=== PATIENT | male | born 1975 | race Caucasian/White ===

== ENCOUNTER → 2017-10-02 13:31 | Outpatient (REF) | payer OTHER, MEDICAID, SELFPAY | LOC: LAB 13:31 | PROVIDERS: PCP Internal Medicine; Visit Provider Internal Medicine | DX: R19.7 Diarrhea, unspecified (principal); Z53.9 Procedure and treatment not carried out, unspecified reason ==

== ENCOUNTER → 2017-10-11 09:13 | Outpatient (CLI) | payer OTHER, SELFPAY | PROVIDERS: PCP Internal Medicine; Visit Provider Internal Medicine | DX: R19.7 Diarrhea, unspecified (principal) | CPT/HCPCS: 87493 ==

== ENCOUNTER 2017-11-02 10:22 | Emergency (ER) | payer OTHER, MEDICAID, SELFPAY ==
[2017-11-02 10:27] VITALS: BP 116/84; PULSE 88; RESP 16; TEMP 36.7; O2SAT 97
[2017-11-02 12:15] LABS: Bacteria Urine None Seen; RBC Urine None Seen (0-5/HPF); WBC Urine None Seen (0-5/HPF)
[2017-11-02 12:17] LABS: Appearance Urine UA CLOUDY; Bilirubin Urine UA NEGATIVE (NEGATIVE); Color Urine UA YELLOW; Glucose Urine UA NEGATIVE (Normal); Ketones Urine UA 1+ (NEGATIVE); Leukocyte Esterase Urine UA 1+ (NEGATIVE); Nitrite Urine UA POSITIVE (Negative); Occult Blood Urine UA TRACE-LYSED (Negative); Protein Urine UA 3+ (Negative); Urobilinogen Urine UA 0.2 E.U./dL (0.2)
[2017-11-02 12:26] LABS: Amorphous Sediment Urine 4+; Culture Indicated Urine Cult Not Indicated
[2017-11-02 12:48] LABS: Add Manual Diff / Slide Review NO; Basophils Percent Auto 0.3 % (0-2); Eosinophils Percent Auto 0.3 % (2-4); Hematocrit 40.6 % (41-53); Hemoglobin 13.8 g/dL (13.5-17.5); Lymphocytes Percent Auto 14.8 % (25-40); Mean Corpuscular HGB Conc 33.9 % (30-36); Mean Corpuscular Hemoglobin 25.6 PG (26-34); Mean Corpuscular Volume 75.7 fL (80-100); Monocytes Percent Auto 5.9 % (3-14); Neutrophils Absolute Auto 6400 /uL (3000-5900); Neutrophils Percent Auto 78.7 % (50-75); Platelet Count 121 X10^3/uL (150-400); Red Blood Cell Count 5.36 X10^6/uL (4.5-5.9); Red Cell Distribution Width 15.6 % (11.6-14.8); White Blood Cell Count 8.2 X10^3/uL (4.5-11.0)
[2017-11-02 12:55] LABS: Alanine Aminotransferase 26 IU/L (21-72); Albumin 4.2 g/dL (3.5-5.0); Albumin Globulin Ratio 1.2 (1.0-2.8); Alkaline Phosphatase 74 U/L (38-126); Aspartate Aminotransferase 21 IU/L (17-59); Bilirubin Total 0.5 mg/dL (0.2-1.3); Blood Urea Nitrogen 6 mg/dL (9-20); Calcium 9.1 mg/dL (8.4-10.2); Carbon Dioxide 34 mmol/L (22-32); Chloride 97 mmol/L (98-107); Estimated Glomerular Filt Rate > 60.0 mL/min (>60); Globulin 3.5 g/dL (1.7-4.1); Glucose 112 mg/dL (70-100); HEMOLYSIS < 15 (0-50); Lipase 29 U/L (23-300); Potassium 3.6 mmol/L (3.4-5.1); Sodium 141 mmol/L (137-145); Total Protein 7.7 g/dL (6.3-8.2)
[2017-11-02 12:57] LABS: Lactate (Lactic Acid) 0.5 mmol/L (0.7-2.1)
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
[2017-11-02] MEDS: CIPROFLOXACIN 500 MG TABLET PO (14:07)
[2017-11-02 14:59] VITALS: BP 120/79; PULSE 72; RESP 18; TEMP 37.1; O2SAT 97
--- NOTE | 2017-11-02 15:05 | CM.SWNOTE ---
Requested by Dr Alexis to respond to the ED to speak w/adrian and his mom re Medicaid transportation. According to both mom and Adrian's report: Adrian has not been mmedically stable enough to sit up in his w/c to transport to doctor's appts. Adrian has severe pain, blood pressure drops, etc. They have scheduled stretcher transport via [facility] in the past and [facility] no longer will accept Medicaid reimbursement for scheduled pick ups (to and from Hospital is different). Attempted to contact Adrian's DEON JESE Reeves at [phone], she was not in office, so I spoke to puja Benites; she explained that scheduled stretcher transportation goes through the [facility] at [phone]. The [employer] [facility] needs to complete the authorization for stretcher transportation w/the contracted agency- [email or web address] at [phone] email contact [email or web address]. Provided above information to Adrian and mom; she thought she had likely attempted this before (?) Adrian the most concerned that he can not get to the dentist; he explains me teeth are literally falling out (h/o meth use). Both mom and Adrian appreciative for [employer] HUSB[employer] TECHNICIAN visit. No further needs/ f/u identified or required. Elizabeth Pak, [employer]AR[employer] ANIMAL HUSBANDRY TECHNICIAN
== END 2017-11-02 14:59 | disposition home or self-care (01) ==
PROVIDERS: Emergency Provider Emergency Medicine; PCP Internal Medicine
DX: N39.0 Urinary tract infection, site not specified (principal)
CPT/HCPCS: 36415; 80053; 81001; 83605; 83690; 85025; 99282; 99283

== ENCOUNTER 2017-11-05 10:50 | Emergency (ER) | payer OTHER, MEDICAID, SELFPAY ==
[2017-11-05 11:04] VITALS: BP 145/80; PULSE 69; RESP 20; TEMP 37.2; O2SAT 95
--- NOTE | 2017-11-05 11:54 | DI.CT.S_ITS ---
PROCEDURE: CT ABDOMEN PELVIS W CON INDICATIONS: Lower abdominal pain TECHNIQUE: After the administration of intravenous contrast, 5 mm thick sections acquired from the diaphragm to the symphysis. 5 mm coronal and sagittal reformats were acquired. For radiation dose reduction, the following was used: automated exposure control, adjustment of mA and/or kV according to patient size. COMPARISON: [facility], CT, ABDOMEN/PELVIS WITH CONTRAST, 11/12/2013, 0:28. [facility], MR, L-SPINE W&WO CONTRAST, 07/17/2014, 9:39. [facility], CT, KIDNEY/ URETER/BLADDER, 08/10/2014, 13:41. [facility], CT, ABDOMEN/PELVIS WITH CONTRAST, 07/05/2017, 11:36. FINDINGS: Image quality: Excellent. ABDOMEN: Lung bases: Lung bases are clear. Heart size is normal. Solid organs: Liver is normal in size and enhancement. Gallbladder is normal. Biliary system is non dilated. Pancreas enhances normally. Spleen is mildly enlarged measuring 14.9 cm. No adrenal nodules. Kidneys demonstrate normal size and enhancement, without hydronephrosis. Peritoneum and bowel: Bowel loops demonstrate normal wall thickness and caliber. There is fluid within the sigmoid colon. Sigmoid rectal junction may be mildly thickened. No free fluid or air. Nodes and vessels: No retroperitoneal or mesenteric adenopathy by size criteria. Aorta and inferior vena cava are normal in size. Miscellaneous: No ventral hernias. PELVIS: Genitourinary: Bladder wall thickness is normal. There is a suprapubic percutaneous catheter within the bladder. Miscellaneous: No inguinal hernias or adenopathy. Bones: No suspicious bony lesions. Mild compression deformity of T12, L1, L2, L3 and L5, unchanged from 07/17/19. Degenerative changes in lumbar spine. IMPRESSION: 1. Suprapubic percutaneous catheter within the bladder. 2. Fluid in the distal sigmoid colon. There may be mild thickening at the sigmoid rectal junction. Recommend correlation for mild colitis/proctitis. 3. Splenomegaly. Dictated by: Lizandro Harrison M.D. on 11/05/2017 at 12:24 Transcribed by: DAQUAN on 11/05/2017 at 12:27 Approved by: Lizandro Harrison M.D. on 11/05/2017 at 13:27
[2017-11-05 12:05] LABS: Add Manual Diff / Slide Review NO; Basophils Percent Auto 0.2 % (0-2); Eosinophils Percent Auto 0.2 % (2-4); Hematocrit 39.3 % (41-53); Hemoglobin 13.4 g/dL (13.5-17.5); Lymphocytes Percent Auto 11.2 % (25-40); Mean Corpuscular Hemoglobin 25.5 PG (26-34); Mean Corpuscular Volume 74.9 fL (80-100); Monocytes Percent Auto 5.7 % (3-14); Neutrophils Absolute Auto 7800 /uL (3000-5900); Neutrophils Percent Auto 82.7 % (50-75); Platelet Count 128 X10^3/uL (150-400); Red Blood Cell Count 5.24 X10^6/uL (4.5-5.9); Red Cell Distribution Width 15.3 % (11.6-14.8); White Blood Cell Count 9.5 X10^3/uL (4.5-11.0)
[2017-11-05 12:08] LABS: Lactate (Lactic Acid) 0.7 mmol/L (0.7-2.1)
[2017-11-05 12:09] LABS: Alanine Aminotransferase 27 IU/L (21-72); Albumin Globulin Ratio 1.1 (1.0-2.8); Alkaline Phosphatase 79 U/L (38-126); Aspartate Aminotransferase 23 IU/L (17-59); Bilirubin Total 0.6 mg/dL (0.2-1.3); Blood Urea Nitrogen 4 mg/dL (9-20); Calcium 8.9 mg/dL (8.4-10.2); Carbon Dioxide 29 mmol/L (22-32); Chloride 100 mmol/L (98-107); Estimated Glomerular Filt Rate > 60.0 mL/min (>60); Globulin 3.6 g/dL (1.7-4.1); Glucose 97 mg/dL (70-100); HEMOLYSIS 17 (0-50); Lipase 43 U/L (23-300); Potassium 3.3 mmol/L (3.4-5.1); Sodium 141 mmol/L (137-145); Total Protein 7.6 g/dL (6.3-8.2)
--- NOTE | 2017-11-05 13:08 | PC.NURSE ---
PROVIDER AWARE PT IS REQUESTING DIGITAL DIS-IMPACTION. CT SCAN REVIEWED. PROVIDER STATES STOOL IS TOO HIGH UP AT THIS POINT BASED OFF CT FINDINGS, DIGITAL DISIMPACTION WOULD NOT BENEFIT PT AT THIS TIME. NO NEW ORDERS AT THIS TIME. PT VERBALIZED UNDERSTANDING OF PROVIDERS REASONING TO AVOID DIGITAL DISIMPACTION AT THIS TIME. PTS FATHER CALLED PER PT REQUEST TO COME BACK TO ROOM.
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
[2017-11-05 13:34] VITALS: PULSE 72; RESP 17; O2SAT 100
[2017-11-05 14:19] VITALS: BP 117/74; PULSE 73; RESP 16; O2SAT 100
[2017-11-05 16:04] VITALS: BP 120/77; PULSE 78; RESP 20; TEMP 36.1; O2SAT 99
== END 2017-11-05 16:06 | disposition home or self-care (01) ==
PROVIDERS: Emergency Provider Emergency Medicine; PCP Internal Medicine
DX: K52.9 Noninfective gastroenteritis and colitis, unspecified (principal)
CPT/HCPCS: 36591; 74177; 80053; 83605; 83690; 85025; 93005; 99282; 99285; Q9967

== ENCOUNTER 2017-11-08 20:01 | Inpatient (IN) | payer OTHER, MEDICAID, SELFPAY ==
--- NOTE | 2017-11-08 20:08 | ED.ABDPAIN ---
HPI - Abdominal Pain General Chief Complaint: Abdominal Pain Stated Complaint: Abd Pain Time Seen by Provider: 11/08/17 20:08 Source: patient Mode of arrival: EMS Limitations: no limitations History of Present Illness HPI narrative: Patient is a 42-year-old male who has a history of C6 quadriplegia presenting for the 3rd time this week all with abdominal pain and discomfort. He was seen initially on the he had blood work on thought to have a UTI though he does have suprapubic catheter. He continued to have lower abdominal discomfort returned on 11/05/2017 he had blood work and a CT which revealed colitis. He says that he has had lots of loose watery diarrhea. He has had C diff in the past. He actually brought in a stool sample with him today and is a formed stool. Over the last 2 weeks especially over the last 4 days he has had significant weight loss. He has been losing weight over the past 6 months but since she start antibiotics he is not able to keep anything down. He feels like liquid goes right through him Related Data Home Medications Medication Instructions Recorded Confirmed sertraline 100 mg PO QDAY #0 06/11/17 11/08/17 alprazolam 0.25 mg PO BID #0 07/05/17 11/08/17 baclofen 20 mg PO QID #0 07/05/17 11/08/17 gabapentin [Gralise] 300 mg PO TID #0 07/05/17 11/08/17 methadone 10 mg PO BID #0 07/05/17 11/08/17 oxycodone 10 mg PO Q4HP PRN #0 07/05/17 11/08/17 bisacodyl 1 supp [place] DAILY PRN 11/02/17 11/08/17 omeprazole 40 mg PO BID 11/02/17 11/08/17 oxybutynin chloride 5 mg PO BID 11/02/17 11/08/17 sodium chloride 100 - 200 ml IRRIGATION 5XW 11/02/17 11/08/17 aspirin 325 mg PO DAILY 11/08/17 11/08/17 Previous Rx's Medication Instructions Recorded ciprofloxacin HCl 500 mg PO Q12H #20 tab 11/05/17 metronidazole 500 mg PO TID #30 tab 11/05/17 Allergies Allergy/AdvReac Type Severity Reaction Status Date / Time ondansetron [ONDANSETRON] Allergy Intermediate PAIN, Verified 11/05/17 11:10 ITCHING, ERYTHEMA AT INJECTION SITE [facility] Social History household members: family Smoking Status: Current every day smoker alcohol intake: never Exam Initial Vital Signs Initial Vital Signs: Vital Signs Temperature 97.9 F 11/08/17 20:11 Pulse Rate 97 H 11/08/17 20:11 Respiratory Rate 20 11/08/17 20:11 Blood Pressure 100/72 11/08/17 20:11 Pulse Oximetry 97 11/08/17 20:11 Const General: cooperative, healthy appearing and well developed Nutritional Appearance: not cachectic Resp Effort & Inspection: normal respiratory effort, able to speak in complete sentences, no respiratory distress and no use of accessory muscles Auscultation: clear to auscultation bilaterally, no rales, no rhonchi and no wheezes Cardio Rate: regular rate Rhythm: regular rhythm Heart Sounds: no click, no gallops, no murmurs and no rubs Pulses: normal peripheral pulses GI Palpation: soft and tender (Mild diffuse tenderness) Skin General: no rashes or lesions noted, No jaundice and No petechiae Neuro General: alert, awake, oriented x3 and no focal motor deficits (C6 paraplegia unchanged at baseline) Cranial Nerves: CN's II-XI intact bilaterally Course Orders Ordered: ED Orders 11/08/17 20:30 Complete Blood Count AUTO DIFF Stat Comprehensive Metabolic Panel Stat Lactate (Lactic Acid) Stat Lipase Stat 11/08/17 22:37 Consult to Physician Routine 11/08/17 22:46 Consult to Dietitian, Adult Routine Sodium Chloride (Normal Saline 0.9%) 1,000 mls @ 1,000 mls/hr IV CONT ROSA Last Infusion: 11/08/17 21:48 Dose: 0 mls/hr Admin: 11/08/17 20:55 Dose: 1,000 mls/hr Sodium Chloride (Normal Saline 0.9%) 1,000 mls @ 125 mls/hr IV CONT ROSA Last Admin: 11/08/17 23:18 Dose: 125 mls/hr Metronidazole (Flagyl) 500 mg in 100 mls @ 100 mls/hr IV Q8H ROSA Metoclopramide HCl (Reglan) 10 mg IV Q6HR PRN PRN Reason: Nausea And Vomiting Morphine Sulfate (Morphine Sulfate) 2 mg IV Q4H PRN PRN Reason: Pain, Moderate Last Admin: 11/08/17 23:24 Dose: 0.5 mg Discontinued Medications Aspirin (Aspirin) 325 mg PO NOW ONE Stop: 11/08/17 21:46 Last Admin: 11/08/17 22:04 Dose: 325 mg Levofloxacin (Levaquin) 750 mg in 150 mls @ 100 mls/hr IV NOW ONE Stop: 11/08/17 23:00 Last Infusion: 11/08/17 22:17 Dose: 100 mls/hr Admin: 11/08/17 22:04 Dose: 100 mls/hr Metronidazole (Flagyl) 500 mg in 100 mls @ 100 mls/hr IV NOW ONE Stop: 11/08/17 22:30 Last Infusion: 11/08/17 22:18 Dose: 100 mls/hr Admin: 11/08/17 22:04 Dose: 100 mls/hr Pantoprazole Sodium (Protonix) 40 mg IV NOW ONE Stop: 11/08/17 20:13 Last Admin: 11/08/17 20:54 Dose: 40 mg Consultations Consultation #1: Dr. Keane updated on patient's symptoms and test results agrees to admission. Vital Signs - 8 hr 11/08/17 20:11 11/08/17 20:36 11/08/17 21:30 Temperature 97.9 F Pulse Rate 97 H 81 92 H Respiratory Rate 20 18 14 Blood Pressure 100/72 Blood Pressure [Left Arm] 109/70 96/61 Pulse Oximetry 97 97 97 11/08/17 22:10 11/08/17 22:20 11/09/17 00:11 Temperature 97.3 F L 97.6 F Pulse Rate 85 82 85 Respiratory Rate 18 16 18 Blood Pressure 114/73 101/67 Blood Pressure [Left Arm] 93/60 Pulse Oximetry 96 98 97 MDM - Abdominal Pain Medical Records Attestation: I reviewed the patient's medical records. Lab Data Attestation: I reviewed the patient's lab results. Result diagrams: 11/08/17 20:30 11/08/17 20:30 Lab Results 11/08/17 11/08/17 11/08/17 Range/Units 20:30 20:30 20:30 WBC 12.5 H (4.5-11.0) X10^3/uL RBC 5.43 (4.5-5.9) X10^6/uL Hgb 13.7 (13.5-17.5) g/dL Hct 41.6 (41-53) % MCV 76.7 L (80-100) fL MCH 25.3 L (26-34) PG MCHC 32.9 (30-36) % RDW 16.0 H (11.6-14.8) % Plt Count 176 (150-400) X10^3/uL Neut % (Auto) 82.1 H (50-75) % Lymph % (Auto) 11.4 L (25-40) % [place] % (Auto) 5.9 (3-14) % Eos % (Auto) 0.2 L (2-4) % Baso % (Auto) 0.4 (0-2) % Neut # (Auto) 43108 H (4979-8230) /uL Sodium 140 (137-145) mmol/L Potassium 3.2 L (3.4-5.1) mmol/L Chloride 100 (98-107) mmol/L Carbon Dioxide 17 L (22-32) mmol/L BUN 3 L (9-20) mg/dL Creatinine 0.50 L (0.66-1.25) mg/dL Estimated GFR > 60.0 (>60) mL/min BUN/Creatinine Ratio 6.0 (6-22) Glucose 83 (70-100) mg/dL Lactate 0.6 L (0.7-2.1) mmol/L Calcium 8.9 (8.4-10.2) mg/dL Total Bilirubin 0.6 (0.2-1.3) mg/dL AST 28 (17-59) IU/L ALT 32 (21-72) IU/L Alkaline Phosphatase 83 (38-126) U/L Total Protein 8.0 (6.3-8.2) g/dL Albumin 4.4 (3.5-5.0) g/dL Globulin 3.6 (1.7-4.1) g/dL Albumin/Globulin Ratio 1.2 (1.0-2.8) Lipase 43 (23-300) U/L [facility] Narrative Medical decision making narrative: The patient now has all leukocytosis he has been here 3 times this week with persistent and worsening pain. He has been treated with Cipro and Flagyl for colitis however he continues to have discomfort. He actually brought in a stool sample and he does have formed stool the cup I do not believe him to have C diff. He has had significant weight loss and decreased oral intake over the last 4 days. He says this often happens with antibiotics. He appears nontoxic, no sign of sepsis. IV fluids seem to have helped. He had a CT a few days ago. Abdominal pain is not out of proportion at this time I do not think a repeat CT is indicated. Discharge Plan Departure Patient Disposition: Admitted As Inpatient Clinical Impression: Colitis Discharge Date/Time: 11/08/17 22:20 Interventions: ED Discharge Assessment Last Done: 11/08/17 22:19 Admit Date/Time: 11/08/17 21:53 Admit Provider: Rory Keane
[2017-11-08 20:11] VITALS: BP 100/72; PULSE 97; RESP 20; TEMP 36.6; O2SAT 97; BMI 27.3
[2017-11-08 20:36] VITALS: BP 109/70; PULSE 81; RESP 18; O2SAT 97
[2017-11-08 20:42] LABS: Add Manual Diff / Slide Review NO; Basophils Percent Auto 0.4 % (0-2); Eosinophils Percent Auto 0.2 % (2-4); Hematocrit 41.6 % (41-53); Hemoglobin 13.7 g/dL (13.5-17.5); Lymphocytes Percent Auto 11.4 % (25-40); Mean Corpuscular HGB Conc 32.9 % (30-36); Mean Corpuscular Hemoglobin 25.3 PG (26-34); Mean Corpuscular Volume 76.7 fL (80-100); Monocytes Percent Auto 5.9 % (3-14); Neutrophils Absolute Auto 10300 /uL (3000-5900); Neutrophils Percent Auto 82.1 % (50-75); Platelet Count 176 X10^3/uL (150-400); Red Blood Cell Count 5.43 X10^6/uL (4.5-5.9); White Blood Cell Count 12.5 X10^3/uL (4.5-11.0)
[2017-11-08 20:54] LABS: Alanine Aminotransferase 32 IU/L (21-72); Albumin 4.4 g/dL (3.5-5.0); Albumin Globulin Ratio 1.2 (1.0-2.8); Alkaline Phosphatase 83 U/L (38-126); Aspartate Aminotransferase 28 IU/L (17-59); Bilirubin Total 0.6 mg/dL (0.2-1.3); Blood Urea Nitrogen 3 mg/dL (9-20); Calcium 8.9 mg/dL (8.4-10.2); Carbon Dioxide 17 mmol/L (22-32); Chloride 100 mmol/L (98-107); Estimated Glomerular Filt Rate > 60.0 mL/min (>60); Globulin 3.6 g/dL (1.7-4.1); Glucose 83 mg/dL (70-100); HEMOLYSIS < 15 (0-50); Lipase 43 U/L (23-300); Potassium 3.2 mmol/L (3.4-5.1); Sodium 140 mmol/L (137-145)
[2017-11-08] MEDS: PANTOPRAZOLE 40 MG VIAL IV (20:54)
[2017-11-08 20:55] LABS: Lactate (Lactic Acid) 0.6 mmol/L (0.7-2.1)
[2017-11-08] MEDS: SODIUM CHLORIDE 0.9% 1,000 ML 1000 ML IV (20:55)
[2017-11-08 21:30] VITALS: BP 96/61; PULSE 92; RESP 14; O2SAT 97
[2017-11-08] MEDS: metroNIDAZOLE 500 MG/100 ML PIGGYBACK 100 MG IV (22:04)
[2017-11-08] MEDS: levoFLOXacin 750 MG/150 ML PIGGYBACK 100 MG IV (22:04)
[2017-11-08] MEDS: ASPIRIN 325 MG TABLET PO (22:04)
[2017-11-08 22:10] VITALS: BP 93/60; PULSE 85; RESP 18; O2SAT 96
[2017-11-08 22:20] VITALS: BP 114/73; PULSE 82; RESP 16; TEMP 36.3; O2SAT 98
[2017-11-08 22:31] VITALS: BMI 27.3
[2017-11-08] MEDS: SODIUM CHLORIDE 0.9% 1,000 ML 125 ML IV (23:18)
[2017-11-08] MEDS: MORPHINE 5 MG/ML INJ 2 MG IV (23:24)
[2017-11-09 00:11] VITALS: BP 101/67; PULSE 85; RESP 18; TEMP 36.4; O2SAT 97
--- NOTE | 2017-11-09 00:26 | PC.NURSE ---
0025 Dr. Keane paged to get an order for Xanax 0.5 mg. PRN @ . Will implement order after night pharmacist verified order.
[2017-11-09] MEDS: ALPRAZolam 0.25 MG TABLET 0.5 MG PO ×2 (01:07→20:50)
[2017-11-09 04:33] VITALS: BP 106/67; PULSE 78; RESP 18; TEMP 36.4; O2SAT 96
[2017-11-09] MEDS: metroNIDAZOLE 500 MG/100 ML PIGGYBACK 100 MG IV (05:38)
[2017-11-09 07:35] VITALS: BP 104/64; PULSE 97; RESP 18; TEMP 36.6; O2SAT 98
[2017-11-09] MEDS: GABAPENTIN 300 MG CAPSULE PO ×3 (08:46→20:50)
[2017-11-09] MEDS: SERTRALINE 50 MG TABLET 100 MG PO (08:46)
[2017-11-09] MEDS: OXYBUTYNIN 5 MG TABLET PO ×2 (08:46→20:51)
[2017-11-09] MEDS: BACLOFEN 10 MG TABLET 30 MG PO ×2 (08:48→20:50)
[2017-11-09] MEDS: MORPHINE 5 MG/ML INJ 2 MG IV ×3 (08:53→22:28)
[2017-11-09] MEDS: SODIUM CHLORIDE 0.9% 1,000 ML 125 ML IV ×2 (09:03→20:55)
--- NOTE | 2017-11-09 09:37 | PM.HP.1 ---
History of Present Illness Date Patient Seen: 11/09/17 Chief complaint: Colitis Narrative: Patient is a 42-year-old male with history of quadriplegia due to C6 injury presented for the 3rd time in 1 week due to complaints of abdominal pain. The discomfort has been gradual in onset and worsening since about 6 months ago. In July of this year he was treated for C difficile colitis. Patient complains of abdominal bloating, early satiety, severe upper and lower abdominal cramps, loss of appetite. He thinks he has lost about 40 lb in the past 6 months and 20 lb in around the past month. He requires suppository, lubricant and digital stimulation to have bowel movement. He states that bowel movements do help with the abdominal distension but not with the abdominal pain. He denies vomiting. He has had some loose stools but no consistent diarrhea. He brought in stool sample to the ER yesterday which was formed. Patient and mom are emphatic that he was having formed stools when diagnosed with C difficile colitis earlier this year. He had abdomen and pelvis CT scan on November 05, 2017 which showed some fluid in the distal sigmoid colon with possible mild thickening at the sigmoid rectal junction. He was started on ciprofloxacin and metronidazole for possible colitis. His WBC had been normal range on the 1st 2 ER visits but current ER visit WBC 12.5 with slight left shift. Chemistries okay except serum potassium of 3.2 slightly low. 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 (10/22/15) History of trauma to spine (Acute) Chronic pain syndrome (Acute) Uncomplicated opioid dependence (Acute) Autonomic dysreflexia (Acute) Mixed anxiety depressive disorder (06/29/15) Family & Social History Social History: household members family Prior Living Arrangements House Safety & Behavioral: Feels Safe in Current Yes Environment Been Physically Hurt or No Threatened By a Person Suicidal Ideation Description None Suicide Plan Description No Plan Tobacco & Substance use: Tobacco type cannabis/marijuana Smoking Status Current every day smoker alcohol intake never alcohol intake frequency 0-2 drinks per day Substance Use Type marijuana Meds Home Medications Medication Instructions Recorded Confirmed Type sertraline 100 mg PO QDAY #0 06/11/17 11/08/17 History alprazolam 0.25 mg PO BID #0 07/05/17 11/08/17 History baclofen 30 mg PO BID #0 07/05/17 11/09/17 History gabapentin [Gralise] 300 mg PO TID #0 07/05/17 11/08/17 History methadone See Label Instructions .ROUTE 07/05/17 11/09/17 History .COMPLEX #0 oxycodone 10 mg PO Q4HP PRN #0 07/05/17 11/08/17 History bisacodyl 1 supp [place] DAILY PRN 11/02/17 11/08/17 History omeprazole 40 mg PO BID 11/02/17 11/08/17 History oxybutynin chloride 5 mg PO BID 11/02/17 11/08/17 History sodium chloride 100 - 200 ml IRRIGATION 5XW 11/02/17 11/08/17 History ciprofloxacin HCl 500 mg PO Q12H #20 tab 11/05/17 11/08/17 Rx metronidazole 500 mg PO TID #30 tab 11/05/17 11/08/17 Rx aspirin 325 mg PO DAILY 11/08/17 11/08/17 History baclofen See Label Instructions .ROUTE 11/09/17 11/09/17 History .COMPLEX Allergies Allergy/AdvReac Type Severity Reaction Status Date / Time ondansetron [ONDANSETRON] Allergy Intermediate PAIN, Verified 11/05/17 11:10 ITCHING, ERYTHEMA AT INJECTION SITE Review of Systems Review of Systems All systems reviewed & are unremarkable except as noted in HPI and below Exam Vital Signs (past 8 hours): Vital Signs - 8 hr 11/09/17 04:33 11/09/17 07:35 Temperature 97.6 F 97.8 F Pulse Rate 78 97 H Respiratory Rate 18 18 Blood Pressure 106/67 104/64 Pulse Oximetry 96 98 Pulse Oximetry 98 Oxygen Delivery Method Room Air Oxygen Flow Rate 0 Narrative Exam Narrative: GENERAL: This is an alert male who is cooperative. HEAD: Atraumatic. Normocephalic. EYES: Pupils equal, round and reactive. Extraocular motions intact. No scleral icterus. OROPHARYNX: Unremarkable NECK: Trachea midline. No JVD or lymphadenopathy. CARDIOVASCULAR: Regular rate and rhythm without murmurs, gallops, or rubs. RESPIRATORY: Clear to auscultation bilaterally. GASTROINTESTINAL: Abdomen with normal bowel sounds, soft, tender in epigastric and all 4 quadrants, no abdominal mass EXTREMITIES: No edema. NEUROLOGICAL: Alert, well oriented, speech is intact, flaccid paralysis of bilateral lower extremities, he has partial use of arms SKIN: warm, dry, no rash Objective Labs Result Diagrams: 11/08/17 20:30 11/08/17 20:30 Labs: Laboratory Results - last 24 hr 11/08/17 11/08/17 11/08/17 20:30 20:30 20:30 WBC 12.5 H RBC 5.43 Hgb 13.7 Hct 41.6 MCV 76.7 L MCH 25.3 L MCHC 32.9 RDW 16.0 H Plt Count 176 Neut % (Auto) 82.1 H Lymph % (Auto) 11.4 L [place]cd[place] % (Auto) 5.9 Eos % (Auto) 0.2 L Baso % (Auto) 0.4 Neut # (Auto) 98908 H Sodium 140 Potassium 3.2 L Chloride 100 Carbon Dioxide 17 L BUN 3 L Creatinine 0.50 L Estimated GFR > 60.0 BUN/Creatinine Ratio 6.0 Glucose 83 Lactate 0.6 L Calcium 8.9 Total Bilirubin 0.6 AST 28 ALT 32 Alkaline Phosphatase 83 Total Protein 8.0 Albumin 4.4 Globulin 3.6 Albumin/Globulin Ratio 1.2 Lipase 43 Assessment & Plan Plan: Assessment/Plan Narrative: 1. Chronic abdominal pain, abnormal weight loss: Patient with progressive symptoms and 3 ER visits in the past week due to pain and inability to maintain adequate intake. He has nonspecific findings of some thickening in the distal colon. He was treated for C diff in July but not having significant diarrhea. The pain is generalized. Mildly elevated WBC on blood work. Patient actually has outpatient GI appointment for next week but states it is extremely difficult to arrange transportation for doctor visits as he has to be taken on stretcher by ambulance. He probably needs upper and lower endoscopy to further elucidate nature of complaints. I will consult General surgery to see if we can do the bowel prep and scope him during this admission. The bowel prep itself will be challenging due to patient requiring digital stimulation to evacuate rectum. Discontinue antibiotics at this time as there is no clear-cut evidence of infectious source. Ordered stool C difficile and say if he does have diarrheal stool. Hydrate with IV fluids. Continue routine medications. Quality VTE Deep Vein Thrombosis/Pulmonary Embolism Present on Admission: No
[2017-11-09] MEDS: METHADONE 5 MG TABLET PO ×2 (10:05→20:49)
[2017-11-09 11:00] VITALS: BP 111/77; PULSE 93; RESP 16; TEMP 36.6; O2SAT 98
[2017-11-09 13:20] LABS: Clostridium Difficile Tox PCR Negative for C. diff
[2017-11-09] MEDS: BACLOFEN 10 MG TABLET 25 MG PO (13:46)
[2017-11-09] MEDS: POTASSIUM CHLORIDE 40 MEQ in SODIUM CHLORIDE 0.9% 500 ML 130 ML IV (13:57)
[2017-11-09 14:54] VITALS: BMI 27.3
--- NOTE | 2017-11-09 15:40 | PM.CN ---
History of Present Illness Date Patient Seen: 11/09/17 Time Patient Seen: 15:25 Chief complaint: Colitis Reason for consult: Epigastric and left lower quadrant pain weight loss. Requesting provider: Rory Keane Narrative: The patient is a paraplegic who had a neck injury years ago. He has decreased motor function is upper extremities and no use of his lower extremities. His altered sensation of his intestines and abdomen. He has been in and out of the emergency room several times recently and was admitted this time for evaluation. He had left lower quadrant pain and epigastric pain which has persisted and become constant. He was seen emergency room and thought to have diverticulitis and was placed on Flagyl and a Floxin. Then he developed diarrhea while on the antibiotics. He has taken them for the last 4 days. He was seen again and brought into the hospital after CT scan revealed what might be a mild sigmoid colitis with no other major findings. The patient has had what is described to me is a 40 lb weight loss over last several months because he eats and has early satiety and epigastric pain. Sometimes it is a little hard for him to swallow. If he takes in a lot of fluid he says it makes him feel like he is full up to the brim and he gets reflux. [facility] Medical History Incomplete quadriplegia due to spinal cord lesion between fifth and seventh cervical vertebra (10/22/15) History of trauma to spine (Acute) Chronic pain syndrome (Acute) Uncomplicated opioid dependence (Acute) Autonomic dysreflexia (Acute) Mixed anxiety depressive disorder (06/29/15) Social History household members: family Smoking Status: Current every day smoker alcohol intake: never Meds Home Medications Medication Instructions Recorded Confirmed Type sertraline 100 mg PO QDAY #0 06/11/17 11/08/17 History alprazolam 0.25 mg PO BID #0 07/05/17 11/08/17 History baclofen 30 mg PO BID #0 07/05/17 11/09/17 History gabapentin [Gralise] 300 mg PO TID #0 07/05/17 11/08/17 History methadone See Label Instructions .ROUTE 07/05/17 11/09/17 History .COMPLEX #0 oxycodone 10 mg PO Q4HP PRN #0 07/05/17 11/08/17 History bisacodyl 1 supp [place] DAILY PRN 11/02/17 11/08/17 History omeprazole 40 mg PO BID 11/02/17 11/08/17 History oxybutynin chloride 5 mg PO BID 11/02/17 11/08/17 History sodium chloride 100 - 200 ml IRRIGATION 5XW 11/02/17 11/08/17 History ciprofloxacin HCl 500 mg PO Q12H #20 tab 11/05/17 11/08/17 Rx metronidazole 500 mg PO TID #30 tab 11/05/17 11/08/17 Rx aspirin 325 mg PO DAILY 11/08/17 11/08/17 History baclofen See Label Instructions .ROUTE 11/09/17 11/09/17 History .COMPLEX Allergies Allergy/AdvReac Type Severity Reaction Status Date / Time ondansetron [ONDANSETRON] Allergy Intermediate PAIN, Verified 11/05/17 11:10 ITCHING, ERYTHEMA AT INJECTION SITE Review of Systems Review of Systems Patient has no pain in his eyes or double vision. No earaches. He has chronic problems with his teeth and the break-off regularly. Occasionally has trouble swallowing. Does not have a cough or cold at this time. No heart problems he is aware of though he does developed a reflex tachycardia when he has bowel movements. This can cause him to developed migraines. Patient is unaware of any black or bloody bowel movements. He has no seizures or blackouts. Has muscle spasms. Is on medication to control them. The patient describes an injury involving either C6-7. His stepfather says he basically is feeling to his nipple level. He has an indwelling suprapubic tube and has no control over his bladder. He often as to be stimulated order to have a bowel movement though at present he is having them spontaneously. They are loose. Exam Vital Signs (past 8 hours): Vital Signs - 8 hr 11/09/17 11:00 Temperature 97.8 F Pulse Rate 93 H Respiratory Rate 16 Blood Pressure 111/77 Pulse Oximetry 98 Pulse Oximetry 98 Oxygen Delivery Method Room Air Oxygen Flow Rate 0 Narrative Exam Narrative: Overweight gentleman not in any distress at this time. His eyes are nonicteric. Conjunctivae are pink. Ears without lesion. Nasal septum is midline. Oral mucosa is pink multiple teeth a [place] id and fractured. There are no nodes in the neck or supraclavicular areas. Lungs are clear to auscultation with good effort. Heart regular rate and rhythm I do not appreciate a murmur gallop. His abdomen is protuberant and soft. There is no guarding. There is no tenderness at this time. There are no masses and no hernias appreciated. Suprapubic tube is in place. Objective Imaging CT scan - abdomen: My impression: Mild thickening of the area of the distal sigmoid rectum. No hernias. This is a non contrasted study. No other significant findings. Radiologist's impression: We are in agreement Labs Result Diagrams: 11/08/17 20:30 11/08/17 20:30 Labs: Laboratory Results - last 24 hr 11/08/17 11/08/17 11/08/17 20:30 20:30 20:30 WBC 12.5 H RBC 5.43 Hgb 13.7 Hct 41.6 MCV 76.7 L MCH 25.3 L MCHC 32.9 RDW 16.0 H Plt Count 176 Neut % (Auto) 82.1 H Lymph % (Auto) 11.4 L [place] % (Auto) 5.9 Eos % (Auto) 0.2 L Baso % (Auto) 0.4 Neut # (Auto) 31819 H Sodium 140 Potassium 3.2 L Chloride 100 Carbon Dioxide 17 L BUN 3 L Creatinine 0.50 L Estimated GFR > 60.0 BUN/Creatinine Ratio 6.0 Glucose 83 Lactate 0.6 L Calcium 8.9 Total Bilirubin 0.6 AST 28 ALT 32 Alkaline Phosphatase 83 Total Protein 8.0 Albumin 4.4 Globulin 3.6 Albumin/Globulin Ratio 1.2 Lipase 43 C. difficile Tox (PCR) 11/09/17 11:20 WBC RBC Hgb Hct MCV MCH MCHC RDW Plt Count Neut % (Auto) Lymph % (Auto) [place] % (Auto) Eos % (Auto) Baso % (Auto) Neut # (Auto) Sodium Potassium Chloride Carbon Dioxide BUN Creatinine Estimated GFR BUN/Creatinine Ratio Glucose Lactate Calcium Total Bilirubin AST ALT Alkaline Phosphatase Total Protein Albumin Globulin Albumin/Globulin Ratio Lipase C. difficile Tox (PCR) Negative for c. diff Assessment & Plan Plan: Assessment/Plan Narrative: Patient is a gentleman who has developed persistent epigastric and left lower quadrant pain. He has had progressive weight loss of 40 lb over the last several months that he has scribed to decreased intake due to his epigastric symptoms and early satiety. His pain increases after a meal. I suspect he may have a gastric or duodenal ulcer. I think an EGD is in order in this patient. In addition he has chronic left lower quadrant pain and has been treated in part for diverticulitis which isn't clearly present. I would like to perform a colonoscopy as well or at least a flexible sigmoidoscopy to evaluate the segment of his colon. I have discussed this with the patient. Risks of bleeding infection perforation all discussed. He appears to understand and wishes to proceed. Dr. Camacho will be performing the procedure in the morning. Bowel prep has been ordered.
--- NOTE | 2017-11-09 15:47 | CM.SWNOTE ---
DCP Pending: Patient is pending surgery 11/10/17 0900. CM team to complete assessment following surgery. Plan: Pending. Patient is quadriplegia and resides with her CG/Mom.
[2017-11-09 15:49] VITALS: BP 124/81; PULSE 80; RESP 18; TEMP 36.2; O2SAT 97
--- NOTE | 2017-11-09 16:12 | CM.DPNOTE ---
Faxed initial clinical to [facility] per request F [phone]. NANCY
[2017-11-09] MEDS: BISACODYL 5 MG TABLET 10 MG PO (16:27)
[2017-11-09] MEDS: PANTOPRAZOLE 40 MG VIAL IV ×2 (16:27→20:51)
[2017-11-09] MEDS: PEG3350/SOD SULF,BICARB,CL/KCL 4,000 ML SOLUTION 2000 ML PO (19:16)
[2017-11-09] MEDS: METOCLOPRAMIDE 10 MG/2 ML INJ IV (19:17)
[2017-11-09 20:19] VITALS: BP 107/74; PULSE 75; RESP 16; TEMP 36.4; O2SAT 97
[2017-11-09] MEDS: SIMETHICONE 80 MG TABLET PO (20:51)
--- NOTE | 2017-11-09 22:42 | PC.NURSE ---
PATINET HAS STARTED TO HAVE STOOL,TURNED TO LEFT SIDE.
[2017-11-10] VITALS (13 sets, daily range): BP systolic 108–136; BP diastolic 72–93; PULSE 72–96; RESP 11–19; TEMP 36.4–37.4; O2SAT 96–99
--- NOTE | 2017-11-10 | PATH_ITS ---
[facility] Accession Number: [id number] . 01 Material submitted: . PART A: DUODENAL BIOPSY PART B: BIOPSY OF ANTRUM PART C: GE JUNCTION BIOPSY PART D: FUNDUS BIOPSY PART E: POLYP AT 35CM . 02 Diagnosis: A. Biopsy Duodenum: Fragments of normal appearing duodenal mucosa. Normal delicate mucosal villi present. Negative for significant inflammation, dysplasia, and malignancy. . B. Biopsies Gastric Antrum: Focal moderate chronic active gastritis involving antral mucosa and mild chronic gastritis involving fundic mucosa. Immunohistochemistry for Helicobacter pending, to be reported by addendum. Negative for intestinal metaplasia. Negative for dysplasia and malignancy. . C. Gastroesophageal Junction Biopsies: Fragment of gastric cardia-type mucosa with no squamous mucosa present, negative for specialized metaplasia of Carmona's-type esophagus. Chronic inflammation and reactive epithelial changes, but negative for true dysplasia. . D. Biopsy Gastric Fundus: Mild superficial chronic gastritis involving fundic mucosa. Negative for evidence of Helicobacter on H/E stain. Negative for intestinal metaplasia. Negative for dysplasia and malignancy. . E. Biopsy Colon Polyp at 35 cm: Polypoid tubular adenoma involving all biopsy fragments. MRV/11/14/2017 . 02 Electronically signed: . Wing Uriarte MD, Pathologist NPI- [id number] . 01 Gross description: . Received are five formalin-filled containers, each labeled with the patient's name: . A. In a container labeled duodenum, the specimen consists of a 0.2 cm portion of tissue, entirely submitted in cassette A. B. In a container labeled antrum, the specimen consists of three less than 0.1 cm to 0.3 cm portions of tissue, entirely submitted in cassette B. C. In a container labeled GE junction, the specimen consists of a 0.2 cm portion of tissue, entirely submitted in cassette C. D. In a container labeled fundus, the specimen consists of two 0.2-0.3 cm portions of tissue, entirely submitted in cassette D. E. In a container labeled polyp at 35 cm, the specimen consists of multiple 0.1-1.5 cm, reyes-bowden to bowden-brown, friable, fragmenting portions of tissue. The largest pieces are sectioned and all fragments are totally submitted in cassettes E1-E4. (DC:[facility] [id number]) /FRR . 02 Pathologist provided ICD-10: D12.5 . 02 CPT . 538983, 141614, 980284, 221536, 188947, [id number] Performed at: [address] [facility] [address] [id number] MD Justice Alejandre MD Phone: [phone] Performed at: 02 [facility] [address] [place] [id number] MD Dustin Guo MD Phone: [phone]
[2017-11-10] MEDS: METOCLOPRAMIDE 10 MG/2 ML INJ IV (04:30)
[2017-11-10] MEDS: PEG3350/SOD SULF,BICARB,CL/KCL 4,000 ML SOLUTION 2000 ML PO (04:35)
[2017-11-10] MEDS: MORPHINE 5 MG/ML INJ 2 MG IV (04:47)
[2017-11-10] MEDS: SODIUM CHLORIDE 0.9% 1,000 ML 125 ML IV (05:31)
--- NOTE | 2017-11-10 05:50 | PC.NURSE ---
Pt. requesting all his 0900 meds. to be taken @ 0600. Reported takes morning pills every 0600 @ home & wants to keep home medications regimen. Dr. Bolaños notified an ordered to give pt's. his 0900 meds. @ 0600. Will implement order.
[2017-11-10] MEDS: SERTRALINE 50 MG TABLET 100 MG PO (06:07)
[2017-11-10] MEDS: METHADONE 5 MG TABLET PO ×2 (06:08→20:22)
[2017-11-10] MEDS: GABAPENTIN 300 MG CAPSULE PO ×3 (06:08→20:23)
[2017-11-10] MEDS: OXYBUTYNIN 5 MG TABLET PO ×2 (06:08→20:23)
[2017-11-10] MEDS: BACLOFEN 10 MG TABLET 25 MG PO ×2 (06:09→12:56)
[2017-11-10 06:11] LABS: HEMOLYSIS < 15 (0-50); Potassium 3.2 mmol/L (3.4-5.1)
[2017-11-10 06:12] LABS: Calcium 8.5 mg/dL (8.4-10.2); Carbon Dioxide 19 mmol/L (22-32); Chloride 104 mmol/L (98-107); Estimated Glomerular Filt Rate > 60.0 mL/min (>60); Glucose 100 mg/dL (70-100); Sodium 141 mmol/L (137-145)
[2017-11-10] MEDS: PANTOPRAZOLE 40 MG VIAL IV (06:13)
[2017-11-10] MEDS: BACLOFEN 10 MG TABLET 30 MG PO ×2 (06:13→20:23)
[2017-11-10 06:24] LABS: Blood Urea Nitrogen < 2 mg/dL (9-20)
--- NOTE | 2017-11-10 08:51 | PC.NURSE ---
AT [address]RICS INSTRUCTOR NOT[address] DR. OSORIO BY TELEPHONE, THAT THE PATIENT HAD BEEN DRINKING THE GO-LYTELY UP UNTIL 0630 THIS AM AND HAD ONE SIP OF MELVINA DONALD AT 0715. SHE STATES SHE WILL DISCUSS THIS WITH SURGEON AND WILL LIKELY PROCEED WITH PROCEDURE AT 0900 SCHEDULED. PRIMARY NURSE NOTIFIED.
[2017-11-10] MEDS: LACTATED RINGERS 1,000 ML 42 ML IV (09:07)
--- NOTE | 2017-11-10 09:10 | PC.NURSE ---
Pt taken to OR at 0945. one loose stool prior to departure. NPO since 719, when he took a sip of soda.
--- NOTE | 2017-11-10 10:41 | PM.OP.1 ---
Operative Date/Time/Diagnoses - Date of procedure: 11/10/17 Time of procedure: 10:41
--- NOTE | 2017-11-10 11:06 | SUR.OPER ---
Pt linens changed post procedure by OR staff
--- NOTE | 2017-11-10 11:17 | SUR.PHASEI ---
PT TOLERATING SIPS OF APPLE JUICE, REPORT CALLED TO CAROL ANN SARAVIA
--- NOTE | 2017-11-10 11:38 | PC.NURSE ---
Pt returned from PACU at 1130. Pt denies pain. May resume POs. Family in room. Dr Camacho states she would like him to have a swallow study tomorrow before dc home.
--- NOTE | 2017-11-10 12:32 | PM.PN.1 ---
Subjective Date Patient Seen: 11/10/17 Interval history: Patient with complaints of difficulty eating and early satiety. He had upper and lower endoscopy today with the colonoscopy showing a large sigmoid polyp. On upper endoscopy there was no ulcer or esophagitis and GE junction seem to be normal. Exam Vital Signs (past 8 hours): Vital Signs - 8 hr 11/10/17 07:47 11/10/17 09:10 11/10/17 10:56 Temperature 97.6 F 97.8 F Pulse Rate 79 76 86 Respiratory Rate 16 18 15 Blood Pressure 121/75 H 128/72 H 108/79 Pulse Oximetry 98 97 97 11/10/17 11:02 11/10/17 11:10 11/10/17 11:22 Temperature 97.8 F 97.6 F Pulse Rate 95 H 81 85 Respiratory Rate 15 11 L 15 Blood Pressure 120/88 H 115/82 H 121/86 H Pulse Oximetry 97 98 97 11/10/17 11:30 11/10/17 12:06 Temperature 98.5 F 98.6 F Pulse Rate 76 77 Respiratory Rate 18 18 Blood Pressure 136/87 H 134/88 H Pulse Oximetry 98 99 Pulse Oximetry 99 Oxygen Delivery Method Room Air Oxygen Flow Rate 0 Objective Labs Result Diagrams: 11/08/17 20:30 11/10/17 05:50 Labs: Laboratory Results - last 24 hr 11/09/17 11/10/17 11:20 05:50 Sodium 141 Potassium 3.2 L Chloride 104 Carbon Dioxide 19 L BUN < 2 L Creatinine 0.40 L Estimated GFR > 60.0 BUN/Creatinine Ratio 5.0 L Glucose 100 Calcium 8.5 C. difficile Tox (PCR) Negative for c. diff Assessment & Plan Plan: Assessment/Plan Narrative: 1. Chronic abdominal pain, early satiety, abnormal weight loss: CT scan with nonspecific thickening in the sigmoid colon. Colonoscopy showed a 6-7 cm polyp, pathology pending. EGD without ulcer or mass. A gastric emptying study has been ordered due to complaints of early satiety. This will be done as inpatient due to patient's extreme difficulty arranging transportation for outpatient services. Hep-Lock IV and diet as tolerated. He has 40 lb weight loss over the past 6 months. He actually has outpatient GI appointment for next week but states it is extremely difficult to arrange transportation for doctor visits as he has to be taken on stretcher by ambulance. 2. Functional quadriplegia: Continue routine home medications. 3. History of C difficile colitis: His C diff as say is negative on this admission. Quality VTE Deep Vein Thrombosis/Pulmonary Embolism Present on Admission: No
--- NOTE | 2017-11-10 12:41 | P.PN_ITS ---
Subjective Date Patient Seen: 11/10/17 Interval history: Patient with complaints of difficulty eating and early satiety. He had upper and lower endoscopy today with the colonoscopy showing a large sigmoid polyp. On upper endoscopy there was no ulcer or esophagitis and GE junction seem to be normal. Exam Vital Signs (past 8 hours): Vital Signs - 8 hr 3 11/10/17 07:47 11/10/17 09:10 11/10/17 10:56 Temperature 97.6 F 97.8 F Pulse Rate 79 76 86 Respiratory Rate 16 18 15 Blood Pressure 121/75 H 128/72 H 108/79 Pulse Oximetry 98 97 97 3 11/10/17 11:02 11/10/17 11:10 11/10/17 11:22 Temperature 97.8 F 97.6 F Pulse Rate 95 H 81 85 Respiratory Rate 15 11 L 15 Blood Pressure 120/88 H 115/82 H 121/86 H Pulse Oximetry 97 98 97 3 11/10/17 11:30 11/10/17 12:06 Temperature 98.5 F 98.6 F Pulse Rate 76 77 Respiratory Rate 18 18 Blood Pressure 136/87 H 134/88 H Pulse Oximetry 98 99 Pulse Oximetry 99 Oxygen Delivery Method Room Air Oxygen Flow Rate 0 Objective Labs Result Diagrams: 11/08/17 20:30 11/10/17 05:50 Labs: Laboratory Results - last 24 hr 11/09/17 11/10/17 11:20 05:50 Sodium 141 Potassium 3.2 L Chloride 104 Carbon Dioxide 19 L BUN < 2 L Creatinine 0.40 L Estimated GFR > 60.0 BUN/Creatinine Ratio 5.0 L Glucose 100 Calcium 8.5 C. difficile Tox (PCR) Negative for c. diff Assessment & Plan Plan: Assessment/Plan Narrative: 1. Chronic abdominal pain, early satiety, abnormal weight loss: CT scan with nonspecific thickening in the sigmoid colon. Colonoscopy showed a 6-7 cm polyp , pathology pending. EGD without ulcer or mass. A gastric emptying study has been ordered due to complaints of early satiety. This will be done as inpatient due to patient's extreme difficulty arranging transportation for outpatient services. Hep-Lock IV and diet as tolerated. He has 40 lb weight loss over the past 6 months. He actually has outpatient GI appointment for next week but states it is extremely difficult to arrange transportation for doctor visits as he has to be taken on stretcher by ambulance. 2. Functional quadriplegia: Continue routine home medications. 3. History of C difficile colitis: His C diff as say is negative on this admission. Quality VTE Deep Vein Thrombosis/Pulmonary Embolism Present on Admission: No
--- NOTE | 2017-11-10 12:49 | P.OP_ITS ---
Operative Date/Time/Diagnoses - Date of procedure: 11/10/17 Time of procedure: 09:35 Pre-op diagnosis: 1. Early satiety 2. Abdominal pain 3. Weight loss-unexplained Post-op diagnosis: same Procedure & Clinicians Procedure: Esophagogastroduodenoscopy with biopsies and colonoscopy with polypectomy Same procedure as scheduled: Yes Indications: No prior colonoscopy Surgeon: Tavia Camacho Click Yes if Unassisted: Yes Anesthesia Type: General (Dr. Montes) Operative Notes Findings: 1. Normal duodenum 2. Mild antral gastritis 3. Hyper glandular tissue in the lesser curvature of the fundus 4. GE junction at 41 cm from the incisors. No evidence of hiatal hernia. Competent and functioning sphincter 5. Excellent prep 6. 5-6 cm pedunculated polyp at 35 cm from the anal verge. The polyp was removed with snare and cautery and submitted for pathology. 7. No significant diverticulosis 8. No other mucosal abnormalities or AV malformations 9. Grade 1 internal hemorrhoids Closure Type: not applicable Specimen(s): other (Polyp at 35 cm from the anal verge) Estimated Blood Loss (mL): 1 Procedure in detail: After obtaining informed consent, the patient was brought to the GI suite and placed in the left lateral decubitus position on the examination table. Following successful induction of general endotracheal anesthesia, appropriate placement of all monitors and padding of all bony prominences, a bite block was placed in the patient's mouth. A time out was held per SCOAP protocol. We began with EGD. The endoscope was lubricated and then passed into the patient 's posterior oropharynx. The esophagus was cannulated under direct vision and the scope was passed to the second portion of the duodenum without difficulty. The scope was then withdrawn with careful examination of all areas of the upper GI tract and mucosa. In the stomach, the instrument was retroflexed and the GE junction examined. The scope was straightened and the procedure continued with examination of the remainder of the upper GI tract. Findings are noted above. Air was aspirated from the stomach and the endoscope gently removed from the esophagus. The examination table was turned and we continued with the colonoscopy. A digital rectal examination was performed and did not reveal any masses or obstructing lesions. The colonoscope was gently passed into the patient's anus and the entire colon navigated to the level of the cecum with minimal difficulty. Upon advancing the scope, we noted a large polypoid mass at 35 cm from the anal verge. We were able to easily passed by this mass and continue on to the cecum. Once in the cecum, the scope was withdrawn being sure to go before and beyond all mucosal folds and prominences and get an excellent examination. The findings are noted above. The mass at 35 cm was again identified. Using snare and cautery, the 5-6 cm mass was removed in a piecemeal fashion and retained for pathology. It was noted to be on a stalk of less than 1 cm thickness. Once we felt we had removed all of the mass, the location in the colon was marked with Daniella ink. The scope was then withdrawn and the procedure continued. At the level of the rectal vault, the scope was retroflexed and the internal anal canal was examined. The scope was straightened and air aspirated from the colon. The instrument was removed from the patient's body and the procedure was concluded. The patient was allowed to awaken from sedation without difficulty and taken to the post-anesthesia care unit in good condition. Complications: none Condition: stable Disposition: PACU Plan for aftercare: 1. Return to [facility] for continued convalescence. 2. The patient may need a gastric emptying study to evaluate the function of his stomach prior to discharge. 3. We will await pathology results before making further recommendations.
[2017-11-10] MEDS: OXYCODONE IR 10 MG TABLET PO ×2 (12:54→18:03)
[2017-11-10] MEDS: MORPHINE 4 MG/ML INJ 2 MG IV (18:24)
[2017-11-10] MEDS: ALPRAZolam 0.25 MG TABLET 0.5 MG PO (20:22)
[2017-11-10] MEDS: DOCUSATE 100 MG CAPSULE PO (20:22)
[2017-11-11 00:32] VITALS: BP 105/77; PULSE 98; RESP 16; TEMP 36.4; O2SAT 97
[2017-11-11] MEDS: MORPHINE 5 MG/ML INJ 2 MG IV (00:35)
[2017-11-11] MEDS: OXYBUTYNIN 5 MG TABLET PO ×2 (05:52→20:51)
[2017-11-11] MEDS: SERTRALINE 50 MG TABLET 100 MG PO (05:52)
[2017-11-11] MEDS: GABAPENTIN 300 MG CAPSULE PO ×3 (05:52→20:51)
[2017-11-11] MEDS: METHADONE 5 MG TABLET PO ×2 (05:52→20:52)
[2017-11-11] MEDS: BACLOFEN 10 MG TABLET 30 MG PO ×2 (05:53→20:52)
[2017-11-11] MEDS: MORPHINE 4 MG/ML INJ 2 MG IV (07:00)
[2017-11-11 08:13] VITALS: BP 111/72; PULSE 95; RESP 16; TEMP 36.3; O2SAT 97
[2017-11-11] MEDS: DOCUSATE 100 MG CAPSULE PO ×2 (09:55→20:52)
--- NOTE | 2017-11-11 10:02 | P.PN_ITS ---
Subjective Date Patient Seen: 11/11/17 Time Patient Seen: 10:00 Interval history: Patient was able to eat more food last night than he has in a long time. He does feel distended this morning and having upper and lower abdominal pain as before. Exam Vital Signs (past 8 hours): Vital Signs - 8 hr 3 11/11/17 08:13 Temperature 97.3 F L Pulse Rate 95 H Respiratory Rate 16 Blood Pressure 111/72 Pulse Oximetry 97 Pulse Oximetry 97 Oxygen Delivery Method Room Air Oxygen Flow Rate 0 Narrative Exam Narrative: General: Alert very pleasant male in no acute distress Abdomen: Soft, mildly tender across upper and lower abdomen, unchanged exam Objective Labs Result Diagrams: 11/08/17 20:30 11/10/17 05:50 Assessment & Plan Plan: Assessment/Plan Narrative: 1.1. Chronic abdominal pain, early satiety, abnormal weight loss: CT scan with nonspecific thickening in the sigmoid colon. Colonoscopy showed a 6-7 cm pedunculated polyp which was removed, pathology pending. EGD with only mild antral gastritis, hyper glandular tissue in lesser curvature fundus, no ulcer or mass, no hiatal hernia, GE junction with competent and functioning sphincter. A gastric emptying study has been ordered due to complaints of early satiety. This will be done as inpatient due to patient's extreme difficulty arranging transportation for outpatient services. Oral Reglan may help with gastric motility if this turns out to be an issue. He has 40 lb weight loss over the past 6 months. He actually has outpatient GI appointment for next week but states it is extremely difficult to arrange transportation for doctor visits as he has to be taken on stretcher by ambulance. 2. Functional quadriplegia: Continue routine home medications. 3. History of C difficile colitis: His C diff as say is negative on this admission. Patient is on high-dose omeprazole. Recommend discontinuing omeprazole since PPI therapy increases risk of C diff and patient does not have true heartburn or evidence of esophagitis. 4. Disposition: Likely discharge tomorrow, Sunday, after gastric emptying study, assuming patient does not need placement of urgent jejunal feeding tube. Quality VTE Deep Vein Thrombosis/Pulmonary Embolism Present on Admission: No
[2017-11-11] MEDS: OXYCODONE IR 10 MG TABLET PO ×2 (13:11→20:50)
[2017-11-11] MEDS: BACLOFEN 10 MG TABLET 25 MG PO (13:12)
[2017-11-11 14:53] VITALS: BP 130/80; PULSE 97; RESP 18; TEMP 36.5; O2SAT 97
--- NOTE | 2017-11-11 15:00 | P.PN_ITS ---
Subjective Date Patient Seen: 11/11/17 Time Patient Seen: 14:59 Interval history: Awake and alert and talking with friends. He reports that he was able to eat last night and this morning. Continues to have some right lower quadrant pain and says after he eats his pain is right under his sternum. It seems to radiate to his armpits bilaterally but more to the left than the right. In good spirits today. Exam Vital Signs (past 8 hours): Vital Signs - 8 hr 3 11/11/17 08:13 11/11/17 14:53 Temperature 97.3 F L 97.7 F Pulse Rate 95 H 97 H Respiratory Rate 16 18 Blood Pressure 111/72 130/80 H Pulse Oximetry 97 97 Pulse Oximetry 97 Oxygen Delivery Method Room Air Oxygen Flow Rate 0 Narrative Exam Narrative: Abdomen is soft with active bowel sounds. Objective Labs Result Diagrams: 11/08/17 20:30 11/10/17 05:50 Assessment & Plan Plan: Assessment/Plan Narrative: 1. We will order a gastric emptying study for the morning. 2. Recheck labs as his last white blood cell count was on November 08 and he had a large polyp removed yesterday. His spinal cord injury may blunt his ability to assess abdominal pain. Quality VTE Deep Vein Thrombosis/Pulmonary Embolism Present on Admission: No
[2017-11-11 15:56] VITALS: BP 112/76; PULSE 85; RESP 16; TEMP 36.9; O2SAT 96
[2017-11-11 20:34] VITALS: BP 104/69; PULSE 94; RESP 16; TEMP 36.2; O2SAT 97
[2017-11-11] MEDS: ALPRAZolam 0.25 MG TABLET 0.5 MG PO (20:51)
[2017-11-11] MEDS: TRAZODONE 50 MG TABLET PO (22:53)
[2017-11-11 23:39] VITALS: BP 96/63; PULSE 91; RESP 17; TEMP 36.7; O2SAT 96
[2017-11-12 03:34] VITALS: BP 109/76; PULSE 100; RESP 17; TEMP 36.6; O2SAT 96
[2017-11-12] MEDS: BACLOFEN 10 MG TABLET 30 MG PO ×2 (05:57→21:11)
[2017-11-12] MEDS: OXYCODONE IR 10 MG TABLET PO (05:57)
[2017-11-12] MEDS: GABAPENTIN 300 MG CAPSULE PO ×3 (05:57→21:11)
[2017-11-12] MEDS: METHADONE 5 MG TABLET PO ×2 (05:57→21:11)
[2017-11-12 06:08] LABS: Add Manual Diff / Slide Review NO; Basophils Percent Auto 0.3 % (0-2); Eosinophils Percent Auto 0.7 % (2-4); Hematocrit 38.2 % (41-53); Hemoglobin 12.9 g/dL (13.5-17.5); Lymphocytes Percent Auto 18.9 % (25-40); Mean Corpuscular HGB Conc 33.7 % (30-36); Mean Corpuscular Hemoglobin 25.6 PG (26-34); Mean Corpuscular Volume 75.9 fL (80-100); Monocytes Percent Auto 8.9 % (3-14); Neutrophils Absolute Auto 5900 /uL (3000-5900); Neutrophils Percent Auto 71.2 % (50-75); Platelet Count 165 X10^3/uL (150-400); Red Blood Cell Count 5.03 X10^6/uL (4.5-5.9); Red Cell Distribution Width 15.8 % (11.6-14.8); White Blood Cell Count 8.2 X10^3/uL (4.5-11.0)
[2017-11-12 06:12] LABS: Alanine Aminotransferase 33 IU/L (21-72); Albumin 3.7 g/dL (3.5-5.0); Albumin Globulin Ratio 1.1 (1.0-2.8); Alkaline Phosphatase 61 U/L (38-126); Aspartate Aminotransferase 20 IU/L (17-59); Bilirubin Total 0.5 mg/dL (0.2-1.3); Blood Urea Nitrogen 4 mg/dL (9-20); Calcium 8.5 mg/dL (8.4-10.2); Carbon Dioxide 29 mmol/L (22-32); Chloride 98 mmol/L (98-107); Estimated Glomerular Filt Rate > 60.0 mL/min (>60); Globulin 3.3 g/dL (1.7-4.1); Glucose 94 mg/dL (70-100); HEMOLYSIS < 15 (0-50); Sodium 141 mmol/L (137-145)
[2017-11-12 06:30] LABS: Potassium 2.6 mmol/L (3.4-5.1)
[2017-11-12 08:00] VITALS: BP 104/73; PULSE 87; RESP 16; TEMP 37.1; O2SAT 97
[2017-11-12] MEDS: POTASSIUM CHLORIDE 40 MEQ in SODIUM CHLORIDE 0.9% 500 ML 130 ML IV (09:12)
[2017-11-12] MEDS: OXYBUTYNIN 5 MG TABLET PO ×2 (09:22→21:11)
[2017-11-12] MEDS: SERTRALINE 50 MG TABLET 100 MG PO (09:22)
[2017-11-12] MEDS: POTASSIUM CHLORIDE 20 MEQ TAB 40 MEQ PO ×2 (09:23→22:56)
[2017-11-12] MEDS: DOCUSATE 100 MG CAPSULE PO ×2 (09:31→21:11)
[2017-11-12 12:05] VITALS: BP 96/65; PULSE 95; RESP 16; TEMP 36.6; O2SAT 97
[2017-11-12] MEDS: BACLOFEN 10 MG TABLET 25 MG PO (12:08)
[2017-11-12 12:50] LABS: Magnesium 1.4 mg/dL (1.6-2.3)
--- NOTE | 2017-11-12 12:50 | PM.PN.1 ---
Subjective Date Patient Seen: 11/12/17 Time Patient Seen: 12:30 Interval history: Adrian continued to complain of abdominal pain. He feels the pain is worse after he eats. He has been having abdominal pain for quite some time. He is also constipated. He had digital stimulation earlier today. He only passed a small amount of mucus. He also has significant rectal discomfort with digital stimulation. He feels IV morphine worked well for his pain control. He is wondering if he can have some as needed IV morphine for pain control. Exam Vital Signs (past 8 hours): Vital Signs - 8 hr 11/12/17 08:00 Temperature 98.7 F Pulse Rate 87 Respiratory Rate 16 Blood Pressure 104/73 Pulse Oximetry 97 Pulse Oximetry 97 Oxygen Delivery Method Room Air Oxygen Flow Rate 0 Narrative Exam Narrative: General: Alert very pleasant male in no acute distress Lungs: Clear to auscultation bilaterally Heart: Regular rhythm, no murmur appreciated Abdomen: Soft, mildly tender across upper and lower abdomen, unchanged exam Neuro: Alert and oriented x3 Objective Labs Result Diagrams: 11/12/17 05:50 11/12/17 05:50 Labs: Laboratory Results - last 24 hr 11/12/17 11/12/17 11/12/17 05:50 05:50 Unknown WBC 8.2 RBC 5.03 Hgb 12.9 L Hct 38.2 L MCV 75.9 L MCH 25.6 L MCHC 33.7 RDW 15.8 H Plt Count 165 Neut % (Auto) 71.2 Lymph % (Auto) 18.9 L Wallace % (Auto) 8.9 Eos % (Auto) 0.7 L Baso % (Auto) 0.3 Neut # (Auto) 5900 Sodium 141 Potassium 2.6 L* Chloride 98 Carbon Dioxide 29 BUN 4 L Creatinine 0.40 L Estimated GFR > 60.0 BUN/Creatinine Ratio 10.0 Glucose 94 Calcium 8.5 Magnesium 1.4 L Total Bilirubin 0.5 AST 20 ALT 33 Alkaline Phosphatase 61 Total Protein 7.0 Albumin 3.7 Globulin 3.3 Albumin/Globulin Ratio 1.1 Assessment & Plan Plan: Assessment/Plan Narrative: 1. Chronic abdominal pain, early satiety, abnormal weight loss: CT scan with nonspecific thickening in the sigmoid colon. Colonoscopy showed a 6-7 cm pedunculated polyp which was removed, pathology pending. EGD with only mild antral gastritis, hyper glandular tissue in lesser curvature fundus, no ulcer or mass, no hiatal hernia, GE junction with competent and functioning sphincter. A gastric emptying study has been ordered due to complaints of early satiety. This will be done as inpatient due to patient's extreme difficulty arranging transportation for outpatient services. Oral Reglan may help with gastric motility if this turns out to be an issue. He has 40 lb weight loss over the past 6 months. He actually has outpatient GI appointment on . Start IV morphine 4 mg every 4 hr as needed 2. Hypokalemia: Potassium was 2.6 this morning. He received 40 mEq of IV potassium chloride and 40 mEq p.o. potassium. We will give him another 40 mEq of p.o. potassium later this afternoon. Recheck electrolytes in the morning. We will also add magnesium to the lab that was drawn this morning. Replace if needed. 3. Functional quadriplegia: Continue routine home medications. He needs rehab regarding to sitting in his wheelchair and transfers. I will start physical therapy and occupational therapy while he is in the hospital. 4. History of C difficile colitis: His C diff toxin was negative on this admission. He was on omeprazole for treating possible gastritis. His symptoms did not seem to improve with omeprazole. We will hold omeprazole for now 5. Disposition: Likely discharge tomorrow, Sunday, after gastric emptying study. Quality VTE Deep Vein Thrombosis/Pulmonary Embolism Present on Admission: No
[2017-11-12] MEDS: MORPHINE 4 MG/ML INJ IV ×3 (13:01→22:55)
--- NOTE | 2017-11-12 13:20 | CM.DPNOTE ---
Chart review: Per MD: discharge tomorrow, Sunday, after gastric emptying study. Plan: Patient to discharge home with supportive family, following gastric emptying study.
[2017-11-12] MEDS: MAGNESIUM SULFATE 2 GM/50 ML PIGGYBACK IV (14:16)
[2017-11-12 15:09] LABS: HEMOLYSIS < 15 (0-50); Potassium 3.5 mmol/L (3.4-5.1)
[2017-11-12 15:40] VITALS: BP 100/64; PULSE 86; RESP 17; TEMP 36.4; O2SAT 96
[2017-11-12 19:50] VITALS: BP 114/75; PULSE 88; RESP 16; TEMP 36.4; O2SAT 96
[2017-11-12] MEDS: ALPRAZolam 0.25 MG TABLET 0.5 MG PO (21:10)
[2017-11-12] MEDS: SODIUM CHLORIDE 0.9% 1,000 ML 125 ML IV (23:53)
[2017-11-13] VITALS: BP 102/69; PULSE 80; RESP 17; TEMP 36.5; O2SAT 95
--- NOTE | 2017-11-13 | DI.NM.S_ITS ---
PROCEDURE: NM GASTRIC EMPTYING STUDY RADIOPHARMACEUTICAL: 1.0 mCi Tc-99m sulfur colloid in an egg sandwich. INDICATIONS: Early satiety and unexplained weight loss TECHNIQUE: A Tc-99m labeled sulfur colloid labeled egg sandwich or oatmeal was served to the patient. Anterior and posterior planar images of the abdomen were obtained at 0 minutes and 30 minutes, then at hourly intervals up to 4 hours. The patient was upright and ambulating during the interval. COMPARISON: None. FINDINGS: The stomach has normal size, morphology, and position. There is normal emptying of solid gastric contents from the stomach by visual inspection. No gastroesophageal reflux is visualized. The percentage of tracer retained at specific time points are as follows: Time point Percent gastric retention Normal range 1 hour 55% 30% to 90% IMPRESSION: Normal gastric emptying. Study was limited due to paraplegic status. Dictated by: Champ Addison M.D. on 11/13/2017 at 12:16 Approved by: Champ Addison M.D. on 11/13/2017 at 12:27
--- NOTE | 2017-11-13 04:26 | PC.NURSE ---
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 Pain management plan discussed. Prn Morphine offered as pt is NPO after midnight. Refused X2, stated will reassess in the early childhood teacher assistant. Denies chest pain/nausea. States pain to mid upper abd radiating to LLQ abd and lower back. IVF started NS @ 125ml/hr per order for midnight in anticipation of NM study in AM. Pt repositioned at 0300 and plan for 0600 per pt request. Has own bilateral LEENA's stockings on and bilateral foot brace supports. Suprapubic catheter in place draining yellow urine with sediment present, no cloudiness. Pt states sediment is normal for him.
[2017-11-13] MEDS: BACLOFEN 10 MG TABLET 30 MG PO (05:36)
[2017-11-13] MEDS: GABAPENTIN 300 MG CAPSULE PO (05:36)
[2017-11-13 05:43] VITALS: BP 130/88; PULSE 79; RESP 18; TEMP 36.7; O2SAT 98
[2017-11-13 05:56] LABS: Blood Urea Nitrogen 6 mg/dL (9-20); Calcium 8.6 mg/dL (8.4-10.2); Carbon Dioxide 32 mmol/L (22-32); Chloride 101 mmol/L (98-107); Estimated Glomerular Filt Rate > 60.0 mL/min (>60); Glucose 117 mg/dL (70-100); HEMOLYSIS < 15 (0-50); Magnesium 1.8 mg/dL (1.6-2.3); Potassium 3.6 mmol/L (3.4-5.1); Sodium 143 mmol/L (137-145)
[2017-11-13] MEDS: MORPHINE 4 MG/ML INJ IV ×2 (07:55→12:12)
[2017-11-13] MEDS: SODIUM CHLORIDE 0.9% 1,000 ML 125 ML IV (07:56)
[2017-11-13 07:57] VITALS: BP 119/80; PULSE 91; RESP 16; TEMP 36.8; O2SAT 95
[2017-11-13] MEDS: OXYBUTYNIN 5 MG TABLET PO (12:00)
[2017-11-13] MEDS: METHADONE 5 MG TABLET PO (12:00)
[2017-11-13] MEDS: BACLOFEN 10 MG TABLET 25 MG PO (12:00)
[2017-11-13] MEDS: DOCUSATE 100 MG CAPSULE PO (12:00)
[2017-11-13] MEDS: SERTRALINE 50 MG TABLET 100 MG PO (12:00)
--- NOTE | 2017-11-13 12:34 | P.DS_ITS ---
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 The discomfort has been gradual in onset and worsening since about 6 months ago. In July of this year he was treated for C difficile colitis. Patient complains of abdominal bloating, early satiety, severe upper and lower abdominal cramps, loss of appetite. He thinks he has lost about 40 lb in the past 6 months and 20 lb in around the past month. He requires suppository, lubricant and digital stimulation to have bowel movement. He states that bowel movements do help with the abdominal distension but not with the abdominal pain. He denies vomiting. He has had some loose stools but no consistent diarrhea. He brought in stool sample to the ER yesterday which was formed. Patient and mom are emphatic that he was having formed stools when diagnosed with C difficile colitis earlier this year. He had abdomen and pelvis CT scan on November 05, 2017 which showed some fluid in the distal sigmoid colon with possible mild thickening at the sigmoid rectal junction. He was started on ciprofloxacin and metronidazole for possible colitis. His WBC had been normal range on the 1st 2 ER visits but current ER visit WBC 12.5 with slight left shift. Chemistries okay except serum potassium of 3.2 slightly low. Discharge Providers Date of admission: 11/08/17 21:53 Primary care physician: Becca Bolaños MD Consults: 11/08/17 22:46 Consult to Dietitian, Adult Routine Comment: Reason For Exam: unable to maintain POs 11/09/17 10:55 Consult to Physician Routine Comment: Consulting Provider: Ruddy Altamirano Reason for consultation: abdominal pain 11/10/17 09:58 Consult to Respiratory Therapy Evaluate & Treat Comment: Physician Instructions: Evaluate and treat Discharge provider: Becca Bolaños MD Discharge Date: 11/13/17 Summary Discharge Diagnosis: 1. Chronic abdominal pain, early satiety, abnormal weight loss 2. Functional quadriplegia 3. History of C diff colitis 4. Hypokalemia and hypomagnesemia Hospital Course: 1. Chronic abdominal pain, early satiety, abnormal weight loss : CT scan with nonspecific thickening in the sigmoid colon. Colonoscopy showed a 5-6 cm pedunculated polyp about 35cm from the anal verge which was removed, pathology pending. EGD with only mild antral gastritis, hyper glandular tissue in lesser curvature fundus, no ulcer or mass, no hiatal hernia, GE junction with competent and functioning sphincter. A gastric emptying study was done on November 13, 2017 which was normal. He has 40 lb weight loss over the past 6 months. He has outpatient GI appointment on November 15, [address] Wharton's office. Unfortunately biopsy for H pylori was not done during the upper endoscopy. Stool for H pylori antigen was sent on November 13, 2017. The result is still pending. I will change his omeprazole to Protonix for treating probable gastritis. 2. Functional quadriplegia: He received physical therapy and occupational therapy evaluation and treatment while he was in the hospital. He may need inpatient rehab for intensive therapy to help him with transition into sitting in the wheelchair. 3. History of C diff colitis: C diff toxin at the time of admission was negative. Another C diff toxin sample was sent to the lab on November 13, 2017 prior to hospital discharge. The result is still pending. 4. Hypokalemia and hypomagnesemia: Likely secondary to bowel prep for colonoscopy and decreased oral intake. He received IV and oral potassium and magnesium replacements. He has electrolytes were normal at the time of discharge. Status at Discharge Cognitive/behavioral status at discharge: Alert and oriented x3 Functional status at discharge: bed bound Overall status at discharge: patient is not back to baseline Time Spent with Patient Greater than 30 minutes Exam Vital Signs (past 8 hours): Vital Signs - 8 hr 3 11/13/17 05:43 11/13/17 07:57 Temperature 98.0 F 98.2 F Pulse Rate 79 91 H Respiratory Rate 18 16 Blood Pressure 130/88 H 119/80 Pulse Oximetry 98 95 Pulse Oximetry 95 Oxygen Delivery Method Room Air Oxygen Flow Rate [address] scan - abdomen: Radiologist's impression: 1. Suprapubic percutaneous catheter within the bladder. 2. Fluid in the distal sigmoid colon. There may be mild thickening at the sigmoid rectal junction. Recommend correlation for mild colitis/proctitis. 3. Splenomegaly. Gastric emptying study: Radiologist's impression: Normal gastric emptying. Study was limited due to paraplegic status. Labs Result Diagrams: 11/12/17 05:50 11/13/17 05:28 Labs: Laboratory Results - last 24 hr 11/12/17 11/12/17 11/13/17 14:47 Unknown 05:28 Sodium 143 Potassium 3.5 3.6 Chloride 101 Carbon Dioxide 32 BUN 6 L Creatinine 0.40 L Estimated GFR > 60.0 BUN/Creatinine Ratio 15.0 Glucose 117 H Calcium 8.6 Magnesium 1.4 L 1.8 C. difficile Tox (PCR) 11/13/17 Unknown Sodium Potassium Chloride Carbon Dioxide BUN Creatinine Estimated GFR BUN/Creatinine Ratio Glucose Calcium Magnesium C. difficile Tox (PCR) TNP Discharge Plan Discharge Plan Discharge Problem: Colitis Patient Disposition: Home, Self-Care Provider Discharge Instructions Diet: Diet as Tolerated Activity: up in the chair if tolerates Discharge Data Primary Care Provider: Becca Bolaños Attending Provider: Rory Keane Admit Date/Time: 11/08/17 21:53 Quality VTE Deep Vein Thrombosis/Pulmonary Embolism Present on Admission: No
--- NOTE | 2017-11-13 13:53 | CM.DPNOTE ---
Met with patient and cg/mom: family has concerns over transportation to and from appointments. Spoke with [facility]: they explained they can authorize nonemergent stretcher transport with at least 48 hours in advance. Spoke with family. Provided phone numbers and fax number for transportation. Recommended they communicate transportation concerns to [facility] as well. TONIE called and left voicemail for [facility] requesting they follow up on transportation needs. Patient to discharge home today. TONIE called [facility]. They will picking supervisor patient by [phone]. Plan: Patient to discharge home via Nonemergent Stretcher via [facility]. RN notified.
== END 2017-11-19 13:56 | disposition home health service (06) | DRG 251 ==
LOC: ED 21:35 → AC 21:53
PROVIDERS: Specialist; Surgery; Admitting Provider Internal Medicine; Emergency Provider Emergency Medicine; Family Provider Internal Medicine; PCP Internal Medicine; Visit Provider Internal Medicine
PROC: 0DJ08ZZ Inspection of Upper Intestinal Tract, Via Natural or Artificial Opening Endoscopic (ICD-10-PCS; CPT 43235; principal; 2017-11-10 09:00)
PROC: 0DJD8ZZ Inspection of Lower Intestinal Tract, Via Natural or Artificial Opening Endoscopic (ICD-10-PCS; CPT 45378; 2017-11-10 09:00)
DX: R10.9 Unspecified abdominal pain (principal); K29.70 Gastritis, unspecified, without bleeding; R63.4 Abnormal weight loss; Z68.27 Body mass index [BMI] 27.0-27.9, adult; G82.50 Quadriplegia, unspecified; F11.20 Opioid dependence, uncomplicated; G89.4 Chronic pain syndrome; G90.4 Autonomic dysreflexia; K63.5 Polyp of colon; F32.9 Major depressive disorder, single episode, unspecified; F41.9 Anxiety disorder, unspecified; E87.6 Hypokalemia; R68.81 Early satiety; Z86.19 Personal history of other infectious and parasitic diseases; E83.42 Hypomagnesemia; E44.0 Moderate protein-calorie malnutrition; Z68.26 Body mass index [BMI] 26.0-26.9, adult; N39.0 Urinary tract infection, site not specified; D12.6 Benign neoplasm of colon, unspecified; B96.20 Unspecified Escherichia coli [E. coli] as the cause of diseases classified elsewhere
CPT/HCPCS: 36415; 36591; 43239; 45380; 74019; 76700; 78227; 78264; 80048; 80053; 81001; 83605; 83690; 83735; 84132; 85025; 86677; 87077; 87086; 87186; 87493; 88305; 88342; 96365; 96368; 96375; 99231; 99253; 99282; 99283; 99284; A9537; A9541; C9113; J1100; J1956; J2250; J2270; J2704; J2765; J2805; J3010; J3475; J3480

== ENCOUNTER 2017-11-13 19:52 | Inpatient (IN) | payer OTHER, MEDICAID, SELFPAY ==
[2017-11-13 20:03] VITALS: BP 151/103; PULSE 66; RESP 16; TEMP 36.9; O2SAT 96; BMI 26.7
[2017-11-13 20:35] VITALS: BP 150/94; PULSE 68; RESP 15; O2SAT 98
[2017-11-13 21:00] VITALS: BP 156/109; PULSE 117; RESP 20; O2SAT 95
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
[2017-11-13] MEDS: MORPHINE 4 MG/ML INJ IV (21:40)
[2017-11-13 22:10] VITALS: BP 118/79; PULSE 107; RESP 18; O2SAT 95
[2017-11-13 22:22] LABS: Add Manual Diff / Slide Review NO; Basophils Percent Auto 0.2 % (0-2); Eosinophils Percent Auto 0.7 % (2-4); Hematocrit 40.5 % (41-53); Hemoglobin 13.5 g/dL (13.5-17.5); Lymphocytes Percent Auto 15.2 % (25-40); Mean Corpuscular HGB Conc 33.3 % (30-36); Mean Corpuscular Hemoglobin 25.2 PG (26-34); Mean Corpuscular Volume 75.7 fL (80-100); Monocytes Percent Auto 6.8 % (3-14); Neutrophils Absolute Auto 8700 /uL (3000-5900); Neutrophils Percent Auto 77.1 % (50-75); Platelet Count 175 X10^3/uL (150-400); Red Blood Cell Count 5.36 X10^6/uL (4.5-5.9); White Blood Cell Count 11.2 X10^3/uL (4.5-11.0)
[2017-11-13 22:26] LABS: Lactate (Lactic Acid) 0.6 mmol/L (0.7-2.1)
[2017-11-13 22:27] LABS: Alanine Aminotransferase 29 IU/L (21-72); Albumin 3.9 g/dL (3.5-5.0); Albumin Globulin Ratio 1.2 (1.0-2.8); Alkaline Phosphatase 66 U/L (38-126); Aspartate Aminotransferase 21 IU/L (17-59); BUN Creatinine Ratio 17.5 (6-22); Bilirubin Total 0.5 mg/dL (0.2-1.3); Blood Urea Nitrogen 7 mg/dL (9-20); Carbon Dioxide 31 mmol/L (22-32); Chloride 97 mmol/L (98-107); Estimated Glomerular Filt Rate > 60.0 mL/min (>60); Globulin 3.2 g/dL (1.7-4.1); Glucose 109 mg/dL (70-100); HEMOLYSIS < 15 (0-50); Lipase 91 U/L (23-300); Potassium 3.3 mmol/L (3.4-5.1); Sodium 145 mmol/L (137-145); Total Protein 7.1 g/dL (6.3-8.2)
[2017-11-14] VITALS (9 sets, daily range): BP systolic 98–119; BP diastolic 68–83; PULSE 86–119; RESP 15–18; TEMP 36.5–36.8; O2SAT 93–98; BMI 26.7
[2017-11-14] MEDS: SODIUM CHLORIDE 0.9% 1,000 ML 125 ML IV ×3 (00:22→17:09)
[2017-11-14] MEDS: MORPHINE 2 MG/ML INJ 4 MG IV ×3 (01:19→08:55)
--- NOTE | 2017-11-14 02:31 | PC.ADMIT ---
Addendum entered by Tea Brar R.N. 11/14/17 05:55: Adrian was able to sleep for 2 hours after morphine, awakened with re-positioning at 0400. pain returned at 0505, re medicated with 2 mg morphine IV. He has no nausea, denies worsening symptoms, complains of inability to get long stretches of sleep, insomnia exacerbates symptoms. Original Note: [address] Admission Note: The patient,Adrian Arteaga,42 y/o, was given written information regarding hospital policies, unit procedures and contact persons. Adrian was accompanied by his mother, Carlos, who is his full stack software developer caregiver. He is 100 % dependent on her for positioning, medications, transportation, and skin care. She is also doing daily bowel / suprapubic tube care which involves suppository enema ( small ) and digital stool evacuation. Urinary catheter involves flushing daily with normal saline, regimen of gentamycin twice a week and he needs the catheter changed. the flushing and gentamycin has not been done for past 4 days while he was inpatient and she is concerned, urine is cloudy. We reviewed his new medication orders, including NPO and the use of morphine for pain Adrian is complaining of generalized abdominal discomfort, but he did not want 4 mg, preferred only 2 mg which was given at 0115. NS @ 125 /hr --> L AC. Vital Signs - 8 hr 11/13/17 20:03 11/13/17 20:35 11/13/17 21:00 Temperature 98.5 F Pulse Rate 66 68 117 H Respiratory Rate 16 15 20 Blood Pressure 151/103 H Blood Pressure [Right Arm] 150/94 H 156/109 H Pulse Oximetry 96 98 95 11/13/17 22:10 11/14/17 00:06 11/14/17 01:30 Temperature 98.2 F Pulse Rate 107 H 101 H 94 H Respiratory Rate 18 18 15 Blood Pressure 115/78 Blood Pressure [Right Arm] 118/79 119/83 H Pulse Oximetry 95 94 98
--- NOTE | 2017-11-14 08:11 | CM.DANOTE ---
Discharge Planning/Care Management CM Discharge Assessment Start: 11/14/17 07:53 Freq: Status: Active Protocol: Document 11/14/17 07:53 BF (Rec: 11/14/17 07:54 BF [id number]) Discharge Planning Assessment Assigned Communications Billing Analyst ASSISTED LIVING HOUSEKEEPER History Provided By Patient Family Member Medical Record Expected Length of Stay 2 Has Patient been admitted in last 30 Yes days? Is this patient on Medicare? No Is the admit diagnosis the same? Yes Comment Patient discharged home via stretcher yesterday 11/13/17 before readmitting the same evening. Prior Living Arrangements House Household Members family Type of transporation used prior to Relies on Others admit Independent with ADL's No Is patient alert and oriented? Yes Needs Assistance With Bathing Meal Prep Toileting Managing Medications Home Chores / Shopping Caregiver for Another No DME Already Rented / Owned Wheelchair Name of Agency [facility] Clinicals Faxed Yes Comment Kami Reeves is the [facility] CM Referrals Initiated None needed Discharge Plan Home Transportation Arrangement [facility]. Additional Comment discharge after gastric emptying study. Review Status In Process Next Review Type Discharge Review Patient is a 42 year old male who was Readmitted same day as discharge on 11/13/17 for Abd Pain, Tachycardi, Autonomic Dysreflexia. Pt has [employer] for insurance and his PCP is Dr. Bolaños. EMR was reviewed. Per MD, admitted for pain management and observation for abdominal distended. Pt discharged home yesterday around 1400 home where he lives with his supportive mother/CG via [facility] and then returned to the ER after speaking with his PCP regarding his discomfort and concerns. Pt has been admitted to the Acute Floor and waiting for MD to round on the pt to determine d/c planning needs. Plan: SW to follow closely after MD rounds to determine any d/c planning needs. Likely return home via [facility] again due to pt's baseline of quadriplegia. DAVID Gregory
[2017-11-14] MEDS: POTASSIUM CHLORIDE 20 MEQ TAB 40 MEQ PO (09:38)
[2017-11-14] MEDS: GABAPENTIN 300 MG CAPSULE PO ×3 (09:38→20:30)
[2017-11-14] MEDS: BACLOFEN 10 MG TABLET 30 MG PO ×2 (09:38→20:30)
[2017-11-14] MEDS: OXYBUTYNIN 5 MG TABLET PO ×2 (09:38→20:30)
[2017-11-14] MEDS: ALPRAZolam 0.25 MG TABLET PO ×2 (09:41→20:29)
[2017-11-14] MEDS: MAGNESIUM SULFATE 2 GM/50 ML PIGGYBACK IV (09:41)
[2017-11-14] MEDS: METHADONE 5 MG TABLET PO (09:41)
--- NOTE | 2017-11-14 13:34 | PC.NURSE ---
AM NOTE - pt is awake, complaint abd discomfort, also hx spasms limbs, req his home medications, also anxiety and would like his usual alprazolam, given per pt req 2mg iv morphine and paged and rec'd new orders, admin his baclofen, alprazolam, methadone and gabapentin, alok w/sips water, diet was adv to clear liq, able to use r hand to sip, swallowed medication w/o difficulty, later states that the medication does not seem to leave stomach i can taste it, denies nausea, suprapubic cath site w/o redness dressing l buttock area c,d,i, yoanna le foot splints, does have some random contraction ue, le at times, improves after am meds admin. Later am, Mom arrived and prefers to take care of pt adl and bathing, notified again that pt and mom would like to speak to her.
[2017-11-14] MEDS: BACLOFEN 10 MG TABLET 25 MG PO (14:44)
[2017-11-14] MEDS: MORPHINE 2 MG/ML INJ IV ×2 (14:44→20:36)
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
[2017-11-14] MEDS: OXYCODONE IR 10 MG TABLET PO (17:08)
[2017-11-14] MEDS: METOCLOPRAMIDE HCL 10 MG TABLET PO (17:12)
--- NOTE | 2017-11-14 17:25 | PC.NURSE ---
Per evening driver supervisor, Windy, no bed available at [facility] this evening. Pt and pt's mother informed. Pt's mother currently in pt's room providing pt's bowel regiment. Pt medicated per request for headache associated with bowel regimen per pt report.
[2017-11-14] MEDS: TRAZODONE 100 MG TABLET PO (21:56)
--- NOTE | 2017-11-14 22:10 | PC.NURSE ---
Pt has had visitor this evening and watched movie in room without calling for staff. Pt was medicated per request with morphine 2 mg to treat abdominal and rectal pain s/p bowel regimen administered by pt's mother/caregiver. Reports a little bit of relief, but declines offer for other medication/nonpharmacological interventions. Requests 50 mg trazodone versus 100 mg ordered and this was given. IV fluids continue to infuse without difficulty. Pt reports visitor placed pillow to pt's right side and pt reports does not need nor desire repositioning until after midnight. Encouraged to call for needs. Taking po water well, but not interested in clear liquids as offered on dinner tray.
[2017-11-15] VITALS (9 sets, daily range): BP systolic 83–115; BP diastolic 54–76; PULSE 77–108; RESP 14–20; TEMP 36–36.8; O2SAT 96–98
--- NOTE | 2017-11-15 | DI.US.S_ITS ---
PROCEDURE: US ABDOMEN COMPLETE INDICATIONS: RIGHT UPPER QUADRANT PAIN TECHNIQUE: Real-time scanning was performed of the abdominal and retroperitoneal organs, with image documentation. COMPARISON: 11/05/2017 CT. FINDINGS: Liver: Liver is normal in size and homogeneous in echotexture. Gallbladder: No cholelithiasis. Normal gallbladder wall thickness. No pericholecystic fluid. Negative sonographic Boyd's sign. Biliary ducts: Intrahepatic bile ducts are non-dilated. Extrahepatic bile duct caliber measures 6 mm. Normal is 6-7 mm or less in diameter, or 10 mm or less post-cholecystectomy. Pancreas: The pancreas is obscured. Spleen: Spleen is normal in size and homogeneous in echotexture. Kidneys: Kidneys are normal in size and echotexture. Right kidney measures 12.8 cm long; left kidney measures 14.1 cm long. No hydronephrosis or nephrolithiasis. No solid masses. Aorta: Visualized aorta is normal in caliber at less than 3 cm. Iliacs: Proximal common iliac arteries are normal in caliber at less than 2.5 cm. IVC: Intrahepatic inferior vena cava is patent. Miscellaneous: No free abdominal fluid. IMPRESSION: No sonographic evidence of abdominal pathology. No sonographic etiology for the patient's clinically apparent right upper quadrant pain. Dictated by: Jason Newell M.D. on 11/15/2017 at 16:04 Approved by: Jason Newell M.D. on 11/15/2017 at 16:06
--- NOTE | 2017-11-15 | DI.RAD.S_ITS ---
PROCEDURE: XR ABDOMEN MIN 2V INDICATIONS: abd pain TECHNIQUE: 2 views of the abdomen were acquired. COMPARISON: [facility], , ABDOMEN 1 VIEW, 07/05/2017, 10:05. FINDINGS: Surgical changes and devices: Suprapubic catheter is again noted. Bowel: No pneumoperitoneum. The bowel gas pattern is nonspecific. No definite pathologically dilated bowel loop. There is mild stool in the right colon. Few scattered air-fluid levels Soft tissues: No masses; visualized solid organ contours appear normal in size. No suspicious abdominal calcifications. Bones: No suspicious bony abnormalities. IMPRESSION: No definite obstruction although the patient's symptoms do not improve consider continued surveillance with abdominal series radiographs No free air. Dictated by: Lalo Quintero M.D. on 11/15/2017 at 14:52 Approved by: Lalo Quintero M.D. on 11/15/2017 at 14:55
[2017-11-15] MEDS: OXYCODONE IR 10 MG TABLET PO ×4 (00:33→21:15)
[2017-11-15] MEDS: SODIUM CHLORIDE 0.9% 1,000 ML 125 ML IV (01:32)
--- NOTE | 2017-11-15 04:23 | PC.NURSE ---
Commercial Producer Note: 0410: Dr. Bolaños notified of low blood pressure. See new orders.
[2017-11-15] MEDS: SODIUM CHLORIDE 0.9% 500 ML 1000 ML IV (05:13)
[2017-11-15] MEDS: BACLOFEN 10 MG TABLET 30 MG PO ×2 (06:51→21:16)
[2017-11-15] MEDS: GABAPENTIN 300 MG CAPSULE PO ×3 (06:52→21:16)
[2017-11-15] MEDS: METHADONE 5 MG TABLET PO ×2 (06:52→22:38)
[2017-11-15] MEDS: SERTRALINE 50 MG TABLET 100 MG PO (06:52)
[2017-11-15] MEDS: OXYBUTYNIN 5 MG TABLET PO ×2 (06:53→21:16)
[2017-11-15] MEDS: PANTOPRAZOLE 40 MG TABLET PO (06:53)
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
[2017-11-15] MEDS: SODIUM CHLORIDE 0.9% 1,000 ML 150 ML IV ×2 (09:34→16:44)
[2017-11-15] MEDS: METOCLOPRAMIDE HCL 10 MG TABLET PO ×2 (09:35→21:28)
[2017-11-15] MEDS: MORPHINE 2 MG/ML INJ IV ×2 (10:47→16:30)
[2017-11-15] MEDS: BACLOFEN 10 MG TABLET 25 MG PO (12:47)
[2017-11-15 13:05] LABS: Appearance Urine UA CLEAR; Bilirubin Urine UA NEGATIVE (NEGATIVE); Color Urine UA YELLOW; Glucose Urine UA NEGATIVE (Normal); Ketones Urine UA 1+ (NEGATIVE); Leukocyte Esterase Urine UA TRACE (NEGATIVE); Nitrite Urine UA POSITIVE (Negative); Occult Blood Urine UA TRACE-LYSED (Negative); Protein Urine UA NEGATIVE (Negative); Specific Gravity Urine UA <=1.005 (1.000-1.035); Urobilinogen Urine UA 0.2 E.U./dL (0.2)
[2017-11-15 13:08] LABS: RBC Urine 0-1/HPF (0-5/HPF); Squamous Epithelial Cell Urine 0-1 /HPF; WBC Urine 1-5/HPF (0-5/HPF)
[2017-11-15 13:09] LABS: Amorphous Sediment Urine 1+; Bacteria Urine Few (2-10); Culture Indicated Urine Specimen Cultured
--- NOTE | 2017-11-15 13:51 | P.PN_ITS ---
Subjective Date Patient Seen: 11/15/17 Time Patient Seen: 13:49 Interval history: Adrian is very well known to me from his recent visit. I saw him during his last admission and on November 10 we did an EGD in colonoscopy. All the results are back and the large polyps that were removed from the sigmoid region was benign. The biopsies from the stomach and small bowel show only chronic active gastritis and Helicobacter pylori studies are still pending. Josephine 8 better for a couple of days and so was discharged but unfortunately developed severe abdominal pain again and was brought back to the emergency room and readmitted to the hospital. His gastric emptying study that was done just before his last discharge was completely normal. He reports that the pain is still after meals and causes him severe discomfort up into both armpits. Exam Vital Signs (past 8 hours): Vital Signs - 8 hr 3 11/15/17 07:43 11/15/17 10:00 Temperature 97.2 F L Pulse Rate 95 H Respiratory Rate 14 Blood Pressure 99/63 Pulse Oximetry 98 98 Pulse Oximetry 98 Oxygen Delivery Method Room Air Narrative Exam Narrative: No change from prior exams. No abdominal tenderness to palpation elicited. Objective Labs Result Diagrams: 11/13/17 22:05 11/13/17 22:05 Labs: Laboratory Results - last 24 hr 11/15/17 12:37 Urine Color Yellow Urine Appearance Clear Urine pH 6.0 Ur Specific [place] <=1.005 Urine Protein Negative Urine Glucose (UA) Negative Urine Ketones 1+ H Urine Occult Blood Trace-lysed Urine Nitrate Positive Urine Bilirubin Negative Urine Urobilinogen 0.2 Ur Leukocyte Esterase Trace H Urine RBC 0-1/hpf Urine WBC 1-5/hpf Ur Squamous Epith Cells 0-1 /hpf Amorphous Sediment 1+ Urine Bacteria Few (2-10) H Ur Culture Indicated? Specimen cultured Micro UA Comment Not Reportable Assessment & Plan Plan: Assessment/Plan Narrative: I spoke with Dr. Pelayo briefly this morning about this young gentleman. He is going to proceed with the workup of the gallbladder including an ultrasound and HIDA scan. We will await the results of those studies before making any further recommendations Quality VTE Deep Vein Thrombosis/Pulmonary Embolism Present on Admission: No
--- NOTE | 2017-11-15 13:52 | PC.NURSE ---
AM NOTE - alert, abd discomfort is about the same, no nausea, bt are present throughout, less llq, hr 84, ra 98%, mom in later am and did do manual bowel program, per req given 2mg iv morphine as pt states it can be uncomfortable at times, ua collected via suprapubic port,ab xr done at bedside.
--- NOTE | 2017-11-15 14:23 | DIET.PN ---
Consult [facility] rec'd for Adrian today. Spoke with him at great length last Fri (8 Amilcar) during previous admit for ongoing diarrhea. Still c/o abdominal pain and is currently on CL diet. No nutrition interventions recommended at this time d/t current dietary restriction. Dietitians will monitor his status and f/u with him as diet is advanced. Lynnette Orta, news department intern Geno Holland, MAGALYSN
[2017-11-15] MEDS: ALPRAZolam 0.25 MG TABLET PO (21:16)
[2017-11-15] MEDS: TRAZODONE 100 MG TABLET PO (22:38)
[2017-11-15] MEDS: BISACODYL 5 MG TABLET PO (22:38)
[2017-11-16] VITALS (9 sets, daily range): BP systolic 89–119; BP diastolic 58–78; PULSE 72–99; RESP 16–18; TEMP 36.2–37.2; O2SAT 95–98
--- NOTE | 2017-11-16 | DI.NM.S_ITS ---
PROCEDURE: NM HIDA WITH CCK PHARMACEUTICAL: 5.3 mCi Tc-99m mebrofenin IV. 2.2 mcg CCK IV 30 minutes prior to test and at 47 minutes post-mebrofenin injection. INDICATIONS: Abdominal pain TECHNIQUE: Following intravenous administration of Tc-99m mebrofenin, sequential anterior abdominal images were obtained. To evaluate the contractile response of the gallbladder in response to Cholecystokinin (CCK), sincalide (0.02 ?g/kg) was administered by slow intravenous infusion approximately 60 minutes after the administration of the radiopharmaceutical. Sequential imaging was continued for 30 minutes after the start of CCK infusion. Gallbladder ejection fraction was calculated. COMPARISON: [facility], , US ABDOMEN COMPLETE, 11/15/2017, 15:41. FINDINGS: Biliary scan: There is normal tracer uptake and excretion by the liver. There is normal visualization of the intrahepatic ducts, common bile duct, and gallbladder. There is normal tracer transit into the duodenum. CCK stimulation: There is abnormal decreased contractile response of the gallbladder to CCK infusion. The calculated gallbladder ejection fraction is 12%; normal values are above 35%. It has been shown that any patient abdominal pain after CCK administration is related to the rate of CCK injection, rather than to any underlying gallbladder disease (Clinical Nuclear Medicine 2012; 37: 63-70. Journal of Nuclear Medicine 2014; 55: 1-9). IMPRESSION: 1. Abnormal decreased gallbladder ejection fraction. Findings are suggestive of chronic cholecystitis. Dictated by: Justice Han M.D. on 11/16/2017 at 14:24 Approved by: Justice Han M.D. on 11/16/2017 at 14:31
[2017-11-16] MEDS: SODIUM CHLORIDE 0.9% 1,000 ML 150 ML IV ×3 (00:40→23:47)
--- NOTE | 2017-11-16 00:40 | PC.NURSE ---
Addendum entered by Ori Miranda R.N. 11/16/17 07:48: 0505: Oxycodone and Methadone given at this time. Pt also requested his 6am medications now. He declined Xanax and Metaclopromide. Original Note: Gas Jockey note: 0030: Awake, repositioned. Suprapubic catheter intact and secure. Recently medicated for pain. Pt asking to have his medications given on his home schedule.
[2017-11-16] MEDS: MORPHINE 2 MG/ML INJ IV ×3 (04:23→17:38)
[2017-11-16 04:26] LABS: Add Manual Diff / Slide Review NO; Basophils Percent Auto 0.4 % (0-2); Eosinophils Percent Auto 1.7 % (2-4); Hematocrit 36.7 % (41-53); Hemoglobin 12.1 g/dL (13.5-17.5); Mean Corpuscular HGB Conc 32.9 % (30-36); Mean Corpuscular Hemoglobin 25.5 PG (26-34); Mean Corpuscular Volume 77.5 fL (80-100); Monocytes Percent Auto 7.8 % (3-14); Neutrophils Absolute Auto 4900 /uL (3000-5900); Neutrophils Percent Auto 67.1 % (50-75); Platelet Count 155 X10^3/uL (150-400); Red Blood Cell Count 4.74 X10^6/uL (4.5-5.9); Red Cell Distribution Width 16.1 % (11.6-14.8); White Blood Cell Count 7.3 X10^3/uL (4.5-11.0)
[2017-11-16 04:41] LABS: Alanine Aminotransferase 28 IU/L (21-72); Albumin 3.1 g/dL (3.5-5.0); Alkaline Phosphatase 52 U/L (38-126); Aspartate Aminotransferase 16 IU/L (17-59); Bilirubin Total 0.4 mg/dL (0.2-1.3); Calcium 8.2 mg/dL (8.4-10.2); Carbon Dioxide 28 mmol/L (22-32); Chloride 102 mmol/L (98-107); Estimated Glomerular Filt Rate > 60.0 mL/min (>60); Globulin 3.1 g/dL (1.7-4.1); Glucose 89 mg/dL (70-100); HEMOLYSIS < 15 (0-50); Potassium 3.1 mmol/L (3.4-5.1); Sodium 143 mmol/L (137-145); Total Protein 6.2 g/dL (6.3-8.2)
[2017-11-16 04:46] LABS: BUN Creatinine Ratio 6.7 (6-22); Blood Urea Nitrogen 2 mg/dL (9-20)
[2017-11-16] MEDS: OXYCODONE IR 10 MG TABLET PO ×3 (05:11→20:45)
[2017-11-16] MEDS: METHADONE 5 MG TABLET PO ×2 (05:11→20:45)
[2017-11-16] MEDS: GABAPENTIN 300 MG CAPSULE PO ×3 (05:13→20:44)
[2017-11-16] MEDS: SERTRALINE 50 MG TABLET 100 MG PO (05:13)
[2017-11-16] MEDS: BACLOFEN 10 MG TABLET 30 MG PO ×2 (05:13→20:44)
[2017-11-16] MEDS: OXYBUTYNIN 5 MG TABLET PO ×2 (05:14→20:45)
[2017-11-16] MEDS: PANTOPRAZOLE 40 MG TABLET PO (05:15)
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
[2017-11-16] MEDS: BACLOFEN 10 MG TABLET 25 MG PO (13:30)
[2017-11-16] MEDS: METOCLOPRAMIDE HCL 10 MG TABLET PO ×2 (13:31→17:38)
[2017-11-16] MEDS: POTASSIUM CHLORIDE 20 MEQ TAB 40 MEQ PO (13:31)
[2017-11-16] MEDS: DOCUSATE 100 MG CAPSULE PO (13:31)
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
[2017-11-16 17:04] LABS: Magnesium 1.5 mg/dL (1.6-2.3)
--- NOTE | 2017-11-16 19:15 | PC.NURSE ---
Pt awake and alert resting quietly in bed. Requests this documentation writer remove pillow to left side and this was done. Anticipates father's visit @ 1930 and states father will assist with repositioning. Pt continues to c/o abdominal pain 12/11. Dr. Pelayo in to see patient and discuss findings of HIDA scan. No plan to transfer pt this evening shift. Pt advanced to full liquid diet per Dr. Pelayo. Took chicken noodle soup as states is hungry, but does report, my stomach doesn't like it. Given 2 mg iv morphine per request. States prefers to wait until 2029 for hs meds for further analgesia. Working on computer.
[2017-11-16] MEDS: ALPRAZolam 0.25 MG TABLET PO (20:43)
[2017-11-16] MEDS: TRAZODONE 100 MG TABLET PO (22:12)
[2017-11-17] VITALS (8 sets, daily range): BP systolic 93–131; BP diastolic 58–82; PULSE 68–97; RESP 15–20; TEMP 36.3–36.6; O2SAT 94–97
[2017-11-17 05:15] LABS: Add Manual Diff / Slide Review NO; Basophils Percent Auto 0.4 % (0-2); Eosinophils Percent Auto 1.6 % (2-4); Hematocrit 35.8 % (41-53); Hemoglobin 11.8 g/dL (13.5-17.5); Lymphocytes Percent Auto 22.6 % (25-40); Mean Corpuscular HGB Conc 32.9 % (30-36); Mean Corpuscular Hemoglobin 25.5 PG (26-34); Mean Corpuscular Volume 77.4 fL (80-100); Monocytes Percent Auto 9.1 % (3-14); Neutrophils Absolute Auto 4300 /uL (3000-5900); Neutrophils Percent Auto 66.3 % (50-75); Platelet Count 150 X10^3/uL (150-400); Red Blood Cell Count 4.63 X10^6/uL (4.5-5.9); Red Cell Distribution Width 15.9 % (11.6-14.8); White Blood Cell Count 6.4 X10^3/uL (4.5-11.0)
[2017-11-17 05:24] LABS: Calcium 8.1 mg/dL (8.4-10.2); Carbon Dioxide 31 mmol/L (22-32); Chloride 105 mmol/L (98-107); Estimated Glomerular Filt Rate > 60.0 mL/min (>60); Glucose 96 mg/dL (70-100); HEMOLYSIS < 15 (0-50); Potassium 2.9 mmol/L (3.4-5.1); Sodium 144 mmol/L (137-145)
[2017-11-17 05:26] LABS: BUN Creatinine Ratio 6.7 (6-22); Blood Urea Nitrogen < 2 mg/dL (9-20)
[2017-11-17] MEDS: OXYCODONE IR 10 MG TABLET PO ×3 (06:45→21:47)
[2017-11-17] MEDS: OXYBUTYNIN 5 MG TABLET PO ×2 (06:45→21:20)
[2017-11-17] MEDS: GABAPENTIN 300 MG CAPSULE PO ×3 (06:45→21:16)
[2017-11-17] MEDS: METHADONE 5 MG TABLET PO ×2 (06:45→21:20)
[2017-11-17] MEDS: SERTRALINE 50 MG TABLET 100 MG PO (06:46)
[2017-11-17] MEDS: BACLOFEN 10 MG TABLET 30 MG PO ×2 (06:47→21:16)
[2017-11-17] MEDS: SODIUM CHLORIDE 0.9% 1,000 ML 150 ML IV (06:48)
[2017-11-17] MEDS: DOCUSATE 100 MG CAPSULE PO ×2 (09:16→21:21)
[2017-11-17] MEDS: PANTOPRAZOLE 40 MG TABLET PO (09:16)
[2017-11-17] MEDS: METOCLOPRAMIDE HCL 10 MG TABLET PO ×3 (09:17→21:15)
[2017-11-17] MEDS: MORPHINE 2 MG/ML INJ IV ×2 (10:06→19:29)
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
--- NOTE | 2017-11-17 12:26 | PM.PN.1 ---
Subjective Date Patient Seen: 11/17/17 Time Patient Seen: 12:26 Interval history: Patient continues to complain of intermittent abdominal pain in the epigastric area radiating to the bilateral axilla. Remains mildly anorexic because of pain. However, he is awaiting his lunch tray to attempt somewhat of a bland diet. Completed bowel regimen this morning. States this causes some discomfort but this is not new. Discomfort is clearly different than the epigastric pain. No nausea or vomiting. Exam Vital Signs (past 8 hours): Vital Signs - 8 hr 11/17/17 07:00 11/17/17 10:39 11/17/17 12:00 Temperature 97.7 F 97.9 F Pulse Rate 79 68 Respiratory Rate 16 20 Blood Pressure 101/67 105/69 Pulse Oximetry 95 95 97 Pulse Oximetry 97 Oxygen Delivery Method Room Air Narrative Exam Narrative: Sitting in bed. Family is at the bedside. Alert oriented x3. No acute distress. Abdomen soft and nondistended. Objective Labs Result Diagrams: 11/17/17 04:41 11/17/17 04:41 Labs: Laboratory Results - last 24 hr 11/16/17 11/17/17 11/17/17 16:25 04:41 04:41 WBC 6.4 RBC 4.63 Hgb 11.8 L Hct 35.8 L MCV 77.4 L MCH 25.5 L MCHC 32.9 RDW 15.9 H Plt Count 150 Neut % (Auto) 66.3 Lymph % (Auto) 22.6 L [place] % (Auto) 9.1 Eos % (Auto) 1.6 L Baso % (Auto) 0.4 Neut # (Auto) 4300 Sodium 144 Potassium 2.9 L Chloride 105 Carbon Dioxide 31 BUN < 2 L Creatinine 0.30 L Estimated GFR > 60.0 BUN/Creatinine Ratio 6.7 Glucose 96 Calcium 8.1 L Magnesium 1.5 L Assessment & Plan Plan: Assessment/Plan Narrative: 42-year-old quadriplegic male with autonomic dysreflexia with ongoing epigastric abdominal pain of unclear etiology. His HIDA scan demonstrates a 12% gallbladder ejection fraction but it is unclear whether this is truly pathologic. Furthermore, his symptoms do not tend to fully support diagnosis of significant biliary issues. Cholecystectomy would potentially involve significant surgical risk as well as possible chronic diarrhea. Diarrhea would be a significant problem in a quadriplegic individual. At this time he would potentially benefit from evaluation at a higher level to tertiary center where Neurology, gastroenterology, and even spinal injury rehabilitation would be potentially available. I discussed all this with him and his family at the bedside this morning. All questions were answered to his satisfaction, and he voiced understanding. Quality VTE Deep Vein Thrombosis/Pulmonary Embolism Present on Admission: No
--- NOTE | 2017-11-17 12:31 | P.PN_ITS ---
Subjective Date Patient Seen: 11/17/17 Time Patient Seen: 12:26 Interval history: Patient continues to complain of intermittent abdominal pain in the epigastric area radiating to the bilateral axilla. Remains mildly anorexic because of pain. However, he is awaiting his lunch tray to attempt somewhat of a bland diet. Completed bowel regimen this morning. States this causes some discomfort but this is not new. Discomfort is clearly different than the epigastric pain. No nausea or vomiting. Exam Vital Signs (past 8 hours): Vital Signs - 8 hr 3 11/17/17 07:00 11/17/17 10:39 11/17/17 12:00 Temperature 97.7 F 97.9 F Pulse Rate 79 68 Respiratory Rate 16 20 Blood Pressure 101/67 105/69 Pulse Oximetry 95 95 97 Pulse Oximetry 97 Oxygen Delivery Method Room Air Narrative Exam Narrative: Sitting in bed. Family is at the bedside. Alert oriented x3. No acute distress. Abdomen soft and nondistended. Objective Labs Result Diagrams: 11/17/17 04:41 11/17/17 04:41 Labs: Laboratory Results - last 24 hr 11/16/17 11/17/17 11/17/17 16:25 04:41 04:41 WBC 6.4 RBC 4.63 Hgb 11.8 L Hct 35.8 L MCV 77.4 L MCH 25.5 L MCHC 32.9 RDW 15.9 H Plt Count 150 Neut % (Auto) 66.3 Lymph % (Auto) 22.6 L [place] % (Auto) 9.1 Eos % (Auto) 1.6 L Baso % (Auto) 0.4 Neut # (Auto) 4300 Sodium 144 Potassium 2.9 L Chloride 105 Carbon Dioxide 31 BUN < 2 L Creatinine 0.30 L Estimated GFR > 60.0 BUN/Creatinine Ratio 6.7 Glucose 96 Calcium 8.1 L Magnesium 1.5 L Assessment & Plan Plan: Assessment/Plan Narrative: 42-year-old quadriplegic male with autonomic dysreflexia with ongoing epigastric abdominal pain of unclear etiology. His HIDA scan demonstrates a 12 % gallbladder ejection fraction but it is unclear whether this is truly pathologic. Furthermore, his symptoms do not tend to fully support diagnosis of significant biliary issues. Cholecystectomy would potentially involve significant surgical risk as well as possible chronic diarrhea. Diarrhea would be a significant problem in a quadriplegic individual. At this time he would potentially benefit from evaluation at a higher level to tertiary center where Neurology, gastroenterology, and even spinal injury rehabilitation would be potentially available. I discussed all this with him and his family at the bedside this morning. All questions were answered to his satisfaction, and he voiced understanding. Quality VTE Deep Vein Thrombosis/Pulmonary Embolism Present on Admission: No
[2017-11-17] MEDS: BACLOFEN 10 MG TABLET 25 MG PO (12:35)
[2017-11-17] MEDS: MAGNESIUM SULFATE 4 GM/100 ML PIGGYBACK IV (12:35)
[2017-11-17] MEDS: POTASSIUM CHLORIDE IN WATER 40 MEQ/400 ML PIGGYBACK 100 MEQ IV (15:42)
[2017-11-17] MEDS: ALPRAZolam 0.25 MG TABLET PO (21:20)
[2017-11-17] MEDS: TRAZODONE 100 MG TABLET PO (21:21)
[2017-11-17] MEDS: BISACODYL 5 MG TABLET PO (21:21)
[2017-11-18] VITALS (7 sets, daily range): BP systolic 93–121; BP diastolic 60–79; PULSE 74–83; RESP 16–20; TEMP 36.3–36.8; O2SAT 96–98
[2017-11-18] MEDS: SODIUM CHLORIDE 0.9% 1,000 ML 85 ML IV ×2 (01:45→12:23)
[2017-11-18 05:33] LABS: Alanine Aminotransferase 31 IU/L (21-72); Albumin 2.9 g/dL (3.5-5.0); Albumin Globulin Ratio 0.9 (1.0-2.8); Alkaline Phosphatase 55 U/L (38-126); Aspartate Aminotransferase 15 IU/L (17-59); Bilirubin Total 0.4 mg/dL (0.2-1.3); Calcium 8.1 mg/dL (8.4-10.2); Carbon Dioxide 32 mmol/L (22-32); Chloride 105 mmol/L (98-107); Estimated Glomerular Filt Rate > 60.0 mL/min (>60); Globulin 3.1 g/dL (1.7-4.1); Glucose 98 mg/dL (70-100); HEMOLYSIS < 15 (0-50); Potassium 3.3 mmol/L (3.4-5.1); Sodium 145 mmol/L (137-145)
[2017-11-18 05:37] LABS: Blood Urea Nitrogen < 2 mg/dL (9-20)
[2017-11-18] MEDS: CEFAZOLIN 1 GM/50 ML FROZ.PIGGY IV (06:26)
[2017-11-18] MEDS: GABAPENTIN 300 MG CAPSULE PO ×3 (06:26→21:18)
[2017-11-18] MEDS: BACLOFEN 10 MG TABLET 30 MG PO ×2 (06:26→21:18)
[2017-11-18] MEDS: SERTRALINE 50 MG TABLET 100 MG PO (06:27)
[2017-11-18] MEDS: OXYBUTYNIN 5 MG TABLET PO ×2 (06:27→21:18)
[2017-11-18] MEDS: METHADONE 5 MG TABLET PO ×2 (06:27→21:17)
[2017-11-18] MEDS: OXYCODONE IR 10 MG TABLET PO ×3 (06:59→21:17)
[2017-11-18] MEDS: PANTOPRAZOLE 40 MG TABLET PO (08:02)
[2017-11-18] MEDS: METOCLOPRAMIDE HCL 10 MG TABLET PO ×3 (08:02→21:19)
[2017-11-18] MEDS: DOCUSATE 100 MG CAPSULE PO ×2 (08:02→21:16)
[2017-11-18] MEDS: MORPHINE 2 MG/ML INJ IV ×2 (09:23→15:04)
[2017-11-18] MEDS: BACLOFEN 10 MG TABLET 25 MG PO (12:15)
--- NOTE | 2017-11-18 14:51 | CM.DPC ---
DCP Cont: Per MD, pt continues to have some discomfort and pain control issues but advancing pt to full liquid diet to see how he tolerates and Transfer to Higher level of care to [facility] would be appropriate and working to find an accepting physician. Per RN, pt still somewhat painful and struggling to tolerate some liquids, supportive family has been bedside. Plan: SW to continue to follow to determine if pt will transfer to a higher level of care hospital to better meet his medical needs vs progress here and return back home with family support. DAVID Gregory
--- NOTE | 2017-11-18 19:14 | PC.NURSE ---
At 1700 patient refused scheduled dose of Metoclopramide, saying I don't want to eat until 8:30, so I would like it right before I eat. Plan to take med at 2000 in anticipation of meal. Reports poor appetite and it looks good & I feel hungry but when I start to eat everything just shuts down. Tolerating water. IVF infusing per order. Suprapubic cath patent with clear yellow output. Pt requests to sleep now, will allow rest period.
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
[2017-11-18] MEDS: ALPRAZolam 0.25 MG TABLET PO (21:17)
[2017-11-18] MEDS: TRAZODONE 100 MG TABLET PO (22:38)
[2017-11-19] VITALS (7 sets, daily range): BP systolic 91–119; BP diastolic 53–82; PULSE 81–86; RESP 16–17; TEMP 36.1–36.8; O2SAT 95–97
[2017-11-19] MEDS: METHADONE 5 MG TABLET PO (06:31)
[2017-11-19] MEDS: SERTRALINE 50 MG TABLET 100 MG PO (06:32)
[2017-11-19] MEDS: GABAPENTIN 300 MG CAPSULE PO ×2 (06:32→12:13)
[2017-11-19] MEDS: OXYBUTYNIN 5 MG TABLET PO (06:33)
[2017-11-19] MEDS: BACLOFEN 10 MG TABLET 30 MG PO (06:34)
[2017-11-19] MEDS: OXYCODONE IR 10 MG TABLET PO ×2 (06:43→12:13)
[2017-11-19] MEDS: METOCLOPRAMIDE HCL 10 MG TABLET PO ×2 (07:40→11:41)
[2017-11-19] MEDS: DOCUSATE 100 MG CAPSULE PO (07:40)
[2017-11-19] MEDS: PANTOPRAZOLE 40 MG TABLET PO (07:40)
[2017-11-19] MEDS: SODIUM CHLORIDE 0.9% FLUSH 10 ML IV (07:46)
[2017-11-19] MEDS: MORPHINE 2 MG/ML INJ IV (09:52)
--- NOTE | 2017-11-19 10:14 | PC.NURSE ---
Suprapubic catheter changed today using patients own supplies. Morphine 2mg IV given prior for the catheter exchange. No s/s of infection. Stoma is clean and pink. Sterile technique utilized.
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
[2017-11-19] MEDS: BACLOFEN 10 MG TABLET 25 MG PO (12:14)
--- NOTE | 2017-11-19 12:52 | PC.NURSE ---
Patient's lip is swollen. Tongue is normal size, throat is not itchy, no pain. Provider saw the patients lip, no interventions ordered. Chapstick given. No interference with eating/speaking.
--- NOTE | 2017-11-19 13:51 | CM.DPC ---
DCP/continued: Reviewed chart. Received order from Dr. Portillo that patient okay to d/c home today. Apparently, [facility] unable to find higher level facility that can accept. MD feels that patient now medically stable to follow up as outpatient. [employer] MEDICAL COORDINATOR met with patient explained CM/SW role. Patient reports frustration with not being transferred. Patient believes that it has everything to do with his insurance. Patient is aware and agreeable to discharge home today. Patient currently on service with [facility] for cath care. [employer] MEDICAL COORDINATOR spoke with Xochitl from [facility] this AM and order to resume services faxed. Per Dr. Portillo no changes in HH. Patient transports via non urgent BLS transport secondary to paraplegia. Placed call to ambulance and medical need form completed. Patient scheduled to be picked up at approximately 1:45pm. RN updated. P: Home today. services resumed through [facility]. DAVID Ching
== END 2017-11-19 13:56 | disposition home or self-care (01) | DRG 251 ==
LOC: ED 23:04 → AC 11-14 00:45
PROVIDERS: Internal Medicine; Admitting Provider Internal Medicine; Emergency Provider Emergency Medicine; Family Provider Internal Medicine; PCP Internal Medicine; Visit Provider Internal Medicine
DX: R10.9 Unspecified abdominal pain (principal); K29.70 Gastritis, unspecified, without bleeding; R63.4 Abnormal weight loss; Z68.27 Body mass index [BMI] 27.0-27.9, adult; G82.50 Quadriplegia, unspecified; F11.20 Opioid dependence, uncomplicated; G89.4 Chronic pain syndrome; G90.4 Autonomic dysreflexia; K63.5 Polyp of colon; F32.9 Major depressive disorder, single episode, unspecified; F41.9 Anxiety disorder, unspecified; E87.6 Hypokalemia; R68.81 Early satiety; Z86.19 Personal history of other infectious and parasitic diseases; E83.42 Hypomagnesemia; E44.0 Moderate protein-calorie malnutrition; Z68.26 Body mass index [BMI] 26.0-26.9, adult; N39.0 Urinary tract infection, site not specified; D12.6 Benign neoplasm of colon, unspecified; B96.20 Unspecified Escherichia coli [E. coli] as the cause of diseases classified elsewhere
CPT/HCPCS: 36415; 36591; 74019; 76700; 78227; 80048; 80053; 81001; 83605; 83690; 83735; 85025; 87077; 87086; 87186; 99282; A9537; G0378; J2270; J2805; J3475

== ENCOUNTER → 2017-11-22 12:02 | Outpatient (REF) | payer OTHER, MEDICAID, SELFPAY ==
[2017-11-14 01:46] VITALS: BMI 26.7
[2017-11-22 12:21] LABS: Blood Urea Nitrogen 8 mg/dL (9-20); Calcium 8.8 mg/dL (8.4-10.2); Carbon Dioxide 34 mmol/L (22-32); Chloride 100 mmol/L (98-107); Estimated Glomerular Filt Rate > 60.0 mL/min (>60); Glucose 101 mg/dL (70-100); HEMOLYSIS < 15 (0-50); Potassium 4.1 mmol/L (3.4-5.1); Sodium 141 mmol/L (137-145)
== END ==
LOC: LAB 12:02
PROVIDERS: Family Provider Internal Medicine; PCP Internal Medicine; Visit Provider Internal Medicine
DX: E87.6 Hypokalemia (principal)
CPT/HCPCS: 80048

== ENCOUNTER → 2018-01-02 11:56 | Outpatient (REF) | payer OTHER, MEDICAID, SELFPAY ==
[2017-11-14 01:46] VITALS: BMI 26.7
== END ==
LOC: LAB 11:56
PROVIDERS: Family Provider Internal Medicine; PCP Internal Medicine; Visit Provider Internal Medicine
DX: Z87.440 Personal history of urinary (tract) infections (principal)
CPT/HCPCS: 87077; 87086; 87186

== ENCOUNTER 2018-01-09 13:52 | Emergency (ER) | payer OTHER, MEDICAID, SELFPAY ==
[2017-11-14 01:46] VITALS: BMI 26.7
[2018-01-09 13:59] VITALS: BP 113/74; PULSE 88; RESP 16; TEMP 36.9; O2SAT 97; BMI 31.1
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
[2018-01-09 14:30] VITALS: BP 137/87; PULSE 76; RESP 16; O2SAT 97
--- NOTE | 2018-01-09 14:44 | DI.CT.S_ITS ---
PROCEDURE: CT ABDOMEN PELVIS W CON INDICATIONS: Exacerbation of chronic abdominal pain TECHNIQUE: After the administration of intravenous contrast, 5 mm thick sections acquired from the diaphragm to the symphysis. 5 mm coronal and sagittal reformats were acquired. For radiation dose reduction, the following was used: automated exposure control, adjustment of mA and/or kV according to patient size. COMPARISON: [place], [place], [place] H[place] WITH CCK, 11/16/2017, 12:11. [facility], [place], US ABDOMEN COMPLETE, 11/15/2017, 15:41. [facility], CR, XR ABDOMEN MIN 2V, 11/15/2017, 13:49. [place], [place] GASTRIC EMPTYING STUDY, 11/13/2017, 8:22. [facility], CT, CT ABDOMEN PELVIS W CON, 11/05/2017, 11:52. [facility], CT, ABDOMEN/PELVIS WITH CONTRAST, 07/05/2017, 11:36. [facility], CT, KIDNEY/ URETER/BLADDER, 08/10/2014, 13:41. [facility], CT, ABDOMEN/PELVIS WITH CONTRAST, 11/12/2013, 0:28. [facility], CT, IVP (ABD & PEL WWO CONTRAST), 07/29/2012, 9:23. FINDINGS: Image quality: Excellent. ABDOMEN: Lung bases: Lung bases are clear. Heart size is normal. Solid organs: Liver is normal in size and enhancement. Gallbladder is within normal limits. Biliary system is non dilated. Pancreas enhances normally. Spleen mildly enlarged measuring 14 cm in the longitudinal axis.. No adrenal nodules. Kidneys demonstrate normal size and enhancement, without hydronephrosis. Peritoneum and bowel: Bowel loops demonstrate normal caliber. Circumferential wall thickening in noted in the rectum. Mild inflammatory stranding noted in the mesorectum. A moderate amount of stool noted in the right colon. No free fluid or air. The appendix is normal. Nodes and vessels: No retroperitoneal or mesenteric adenopathy by size criteria. Aorta and inferior vena cava are normal in size. Miscellaneous: No ventral hernias. PELVIS: Genitourinary: Suprapubic bladder catheter is noted. Diffuse, slightly irregular wall thickening involving the urinary bladder. Miscellaneous: No inguinal hernias or adenopathy. Visualized musculature is atrophied with fatty infiltration. Bones: No suspicious bony lesions. No vertebral body compression fractures. Spine degenerative disc disease and facet arthropathy. Compression deformities of the T12, L1, L2, L3, L4 and L5 vertebral bodies stable compared to prior exams. IMPRESSION: 1. Rectal circumferential wall thickening with mild adjacent inflammatory changes compatible with nonspecific proctitis. 2. Mild, slightly irregular thickening of the urinary bladder wall compatible with chronic inflammatory process possibly related to suprapubic catheter, however infectious cystitis cannot be excluded by imaging alone. Recommend correlation with urinalysis today. 3. Moderate fecal loading involving the right colon. 4. Mild splenomegaly. Dictated by: Radha Abrams MD, PhD on 01/09/2018 at 14:44 Approved by: Radha Abrams MD, PhD on 01/09/2018 at 14:53
[2018-01-09 15:06] LABS: Add Manual Diff / Slide Review NO; Basophils Percent Auto 0.4 % (0-2); Eosinophils Percent Auto 1.1 % (2-4); Hematocrit 38.3 % (41-53); Hemoglobin 12.8 g/dL (13.5-17.5); Lymphocytes Percent Auto 15.5 % (25-40); Mean Corpuscular HGB Conc 33.4 % (30-36); Mean Corpuscular Hemoglobin 25.9 PG (26-34); Mean Corpuscular Volume 77.7 fL (80-100); Monocytes Percent Auto 6.3 % (3-14); Neutrophils Absolute Auto 6000 /uL (3000-5900); Neutrophils Percent Auto 76.7 % (50-75); Platelet Count 132 X10^3/uL (150-400); Red Blood Cell Count 4.92 X10^6/uL (4.5-5.9); Red Cell Distribution Width 15.4 % (11.6-14.8); White Blood Cell Count 7.8 X10^3/uL (4.5-11.0)
[2018-01-09 15:19] LABS: Alanine Aminotransferase 17 IU/L (21-72); Albumin Globulin Ratio 1.3 (1.0-2.8); Alkaline Phosphatase 74 U/L (38-126); Aspartate Aminotransferase 15 IU/L (17-59); Bilirubin Total 0.4 mg/dL (0.2-1.3); Blood Urea Nitrogen 9 mg/dL (9-20); Calcium 8.8 mg/dL (8.4-10.2); Carbon Dioxide 29 mmol/L (22-32); Chloride 101 mmol/L (98-107); Estimated Glomerular Filt Rate > 60.0 mL/min (>60); Globulin 3.2 g/dL (1.7-4.1); Glucose 98 mg/dL (70-100); HEMOLYSIS < 15 (0-50); Lipase 24 U/L (23-300); Potassium 3.8 mmol/L (3.4-5.1); Sodium 140 mmol/L (137-145); Total Protein 7.2 g/dL (6.3-8.2)
[2018-01-09] MEDS: SODIUM CHLORIDE 0.9% 1,000 ML 1000 ML IV (15:20)
[2018-01-09] MEDS: MORPHINE 4 MG/ML INJ IV (15:26)
[2018-01-09 16:00] VITALS: BP 126/80; PULSE 81; O2SAT 97
--- NOTE | 2018-01-09 16:16 | PC.NURSE ---
Urine from martinez bag tube per protocol
[2018-01-09] MEDS: MORPHINE 2 MG/ML INJ IV (16:28)
[2018-01-09 16:29] LABS: Bacteria Urine None Seen
[2018-01-09 16:50] LABS: Culture Indicated Urine Specimen Cultured; RBC Urine 1-5/HPF (0-5/HPF); Squamous Epithelial Cell Urine None Seen; WBC Urine 1-5/HPF (0-5/HPF)
[2018-01-09 17:40] VITALS: BP 139/93; PULSE 70; RESP 15; O2SAT 96
== END 2018-01-09 17:40 | disposition home or self-care (01) ==
PROVIDERS: Emergency Provider Nurse Practitioner Family; Family Provider Internal Medicine; PCP Internal Medicine
DX: R10.9 Unspecified abdominal pain (principal)
CPT/HCPCS: 36591; 74177; 80053; 81003; 81015; 83690; 85025; 87077; 87086; 87186; 96361; 96374; 96376; 99283; 99285; J2270; Q9967

== ENCOUNTER 2018-01-11 19:49 | Inpatient (IN) | payer OTHER, MEDICAID, SELFPAY ==
[2017-11-14 01:46] VITALS: BMI 26.7
[2018-01-11 20:07] VITALS: BP 121/85; PULSE 66; RESP 18; O2SAT 97
[2018-01-11 20:10] VITALS: TEMP 36.7
[2018-01-11 20:12] LABS: Bacteria Urine None Seen; RBC Urine None Seen (0-5/HPF)
[2018-01-11 20:13] LABS: Appearance Urine UA CLEAR; Bilirubin Urine UA NEGATIVE (NEGATIVE); Color Urine UA YELLOW; Glucose Urine UA NEGATIVE (Normal); Ketones Urine UA TRACE (NEGATIVE); Leukocyte Esterase Urine UA 2+ (NEGATIVE); Nitrite Urine UA Negative (Negative); Occult Blood Urine UA TRACE-LYSED (Negative); Protein Urine UA NEGATIVE (Negative); Urobilinogen Urine UA 0.2 E.U./dL (0.2); pH Urine UA 6.5 (4.5-8.0)
[2018-01-11 20:33] LABS: Amorphous Sediment Urine 1+; Culture Indicated Urine Cult Not Indicated; Renal Epithelial Cells Urine 0-1/HPF; Squamous Epithelial Cell Urine 5-10 /HPF; WBC Urine 5-10/HPF (0-5/HPF)
[2018-01-11 20:37] LABS: Add Manual Diff / Slide Review NO; Basophils Percent Auto 0.5 % (0-2); Eosinophils Percent Auto 1.2 % (2-4); Hematocrit 37.7 % (41-53); Hemoglobin 12.6 g/dL (13.5-17.5); Lymphocytes Percent Auto 20.2 % (25-40); Mean Corpuscular HGB Conc 33.3 % (30-36); Mean Corpuscular Hemoglobin 26.1 PG (26-34); Mean Corpuscular Volume 78.3 fL (80-100); Monocytes Percent Auto 8.5 % (3-14); Neutrophils Absolute Auto 4700 /uL (3000-5900); Neutrophils Percent Auto 69.6 % (50-75); Platelet Count 129 X10^3/uL (150-400); Red Blood Cell Count 4.81 X10^6/uL (4.5-5.9); Red Cell Distribution Width 15.5 % (11.6-14.8); White Blood Cell Count 6.7 X10^3/uL (4.5-11.0)
[2018-01-11 20:51] LABS: Alanine Aminotransferase 20 IU/L (21-72); Albumin 3.9 g/dL (3.5-5.0); Albumin Globulin Ratio 1.2 (1.0-2.8); Alkaline Phosphatase 66 U/L (38-126); Aspartate Aminotransferase 13 IU/L (17-59); Bilirubin Total 0.4 mg/dL (0.2-1.3); Blood Urea Nitrogen 7 mg/dL (9-20); Calcium 8.8 mg/dL (8.4-10.2); Carbon Dioxide 32 mmol/L (22-32); Chloride 99 mmol/L (98-107); Estimated Glomerular Filt Rate > 60.0 mL/min (>60); Globulin 3.2 g/dL (1.7-4.1); Glucose 111 mg/dL (70-100); HEMOLYSIS < 15 (0-50); Lipase 33 U/L (23-300); Potassium 3.3 mmol/L (3.4-5.1); Sodium 139 mmol/L (137-145); Total Protein 7.1 g/dL (6.3-8.2)
[2018-01-11 20:52] LABS: Lactate (Lactic Acid) 0.6 mmol/L (0.7-2.1)
[2018-01-11] MEDS: SODIUM CHLORIDE 0.9% 1,000 ML 150 ML IV (20:56)
[2018-01-11] MEDS: MORPHINE 4 MG/ML INJ IV (20:56)
[2018-01-11 21:09] LABS: Procalcitonin < 0.05 ng/mL (<0.5)
--- NOTE | 2018-01-11 21:44 | ED.MALEGU ---
HPI - Male Genitourinary General Chief complaint: Urogenital-Male Stated complaint: UTI Time Seen by Provider: 01/11/18 19:49 Source: patient and EMS Mode of arrival: EMS Limitations: no limitations History of Present Illness HPI Narrative: Patient is a 42-year-old male of called back in by the emergency department. He has a history of quadriplegia due to a C6 injury, with a chronic indwelling Rodas catheter. He has enterococci this in his urine sensitive only to IV medications. Was seen evaluated here 2 days ago for abdominal pain. Blood work was unremarkable at that time. He did have an abdominal CT which did show all inflammation and some prostatitis. Urine culture from 01/02/2018 did show Pseudomonas and enterococcus, he was taking Levaquin and Macrobid respectfully. Urine culture from 01/09/2018 showing enterococcus. Today he continues to have worsening abdominal pain. He feels bloated every time he takes his antibiotics. He says that is not new for him. He overall does not feel well. In Related Data Home Medications Medication Instructions Recorded Confirmed sertraline 100 mg PO QDAY #0 06/11/17 01/11/18 alprazolam 0.25 mg PO BID PRN #0 07/05/17 01/11/18 baclofen 30 mg PO BID #0 07/05/17 01/11/18 gabapentin [Gralise] 300 mg PO TID #0 07/05/17 01/11/18 oxycodone 10 mg PO Q4HP PRN #0 07/05/17 01/11/18 bisacodyl 1 supp [place] DAILY PRN 11/02/17 01/11/18 oxybutynin chloride 5 mg PO BID 11/02/17 01/11/18 Previous Rx's Medication Instructions Recorded pantoprazole 40 mg PO QAM #30 tab 11/13/17 methadone 5 mg PO 0600,2030 #60 tab 11/19/17 metoclopramide HCl 10 mg PO AC #120 tab 11/19/17 trazodone 100 mg PO BEDTIME #30 tab 11/19/17 Allergies Allergy/AdvReac Type Severity Reaction Status Date / Time ondansetron [ONDANSETRON] Allergy Intermediate PAIN, Verified 11/05/17 11:10 ITCHING, ERYTHEMA AT INJECTION SITE Review of Systems Review of Systems All systems reviewed & are unremarkable except as noted in HPI and below Constitutional Denies chills, Denies fever(s), Denies lethargy and Reports weakness ENT Ears, Nose, Mouth, and Throat: Denies change in voice, Denies neck pain and Denies sore throat Cardiovascular Denies dyspnea and Denies dyspnea on exertion Respiratory Denies cough, Denies dyspnea, Denies dyspnea on exertion and Denies wheezing Gastrointestinal Gastrointestinal: Reports as per HPI Genitourinary Reports as per HPI Musculoskeletal Denies neck pain Neurologic Reports as per HPI and Reports weakness Allergic/Immunologic Denies wheezing [facility] Social History household members: family Smoking Status: Current every day smoker alcohol intake: never Exam Initial Vital Signs Initial Vital Signs: Vital Signs Pulse Rate 66 01/11/18 20:07 Respiratory Rate 18 01/11/18 20:07 Blood Pressure 121/85 H 01/11/18 20:07 Pulse Oximetry 97 01/11/18 20:07 GENERAL: [Well-appearing, well-nourished] and in [no acute] distress. HEENT: Head atraumatic,EOMI, pupils reactive CARDIOVASCULAR: Regular rate and rhythm without murmurs, rubs or gallops. RESPIRATORY: Breath sounds equal bilaterally, no wheezes rales or rhonchi. ABDOMEN: Soft, nontender no guarding no rebound EXTREMITIES: Normal range of motion, no clubbing or edema. Neurovascularly intact NEUROLOGICAL: Alert and oriented x4.Normal gait and speech. Cranial nerves II through XII grossly intact. SKIN: Warm, dry, no laceration, no petechiae, no rashes or lesions. Course Orders Ordered: ED Orders 01/11/18 22:59 Consult to Physician Routine Acetaminophen (Tylenol) 650 mg PO Q6HR PRN PRN Reason: As Needed for Fever/Mild Pain Alprazolam (Xanax) 0.25 mg PO BID PRN PRN Reason: Anxiety Last Admin: 01/12/18 01:11 Dose: 0.125 mg Sodium Chloride (Normal Saline 0.9%) 1,000 mls @ 125 mls/hr IV CONT ROSA Last Infusion: 01/12/18 03:00 Dose: 125 mls/hr Admin: 01/12/18 03:00 Dose: 125 mls/hr Ampicillin Sodium 1,000 mg/ (Sodium Chloride) 20 mls @ 80 mls/hr IV Q6H [facility] Last Admin: 01/12/18 06:39 Dose: 80 mls/hr Morphine Sulfate (Morphine) 2 mg IV Q4HR PRN PRN Reason: Pain, Moderate (4-6) Last Admin: 01/12/18 00:43 Dose: 2 mg Oxycodone HCl (Percolone) 10 mg PO Q4HR PRN PRN Reason: Pain, Severe (7-10) Last Admin: 01/12/18 03:04 Dose: 10 mg Trazodone HCl (Desyrel) 100 mg PO BEDTIME [facility] Last Admin: 01/12/18 01:12 Dose: 50 mg Discontinued Medications Hydromorphone HCl (Dilaudid) 1 mg IV NOW ONE Stop: 01/11/18 20:04 Last Admin: 01/11/18 20:56 Dose: Not Given Sodium Chloride (Normal Saline 0.9%) 1,000 mls @ 150 mls/hr IV CONT [facility] Last Infusion: 01/12/18 03:20 Dose: 0 mls/hr Infusion: 01/11/18 23:00 Dose: 125 mls/hr Infusion: 01/11/18 22:26 Dose: 150 mls/hr Admin: 01/11/18 20:56 Dose: 150 mls/hr Ampicillin Sodium 1,000 mg/ (Sodium Chloride) 100 mls @ 200 mls/hr IV NOW ONE Stop: 01/11/18 22:22 Last Admin: 01/12/18 02:25 Dose: Ampicillin Sodium 1,000 mg/ (Sodium Chloride) 20 mls @ 80 mls/hr IV Q6H [facility] Last Infusion: 01/12/18 01:50 Dose: 80 mls/hr Admin: 01/12/18 00:43 Dose: 80 mls/hr Morphine Sulfate (Morphine) 4 mg IV NOW ONE Stop: 01/11/18 20:55 Last Admin: 01/11/18 20:56 Dose: 4 mg Ondansetron HCl (Zofran) 4 mg IV NOW ONE Stop: 01/11/18 20:04 Last Admin: 01/11/18 20:56 Dose: Not Given Vital Signs - 8 hr 01/12/18 04:29 Temperature 97.8 F Pulse Rate 72 Respiratory Rate 18 Blood Pressure 113/75 Pulse Oximetry 96 MDM - Male Genitourinary Lab Data Attestation: I reviewed the patient's lab results. Result diagrams: 01/11/18 20:30 01/11/18 20:30 Lab Results 01/11/18 01/11/18 01/11/18 Range/Units 20:07 20:30 20:30 WBC 6.7 (4.5-11.0) X10^3/uL RBC 4.81 (4.5-5.9) X10^6/uL Hgb 12.6 L (13.5-17.5) g/dL Hct 37.7 L (41-53) % MCV 78.3 L (80-100) fL MCH 26.1 (26-34) PG MCHC 33.3 (30-36) % RDW 15.5 H (11.6-14.8) % Plt Count 129 L (150-400) X10^3/uL Neut % (Auto) 69.6 (50-75) % Lymph % (Auto) 20.2 L (25-40) % [place] % (Auto) 8.5 (3-14) % Eos % (Auto) 1.2 L (2-4) % Baso % (Auto) 0.5 (0-2) % Neut # (Auto) 4700 (2427-1978) /uL Sodium 139 (137-145) mmol/L Potassium 3.3 L (3.4-5.1) mmol/L Chloride 99 (98-107) mmol/L Carbon Dioxide 32 (22-32) mmol/L BUN 7 L (9-20) mg/dL Creatinine 0.50 L (0.66-1.25) mg/dL Estimated GFR > 60.0 (>60) mL/min BUN/Creatinine Ratio 14.0 (6-22) Glucose 111 H (70-100) mg/dL Lactate (0.7-2.1) mmol/L Calcium 8.8 (8.4-10.2) mg/dL Total Bilirubin 0.4 (0.2-1.3) mg/dL AST 13 L (17-59) IU/L ALT 20 L (21-72) IU/L Alkaline Phosphatase 66 (38-126) U/L Total Protein 7.1 (6.3-8.2) g/dL Albumin 3.9 (3.5-5.0) g/dL Globulin 3.2 (1.7-4.1) g/dL Albumin/Globulin Ratio 1.2 (1.0-2.8) Lipase 33 (23-300) U/L Procalcitonin (<0.5) ng/mL Urine Color Yellow Urine Appearance Clear Urine pH 6.5 (4.5-8.0) Ur Specific [place] 1.010 (1.000-1.035) Urine Protein Negative (Negative) Urine Glucose (UA) Negative (Normal) g/dL Urine Ketones Trace H (NEGATIVE) Urine Occult Blood Trace-lysed (Negative) Urine Nitrate Negative (Negative) Urine Bilirubin Negative (NEGATIVE) Urine Urobilinogen 0.2 (0.2) E.U./dL Ur Leukocyte Esterase 2+ H (NEGATIVE) Urine RBC None seen (0-5/HPF) Urine WBC 5-10/hpf H (0-5/HPF) Ur Squamous Epith Cells 5-10 /hpf H Ur Renal Epithelial Cell 0-1/hpf Amorphous Sediment 1+ Urine Bacteria None seen (None) Ur Culture Indicated? Cult not indicated Micro UA Comment Not Reportable 01/11/18 01/11/18 Range/Units 20:30 20:30 WBC (4.5-11.0) X10^3/uL RBC (4.5-5.9) X10^6/uL Hgb (13.5-17.5) g/dL Hct (41-53) % MCV (80-100) fL MCH (26-34) PG MCHC (30-36) % RDW (11.6-14.8) % Plt Count (150-400) X10^3/uL Neut % (Auto) (50-75) % Lymph % (Auto) (25-40) % [place] % (Auto) (3-14) % Eos % (Auto) (2-4) % Baso % (Auto) (0-2) % Neut # (Auto) (3018-4272) /uL Sodium (137-145) mmol/L Potassium (3.4-5.1) mmol/L Chloride (98-107) mmol/L Carbon Dioxide (22-32) mmol/L BUN (9-20) mg/dL Creatinine (0.66-1.25) mg/dL Estimated GFR (>60) mL/min BUN/Creatinine Ratio (6-22) Glucose (70-100) mg/dL Lactate 0.6 L (0.7-2.1) mmol/L Calcium (8.4-10.2) mg/dL Total Bilirubin (0.2-1.3) mg/dL AST (17-59) IU/L ALT (21-72) IU/L Alkaline Phosphatase (38-126) U/L Total Protein (6.3-8.2) g/dL Albumin (3.5-5.0) g/dL Globulin (1.7-4.1) g/dL Albumin/Globulin Ratio (1.0-2.8) Lipase (23-300) U/L Procalcitonin < 0.05 (<0.5) ng/mL Urine Color Urine Appearance Urine pH (4.5-8.0) Ur Specific [place] (1.000-1.035) Urine Protein (Negative) Urine Glucose (UA) (Normal) g/dL Urine Ketones (NEGATIVE) Urine Occult Blood (Negative) Urine Nitrate (Negative) Urine Bilirubin (NEGATIVE) Urine Urobilinogen (0.2) E.U./dL Ur Leukocyte Esterase (NEGATIVE) Urine RBC (0-5/HPF) Urine WBC (0-5/HPF) Ur Squamous Epith Cells Ur Renal Epithelial Cell Amorphous Sediment Urine Bacteria (None) Ur Culture Indicated? Micro UA Comment MDM Narrative Medical decision making narrative: No leukocytosis, does not appear septic or toxic. Discussed with him at least repeat abdominal x-ray he is refusing the x-ray at this time. His abdomen is soft. All according to most recent culture he will need IV antibiotics. Dr. Foy accepts. Discharge Plan Departure Patient Disposition: Admitted As Inpatient Clinical Impression: Prostatitis, UTI (urinary tract infection) Discharge Date/Time: 01/11/18 22:59 Interventions: ED Discharge Assessment Last Done: 01/11/18 22:30 Admit Date/Time: 01/11/18 22:58 Admit Provider: Juan Foy
[2018-01-11 22:35] VITALS: BP 116/73; PULSE 64; RESP 16; TEMP 36.5; O2SAT 97
[2018-01-11 23:08] VITALS: BMI 26.7
[2018-01-12] VITALS (7 sets, daily range): BP systolic 79–122; BP diastolic 50–81; PULSE 64–75; RESP 14–18; TEMP 36.5–36.8; O2SAT 93–96
[2018-01-12] MEDS: AMPICILLIN IV ×2 (00:43→06:39)
[2018-01-12] MEDS: SODIUM CHLORIDE 0.9% IV ×2 (00:43→06:39)
[2018-01-12] MEDS: MORPHINE 2 MG/ML INJ IV ×2 (00:43→13:47)
[2018-01-12] MEDS: ALPRAZolam 0.25 MG TABLET PO (01:11)
[2018-01-12] MEDS: TRAZODONE 50 MG TABLET 100 MG PO (01:12)
--- NOTE | 2018-01-12 01:54 | PC.ADMIT ---
Addendum entered by Elizabeth Wetzel R.N. 01/12/18 06:15: Pt reports that his mother will come in to give him a suppository and edema per his home routine for BMs. Unsure when that will be. Original Note: [address] Admission Note: Pt arrived to room 226 prior to NOC shift, admitted by evening RN. Pt is A/O x3. RA sats with clear lungs. Pt is an incomplete quadriplegic with movement to right arm and hand, able to brush his own teeth and drink from straw indep. Pt has the same [place] bed at home and oriented to its use. Unable to fully asses/visualize pt's back and buttock, pt will not turn at this time due to pain concerns, see skin assessment. IVF infusing. called and ordered some of pts home meds and the rest of pts meds will be addressed in the morning. The patient,Adrian Arteaga,42 y/o, was given written information regarding hospital policies, unit procedures and contact persons. Patient's smoking status: Current every day smoker. Vital Signs - 8 hr 01/11/18 20:07 01/11/18 20:10 01/11/18 22:35 Temperature 98.1 F 97.7 F Pulse Rate 66 64 Respiratory Rate 18 16 Blood Pressure 116/73 Blood Pressure [Right Arm] 121/85 H Pulse Oximetry 97 97
[2018-01-12] MEDS: SODIUM CHLORIDE 0.9% 1,000 ML 125 ML IV ×3 (03:00→21:20)
[2018-01-12] MEDS: OXYCODONE IR 10 MG TABLET PO ×4 (03:04→21:06)
[2018-01-12 09:57] LABS: Blood Urea Nitrogen 6 mg/dL (9-20); Calcium 8.5 mg/dL (8.4-10.2); Carbon Dioxide 29 mmol/L (22-32); Chloride 102 mmol/L (98-107); Estimated Glomerular Filt Rate > 60.0 mL/min (>60); Glucose 96 mg/dL (70-100); HEMOLYSIS < 15 (0-50); Magnesium 1.6 mg/dL (1.6-2.3); Phosphorous 3.5 mg/dL (2.5-4.5); Potassium 3.4 mmol/L (3.4-5.1); Sodium 139 mmol/L (137-145)
[2018-01-12] MEDS: GABAPENTIN 300 MG CAPSULE PO ×3 (10:11→20:57)
[2018-01-12] MEDS: METOCLOPRAMIDE HCL 10 MG TABLET PO ×2 (10:11→21:00)
[2018-01-12] MEDS: BACLOFEN 10 MG TABLET 30 MG PO ×3 (10:12→20:56)
[2018-01-12] MEDS: SERTRALINE 50 MG TABLET 100 MG PO (10:13)
[2018-01-12] MEDS: SULFA/TRIMETH 800/160 (DS) TABLET 1 TAB PO ×2 (10:13→20:58)
[2018-01-12] MEDS: PANTOPRAZOLE 40 MG TABLET PO (10:14)
[2018-01-12] MEDS: OXYBUTYNIN 5 MG TABLET PO ×2 (10:15→20:57)
[2018-01-12] MEDS: METHADONE 5 MG TABLET PO ×2 (10:24→21:16)
[2018-01-12] MEDS: AMPICILLIN 1,000 MG in SODIUM CHLORIDE 0.9% 100 ML 200 ML IV ×2 (12:00→19:00)
--- NOTE | 2018-01-12 14:24 | PC.NURSE ---
Adrian continues to have diminished appetite and asks for PRN pain med for burning and discomfort in his groin. Oxycodone and then Morphine given with some relief. S/p martinez draining clear kilo UOP. Adrian states martinez was last changed 10 days ago. Should this martinez be changed out due to UTI? VSS. No fevers. IV ampicillin given. Adrian's Mom was very supportive in care early this AM, helping Adrian with bowel routine and repositioning. They both state his sacrum is intact and they keep a barrier type drsg. in place on it.
--- NOTE | 2018-01-12 14:43 | PT.IPTN ---
Physical Therapy Treatment Note M3 PT-IP Subjective Start: 01/12/18 14:35 Freq: Status: Active Protocol: Document 01/12/18 14:39 [facility] (Rec: 01/12/18 14:43 [facility] [id number]) Subjective Physical Therapy Visit Type Notes Pt reported that he does not manually transfer and uses an overhead lift for his transfers at home. He respectfully declined physical therapy this date, as he was just repositioned and spending time with his son. Will attempt tomorrow.
--- NOTE | 2018-01-12 16:09 | OT.IP.TRT ---
Occupational Therapy Treatment Note M3 OT- IP Subjective and Pain Start: 01/12/18 15:45 Freq: Status: Active Protocol: Document 01/12/18 16:07 [facility] (Rec: 01/12/18 16:09 [facility] [id number]) OT- Subjective Occupational Therapy Visit Type Type Administrative Note Notes Pt states does not feels like he needs OT services. Pt states his mom assist pt for all ADL needs of dressing,toileting, and bathing. Pt needing set-up assist for eating. Therefore discharge OT eval order at this time.
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
--- NOTE | 2018-01-12 18:19 | PC.NURSE ---
Addendum entered by Marce Chacko R.N. 01/12/18 23:20: Relatively uneventful evening. Denies any complaints. Supra pubic cath patent clear urine. IV continues as per orders. Call light w/in reach. Continue w/plan of care. Original Note: Pt watching TV. Denies discomfort at this time. IV of NS @ 100cc/hr infusing into the left hand via pump w/o incidence. Braces on lower legs intact, pulses ++. Rodas cath patent clear urine. Call light w/in reach. Requesting to nap now.
[2018-01-12] MEDS: TRAZODONE 100 MG TABLET PO (22:35)
[2018-01-13] VITALS (9 sets, daily range): BP systolic 97–128; BP diastolic 65–84; PULSE 66–81; RESP 16–18; TEMP 36.4–36.9; O2SAT 93–98
[2018-01-13] MEDS: MORPHINE 2 MG/ML INJ IV ×3 (00:48→12:41)
[2018-01-13] MEDS: AMPICILLIN 1,000 MG in SODIUM CHLORIDE 0.9% 100 ML 200 ML IV ×4 (00:48→19:20)
[2018-01-13] MEDS: SODIUM CHLORIDE 0.9% 1,000 ML 125 ML IV (05:40)
[2018-01-13 05:50] LABS: Add Manual Diff / Slide Review NO; Basophils Percent Auto 0.7 % (0-2); Eosinophils Percent Auto 2.4 % (2-4); Hematocrit 33.9 % (41-53); Hemoglobin 11.3 g/dL (13.5-17.5); Lymphocytes Percent Auto 27.3 % (25-40); Mean Corpuscular HGB Conc 33.4 % (30-36); Mean Corpuscular Hemoglobin 26.2 PG (26-34); Mean Corpuscular Volume 78.3 fL (80-100); Monocytes Percent Auto 7.8 % (3-14); Neutrophils Absolute Auto 2900 /uL (3000-5900); Neutrophils Percent Auto 61.8 % (50-75); Platelet Count 110 X10^3/uL (150-400); Red Blood Cell Count 4.33 X10^6/uL (4.5-5.9); Red Cell Distribution Width 15.7 % (11.6-14.8); White Blood Cell Count 4.7 X10^3/uL (4.5-11.0)
[2018-01-13 06:15] LABS: Alanine Aminotransferase 21 IU/L (21-72); Albumin 3.1 g/dL (3.5-5.0); Albumin Globulin Ratio 1.1 (1.0-2.8); Alkaline Phosphatase 53 U/L (38-126); Aspartate Aminotransferase 11 IU/L (17-59); Bilirubin Total 0.4 mg/dL (0.2-1.3); Blood Urea Nitrogen 4 mg/dL (9-20); Calcium 8.2 mg/dL (8.4-10.2); Carbon Dioxide 30 mmol/L (22-32); Chloride 106 mmol/L (98-107); Estimated Glomerular Filt Rate > 60.0 mL/min (>60); Globulin 2.8 g/dL (1.7-4.1); Glucose 89 mg/dL (70-100); HEMOLYSIS < 15 (0-50); Potassium 3.1 mmol/L (3.4-5.1); Sodium 143 mmol/L (137-145); Total Protein 5.9 g/dL (6.3-8.2)
[2018-01-13] MEDS: METHADONE 5 MG TABLET PO ×2 (06:30→20:09)
[2018-01-13] MEDS: GABAPENTIN 300 MG CAPSULE PO ×3 (06:45→20:10)
[2018-01-13] MEDS: BACLOFEN 10 MG TABLET 30 MG PO ×3 (06:45→20:09)
[2018-01-13] MEDS: PANTOPRAZOLE 40 MG TABLET PO (06:46)
[2018-01-13] MEDS: OXYBUTYNIN 5 MG TABLET PO ×2 (06:46→20:10)
[2018-01-13] MEDS: SULFA/TRIMETH 800/160 (DS) TABLET 1 TAB PO ×2 (06:46→20:09)
[2018-01-13] MEDS: OXYCODONE IR 10 MG TABLET PO ×3 (08:47→21:20)
[2018-01-13] MEDS: SERTRALINE 50 MG TABLET 100 MG PO (11:50)
[2018-01-13] MEDS: POTASSIUM CHLORIDE 20 MEQ TAB 40 MEQ PO ×2 (11:50→19:20)
[2018-01-13] MEDS: ACIDOPHILUS/L.BULG/BIF.B/S.THERMOP TABLET 1 EACH PO (12:07)
[2018-01-13] MEDS: METOCLOPRAMIDE HCL 10 MG TABLET PO ×2 (12:09→19:21)
--- NOTE | 2018-01-13 14:50 | PT.IIE ---
Medical History (Last Reviewed 01/12/18 @ 17:53 by Juan Foy MD) Incomplete quadriplegia due to spinal cord lesion between fifth and seventh cervical vertebra (10/22/15) History of trauma to spine (Acute) Chronic pain syndrome (Acute) Uncomplicated opioid dependence (Acute) Autonomic dysreflexia (Acute) Mixed anxiety depressive disorder (06/29/15) C. difficile colitis (Acute) Physical Therapy Inpatient Evaluation/Re-Eval M1 PT/OT-IP Prior Functional Status Start: 01/12/18 15:45 Freq: NEEDED Status: Active Protocol: Document 01/13/18 14:50 [facility] (Rec: 01/13/18 16:17 [facility] [id number]) Medical Review Prior Functional Status Medical History Reviewed Yes Diet/Fluid Consistency Regular Communication WNL Mobility and Gait blake lift @ home, not transferring to his w/c for the past 3 yrs. Activities of Daily Living and IADL's assist with pericare, pressure relief, indwelling catheter. Prior Functional Level (Other details) mother is his primary caregiver Social History Household Members family Living Arrangements House Home Equipment Power Wheelchair/[facility] Bed Additional Social History Comment Significant medical history: C6 incomplete quadriplegia 6 yrs ago, indwelling catheter, mixed anxiety depressive disorder, h/o c-diff, autonomic dysreflexia, chronic pain syndrome, uncomplicated opiod dependence. Pt presented to ER 4 days prior to admission with c/o lower abdominal pain, diagnosed with prostatitis. Pt had increased GI complications with medication prescribed to treat this. An outpatient urine culture on Jan.09 found to be positive for Enterococcus sensitive to ampicillin, therefore admitted for IV antibiotic treatment. Pt notes that recently he was evaluated by [facility] staff for potential admission for inpatient rehabilitation, currently awaiting the referral process. M2 PT-IP Current Condition Start: 01/12/18 14:35 Freq: Status: Active Protocol: Document 01/13/18 14:50 RCC (Rec: 01/13/18 16:17 [facility] [id number]) Physical Therapy Current Condition Current Condition Evaluation Date 01/13/18 Treatment Diagnosis UTI, prostatitis, impaired mobility and positional tolerance Onset Date 01/11/18 Precautions Other Precautions h/o autonomic dysreflexia- monitor BP if mobilizing. M3 PT-IP Subjective Start: 01/12/18 14:35 Freq: Status: Active Protocol: Document 01/13/18 14:50 [facility] (Rec: 01/13/18 16:17 [facility] [id number]) Subjective Physical Therapy Visit Type Type Initial Evaluation Visit Start Time 14:10 Visit Stop Time 14:50 Total Visit Minutes 40 Number of PRODUCE MANAGER Visits 0 Physical Therapy Visit Comments Patient Comments pt reports he is motivated to get into inpatient rehab to progress toward tolerating upright positioning to get into his w/c, improve independence. Short Term Goals be accepted into inpatient rehabilitation at [facility]. M4 PT-IP Mobility and Gait Start: 01/12/18 14:35 Freq: Status: Active Protocol: Document 01/13/18 14:50 [facility] (Rec: 01/13/18 16:17 [facility] [id number]) PT-Transfer Assessment Comments Mobility Comments pt was just repositioned, for pressure relief and requested to not mobilize/roll this session. He has been max assist with 2 assist and use of bed tilting, but can participate with UE on rails. M5 PT-IP Objective Assessments Start: 01/12/18 14:35 Freq: Status: Active Protocol: Document 01/13/18 14:50 [facility] (Rec: 01/13/18 16:17 [facility] [id number]) Orientation Orientation/Cognition Level of Alertness Alert Gross Range of Motion Upper Extremity ROM Impairments R shoulder flexion and abduction to 170 degrees AROM, ER and IR WNL L shoulder AROM: flexion to 85 degrees, abduction to 75 degrees L shoulder PROM: flexion to 95 degrees, abduction to 85 degrees Lower Extremity ROM Impairments not assessed; LEs in bilateral splints for heel cord tone management. Strength Upper Extremity Strength Assessment Bilaterally Impaired Shoulder flexion R 5/5 L 4/5, abd R 5/5 L 3+/5, ER R 5/5 L 4/5 Elbow flexion R 5/5 L 4/5, extension R 5/5 L 3/5 Wrist flexion R 4/5, extension R 3+/ 5- L not assessed d/t IV placement Hand cfd engineer on R with 1st 3 fingers, 4 & 5 flexion contracture Lower Extremity Strength Assessment Bilaterally Impaired Comments Strength Comments BLE 0/5 Sensation Assessment Sensation Gross Sensation Right UE Impaired Left UE Impaired Right LE Impaired Left LE Impaired Comments Sensation Comments pt reported LE can detect touch but not temperature UE numbness in B hands, but proximal can detect light touch and temperature Muscle Tone Muscle Tone WNL No M6 PT-IP Treatment Start: 01/12/18 14:35 Freq: Status: Active Protocol: Document 01/13/18 14:50 RCC (Rec: 01/13/18 16:17 [facility] [id number]) Physical Therapy Treatment Exercises Exercises Shoulder Flexion Elbow Flexion/Extension Other Treatments Other Treatment Performed L1 theraband- B ER and L elbow flexion, extension with looped band and RUE assisting with tension. M7 PT-IP Assessment and Plan Start: 01/12/18 14:35 Freq: Status: Active Protocol: Document 01/13/18 14:50 [facility] (Rec: 01/13/18 16:17 [facility] [id number]) PT Summary Assessment and Plan Potential Rehabilitation Potential Good Status of Condition at Evaluation Unstable Summary Impairments Pain ROM Strength Tone Bed Mobility Transfers Activity Tolerance Assessment Summary Pt with C6 incomplete spinal cord injury 6 yrs ago, reportedly unable to tolerate sitting in his w/c or provide adequate pressure relief over the past 3 yrs. He reports that he was able to tolerate his power chair and provide pressure relief with tilt feature and some assist with his UEs. He notes that LUE is weaker than 3 yrs ago. Pt hoping to be able to go to inpatient rehabilitation for improvements with sitting tolerance to be able to once again get into his power w/c. Although pt cannot manually transfer and has not manually transferred since his injury 6 yrs ago, he does have a Blake lift at home which he could use with assistance to transfer. Pt is highly motivated, and was engaged the entire evaluation today. Pt would benefit from inpatient physical therapy for daily rehabilitation to improve his tolerance to mobility, upright postures (to benefit pt from being restricted just to his bed, improve his body's reaction to positioning and BP , as well as potentially getting on a regular toileting schedule to allow for bowel movements on a commode vs. in bed with increased risk for skin breakdown, and tone management with different positioning), as well as improving quality of life with getting into his power w/c and decreasing the burden of care on caregivers (primarily his mother), and increasing upper body strength to assist with pressure relief. Pt would benefit from daily therapy compared to intermittent visits provided by home health services, which would assist with acceleration of improvement with daily life and function. Goals Other Goals mechanical lift with transfer to tolerating sitting upright for 10 minutes Frequency of Treatment Frequency Of Treatment Once a Day Treatment Plan Physical Therapy Treatment Plan Bed Mobility Training Transfer Training Therapeutic Exercise Other Recommendations and Next Treatment bed mobility, UE thera ex, Focus transfer with overhead lift if w/c is present and working. Recommendations To Nursing Amount of Assist Needed 2 Person Assist Mechanical Lift Discharge Recommendations PT Discharge Recommendations Acute Rehab
--- NOTE | 2018-01-13 15:42 | CM.DANOTE ---
Discharge Planning/Care Management CM Discharge Assessment Start: 01/13/18 15:37 Freq: Status: Active Protocol: Document 01/13/18 15:37 (Rec: 01/13/18 15:41 [id number]) Discharge Planning Assessment Assigned Mangle Operator Garments WET SANDER Advance Directives? No Advance Directives on File No History Provided By Patient Family Member Medical Record Has Patient been admitted in last 30 No days? Prior Living Arrangements House Household Members family Type of transporation used prior to Medicaid Transport admit Independent with ADL's No: Paraplegic Is patient alert and oriented? Yes Needs Assistance With Bathing Grooming Meal Prep Toileting Managing Medications Home Chores / Shopping Caregiver for Another No Community Services used prior to Physical Therapy admission: Occupational Therapy Home Health Aid Home Health Nurse Transportation Social Work Comment Patricia DME Already Rented / Owned Wheelchair Name of Agency [facility] Comment Kami Reeves Patient/Family Preference [facility] Facility Comment [facility] intensive Rehab. Discharge Plan Inpatient Rehab Unit Transportation Arrangement [facility]. Review Status In Process Next Review Date 01/14/18 Next Review Type Continued Stay Review Met with patient and spouse: Patient states PCP and Patricia have been working on getting patient admitted to [facility] IP rehab. Patient states referral has been accepted and [facility] has completed bedside assessment and determine patient to be an appropriate candidate? Patient was expecting to receive phone call from admissions rep on Sunday with bed availability. Discussed discharge plan with Dr. Foy and patient. Ideally patient would like to discharge to [facility]. Dr. Foy in agreement. PT/OT eval pending. SW attempted to call [facility] but admissions is closed on Sundays. Left voicemail with [employer] CW as well as SW is unsure if auth is already obtained or not? Plan: SW to follow up with [facility] Sunday morning to discuss admission process.
[2018-01-13] MEDS: SODIUM CHLORIDE 0.45% 1,000 ML 100 ML IV (16:06)
[2018-01-13] MEDS: ALPRAZolam 0.25 MG TABLET PO (22:00)
[2018-01-13] MEDS: TRAZODONE 100 MG TABLET PO (22:01)
[2018-01-14] VITALS (8 sets, daily range): BP systolic 88–131; BP diastolic 55–89; PULSE 63–79; RESP 16–18; TEMP 36.2–36.7; O2SAT 94–97
[2018-01-14] MEDS: AMPICILLIN 1,000 MG in SODIUM CHLORIDE 0.9% 100 ML 200 ML IV ×4 (00:19→18:41)
--- NOTE | 2018-01-14 00:22 | PM.PN.1 ---
Subjective Date Patient Seen: 01/13/18 Time Patient Seen: 14:23 Interval history: History of present illness Follow-up on patient and Enterococcus urinary tract infection and prostatitis. Patient warrants full inpatient rehab care with partition patient in physical therapy 3 hr daily. Patient will meet 3 midnights in the hospital on Sunday night and could be eligible for transfer to inpatient rehab facility on SundayJanuary 14. Review of systems Patient notes no chest pain or shortness of breath no nausea he is eating his meals without difficulty is certainly feeling better. Exam Vital Signs (past 8 hours): - 01/13/18 20:00 01/13/18 23:40 Temperature 97.9 F 98.4 F Pulse Rate 66 81 Respiratory Rate 18 18 Blood Pressure 116/78 121/75 H Pulse Oximetry 95 94 Oxygen Delivery Method Room Air Oxygen Flow Rate 0 Narrative Exam Narrative: General appearance He is awake and alert no apparent distress Psychiatric Well oriented pleasant mood affect appropriate Skin No rash no lesions nonjaundiced turgor normal Respiratory Clear to auscultation good airflow no wheezes no crackles Cardiovascular Regular rate rhythm no murmur noted pulses +3 to extremities Gastrointestinal Soft nontender positive bowel sounds no distension no guarding no bruits Neurologic Patient is paraplegic to lower extremity with paresis of upper extremity left worse than right Objective Labs Result Diagrams: 01/13/18 05:26 01/13/18 05:26 Labs: Laboratory Results - last 24 hr 01/13/18 01/13/18 05:26 05:26 WBC 4.7 RBC 4.33 L Hgb 11.3 L Hct 33.9 L MCV 78.3 L MCH 26.2 MCHC 33.4 RDW 15.7 H Plt Count 110 L Neut % (Auto) 61.8 Lymph % (Auto) 27.3 [place] % (Auto) 7.8 Eos % (Auto) 2.4 Baso % (Auto) 0.7 Neut # (Auto) 2900 L Sodium 143 Potassium 3.1 L Chloride 106 Carbon Dioxide 30 BUN 4 L Creatinine 0.50 L Estimated GFR > 60.0 BUN/Creatinine Ratio 8.0 Glucose 89 Calcium 8.2 L Total Bilirubin 0.4 AST 11 L ALT 21 Alkaline Phosphatase 53 Total Protein 5.9 L Albumin 3.1 L Globulin 2.8 Albumin/Globulin Ratio 1.1 Assessment & Plan Plan: Assessment/Plan Narrative: 1. Enterococcal urinary tract infection Patient on ampicillin at 1000 mg IV q.6 hours that were started by the ER physician. Enterococcal culture was reported from an January 09 urine culture obtained from prior ER visit. Will continue the IV ampicillin until discharge. Patient to be discharged on oral amoxicillin for continued some treatment for at least 10 or 14 days total antibiotic treatment. 2. Prostatitis Continue with Bactrim double strength 1 tablet b.i.d.. Continue for at least 10 days. 3. Paraplegic to lower extremity with paresis upper extremity [employer] inquiring if patient could be provided placement to inpatient rehab facility upon discharge from this facility. 4. Hypokalemia potassium replacement provided 5. Gastroesophageal reflux disease Continue proton pump inhibitor each morning Time Spent With Patient Time with patient: 25 - 35 minutes
[2018-01-14] MEDS: SODIUM CHLORIDE 0.45% 1,000 ML 100 ML IV ×2 (02:57→13:59)
[2018-01-14 05:14] LABS: Add Manual Diff / Slide Review NO; Basophils Percent Auto 0.8 % (0-2); Eosinophils Percent Auto 2.6 % (2-4); Hematocrit 34.7 % (41-53); Hemoglobin 11.7 g/dL (13.5-17.5); Lymphocytes Percent Auto 26.4 % (25-40); Mean Corpuscular HGB Conc 33.6 % (30-36); Mean Corpuscular Hemoglobin 26.3 PG (26-34); Mean Corpuscular Volume 78.4 fL (80-100); Monocytes Percent Auto 7.4 % (3-14); Neutrophils Absolute Auto 3500 /uL (3000-5900); Neutrophils Percent Auto 62.8 % (50-75); Platelet Count 116 X10^3/uL (150-400); Red Blood Cell Count 4.42 X10^6/uL (4.5-5.9); Red Cell Distribution Width 15.7 % (11.6-14.8); White Blood Cell Count 5.6 X10^3/uL (4.5-11.0)
[2018-01-14] MEDS: BACLOFEN 10 MG TABLET 30 MG PO ×3 (06:45→20:06)
[2018-01-14] MEDS: GABAPENTIN 300 MG CAPSULE PO ×3 (06:47→20:06)
[2018-01-14] MEDS: METHADONE 5 MG TABLET PO ×2 (06:47→20:11)
[2018-01-14] MEDS: OXYBUTYNIN 5 MG TABLET PO (06:47)
[2018-01-14] MEDS: PANTOPRAZOLE 40 MG TABLET PO (06:48)
[2018-01-14] MEDS: SERTRALINE 50 MG TABLET 100 MG PO (06:48)
[2018-01-14] MEDS: METOCLOPRAMIDE HCL 10 MG TABLET PO ×3 (06:49→17:38)
[2018-01-14] MEDS: SULFA/TRIMETH 800/160 (DS) TABLET 1 TAB PO (06:50)
[2018-01-14] MEDS: OXYCODONE IR 10 MG TABLET PO ×3 (06:55→22:29)
--- NOTE | 2018-01-14 07:44 | CM.DPC ---
Addendum entered by DAVID Pratt 01/14/18 12:03: Faxed OT/PT evals to [facility]: [facility] said they are unable to review patient today. Called Vicky/Carrie: discussed securing auth for [facility] Acute rehab as OP vs IP? Possible, but [facility] has auth IP stay till sunday. Would like SW to follow up with [facility] tomorrow. Spoke with patient: patient agreeable with plan. Plan: Home vs Acute Rehab. Need to follow up with [facility] for acceptance then [email or web address] accept. Original Note: Called [facility] [phone]: [facility] states they are familiar with patient but just received clinicals on Sunday and have no accepted patient as of yet. [facility] requested SW faxed updated PT/OT evals to [phone]. PT evals completed. OT eval pending. Plan: Home with supportive caregivers vs Acute Rehab? SW to fax OT evals when ready.
--- NOTE | 2018-01-14 09:26 | PM.DS.1 ---
History of Present Illness Chief complaint: UTI Narrative: Patient is a 42 years of age function quadriplegic who presents with symptoms of lower abdominal discomfort. Patient notes for the past 4 days prior to the ER visit and admission that he had been on Levaquin as well as Macrobid in the outpatient setting to treat for prostatitis. Patient was having extra GI disturbance and upset it appeared related to these dual medications being provided. Recently patient had a urine culture done in outpatient setting on January 09. Urine culture came back positive for Enterococcus sensitive to ampicillin. Patient admitted to the hospital to receive IV antibiotic treatment. Patient also with prostatitis and will need continued treatment as well since prostatitis can be more difficult to treat effectively compared to a urinary tract infection and was certainly need more than a 4 day course of an antibiotic. Discharge Providers Date of admission: 01/11/18 22:58 Primary care physician: Becca Bolaños MD Consults: 01/11/18 22:59 Consult to Physician Routine Comment: Consulting Provider: Juan Foy Reason for consultation: admission Has provider been notified: Yes 01/12/18 09:26 Consult to Occupational Therapy Evaluate & Treat Comment: Physician Instructions: Evaluate and treat Consult to Physical Therapy Evaluate & Treat Comment: Evaluate for full Rehab placement at 3 hours/day Physician Instructions: Evaluate and Treat Consult to Electronic Masking System Operator Routine Comment: placement to rehab for 3 hrs/day PT 01/14/18 07:46 Consult to Occupational Therapy Evaluate & Treat Comment: Physician Instructions: Evaluate and treat Discharge provider: Rory Keane MD Summary Discharge Diagnosis: 1. Chronic prostatitis 2. Recurrent urinary tract infection secondary to indwelling suprapubic catheter 3. Functional quadriplegia 4. Hypokalemia, resolved 5. Chronic pain with opioid dependency Hospital Course: Patient had failed outpatient antibiotic management for recurrent UTI/prostatitis. Abdomen pelvic CT showed circumferential thickening of rectal wall with adjacent inflammatory changes compatible with proctitis, likely due to fecal impaction, and slightly irregular thickening of the urine bladder associated with suprapubic catheter. He was started on IV ampicillin and oral Bactrim to treat for UTI and prostatitis. Current status is significant improvement in abdominal pain. Urine culture on 01/09/2018 from admission was positive for Enterococcus sensitive to ampicillin. He had outpatient urine culture on 01/02/2018 which grew amp sensitive Enterococcus and Pseudomonas sensitive to Cipro. He had urine culture on 11/15/2017 which grew pansensitive E coli. Patient had been on 4 days of Cipro and Macrodantin as outpatient with severe nausea and unable to tolerate. Antibiotic management in hospital with IV ampicillin would treat the Enterococcus which grew in culture from January 02 as well as culture from January 09. The Bactrim would only treat the E coli bacteria noted in the urine culture back in November. This Pseudomonas positive urine culture from January 02 is not being treated but patient is feeling better. I think it makes the most sense to discharge him on amoxicillin for 4 weeks to treat for chronic prostatitis. He does have history of C difficile colitis diagnosed in July of this year. He is not currently having diarrhea. Patient is functional quadriplegic but previous was able to use his mobility chair but for a long time now he has been bed ridden and requiring Blake lift. He would benefit from acute inpatient rehab to try to regain ability to use mobility chair. Care management working on getting him transferred to acute rehab if he is accepted. Otherwise he will discharge home and Care Management can continue working on getting him to inpatient rehab. Exam Vital Signs (past 8 hours): - 01/14/18 04:22 01/14/18 08:07 Temperature 98.1 F 97.9 F Pulse Rate 79 75 Respiratory Rate 18 16 Blood Pressure 131/89 H 128/81 H Pulse Oximetry 94 95 Oxygen Delivery Method Room Air Oxygen Flow Rate 0 Narrative Exam Narrative: General: Alert, very pleasant and comfortable Objective Labs Result Diagrams: 01/14/18 05:00 01/13/18 05:26 Labs: Laboratory Results - last 24 hr 01/14/18 05:00 WBC 5.6 RBC 4.42 L Hgb 11.7 L Hct 34.7 L MCV 78.4 L MCH 26.3 MCHC 33.6 RDW 15.7 H Plt Count 116 L Neut % (Auto) 62.8 Lymph % (Auto) 26.4 [place] % (Auto) 7.4 Eos % (Auto) 2.6 Baso % (Auto) 0.8 Neut # (Auto) 3500 Discharge Plan Discharge Plan Discharge Problem: Prostatitis, UTI (urinary tract infection) Patient Disposition: [facility] Hospital Discharge comment: Transfer when bed available at inpatient acute rehab. Discharge Med Rec/Prescriptions Discharge Orders: Discharge (Order); Ordered 01/14/18 Ordered By: Rory Horesh Provider Discharge Instructions Diet: Regular Discharge Data Primary Care Provider: Becca Bolaños Attending Provider: Juan Foy Admit Date/Time: 01/11/18 22:58
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
[2018-01-14] MEDS: DOCUSATE 100 MG CAPSULE PO ×2 (12:30→20:06)
[2018-01-14] MEDS: MORPHINE 2 MG/ML INJ IV ×2 (13:07→22:29)
--- NOTE | 2018-01-14 13:50 | PT.IPTN ---
Current Diagnoses Urinary tract infection, site not specified (01/11/18) Physical Therapy Treatment Note M2 PT-IP Current Condition Start: 01/12/18 14:35 Freq: Status: Active Protocol: Document 01/13/18 14:50 [facility] (Rec: 01/13/18 16:17 [facility] [id number]) Physical Therapy Current Condition Current Condition Evaluation Date 01/13/18 Treatment Diagnosis UTI, prostatitis, impaired mobility and positional tolerance Onset Date 01/11/18 Precautions Other Precautions h/o autonomic dysreflexia- monitor BP if mobilizing. M3 PT-IP Subjective Start: 01/12/18 14:35 Freq: Status: Active Protocol: Document 01/14/18 13:50 [facility] (Rec: 01/14/18 18:39 [facility] [id number]) Subjective Physical Therapy Visit Type Type Treatment Note Visit Start Time 13:00 Visit Stop Time 13:50 Total Visit Minutes 50 Number of INSPECTOR AND MENDER Visits 0 Physical Therapy Visit Comments Patient Comments He is not ready to get out of bed yet, too sore on bottom for sitting due to the infection, has not been up in his wheelchair for a while M4 PT-IP Mobility and Gait Start: 01/12/18 14:35 Freq: Status: Active Protocol: Document 01/14/18 13:50 [facility] (Rec: 01/14/18 18:39 [facility] [id number]) PT-Transfer Assessment Comments Mobility Comments Used the bed to place pt in a seated position, he reported mild light-headedness but tolerated a gradual progression to upright well. He declined transfers. Pt has no trunk control for sitting edge of bed. M5 PT-IP Objective Assessments Start: 01/12/18 14:35 Freq: Status: Active Protocol: Document 01/13/18 14:50 [facility] (Rec: 01/13/18 16:17 [facility] [id number]) Orientation Orientation/Cognition Level of Alertness Alert Gross Range of Motion Upper Extremity ROM Impairments R shoulder flexion and abduction to 170 degrees AROM, ER and IR WNL L shoulder AROM: flexion to 85 degrees, abduction to 75 degrees L shoulder PROM: flexion to 95 degrees, abduction to 85 degrees Lower Extremity ROM Impairments not assessed; LEs in bilateral splints for heel cord tone management. 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, 4 & 5 flexion contracture Lower Extremity Strength Assessment Bilaterally Impaired Comments Strength Comments BLE 0/5 Sensation Assessment Sensation Gross Sensation Right UE Impaired Left UE Impaired Right LE Impaired Left LE Impaired Comments Sensation Comments pt reported LE can detect touch but not temperature UE numbness in B hands, but proximal can detect light touch and temperature Muscle Tone Muscle Tone WNL No M6 PT-IP Treatment Start: 01/12/18 14:35 Freq: Status: Active Protocol: Document 01/14/18 13:50 [facility] (Rec: 01/14/18 18:39 [facility] [id number]) Physical Therapy Treatment Exercises Exercises Shoulder Flexion Elbow Flexion/Extension Wrist ROM Hand ROM Other Treatments Other Treatment Performed L1 theraband used for UE exercises in supine- shoulder flex/abduction/ext/ER, elbow flex and ext. Left wrist motions with assistance. Passive stretching left finger . Exercises done to fatigue. He reports his Mother does LE ROM with him daily M7 PT-IP Assessment and Plan Start: 01/12/18 14:35 Freq: Status: Active Protocol: Document 01/14/18 13:50 [facility] (Rec: 01/14/18 18:39 [facility] [id number]) PT Summary Assessment and Plan Summary Impairments Pain ROM Strength Tone Bed Mobility Transfers Activity Tolerance Assessment Summary Pt participated in UE exercises with theraband as able. He allowed me to progress him to upright sitting using the feature on the bed. He declined transfer out of bed due to pain in sitting associated with his infection. Frequency of Treatment Frequency Of Treatment Once a Day Treatment Plan Physical Therapy Treatment Plan Bed Mobility Training Transfer Training Therapeutic Exercise Other Recommendations and Next Treatment bed mobility, UE thera ex, Focus transfer with overhead lift if w/c is present and working. Recommendations To Nursing Amount of Assist Needed 2 Person Assist Mechanical Lift Discharge Recommendations PT Discharge Recommendations Acute Rehab
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
[2018-01-14] MEDS: ACIDOPHILUS/L.BULG/BIF.B/S.THERMOP TABLET 1 EACH PO (17:39)
[2018-01-14] MEDS: TRAZODONE 100 MG TABLET PO (22:19)
[2018-01-14] MEDS: ALPRAZolam 0.25 MG TABLET PO (22:29)
[2018-01-15] VITALS (7 sets, daily range): BP systolic 92–113; BP diastolic 53–70; PULSE 63–85; RESP 16–18; TEMP 36.1–36.9; O2SAT 94–97
[2018-01-15] MEDS: SODIUM CHLORIDE 0.45% 1,000 ML 100 ML IV ×3 (00:20→21:57)
[2018-01-15] MEDS: AMPICILLIN 1,000 MG in SODIUM CHLORIDE 0.9% 100 ML 200 ML IV ×4 (00:20→18:30)
[2018-01-15 05:30] LABS: Add Manual Diff / Slide Review NO; Basophils Percent Auto 0.8 % (0-2); Eosinophils Percent Auto 3.7 % (2-4); Hematocrit 35.3 % (41-53); Hemoglobin 11.9 g/dL (13.5-17.5); Lymphocytes Percent Auto 23.1 % (25-40); Mean Corpuscular HGB Conc 33.6 % (30-36); Mean Corpuscular Hemoglobin 26.2 PG (26-34); Monocytes Percent Auto 7.3 % (3-14); Neutrophils Absolute Auto 3600 /uL (3000-5900); Neutrophils Percent Auto 65.1 % (50-75); Platelet Count 118 X10^3/uL (150-400); Red Blood Cell Count 4.52 X10^6/uL (4.5-5.9); Red Cell Distribution Width 15.9 % (11.6-14.8); White Blood Cell Count 5.5 X10^3/uL (4.5-11.0)
[2018-01-15] MEDS: METHADONE 5 MG TABLET PO ×2 (06:30→20:28)
[2018-01-15] MEDS: OXYCODONE IR 10 MG TABLET PO ×3 (06:30→20:25)
[2018-01-15] MEDS: METOCLOPRAMIDE HCL 10 MG TABLET PO ×3 (06:31→16:30)
[2018-01-15] MEDS: ACIDOPHILUS/L.BULG/BIF.B/S.THERMOP TABLET 1 EACH PO ×2 (06:34→20:16)
[2018-01-15] MEDS: BACLOFEN 10 MG TABLET 30 MG PO ×3 (06:35→20:15)
[2018-01-15] MEDS: DOCUSATE 100 MG CAPSULE PO ×2 (06:36→20:15)
[2018-01-15] MEDS: PANTOPRAZOLE 40 MG TABLET PO (06:37)
[2018-01-15] MEDS: GABAPENTIN 300 MG CAPSULE PO ×3 (06:37→20:16)
[2018-01-15] MEDS: OXYBUTYNIN 5 MG TABLET PO ×2 (06:37→20:17)
[2018-01-15] MEDS: SERTRALINE 50 MG TABLET 100 MG PO (06:38)
[2018-01-15] MEDS: MORPHINE 2 MG/ML INJ IV ×3 (09:10→20:10)
--- NOTE | 2018-01-15 09:25 | PC.NURSE ---
Addendum entered by Natalie Alexander R.N. 01/15/18 12:40: Pt reports having bowel movement, pts mother digitally disimpacted pateint. Offered to reposition patient, pt reports he is floating his bottom on pillows placed by his mother after bowel treatment. Pt reports he will call for assist when he wants one of the pillows removed. given 10mg oxycodone as requested before working with physical therapy. Original Note: Pt requesting 2mg ivp morphine prior to bowel treament, 2mg morhine given. Pt reports pain to pevic and abdomen 11/11, reports he hasnt flet much improvement with pain since admit.
--- NOTE | 2018-01-15 11:45 | PT.IPTN ---
Current Diagnoses Urinary tract infection, site not specified (01/11/18) Physical Therapy Treatment Note M2 PT-IP Current Condition Start: 01/12/18 14:35 Freq: Status: Active Protocol: Document 01/13/18 14:50 [facility] (Rec: 01/13/18 16:17 [facility] [id number]) Physical Therapy Current Condition Current Condition Evaluation Date 01/13/18 Treatment Diagnosis UTI, prostatitis, impaired mobility and positional tolerance Onset Date 01/11/18 Precautions Other Precautions h/o autonomic dysreflexia- monitor BP if mobilizing. M3 PT-IP Subjective Start: 01/12/18 14:35 Freq: Status: Active Protocol: Document 01/15/18 11:45 [facility] (Rec: 01/15/18 13:17 AB [id number]) Subjective Physical Therapy Visit Type Type Patient Refusal Notes checked on pt this morning and refused therapy. stated that his butt is too sore and his prostate is flared up. want to do therapy at 1 pm today and stated that he will do UE exercises and having HOB elevated up more and see how he tolerates it.
--- NOTE | 2018-01-15 13:20 | PT.IPTN ---
Current Diagnoses Urinary tract infection, site not specified (01/11/18) Physical Therapy Treatment Note M2 PT-IP Current Condition Start: 01/12/18 14:35 Freq: Status: Active Protocol: Document 01/13/18 14:50 [facility] (Rec: 01/13/18 16:17 [facility] [id number]) Physical Therapy Current Condition Current Condition Evaluation Date 01/13/18 Treatment Diagnosis UTI, prostatitis, impaired mobility and positional tolerance Onset Date 01/11/18 Precautions Other Precautions h/o autonomic dysreflexia- monitor BP if mobilizing. M3 PT-IP Subjective Start: 01/12/18 14:35 Freq: Status: Active Protocol: Document 01/15/18 13:20 [facility] (Rec: 01/15/18 15:15 AB [id number]) Subjective Physical Therapy Visit Type Type Treatment Note Visit Start Time 13:20 Visit Stop Time 13:52 Total Visit Minutes 32 Number of TUBE BUILDER Visits 0 Physical Therapy Visit Comments Patient Comments pt agreeable to do therapy Therapy Pain Assessment Pain When Pain Assessed During Mobility Pain Present Pain Present Pain Reported Location Lower Back Scale Used pain scale not stated M4 PT-IP Mobility and Gait Start: 01/12/18 14:35 Freq: Status: Active Protocol: Document 01/15/18 13:20 [facility] (Rec: 01/15/18 15:15 AB [id number]) PT-Transfer Assessment Comments Mobility Comments PT tx session conducted to increase pt's sitting tolerance and trunk control. BP monitored. pt found supine in bed with HOB elevated to ~ 42deg: HOB 42 deg elevated: BP: 91/66 KS 70 55 deg elevated: BP: 104/63 KS 73 63 deg elevated: BP: 98/66 KS 67 72 deg elevated: BP: 137/60 KS 72 pt tolerated ~ 3-5 min in each position. completed reaching forward, sideways and crossing over sitting at 72 deg HOB elevation. pt requested to go back supine afterwards with c/o low back pain. BP : 93/67 KS 75 when back got back to 64 deg HOB elevation. pt unable to tolerate further tx and stated that he wants to rest afterwards. M5 PT-IP Objective Assessments Start: 01/12/18 14:35 Freq: Status: Active Protocol: Document 01/13/18 14:50 [facility] (Rec: 01/13/18 16:17 [facility] [id number]) Orientation Orientation/Cognition Level of Alertness Alert Gross Range of Motion Upper Extremity ROM Impairments R shoulder flexion and abduction to 170 degrees AROM, ER and IR WNL L shoulder AROM: flexion to 85 degrees, abduction to 75 degrees L shoulder PROM: flexion to 95 degrees, abduction to 85 degrees Lower Extremity ROM Impairments not assessed; LEs in bilateral splints for heel cord tone management. 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, 4 & 5 flexion contracture Lower Extremity Strength Assessment Bilaterally Impaired Comments Strength Comments BLE 0/5 Sensation Assessment Sensation Gross Sensation Right UE Impaired Left UE Impaired Right LE Impaired Left LE Impaired Comments Sensation Comments pt reported LE can detect touch but not temperature UE numbness in B hands, but proximal can detect light touch and temperature Muscle Tone Muscle Tone WNL No M6 PT-IP Treatment Start: 01/12/18 14:35 Freq: Status: Active Protocol: Document 01/14/18 13:50 [facility] (Rec: 01/14/18 18:39 [facility] [id number]) Physical Therapy Treatment Exercises Exercises Shoulder Flexion Elbow Flexion/Extension Wrist ROM Hand ROM Other Treatments Other Treatment Performed L1 theraband used for UE exercises in supine- shoulder flex/abduction/ext/ER, elbow flex and ext. Left wrist motions with assistance. Passive stretching left finger . Exercises done to fatigue. He reports his Mother does LE ROM with him daily M7 PT-IP Assessment and Plan Start: 01/12/18 14:35 Freq: Status: Active Protocol: Document 01/15/18 13:20 [facility] (Rec: 01/15/18 15:15 AB [id number]) PT Summary Assessment and Plan Potential Rehabilitation Potential Fair Summary Impairments Pain ROM Strength Balance Coordination Sensation Tone Cognition Bed Mobility Transfers Gait Activity Tolerance Progress Towards Goals Slow Progress due to Medical Issues Slow Progress due to Activity Tolerance Assessment Summary pt continues to have decrease activity tolerance affecting mobility. Goals Other Goals increase sitting tolerance to ~ 10 min in ~ upright position on chair Frequency of Treatment Frequency Of Treatment Once a Day Treatment Plan Physical Therapy Treatment Plan Bed Mobility Training Transfer Training Therapeutic Exercise Recommendations To Nursing Amount of Assist Needed 2 Person Assist Mechanical Lift Discharge Recommendations PT Discharge Recommendations Acute Rehab
--- NOTE | 2018-01-15 15:02 | OT.IP.TRT ---
Current Diagnoses Urinary tract infection, site not specified (01/11/18) Occupational Therapy Treatment Note M2 OT-IP Current Condition Start: 01/12/18 15:45 Freq: Status: Active Protocol: Document 01/14/18 09:52 [facility] (Rec: 01/14/18 10:20 [facility] [id number]) Occupational Therapy Current Condition Current Condition Evaluation Date 01/14/18 Treatment Diagnosis UTI, weakness Diagnosis Onset Date 01/11/18 Post Operative Precautions Other Precautions h/o autonomic dysreflexia- monitor BP if mobilizing. M3 OT- IP Subjective and Pain Start: 01/12/18 15:45 Freq: Status: Active Protocol: Document 01/15/18 14:55 [facility] (Rec: 01/15/18 15:02 [facility] [id number]) OT- Subjective Occupational Therapy Visit Type Type Treatment Note Visit Start Time 13:20 Visit Stop Time 13:52 Total Visit Minutes 32 OT Pain Assessment Pain When Pain Assessed During Mobility Pain Present Pain Present Pain Reported M4 OT- IP ADL's Start: 01/12/18 15:45 Freq: Status: Active Protocol: Document 01/14/18 09:52 [facility] (Rec: 01/14/18 10:20 [facility] [id number]) OT YRM-[id number]-Occjfep General Evaluation Self-Feeding Ability Standby Assistance Areas Needing Assistance Cutting Food Opening Containers Devices Self-Feeding Devices Adapted Utensil Comments OT Self-Feeding Comments Pt able to self feed after set -up and use of foam mental health clinician on utensils. Pt may benefit from t-rocker knife to increase his independence to cut his own food. OT ADL-Grooming Comments OT Grooming Comments Per pt need set-up assist otherwise able to do grooing needs. OT ADL-Dressing General Eval Upper Body Dressing Ability Maximum Assistance Lower Body Dressing Ability Total Assistance Areas Needing Assistance Retrieving/Set-up of Clothing Underpants/Brief Socks Orthosis/Prosthesis Comments OT Dressing Comments Pt only able to help minimally at this time to help thread arms into clothing. OT ADL-Toileting General Evaluation Toileting Ability Total Assistance Comments OT Toileting Comments Indwelling catheter. M6 OT- IP Functional Cognition Start: 01/12/18 15:45 Freq: Status: Active Protocol: Document 01/14/18 09:52 [facility] (Rec: 01/14/18 10:20 [facility] [id number]) Cognitive Factors Limiting Selfcare Function Cognitive Ability Level of Alertness Alert Patient Orientation Name Place Situation Attention Span Ability Capable of Focused Attention Capable of Sustained Attention Ability to Follow Commands Able to Follow Multi-Step Commands Memory Description No Deficits Noted Safety Awareness No Deficits Noted Problem Solving Ability No deficits Noted Cognitive Comments Cognitive Assessment Comments On OT eval no cognitive deficit noted at this time. OT- Vision and Hearing OT- Hearing Assessment OT- Hearing Assessment WFL M7 OT- IP Mobility and Balance Start: 01/12/18 15:45 Freq: Status: Active Protocol: Document 01/15/18 14:55 [facility] (Rec: 01/15/18 15:02 [facility] [id number]) OT-Transfer Assessment Comments Mobility Comments Pt to see pt with Pt to assess BP while slowly elevating bed up. 42 degrees 91/66 hr 80 55 degrees 104/63 hr73 63 degrees 98/66 hr 76 72 degrees 137/60 hr 72 64 degrees 93/67 hr 75 OT- Balance Assessment Comments Other Balance Tests/Deviations/Treatment Pt to work on reaching out : while sitting in bed to work on trunk control and BUE strength and ROM. M8 OT- IP Objective Assessments Start: 01/12/18 15:45 Freq: Status: Active Protocol: Document 01/14/18 09:52 [facility] (Rec: 01/14/18 10:20 [facility] [id number]) OT Gross Range of Motion Upper Extremity Range of Motion ROM Impairments RUE WFL for shoulder ER and IR , and 0-170 for shoulder flextion and abduction. LUE flexion to 85 degrees and abduction to 75 degrees. OT-Muscle Tone Assessment Comments Muscle Tone Comments Contracture on left hand 2-5th digit and only able to grasp small objects with right hand. OT Sensation Assessment Comments Summary Comments BUE sensation decreased overall. BUE pt states has numbeness but proxiamlly can detect light touch and temperature. 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 Pt wanting to go to inpatient rehab to improve with BUE mobility and function to increase independence for eating, grooming, and improve sitting balance to be able to sit in power wc again and feeling motiviated or overall goal to try to be able to use bed side commode and possible to shower chair to improve hygiene and hopefully decrease risk for UTI's. Inpatient rehab would be beneficial to increase ROM and strength for BUE, sitting tolerance, and assess to see if pt able to use any AED to help improve ADl's and therefore decrease some burden to caregivers. Pt would greatly benefit from daily therapy versus home health to provide daily education/ training for pt and family. Goals Self-Feeding Goal Independent Grooming Goal Independent Dressing Goal Moderate Assistance Patient/Caregiver Education Goal Caregiver Independent Assisting Patient OT-Other Goals Pt to be independent with BUE exercises to help increase AROM to improve independence with ADl needs. Pt to be able to do sitting toleration with increased degrees by his hospital bed to work on toleration to sit up in power wc. Days to Meet Goals 9 Frequency of Treatment Frequency Of Treatment Once a Day Treatment Plan OT Treatment Plan ADL Training Therapeutic Exercises Patient/Family Education Discharge Planning Other Treatment Recommendations and Next BUE exrecises and stretches. Treatment Focus Discharge Recommendations OT Discharge Recommendations Acute Rehab Home Equipment Needs [facility]
--- NOTE | 2018-01-15 16:28 | PC.NURSE ---
Removed pillow from pt bottom, reports more comfortable and wants to nap. IV infusing 1/2 NS to L hand. call light in reach.
--- NOTE | 2018-01-15 17:01 | CM.DPC ---
Call from Aprim[facility]/efra: She called [facility] directly to determine if they will accept patient. Juliette stated [facility] said they needed more time and she referred them to [facility] for all questions. Plan: CM to follow up with [facility] are if they are able to accept patient?
--- NOTE | 2018-01-15 17:39 | PM.PN.1 ---
Subjective Date Patient Seen: 01/15/18 Time Patient Seen: 14:39 Interval history: IS 48-YEAR-OLD GENTLEMAN WITH QUADRIPARESIS RECURRENT URINARY TRACT INFECTION THE INDWELLING SUPRAPUBIC CATHETER WAS INITIALLY TREATED WITH AMPICILLIN AND BACTRIM AND BACTRIM HAS BEEN DISCONTINUED IS GROWN ENTEROCOCCUS FAECALIS FROM THE URINE CULTURE AND ALSO PSEUDOMONAS AERUGINOSA WHICH THE PHYSICIANS DECIDED TO NOT TREAT THE PATIENT IS GETTING BETTER ON THE IV AMPICILLIN HE IS BEING WORKED UP FOR POSSIBLE ACUTE REHABILITATION PLACEMENT IN THE [facility] IF THAT DOES NOT HAPPEN THEN IT BE GOING HOME Exam Vital Signs (past 8 hours): - 01/15/18 11:45 01/15/18 16:05 Temperature 98.1 F 97.9 F Pulse Rate 68 63 Respiratory Rate 16 18 Blood Pressure 93/66 92/53 L Pulse Oximetry 95 97 Oxygen Delivery Method Room Air Oxygen Flow Rate 0 Const General: cooperative, healthy appearing, comfortable and well developed Nutritional Appearance: average body habitus HENMT Head: normal to inspection, normocephalic and atraumatic Eyes General: appearance normal, both eyes and all related structures Eyelids: eyelids normal Conjunctivae: conjunctivae normal Sclera: sclerae normal Pupils: PERRL EOM: EOM intact bilaterally Neck Neck: normal visual inspection and full ROM Thyroid: thyroid normal Resp Effort & Inspection: normal respiratory effort and able to speak in complete sentences Auscultation: clear to auscultation bilaterally Cardio Palpation: normal PMI Rate: regular rate Rhythm: regular rhythm Heart Sounds: S1 normal and S2 normal GI Inspection: normal to inspection Palpation: soft Back/Spine/Pelvis Back: normal to inspection Skin General: no rashes or lesions noted Neuro General: alert, awake and oriented x3 Cranial Nerves: CN's II-XI intact bilaterally Cognition: normal cognition Speech: speech normal Extrem General: normal to inspection Psych Affect: normal affect Attitude: cooperative Thought Process: normal Thought Content: normal Judgment: judgment good Objective Labs Result Diagrams: 01/15/18 05:08 01/13/18 05:26 Labs: Laboratory Results - last 24 hr 01/15/18 05:08 WBC 5.5 RBC 4.52 Hgb 11.9 L Hct 35.3 L MCV 78.0 L MCH 26.2 MCHC 33.6 RDW 15.9 H Plt Count 118 L Neut % (Auto) 65.1 Lymph % (Auto) 23.1 L [place] % (Auto) 7.3 Eos % (Auto) 3.7 Baso % (Auto) 0.8 Neut # (Auto) 3600 Assessment & Plan Plan: Assessment/Plan Narrative: 1. RECURRENT URINARY TRACT INFECTION IN THE SETTING OF A SUPRAPUBIC CATHETER INDWELLING LONG-TERM WITH ENTEROCOCCUS FAECALIS AND PSEUDOMONAS AERUGINOSA AND IS CURRENTLY BEING TREATED WITH IV AMPICILLIN FOR THE ENTEROCOCCUS FAECALIS AND AN INFORMED DECISION HAS BEEN MADE SO FAR BY THE PHYSICIANS PRIOR TO NOW TO NOT NECESSARILY TREAT THE PSEUDOMONAS 2. QUADRIPARESIS DISCHARGE PLANNING AND BUN GOING TO ACUTE REHAB IN [facility] IF NOT ACCEPTED THAT HE ?HOME WITH SUPPORT Time Spent With Patient Time with patient: 25 - 35 minutes
--- NOTE | 2018-01-15 17:45 | P.PN_ITS ---
Subjective Date Patient Seen: 01/15/18 Time Patient Seen: 14:39 Interval history: IS 48-YEAR-OLD GENTLEMAN WITH QUADRIPARESIS RECURRENT URINARY TRACT INFECTION THE INDWELLING SUPRAPUBIC CATHETER WAS INITIALLY TREATED WITH AMPICILLIN AND BACTRIM AND BACTRIM HAS BEEN DISCONTINUED IS GROWN ENTEROCOCCUS FAECALIS FROM THE URINE CULTURE AND ALSO PSEUDOMONAS AERUGINOSA WHICH THE PHYSICIANS DECIDED TO NOT TREAT THE PATIENT IS GETTING BETTER ON THE IV AMPICILLIN HE IS BEING WORKED UP FOR POSSIBLE ACUTE REHABILITATION PLACEMENT IN THE [facility] IF THAT DOES NOT HAPPEN THEN IT BE GOING HOME Exam Vital Signs (past 8 hours): - 01/15/18 11:45 01/15/18 16:05 Temperature 98.1 F 97.9 F Pulse Rate 68 63 Respiratory Rate 16 18 Blood Pressure 93/66 92/53 L Pulse Oximetry 95 97 Oxygen Delivery Method Room Air Oxygen Flow Rate 0 Const General: cooperative, healthy appearing, comfortable and well developed Nutritional Appearance: average body habitus HENMT Head: normal to inspection, normocephalic and atraumatic Eyes General: appearance normal, both eyes and all related structures Eyelids: eyelids normal Conjunctivae: conjunctivae normal Sclera: sclerae normal Pupils: PERRL EOM: EOM intact bilaterally Neck Neck: normal visual inspection and full ROM Thyroid: thyroid normal Resp Effort & Inspection: normal respiratory effort and able to speak in complete sentences Auscultation: clear to auscultation bilaterally Cardio Palpation: normal PMI Rate: regular rate Rhythm: regular rhythm Heart Sounds: S1 normal and S2 normal GI Inspection: normal to inspection Palpation: soft Back/Spine/Pelvis Back: normal to inspection Skin General: no rashes or lesions noted Neuro General: alert, awake and oriented x3 Cranial Nerves: CN's II-XI intact bilaterally Cognition: normal cognition Speech: speech normal Extrem General: normal to inspection Psych Affect: normal affect Attitude: cooperative Thought Process: normal Thought Content: normal Judgment: judgment good Objective Labs Result Diagrams: 01/15/18 05:08 01/13/18 05:26 Labs: Laboratory Results - last 24 hr 01/15/18 05:08 WBC 5.5 RBC 4.52 Hgb 11.9 L Hct 35.3 L MCV 78.0 L MCH 26.2 MCHC 33.6 RDW 15.9 H Plt Count 118 L Neut % (Auto) 65.1 Lymph % (Auto) 23.1 L [place] % (Auto) 7.3 Eos % (Auto) 3.7 Baso % (Auto) 0.8 Neut # (Auto) 3600 Assessment & Plan Plan: Assessment/Plan Narrative: 1. RECURRENT URINARY TRACT INFECTION IN THE SETTING OF A SUPRAPUBIC CATHETER INDWELLING LONG-TERM WITH ENTEROCOCCUS FAECALIS AND PSEUDOMONAS AERUGINOSA AND IS CURRENTLY BEING TREATED WITH IV AMPICILLIN FOR THE ENTEROCOCCUS FAECALIS AND AN INFORMED DECISION HAS BEEN MADE SO FAR BY THE PHYSICIANS PRIOR TO NOW TO NOT NECESSARILY TREAT THE PSEUDOMONAS 2. QUADRIPARESIS DISCHARGE PLANNING AND BUN GOING [facility] IF NOT ACCEPTED THAT HE ?HOME WITH SUPPORT Time Spent With Patient Time with patient: 25 - 35 minutes
[2018-01-15] MEDS: TRAZODONE 100 MG TABLET PO (20:16)
[2018-01-15] MEDS: ALPRAZolam 0.25 MG TABLET PO (21:57)
[2018-01-16] VITALS (9 sets, daily range): BP systolic 97–134; BP diastolic 56–82; PULSE 65–74; RESP 15–16; TEMP 36.3–36.8; O2SAT 94–98
[2018-01-16] MEDS: AMPICILLIN 1,000 MG in SODIUM CHLORIDE 0.9% 100 ML 200 ML IV ×5 (00:13→23:48)
[2018-01-16] MEDS: MORPHINE 2 MG/ML INJ IV ×2 (05:13→12:33)
[2018-01-16] MEDS: METHADONE 5 MG TABLET PO ×2 (06:27→20:17)
[2018-01-16] MEDS: BACLOFEN 10 MG TABLET 30 MG PO ×3 (06:28→20:18)
[2018-01-16] MEDS: ACIDOPHILUS/L.BULG/BIF.B/S.THERMOP TABLET 1 EACH PO ×2 (06:28→20:18)
[2018-01-16] MEDS: DOCUSATE 100 MG CAPSULE PO ×2 (06:29→20:18)
[2018-01-16] MEDS: GABAPENTIN 300 MG CAPSULE PO ×3 (06:29→20:18)
[2018-01-16] MEDS: PANTOPRAZOLE 40 MG TABLET PO (06:29)
[2018-01-16] MEDS: OXYBUTYNIN 5 MG TABLET PO ×2 (06:29→20:19)
[2018-01-16] MEDS: METOCLOPRAMIDE HCL 10 MG TABLET PO ×3 (06:30→18:04)
[2018-01-16] MEDS: SERTRALINE 50 MG TABLET 100 MG PO (06:30)
[2018-01-16] MEDS: SODIUM CHLORIDE 0.45% 1,000 ML 100 ML IV ×2 (09:09→22:49)
--- NOTE | 2018-01-16 11:25 | PT.IPTN ---
Current Diagnoses Urinary tract infection, site not specified (01/11/18) Physical Therapy Treatment Note M2 PT-IP Current Condition Start: 01/12/18 14:35 Freq: Status: Active Protocol: Document 01/13/18 14:50 [facility] (Rec: 01/13/18 16:17 [facility] [id number]) Physical Therapy Current Condition Current Condition Evaluation Date 01/13/18 Treatment Diagnosis UTI, prostatitis, impaired mobility and positional tolerance Onset Date 01/11/18 Precautions Other Precautions h/o autonomic dysreflexia- monitor BP if mobilizing. M3 PT-IP Subjective Start: 01/12/18 14:35 Freq: Status: Active Protocol: Document 01/16/18 11:25 [facility] (Rec: 01/16/18 14:32 [facility] [id number]) Subjective Physical Therapy Visit Type Type Treatment Note Visit Start Time 10:50 Visit Stop Time 11:25 Total Visit Minutes 35 Number of LEGAL RESEARCH ANALYST Visits 0 Physical Therapy Visit Comments Patient Comments pt agreeable to do therapy Therapy Pain Assessment Pain When Pain Assessed During Mobility Pain Present Pain Present Pain Reported Location Lower Back Scale Used pain scale not stated M4 PT-IP Mobility and Gait Start: 01/12/18 14:35 Freq: Status: Active Protocol: Document 01/16/18 11:25 [facility] (Rec: 01/16/18 14:32 [facility] [id number]) PT-Transfer Assessment Comments Mobility Comments PT tx session conducted to increase pt's sitting tolerance and trunk control. BP monitored. pt found supine in bed with HOB elevated to ~ 42deg: Then 50 deg elevated: BP: 95/ 67 58 deg elevated: BP: 134/64 62 deg elevated: BP: 91/68 pt tolerated ~ 5-7 min in each position. completed reaching forward, sideways and crossing over sitting at 72 deg HOB elevation. pt requested to go back supine afterwards with c/o low back pain. BP : 93/67 OH 75 when back got back to 42 deg HOB elevation. M5 PT-IP Objective Assessments Start: 01/12/18 14:35 Freq: Status: Active Protocol: Document 01/13/18 14:50 [facility] (Rec: 01/13/18 16:17 [facility] [id number]) Orientation Orientation/Cognition Level of Alertness Alert Gross Range of Motion Upper Extremity ROM Impairments R shoulder flexion and abduction to 170 degrees AROM, ER and IR WNL L shoulder AROM: flexion to 85 degrees, abduction to 75 degrees L shoulder PROM: flexion to 95 degrees, abduction to 85 degrees Lower Extremity ROM Impairments not assessed; LEs in bilateral splints for heel cord tone management. Strength Upper Extremity Strength Assessment Bilaterally Impaired Shoulder flexion R 5/5 L 4/5, abd R 5/5 L 3+/5, ER R 5/5 L 4/5 Elbow flexion R 5/5 L 4/5, extension R 5/5 L 3/5 Wrist flexion R 4/5, extension R 3+/ 5- L not assessed d/t IV placement Hand disability services coordinator on R with 1st 3 fingers, 4 & 5 flexion contracture Lower Extremity Strength Assessment Bilaterally Impaired Comments Strength Comments BLE 0/5 Sensation Assessment Sensation Gross Sensation Right UE Impaired Left UE Impaired Right LE Impaired Left LE Impaired Comments Sensation Comments pt reported LE can detect touch but not temperature UE numbness in B hands, but proximal can detect light touch and temperature Muscle Tone Muscle Tone WNL No M6 PT-IP Treatment Start: 01/12/18 14:35 Freq: Status: Active Protocol: Document 01/16/18 11:25 [facility] (Rec: 01/16/18 14:32 [facility] [id number]) Physical Therapy Treatment Other Treatments Other Treatment Performed L1 theraband used for UE exercises in supine- shoulder flex/Habduction/ER,IR, Hadd, elbow flex and ext. Left wrist motions with assistance. Passive stretching left finger . Exercises done to fatigue. He reports his Mother does LE ROM with him daily M7 PT-IP Assessment and Plan Start: 01/12/18 14:35 Freq: Status: Active Protocol: Document 01/16/18 11:25 [facility] (Rec: 01/16/18 14:32 [facility] [id number]) PT Summary Assessment and Plan Summary Impairments Pain ROM Strength Balance Coordination Sensation Tone Cognition Bed Mobility Transfers Gait Activity Tolerance Progress Towards Goals Slow Progress due to Medical Issues Slow Progress due to Activity Tolerance Assessment Summary pt continues to have decrease activity tolerance with upright positioning and is sore in back with all extended partial upright activity. He would benefit from acute rehab to progress to further tolerance to upright position. Goals Other Goals increase sitting tolerance to ~ 10 min in ~ upright position on chair Frequency of Treatment Frequency Of Treatment Once a Day Treatment Plan Physical Therapy Treatment Plan Bed Mobility Training Transfer Training Therapeutic Exercise Recommendations To Nursing Amount of Assist Needed 2 Person Assist Mechanical Lift Discharge Recommendations PT Discharge Recommendations Acute Rehab
[2018-01-16] MEDS: OXYCODONE IR 10 MG TABLET PO ×2 (12:32→20:17)
--- NOTE | 2018-01-16 13:19 | OT.IP.TRT ---
Current Diagnoses Urinary tract infection, site not specified (01/11/18) Occupational Therapy Treatment Note M2 OT-IP Current Condition Start: 01/12/18 15:45 Freq: Status: Active Protocol: Document 01/14/18 09:52 [facility] (Rec: 01/14/18 10:20 [facility] [id number]) Occupational Therapy Current Condition Current Condition Evaluation Date 01/14/18 Treatment Diagnosis UTI, weakness Diagnosis Onset Date 01/11/18 Post Operative Precautions Other Precautions h/o autonomic dysreflexia- monitor BP if mobilizing. M3 OT- IP Subjective and Pain Start: 01/12/18 15:45 Freq: Status: Active Protocol: Document 01/16/18 13:18 [facility] (Rec: 01/16/18 13:19 [facility] [id number]) OT- Subjective Occupational Therapy Visit Type Type Patient Unavailable Notes Pt states PT has already worked with pt for BUE evercises and stretches therefore too tired at this time to see OT. M4 OT- IP ADL's Start: 01/12/18 15:45 Freq: Status: Active Protocol: Document 01/14/18 09:52 [facility] (Rec: 01/14/18 10:20 [facility] [id number]) OT TOP-Gfvf-Gmsqpjr General Evaluation Self-Feeding Ability Standby Assistance Areas Needing Assistance Cutting Food Opening Containers Devices Self-Feeding Devices Adapted Utensil Comments OT Self-Feeding Comments Pt able to self feed after set -up and use of foam 1st grade teacher on utensils. Pt may benefit from t-rocker knife to increase his independence to cut his own food. OT ADL-Grooming Comments OT Grooming Comments Per pt need set-up assist otherwise able to do grooing needs. OT ADL-Dressing General Eval Upper Body Dressing Ability Maximum Assistance Lower Body Dressing Ability Total Assistance Areas Needing Assistance Retrieving/Set-up of Clothing Underpants/Brief Socks Orthosis/Prosthesis Comments OT Dressing Comments Pt only able to help minimally at this time to help thread arms into clothing. OT ADL-Toileting General Evaluation Toileting Ability Total Assistance Comments OT Toileting Comments Indwelling catheter. M6 OT- IP Functional Cognition Start: 01/12/18 15:45 Freq: Status: Active Protocol: Document 01/14/18 09:52 [facility] (Rec: 01/14/18 10:20 [facility] [id number]) Cognitive Factors Limiting Selfcare Function Cognitive Ability Level of Alertness Alert Patient Orientation Name Place Situation Attention Span Ability Capable of Focused Attention Capable of Sustained Attention Ability to Follow Commands Able to Follow Multi-Step Commands Memory Description No Deficits Noted Safety Awareness No Deficits Noted Problem Solving Ability No deficits Noted Cognitive Comments Cognitive Assessment Comments On OT eval no cognitive deficit noted at this time. OT- Vision and Hearing OT- Hearing Assessment OT- Hearing Assessment WFL M7 OT- IP Mobility and Balance Start: 01/12/18 15:45 Freq: Status: Active Protocol: Document 01/15/18 14:55 [facility] (Rec: 01/15/18 15:02 [facility] [id number]) OT-Transfer Assessment Comments Mobility Comments Pt to see pt with Pt to assess BP while slowly elevating bed up. 42 degrees 91/66 hr 80 55 degrees 104/63 hr73 63 degrees 98/66 hr 76 72 degrees 137/60 hr 72 64 degrees 93/67 hr 75 OT- Balance Assessment Comments Other Balance Tests/Deviations/Treatment Pt to work on reaching out : while sitting in bed to work on trunk control and BUE strength and ROM. M8 OT- IP Objective Assessments Start: 01/12/18 15:45 Freq: Status: Active Protocol: Document 01/14/18 09:52 [facility] (Rec: 01/14/18 10:20 [facility] [id number]) OT Gross Range of Motion Upper Extremity Range of Motion ROM Impairments RUE WFL for shoulder ER and IR , and 0-170 for shoulder flextion and abduction. LUE flexion to 85 degrees and abduction to 75 degrees. OT-Muscle Tone Assessment Comments Muscle Tone Comments Contracture on left hand 2-5th digit and only able to grasp small objects with right hand. OT Sensation Assessment Comments Summary Comments BUE sensation decreased overall. BUE pt states has numbeness but proxiamlly can detect light touch and temperature. 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 Pt wanting to go to inpatient rehab to improve with BUE mobility and function to increase independence for eating, grooming, and improve sitting balance to be able to sit in power wc again and feeling motiviated or overall goal to try to be able to use bed side commode and possible to shower chair to improve hygiene and hopefully decrease risk for UTI's. Inpatient rehab would be beneficial to increase ROM and strength for BUE, sitting tolerance, and assess to see if pt able to use any AED to help improve ADl's and therefore decrease some burden to caregivers. Pt would greatly benefit from daily therapy versus home health to provide daily education/ training for pt and family. Goals Self-Feeding Goal Independent Grooming Goal Independent Dressing Goal Moderate Assistance Patient/Caregiver Education Goal Caregiver Independent Assisting Patient OT-Other Goals Pt to be independent with BUE exercises to help increase AROM to improve independence with ADl needs. Pt to be able to do sitting toleration with increased degrees by his hospital bed to work on toleration to sit up in power wc. Days to Meet Goals 9 Frequency of Treatment Frequency Of Treatment Once a Day Treatment Plan OT Treatment Plan ADL Training Therapeutic Exercises Patient/Family Education Discharge Planning Other Treatment Recommendations and Next BUE exrecises and stretches. Treatment Focus Discharge Recommendations OT Discharge Recommendations Acute Rehab Home Equipment Needs [facility]
--- NOTE | 2018-01-16 13:36 | CM.DPC ---
Addendum entered by DAVID Gregory 01/16/18 14:37: ADD: SW met bedside with pt and with Rhina, admissions from [facility], to further discuss d/c planning options. Pt states he's disappointed in [facility] declining of acceptance but is very motivated for rehab to increase upper body strength towards using his w/c chair and sitting upright and having more of a life. Pt discussed SNF rehab and questions with SW and Rhina and states he is agreeable with SNF rehab at [facility] and requests [facility] to begin working on insurance auth. Rhina agreeable to working with Angelica with [facility] to get a one time auth for SNF. MD updated bedside with pt while FCC and SW were present. Pt states he has called and updated his mom. Plan: SW to follow closely for [facility] initiating insurance auth for SNF from [facility] for possible d/c tomorrow. DAVID Gregory Original Note: DCP Cont: SW received a call from Ramya, abrahan at [facility], who states that she is about to have rounding with their team and MD towards determining if they can accept the pt at discharge. Return call from Ramya stating she spoke via phone with the pt and waiting to do final review with their MD and they may not have an opening until next week. SW met bedside with pt and explained role and pt discussed that his first preference is still [facility] and is aware that they may not have a bed for a few days and would be willing to d/c home first if [facility] can accept. Pt states he is not interested in [facility] at this time and would prefer SNF rehab if [facility] cannot accept. Return call from Ramya at [facility] who states that their MD feels pt would be best served by a specialized [facility] facility in [place] and they are declining pt at this time. Ramya calling pt to update on their recommendations. Plan: SW to meet bedside with pt again to discuss option of SNF vs Home since In[facility] declines pt at this time. DAVID Gregory
--- NOTE | 2018-01-16 15:46 | PM.PN.1 ---
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 [place] SAME DOSES WRITTEN DOWN SO THE PATIENT IS BEING EVALUATED FOR POSSIBLE PLACEMENT IN EXTENDED CARE FACILITY FOR SOME REHAB Exam Vital Signs (past 8 hours): - 01/16/18 07:50 01/16/18 08:30 Temperature 98.1 F Pulse Rate 65 Respiratory Rate 15 Blood Pressure 134/56 H Pulse Oximetry 98 98 Oxygen Delivery Method Room Air Oxygen Flow Rate 0 Const General: cooperative, healthy appearing and comfortable Orientation: alert, awake and oriented x3 HENMT Head: normal to inspection, normocephalic and atraumatic Ears: hearing grossly normal bilaterally Nose: external nose normal Face and sinus: normal facial exam Eyes General: appearance normal, both eyes and all related structures Eyelids: eyelids normal Conjunctivae: conjunctivae normal Sclera: sclerae normal Pupils: PERRL Neck Neck: normal visual inspection Thyroid: thyroid normal Resp Effort & Inspection: normal respiratory effort and able to speak in complete sentences Auscultation: clear to auscultation bilaterally Cardio Rate: regular rate Rhythm: regular rhythm Heart Sounds: S1 normal and S2 normal GI Inspection: normal to inspection Palpation: soft Back/Spine/Pelvis Back: normal to inspection and No back tenderness Skin General: no rashes or lesions noted Neuro General: alert, awake and oriented x3 Cranial Nerves: CN's II-XI intact bilaterally Cognition: normal cognition Speech: speech normal Psych Appearance: grossly normal Speech and Movement: speech and movement normal Mood: congruent mood Affect: normal affect Attitude: cooperative Thought Process: normal Thought Content: normal Judgment: judgment good Objective Labs Result Diagrams: 01/15/18 05:08 01/13/18 05:26 Assessment & Plan Plan: Assessment/Plan Narrative: 1. URINARY TRACT INFECTION WITH ENTEROCOCCUS FAECALIS SENSITIVE TO AMPICILLIN PSEUDOMONAS AERUGINOSA ON THE URINE CULTURE BUT A ELECTIVELY NOT BEING TREATED PATIENT IS IMPROVING CLINICALLY QUADRIPARESIS PLACEMENT IN [facility] FACILITY SINCE ACUTE INPATIENT REHAB IS NOT AN OPTION Time Spent With Patient Time with patient: less than 15 minutes
--- NOTE | 2018-01-16 15:51 | P.PN_ITS ---
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 FAECALIS IN THE URINE WELL PSEUDOMONAS AERUGINOSA BUT IS BEING TREATED WITH AMPICILLIN IV FOR THE COCCUS FAECALIS AND ELECTIVELY NOT BEING TREATED FOR PSEUDOMONAS FROM THE BEGINNING HE HAS BECOME PROGRESSIVELY WEAK IN THE LAST 3 YEARS AND ABLE TO TRANSFER JUST BEING IN TRANSIT WITH THE [facility] AT [place] SAME DOSES WRITTEN DOWN SO THE PATIENT IS BEING EVALUATED FOR POSSIBLE PLACEMENT IN EXTENDED CARE FACILITY FOR SOME REHAB Exam Vital Signs (past 8 hours): - 01/16/18 07:50 01/16/18 08:30 Temperature 98.1 F Pulse Rate 65 Respiratory Rate 15 Blood Pressure 134/56 H Pulse Oximetry 98 98 Oxygen Delivery Method Room Air Oxygen Flow Rate 0 Const General: cooperative, healthy appearing and comfortable Orientation: alert, awake and oriented x3 HENMT Head: normal to inspection, normocephalic and atraumatic Ears: hearing grossly normal bilaterally Nose: external nose normal Face and sinus: normal facial exam Eyes General: appearance normal, both eyes and all related structures Eyelids: eyelids normal Conjunctivae: conjunctivae normal Sclera: sclerae normal Pupils: PERRL Neck Neck: normal visual inspection Thyroid: thyroid normal Resp Effort & Inspection: normal respiratory effort and able to speak in complete sentences Auscultation: clear to auscultation bilaterally Cardio Rate: regular rate Rhythm: regular rhythm Heart Sounds: S1 normal and S2 normal GI Inspection: normal to inspection Palpation: soft Back/Spine/Pelvis Back: normal to inspection and No back tenderness Skin General: no rashes or lesions noted Neuro General: alert, awake and oriented x3 Cranial Nerves: CN's II-XI intact bilaterally Cognition: normal cognition Speech: speech normal Psych Appearance: grossly normal Speech and Movement: speech and movement normal Mood: congruent mood Affect: normal affect Attitude: cooperative Thought Process: normal Thought Content: normal Judgment: judgment good Objective Labs Result Diagrams: 01/15/18 05:08 01/13/18 05:26 Assessment & Plan Plan: Assessment/Plan Narrative: 1. URINARY TRACT INFECTION WITH ENTEROCOCCUS FAECALIS SENSITIVE TO AMPICILLIN PSEUDOMONAS AERUGINOSA ON THE URINE CULTURE BUT A ELECTIVELY NOT BEING TREATED PATIENT IS IMPROVING CLINICALLY QUADRIPARESIS PLACEMENT IN ASSISTED FACILITY SINCE ACUTE INPATIENT REHAB IS NOT AN OPTION Time Spent With Patient Time with patient: less than 15 minutes
[2018-01-16] MEDS: ALPRAZolam 0.25 MG TABLET PO (22:22)
[2018-01-16] MEDS: TRAZODONE 100 MG TABLET PO (22:22)
[2018-01-17] MEDS: MORPHINE 2 MG/ML INJ IV ×2 (03:14→11:30)
[2018-01-17] MEDS: AMPICILLIN 1,000 MG in SODIUM CHLORIDE 0.9% 100 ML 200 ML IV ×2 (06:29→11:29)
[2018-01-17] MEDS: DOCUSATE 100 MG CAPSULE PO (06:30)
[2018-01-17] MEDS: BACLOFEN 10 MG TABLET 30 MG PO ×2 (06:30→11:22)
[2018-01-17] MEDS: GABAPENTIN 300 MG CAPSULE PO ×2 (06:30→11:22)
[2018-01-17] MEDS: METHADONE 5 MG TABLET PO (06:30)
[2018-01-17] MEDS: PANTOPRAZOLE 40 MG TABLET PO (06:30)
[2018-01-17] MEDS: METOCLOPRAMIDE HCL 10 MG TABLET PO ×2 (06:30→11:22)
[2018-01-17] MEDS: SERTRALINE 50 MG TABLET 100 MG PO (06:30)
[2018-01-17] MEDS: OXYBUTYNIN 5 MG TABLET PO (06:30)
[2018-01-17] MEDS: OXYCODONE IR 10 MG TABLET PO ×2 (06:35→12:21)
[2018-01-17 07:15] VITALS: BP 111/83; PULSE 75; RESP 17; TEMP 36.6; O2SAT 96
--- NOTE | 2018-01-17 08:15 | CM.DPC ---
Addendum entered by DAVID Gregory 01/17/18 12:36: ADD: Per [facility], pt has 100% coverage of home infusion. Per MD, spoke with pt regarding oral vs IV Abx and plan is d/c home today on oral abx and Resume HH. SW called [facility] and updated on pt leaving on oral medications. SW called [facility] with d/c update and Resume HH with addition of PT/OT. [facility] confirms that they were aware of this plan and can continue working with the pt and adding those disciplines. SW faxed d/c summ and Resume orders to review. TONIE called [facility] to set up stretcher transport BLS home for the pt today per recommendations and pt request due to his inability to sit upright in supine position safely. [facility] can provide transport at 1400 home today. SW updated RN and pt. Plan: Patient to d/c home via [facility] today at 1400 with mother support and Resume [facility] RN and adding PT/OT. DAVID Gregory Original Note: DCP Home planning SW met bedside with pt after receiving a message from the pt wanting to further discuss d/c planning SNF vs Home. Pt states that he spoke more with Rhina from [facility] via phone last night and since he would not be allowed to have his electric w/c in their facility for safety reasons, the hospital bed is just standard and not tilting, and sharing a room then pt has decided that his preference is home with [facility]. Pt states he has [facility] for RN for his cath and would like to add PT/OT to his therapies and states he has already called [facility] with update on his request. Pt states his preference is to remain on IV-abx rather than orals because he does not tolerate orals well with his stomach and feels IV-Abx work well. SW discussed possible home infusion and pt requested SW make a referral to [facility] to review for coverage and dosing needs to determine if home infusion is appropriate. MAYA Nix kindly faxed H&P, med list, and demo sheet to [facility] to review and TONIE called [facility] with update on new referral and requested review. Plan: SW to follow closely for [facility] review of pt's insurance and medication to determine if home infusion is reasonable. SW to follow for [facility] RN/PT/OT at discharge. DAVID Gregory
[2018-01-17 09:00] VITALS: O2SAT 96
[2018-01-17] MEDS: SODIUM CHLORIDE 0.45% 1,000 ML 100 ML IV (09:38)
--- NOTE | 2018-01-17 14:30 | PC.NURSE ---
Prescriptions given to Mother/Caregiver to fill. Pt dressed and ready for discharge home via ambulance. IV removed. Went over d/c instructions, reviewed stroke education, discussed discharge meds. No further questions. Pt transferred to [facility] via slider board and discharge out via ambulance.
--- NOTE | 2018-01-18 08:58 | PM.DS.1 ---
History of Present Illness Chief complaint: UTI Discharge Providers Date of admission: 01/11/18 22:58 Primary care physician: Becca Bolaños MD Consults: 01/11/18 22:59 Consult to Physician Routine Comment: Consulting Provider: Juan Foy Reason for consultation: admission Has provider been notified: Yes 01/12/18 09:26 Consult to Occupational Therapy Evaluate & Treat Comment: Physician Instructions: Evaluate and treat Consult to Physical Therapy Evaluate & Treat Comment: Evaluate for full Rehab placement at 3 hours/day Physician Instructions: Evaluate and Treat Consult to Pesticide Control Inspector Routine Comment: placement to rehab for 3 hrs/day PT 01/14/18 07:46 Consult to Occupational Therapy Evaluate & Treat Comment: Physician Instructions: Evaluate and treat 01/14/18 09:55 Consult to Speech Therapy Evaluate & Treat Comment: Physician Instructions: Evaluate and treat Discharge provider: Josh Corbin MD Summary Hospital Course: THIS GENTLEMAN WITH QUADRIPARESIS AND LONG-TERM INDWELLING SUPRAPUBIC CATHETER WAS ADMITTED WITH AN RECURRENT URINARY TRACT INFECTION GENERALIZED WEAKNESS HE ALSO HAS CHRONIC PAIN IN THE PERINEAL REGION FROM HIS CHRONIC PROSTATITIS IS HAD RECENT INFECTION WITH E COLI URINARY TRACT INFECTION THE CURRENT ADMISSION URINE CULTURE HAS GROWN ENTEROCOCCUS FAECALIS AND PSEUDOMONAS AERUGINOSA IT WAS ELECTED TO TREAT THE ENTEROCOCCUS FAECALIS WITH IV AMPICILLIN AND IS IMPROVED WITH THE TREATMENT FOR THAT AND WILL NEED TO CONTINUE THE ANTIBIOTICS FOR AT LEAST 2 WEEKS IN VIEW OF THE INVOLVEMENT OF THE PROSTATE RATHER THAN JUST A CYSTITIS WITH HIS UNDERLYING CONDITION QUADRIPARESIS HE HAS BEEN UNABLE TO TRANSFER WITH LIVED FOR THE LAST 3 YEARS OR SO IF PHYSICAL THERAPY EVALUATION HERE REVEALED THAT HE MIGHT BENEFIT FROM REHABILITATION AND ACUTE REHAB WAS INVOLVED BUT UNFORTUNATELY HE WAS TURNED DOWN FOR ACUTE INPATIENT REHAB AT [facility] SUBSEQUENTLY IS BEING DISCHARGED HOME WITH HOME HEALTH CARE PT OT AND THEN REGISTERED NURSE FOR HIS CT OF THE SUPRAPUBIC CATHETER Time Spent with Patient Greater than 30 minutes Exam Vital Signs (past 8 hours): Oxygen Delivery Method Room Air Oxygen Flow Rate 0 Objective Labs Result Diagrams: 01/15/18 05:08 01/13/18 05:26 Discharge Plan Discharge Plan Patient Disposition: Home Health Service Provider Discharge Instructions Diet: Regular Discharge Data Primary Care Provider: Becca Bolaños Attending Provider: Juan Foy Admit Date/Time: 01/11/18 22:58 Discharges patient from system. Discharge Date/Time: 01/17/18 14:32
== END 2018-01-17 14:32 | disposition home health service (06) | DRG 466 ==
LOC: ED 22:29 → AC 22:58
PROVIDERS: Admitting Provider Internal Medicine; Emergency Provider Emergency Medicine; Family Provider Internal Medicine; PCP Internal Medicine; Visit Provider Internal Medicine
DX: T83.510A Infection and inflammatory reaction due to cystostomy catheter, initial encounter (principal); N41.1 Chronic prostatitis; B95.2 Enterococcus as the cause of diseases classified elsewhere; G82.54 Quadriplegia, C5-C7 incomplete; E87.6 Hypokalemia; K21.9 Gastro-esophageal reflux disease without esophagitis; Z74.01 Bed confinement status; N39.0 Urinary tract infection, site not specified; G89.4 Chronic pain syndrome; F11.20 Opioid dependence, uncomplicated; F41.8 Other specified anxiety disorders; F12.90 Cannabis use, unspecified, uncomplicated; B96.5 Pseudomonas (aeruginosa) (mallei) (pseudomallei) as the cause of diseases classified elsewhere
CPT/HCPCS: 36415; 36591; 80048; 80053; 81001; 83605; 83690; 83735; 84100; 84145; 85025; 87040; 92610; 96361; 96374; 97110; 97163; 97166; 97530; 99283; 99284; J0290; J2270; J7050

== ENCOUNTER 2018-02-23 10:10 | Emergency (ER) | payer OTHER, MEDICAID, SELFPAY ==
[2018-02-23] VITALS (7 sets, daily range): BP systolic 118–144; BP diastolic 65–84; PULSE 68–82; RESP 14–19; TEMP 36.9; O2SAT 95–99
--- NOTE | 2018-02-23 10:36 | ED.ABDPAIN ---
HPI - Abdominal Pain General Chief Complaint: Abdominal Pain Stated Complaint: abd pain Time Seen by Provider: 02/23/18 10:11 Source: patient and EMS Mode of arrival: EMS Limitations: no limitations History of Present Illness HPI narrative: 42-year-old patient with history of spinal hemiparesis presents by EMS for evaluation of ongoing left lower quadrant pain with radiation to his back. He has had symptoms off and on for the past month or so and has nausea and decreased appetite but denies any vomiting or fever. He was seen and evaluated at [facility] about a week ago for the same and had thorough examination and at that time was elected not to perform more CT scans given the patient's long-time history. He states the pain seems to come and go but is always in the same place. He denies any obvious provocation or palliation. He experienced some very brief relief after taking some MiraLax and having a large bowel movement but the pain rather quickly returned MD complaint: abdominal pain Onset (ago): week(s) Pain Consistency: intermittent Location: LLQ Severity: moderate Quality: cramping and aching Radiation: R flank and back Relieving factors: nothing Exacerbating factors: nothing Associated symptoms: nausea and anorexia Related Data Home Medications Medication Instructions Recorded Confirmed sertraline 100 mg PO QDAY #0 06/11/17 01/11/18 alprazolam 0.25 mg PO BID PRN #0 07/05/17 01/11/18 gabapentin [Gralise] 300 mg PO TID #0 07/05/17 01/11/18 oxycodone 10 mg PO Q4HP PRN #0 07/05/17 01/11/18 bisacodyl 1 supp CA DAILY PRN 11/02/17 01/11/18 oxybutynin chloride 5 mg PO BID 11/02/17 01/11/18 docusate sodium 100 mg PO BID 01/14/18 01/14/18 Previous Rx's Medication Instructions Recorded pantoprazole 40 mg PO QAM #30 tab 11/13/17 methadone 5 mg PO 0600,2030 #60 tab 11/19/17 metoclopramide HCl 10 mg PO AC #120 tab 11/19/17 trazodone 100 mg PO BEDTIME #30 tab 11/19/17 L.acidoph-L.bulg-B.bif-S.therm 1 ea PO 0630,1130,2100 #90 tab 01/17/18 [Bacid (L. acidophilus)] amoxicillin-pot clavulanate 1 tab PO BID #20 tab 01/17/18 [Augmentin] baclofen 30 mg PO 0630,1130,2100 #90 tab 01/17/18 amoxicillin-pot clavulanate 1 tab PO BID #20 tab 02/23/18 [Augmentin] Allergies Allergy/AdvReac Type Severity Reaction Status Date / Time ondansetron [ONDANSETRON] Allergy Intermediate PAIN, Verified 11/05/17 11:10 ITCHING, ERYTHEMA AT INJECTION SITE Review of Systems Review of Systems All systems reviewed & are unremarkable except as noted in HPI and below Constitutional Denies chills, Denies fever(s), Denies lethargy and Denies weakness Eyes Denies change in vision, Denies eye discharge, Denies irritation and Denies loss of vision ENT Ears, Nose, Mouth, and Throat: Denies change in voice, Denies neck pain and Denies sore throat Cardiovascular Denies chest pain, Denies irregular heart rhythm, Denies lightheadedness, Denies palpitations, Denies dyspnea, Denies dyspnea on exertion and Denies orthopnea Respiratory Denies cough, Denies dyspnea, Denies dyspnea on exertion and Denies wheezing Gastrointestinal Gastrointestinal: Reports abdominal pain, Denies change in bowel habits, Denies diarrhea, Denies nausea and Denies vomiting Genitourinary Denies hematuria, Denies flank pain, Denies urinary incontinence and Denies urinary urgency Musculoskeletal Denies neck pain Integumentary/Breasts Denies pruritus, Denies erythema, Denies rash and Denies wounds Neurologic Denies confusion, Denies loss of vision and Denies weakness Psychiatric Denies anxiety, Denies confusion, Denies depression, Denies homicidal ideation and Denies suicidal ideation Endocrine Denies palpitations Hematologic/Lymphatic Denies easy bruising Allergic/Immunologic Denies wheezing [facility] Medical History Incomplete quadriplegia due to spinal cord lesion between fifth and seventh cervical vertebra (10/22/15) History of trauma to spine (Acute) Chronic pain syndrome (Acute) Uncomplicated opioid dependence (Acute) Autonomic dysreflexia (Acute) Mixed anxiety depressive disorder (01/26/16) C. difficile colitis (Acute) Social History household members: family Smoking Status: Current every day smoker alcohol intake: never Exam Narrative Exam Narrative: 42-year-old male appears uncomfortable and unwell, C6 paraplegic Initial Vital Signs Initial Vital Signs: Vital Signs Temperature 98.5 F 02/23/18 10:18 Pulse Rate 82 02/23/18 10:18 Respiratory Rate 14 02/23/18 10:18 Blood Pressure 118/74 02/23/18 10:18 Pulse Oximetry 95 02/23/18 10:18 Const General: cooperative, well developed and in distress Nutritional Appearance: well nourished Orientation: alert, awake, oriented x3 and not confused HENMT Head: normocephalic and atraumatic Ears: external ears normal and TM's normal bilaterally Nose: external nose normal and No nasal discharge Face and sinus: sinuses nontender, face symmetric, no sinus tenderness and No dry mucous membranes Mouth: oral mucosae normal and moist mucous membranes Teeth and gingiva: dentition normal Throat: tonsils normal and uvula midline Eyes General: appearance normal, both eyes and all related structures Eyelids: eyelids normal Conjunctivae: conjunctivae normal Sclera: sclerae normal Pupils: PERRL EOM: EOM intact bilaterally Resp Effort & Inspection: normal respiratory effort, able to speak in complete sentences, no respiratory distress and no use of accessory muscles Auscultation: clear to auscultation bilaterally, no rales, no rhonchi and no wheezes GI Inspection: non-distended Palpation: soft, no hepatosplenomegaly, No guarding, No pulsatile mass and tender (LLQ) Auscultation: normal bowel sounds Back/Spine/Pelvis Back: No CVA tenderness Cervical Spine: cervical ROM normal and No pain with cervical ROM Thoracic/Lumbar Spine: thoracic and lumbar spine normal to inspection Skin General: no rashes or lesions noted, No jaundice and No petechiae Neuro General: alert, awake and oriented x3 Cognition: normal cognition Speech: speech normal Psych Appearance: well kempt Mental Status: mental status grossly normal Attitude: cooperative Thought Content: normal and suicidality Judgment: judgment good Course Orders Ordered: ED Orders 02/23/18 11:10 Complete Blood Count AUTO DIFF Stat Comprehensive Metabolic Panel Stat Lipase Stat Urine Culture Stat Urine Microscopic Stat 02/23/18 11:11 CT abdomen pelvis w con Stat Sodium Chloride (Normal Saline 0.9%) 1,000 mls @ 150 mls/hr IV CONT ROSA Last Admin: 02/23/18 10:52 Dose: 150 mls/hr Discontinued Medications Morphine Sulfate (Morphine) 2 mg IV NOW ONE Stop: 02/23/18 10:19 Last Admin: 02/23/18 10:52 Dose: 2 mg Vital Signs - 8 hr 02/23/18 10:18 02/23/18 11:07 02/23/18 12:03 Temperature 98.5 F Pulse Rate 82 76 76 Respiratory Rate 14 17 17 Blood Pressure 118/74 Blood Pressure [Right Arm] 120/73 131/84 Pulse Oximetry 95 96 97 02/23/18 12:30 Temperature Pulse Rate 75 Respiratory Rate 17 Blood Pressure Blood Pressure [Right Arm] 143/83 H Pulse Oximetry 99 MDM - Abdominal Pain Differential Diagnosis Differential diagnosis: Likely abdominal pain, calculus of kidney, constipation, diverticulitis, gastroenteritis, pancreatitis and small bowel obstruction Medical Records Attestation: I reviewed the patient's medical records. Lab Data Attestation: I reviewed the patient's lab results. Result diagrams: 02/23/18 11:10 02/23/18 11:10 Lab Results 02/23/18 02/23/18 02/23/18 Range/Units 11:10 11:10 11:10 WBC 7.4 (4.5-11.0) X10^3/uL RBC 4.66 (4.5-5.9) X10^6/uL Hgb 12.3 L (13.5-17.5) g/dL Hct 36.6 L (41-53) % MCV 78.5 L (80-100) fL MCH 26.4 (26-34) PG MCHC 33.6 (30-36) % RDW 14.9 H (11.6-14.8) % Plt Count 129 L (150-400) X10^3/uL Neut % (Auto) 79.0 H (50-75) % Lymph % (Auto) 13.8 L (25-40) % Avery % (Auto) 6.4 (3-14) % Eos % (Auto) 0.4 L (2-4) % Baso % (Auto) 0.4 (0-2) % Neut # (Auto) 5800 (4567-5006) /uL Sodium 143 (137-145) mmol/L Potassium 3.4 (3.4-5.1) mmol/L Chloride 100 (98-107) mmol/L Carbon Dioxide 28 (22-32) mmol/L BUN 5 L (9-20) mg/dL Creatinine 0.50 L (0.66-1.25) mg/dL Estimated GFR > 60.0 (>60) mL/min BUN/Creatinine Ratio 10.0 (6-22) Glucose 81 (70-100) mg/dL Calcium 8.5 (8.4-10.2) mg/dL Total Bilirubin 0.7 (0.2-1.3) mg/dL AST 14 L (17-59) IU/L ALT 20 L (21-72) IU/L Alkaline Phosphatase 57 (38-126) U/L Total Protein 6.6 (6.3-8.2) g/dL Albumin 3.8 (3.5-5.0) g/dL Globulin 2.8 (1.7-4.1) g/dL Albumin/Globulin Ratio 1.4 (1.0-2.8) Lipase 15 L (23-300) U/L Urine RBC None seen (0-5/HPF) Urine WBC 0-1/hpf (0-5/HPF) Ur Squamous Epith Cells None seen Urine Bacteria None seen (None) Ur Culture Indicated? Specimen cultured Micro UA Comment Not Reportable Point of care testing: Urine Dip Bedside Urine Glucose Negative Bedside Urine Bilirubin - Negative Bedside Urine Ketone +++ 80 Urine Specific Coleman 1.015 Bedside Urine Occult Blood - Negative Bedside Urine pH 6.0 Bedside Urine Protein - Negative Bedside Urine Urobilinogen - Negative Bedside Urine Nitrite - Negative Bedside Urine Leukocytes +/- [address] scan - abdomen: Radiologist's impression: [address] [address] [address] Scan Report Signed Patient: Adrian Arteaga OLAMIDE#: [id number] : 1975Acct:[id number] Age/Sex: 42 / MDate of Service: 02/23/18 Loc: ED Accession Number: [id number] Procedure: CT abdomen pelvis w con Ordering Provider: Girish Calle D.O. PROCEDURE: CT ABDOMEN PELVIS W CON INDICATIONS: severe LLQ pain, multiple visits TECHNIQUE: After the administration of intravenous contrast, 5 mm thick sections acquired from the diaphragm to the symphysis. 5 mm coronal and sagittal reformats were acquired. For radiation dose reduction, the following was used: automated exposure control, adjustment of mA and/or kV according to patient size. COMPARISON: [facility], CT, IVP (ABD & PEL WWO CONTRAST), 07/29/2012, 9:23. [facility], CT, ABDOMEN/PELVIS WITH CONTRAST, 11/12/2013, 0:28. [facility], CT, KIDNEY/ URETER/BLADDER, 08/10/2014, 13:41. [facility], CT, CT ABDOMEN PELVIS W CON, 11/05/2017, 11:52. [facility], CT, CT ABDOMEN PELVIS W CON, 01/09/2018, 15:26. FINDINGS: Image quality: Excellent. ABDOMEN: Lung bases: Focal pleural thickening is seen involving the right lower lobe posteriorly and laterally, as on series 3 image 1, which is similar to prior CT examinations dating back to 2014. The lung bases otherwise appear clear. Heart size is not enlarged. Solid organs: Liver is normal in size and enhancement. Gallbladder is partially collapsed at the time of this study. Biliary system is non dilated. Pancreas enhances normally. Spleen is mildly enlarged. No adrenal nodules. Kidneys demonstrate normal size and enhancement, without hydronephrosis. Peritoneum and bowel: Bowel wall thickening is seen involving the distal colon, including involving the sigmoid colon, with minimal surrounding inflammatory change. No free air is seen to suggest perforation. No loculated abscess collection can be seen. No dilated loops of small bowel are seen. Nodes and vessels: No retroperitoneal or mesenteric adenopathy by size criteria. Aorta and inferior vena cava are normal in size. Miscellaneous: No ventral hernias. PELVIS: Genitourinary: There is a suprapubic catheter is seen. Miscellaneous: No inguinal hernias or adenopathy. Bones: No suspicious bony lesions. No acute appearing vertebral body compression fractures. Mild thoracolumbar center compression deformities are seen, without acute features. Age-appropriate bony degenerative changes are seen. IMPRESSION: Distal colitis, which has a nonspecific appearance. Please correlate with infectious inflammatory causes. Focal pleural thickening is seen involving right lower lobe, which is unchanged compared to 2015 attributed to a benign cause, likely scarring. Incidental note is made of: Mild splenomegaly Suprapubic catheter Chronic thoracolumbar compression deformities Dictated by: Froilan Naylor M.D. on 02/23/2018 at 11:45 Approved by: Froilan Naylor M.D. on 02/23/2018 at 11:51 Discharge Plan Departure Patient Disposition: Home Clinical Impression: Colitis Instructions: DI for Colitis Activity Restrictions/Additional Instructions: 1. Drink plenty of fluids with frequent small sips. 2. For the next 24 hours a clear liquid diet is advised. After that please employ a brat diet which would include bananas, rice, apples, toast. 3. Please take medications as directed. Your prescription has been electronically transmitted to the [facility] at your request 4. Please follow-up with your doctor later this week as planned, however you should call Sunday morning and let them know your in the emergency department so they may obtain the records 5. Please return to the emergency Department for any worsening or persistent symptoms, such as increasing pain or fever. Prescriptions: New amoxicillin-pot clavulanate [Augmentin] 875-125 mg tablet 1 tab PO BID Qty: 20 RF: 0 No Action sertraline 100 MG tablet 100 mg PO QDAY Qty: 0 RF: 0 oxycodone 10 MG tablet 10 mg PO Q4HP PRN (Reason: Pain, Severe) Qty: 0 RF: 0 alprazolam 0.25 MG tablet 0.25 mg PO BID PRN (Reason: Anxiety) Qty: 0 RF: 0 gabapentin [Gralise] 300 MG tablet extended release 24 hr 300 mg PO TID Qty: 0 RF: 0 bisacodyl 10 mg suppository 1 supp CA DAILY PRN (Reason: Constipation) RF: 0 oxybutynin chloride 5 mg tablet 5 mg PO BID RF: 0 pantoprazole 40 mg tablet,delayed release (DR/EC) 40 mg PO QAM Qty: 30 RF: 0 methadone 5 mg Tablet 5 mg PO 0600,2029 Qty: 60 RF: 0 trazodone 100 mg Tablet 100 mg PO BEDTIME Qty: 30 RF: 0 metoclopramide HCl 10 mg Tablet 10 mg PO AC Qty: 120 RF: 0 docusate sodium 100 mg Capsule 100 mg PO BID RF: 0 baclofen 10 mg Tablet 30 mg PO 0630,1130,2100 Qty: 90 RF: 0 Gregorioacidgunjan-Rony [Bacid (L. acidophilus)] 1 billion cell- 250 mg Tablet 1 ea PO 0630,1130,2100 Qty: 90 RF: 0 amoxicillin-pot clavulanate [Augmentin] 875-125 mg tablet 1 tab PO BID Qty: 20 RF: 0 Referrals: Becca Bolaños MD [Primary Care Provider] -
--- NOTE | 2018-02-23 10:39 | ED_ITS ---
HPI - Abdominal Pain General Chief Complaint: Abdominal Pain Stated Complaint: abd pain Time Seen by Provider: 02/23/18 10:11 Source: patient and EMS Mode of arrival: EMS Limitations: no limitations History of Present Illness HPI narrative: 42-year-old patient with history of spinal hemiparesis presents by EMS for evaluation of ongoing left lower quadrant pain with radiation to his back. He has had symptoms off and on for the past month or so and has nausea and decreased appetite but denies any vomiting or fever. He was seen and evaluated at [facility] about a week ago for the same and had thorough examination and at that time was elected not to perform more CT scans given the patient's long-time history. He states the pain seems to come and go but is always in the same place. He denies any obvious provocation or palliation. He experienced some very brief relief after taking some MiraLax and having a large bowel movement but the pain rather quickly returned MD complaint: abdominal pain Onset (ago): week(s) Pain Consistency: intermittent Location: LLQ Severity: moderate Quality: cramping and aching Radiation: R flank and back Relieving factors: nothing Exacerbating factors: nothing Associated symptoms: nausea and anorexia Related Data Home Medications Medication Instructions Recorded Confirmed sertraline 100 mg PO QDAY #0 06/11/17 01/11/18 alprazolam 0.25 mg PO BID PRN #0 07/05/17 01/11/18 gabapentin [Gralise] 300 mg PO TID #0 07/05/17 01/11/18 oxycodone 10 mg PO Q4HP PRN #0 07/05/17 01/11/18 bisacodyl 1 supp CA DAILY PRN 11/02/17 01/11/18 oxybutynin chloride 5 mg PO BID 11/02/17 01/11/18 docusate sodium 100 mg PO BID 01/14/18 01/14/18 Previous Rx's Medication Instructions Recorded pantoprazole 40 mg PO QAM #30 tab 11/13/17 methadone 5 mg PO 0600,2030 #60 tab 11/19/17 metoclopramide HCl 10 mg PO AC #120 tab 11/19/17 trazodone 100 mg PO BEDTIME #30 tab 11/19/17 L.acidoph-L.bulg-B.bif-S.therm 1 ea PO 0630,1130,2100 #90 tab 01/17/18 [Bacid (L. acidophilus)] amoxicillin-pot clavulanate 1 tab PO BID #20 tab 01/17/18 [Augmentin] baclofen 30 mg PO 0630,1130,2100 #90 tab 01/17/18 amoxicillin-pot clavulanate 1 tab PO BID #20 tab 02/23/18 [Augmentin] Allergies Allergy/AdvReac Type Severity Reaction Status Date / Time ondansetron [ONDANSETRON] Allergy Intermediate PAIN, Verified 11/05/17 11:10 ITCHING, ERYTHEMA AT INJECTION SITE Review of Systems Review of Systems All systems reviewed & are unremarkable except as noted in HPI and below Constitutional Denies chills, Denies fever(s), Denies lethargy and Denies weakness Eyes Denies change in vision, Denies eye discharge, Denies irritation and Denies loss of vision ENT Ears, Nose, Mouth, and Throat: Denies change in voice, Denies neck pain and Denies sore throat Cardiovascular Denies chest pain, Denies irregular heart rhythm, Denies lightheadedness, Denies palpitations, Denies dyspnea, Denies dyspnea on exertion and Denies orthopnea Respiratory Denies cough, Denies dyspnea, Denies dyspnea on exertion and Denies wheezing Gastrointestinal Gastrointestinal: Reports abdominal pain, Denies change in bowel habits, Denies diarrhea, Denies nausea and Denies vomiting Genitourinary Denies hematuria, Denies flank pain, Denies urinary incontinence and Denies urinary urgency Musculoskeletal Denies neck pain Integumentary/Breasts Denies pruritus, Denies erythema, Denies rash and Denies wounds Neurologic Denies confusion, Denies loss of vision and Denies weakness Psychiatric Denies anxiety, Denies confusion, Denies depression, Denies homicidal ideation and Denies suicidal ideation Endocrine Denies palpitations Hematologic/Lymphatic Denies easy bruising Allergic/Immunologic Denies wheezing [facility] Medical History Incomplete quadriplegia due to spinal cord lesion between fifth and seventh cervical vertebra (10/22/15) History of trauma to spine (Acute) Chronic pain syndrome (Acute) Uncomplicated opioid dependence (Acute) Autonomic dysreflexia (Acute) Mixed anxiety depressive disorder (01/26/16) C. difficile colitis (Acute) Social History household members: family Smoking Status: Current every day smoker alcohol intake: never Exam Narrative Exam Narrative: 42-year-old male appears uncomfortable and unwell, C6 paraplegic Initial Vital Signs Initial Vital Signs: Vital Signs Temperature 98.5 F 02/23/18 10:18 Pulse Rate 82 02/23/18 10:18 Respiratory Rate 14 02/23/18 10:18 Blood Pressure 118/74 02/23/18 10:18 Pulse Oximetry 95 02/23/18 10:18 Const General: cooperative, well developed and in distress Nutritional Appearance: well nourished Orientation: alert, awake, oriented x3 and not confused HENMT Head: normocephalic and atraumatic Ears: external ears normal and TM's normal bilaterally Nose: external nose normal and No nasal discharge Face and sinus: sinuses nontender, face symmetric, no sinus tenderness and No dry mucous membranes Mouth: oral mucosae normal and moist mucous membranes Teeth and gingiva: dentition normal Throat: tonsils normal and uvula midline Eyes General: appearance normal, both eyes and all related structures Eyelids: eyelids normal Conjunctivae: conjunctivae normal Sclera: sclerae normal Pupils: PERRL EOM: EOM intact bilaterally Resp Effort & Inspection: normal respiratory effort, able to speak in complete sentences, no respiratory distress and no use of accessory muscles Auscultation: clear to auscultation bilaterally, no rales, no rhonchi and no wheezes GI Inspection: non-distended Palpation: soft, no hepatosplenomegaly, No guarding, No pulsatile mass and tender (LLQ) Auscultation: normal bowel sounds Back/Spine/Pelvis Back: No CVA tenderness Cervical Spine: cervical ROM normal and No pain with cervical ROM Thoracic/Lumbar Spine: thoracic and lumbar spine normal to inspection Skin General: no rashes or lesions noted, No jaundice and No petechiae Neuro General: alert, awake and oriented x3 Cognition: normal cognition Speech: speech normal Psych Appearance: well kempt Mental Status: mental status grossly normal Attitude: cooperative Thought Content: normal and suicidality Judgment: judgment good Course Orders Ordered: ED Orders 02/23/18 11:10 Complete Blood Count AUTO DIFF Stat Comprehensive Metabolic Panel Stat Lipase Stat Urine Culture Stat Urine Microscopic Stat 02/23/18 11:11 CT abdomen pelvis w con Stat Sodium Chloride (Normal Saline 0.9%) 1,000 mls @ 150 mls/hr IV CONT ROSA Last Admin: 02/23/18 10:52 Dose: 150 mls/hr Discontinued Medications Morphine Sulfate (Morphine) 2 mg IV NOW ONE Stop: 02/23/18 10:19 Last Admin: 02/23/18 10:52 Dose: 2 mg Vital Signs - 8 hr 02/23/18 10:18 02/23/18 11:07 02/23/18 12:03 Temperature 98.5 F Pulse Rate 82 76 76 Respiratory Rate 14 17 17 Blood Pressure 118/74 Blood Pressure [Right Arm] 120/73 131/84 Pulse Oximetry 95 96 97 02/23/18 12:30 Temperature Pulse Rate 75 Respiratory Rate 17 Blood Pressure Blood Pressure [Right Arm] 143/83 H Pulse Oximetry 99 MDM - Abdominal Pain Differential Diagnosis Differential diagnosis: Likely abdominal pain, calculus of kidney, constipation , diverticulitis, gastroenteritis, pancreatitis and small bowel obstruction Medical Records Attestation: I reviewed the patient's medical records. Lab Data Attestation: I reviewed the patient's lab results. Result diagrams: 02/23/18 11:10 02/23/18 11:10 Lab Results 02/23/18 02/23/18 02/23/18 Range/Units 11:10 11:10 11:10 WBC 7.4 (4.5-11.0) X10^3/uL RBC 4.66 (4.5-5.9) X10^6/uL Hgb 12.3 L (13.5-17.5) g/dL Hct 36.6 L (41-53) % MCV 78.5 L (80-100) fL MCH 26.4 (26-34) PG MCHC 33.6 (30-36) % RDW 14.9 H (11.6-14.8) % Plt Count 129 L (150-400) X10^3/uL Neut % (Auto) 79.0 H (50-75) % Lymph % (Auto) 13.8 L (25-40) % Wood % (Auto) 6.4 (3-14) % Eos % (Auto) 0.4 L (2-4) % Baso % (Auto) 0.4 (0-2) % Neut # (Auto) 5800 (6376-6377) /uL Sodium 143 (137-145) mmol/L Potassium 3.4 (3.4-5.1) mmol/L Chloride 100 (98-107) mmol/L Carbon Dioxide 28 (22-32) mmol/L BUN 5 L (9-20) mg/dL Creatinine 0.50 L (0.66-1.25) mg/dL Estimated GFR > 60.0 (>60) mL/min BUN/Creatinine Ratio 10.0 (6-22) Glucose 81 (70-100) mg/dL Calcium 8.5 (8.4-10.2) mg/dL Total Bilirubin 0.7 (0.2-1.3) mg/dL AST 14 L (17-59) IU/L ALT 20 L (21-72) IU/L Alkaline Phosphatase 57 (38-126) U/L Total Protein 6.6 (6.3-8.2) g/dL Albumin 3.8 (3.5-5.0) g/dL Globulin 2.8 (1.7-4.1) g/dL Albumin/Globulin Ratio 1.4 (1.0-2.8) Lipase 15 L (23-300) U/L Urine RBC None seen (0-5/HPF) Urine WBC 0-1/hpf (0-5/HPF) Ur Squamous Epith Cells None seen Urine Bacteria None seen (None) Ur Culture Indicated? Specimen cultured Micro UA Comment Not Reportable Point of care testing: Urine Dip Bedside Urine Glucose Negative Bedside Urine Bilirubin - Negative Bedside Urine Ketone +++ 80 Urine Specific Sabina 1.015 Bedside Urine Occult Blood - Negative Bedside Urine pH 6.0 Bedside Urine Protein - Negative Bedside Urine Urobilinogen - Negative Bedside Urine Nitrite - Negative Bedside Urine Leukocytes +/- [address] scan - abdomen: Radiologist's impression: [address] [address] [address] Scan Report Signed Patient: Adrian Arteaga OLAMIDE#: [id number] : 1975Acct:[id number] Age/Sex: 42 / MDate of Service: 02/23/18 Loc: ED Accession Number: [id number] Procedure: CT abdomen pelvis w con Ordering Provider: Girish Calle D.O. PROCEDURE: CT ABDOMEN PELVIS W CON INDICATIONS: severe LLQ pain, multiple visits TECHNIQUE: After the administration of intravenous contrast, 5 mm thick sections acquired from the diaphragm to the symphysis. 5 mm coronal and sagittal reformats were acquired. For radiation dose reduction, the following was used: automated exposure control, adjustment of mA and/or kV according to patient size. COMPARISON: [facility], CT, IVP (ABD & PEL WWO CONTRAST), 07/29/2012, 9: 23. [facility], CT, ABDOMEN/PELVIS WITH CONTRAST, 11/12/2013, 0:28. [facility], CT, KIDNEY/ URETER/BLADDER, 08/10/2014, 13:41. [facility], CT, CT ABDOMEN PELVIS W CON, 11/05/2017, 11:52. [facility], CT, CT ABDOMEN PELVIS W CON, 01/09/2018, 15: 26. FINDINGS: Image quality: Excellent. ABDOMEN: Lung bases: Focal pleural thickening is seen involving the right lower lobe posteriorly and laterally, as on series 3 image 1, which is similar to prior CT examinations dating back to 2014. The lung bases otherwise appear clear. Heart size is not enlarged. Solid organs: Liver is normal in size and enhancement. Gallbladder is partially collapsed at the time of this study. Biliary system is non dilated. Pancreas enhances normally. Spleen is mildly enlarged. No adrenal nodules. Kidneys demonstrate normal size and enhancement, without hydronephrosis. Peritoneum and bowel: Bowel wall thickening is seen involving the distal colon, including involving the sigmoid colon, with minimal surrounding inflammatory change. No free air is seen to suggest perforation. No loculated abscess collection can be seen. No dilated loops of small bowel are seen. Nodes and vessels: No retroperitoneal or mesenteric adenopathy by size criteria. Aorta and inferior vena cava are normal in size. Miscellaneous: No ventral hernias. PELVIS: Genitourinary: There is a suprapubic catheter is seen. Miscellaneous: No inguinal hernias or adenopathy. Bones: No suspicious bony lesions. No acute appearing vertebral body compression fractures. Mild thoracolumbar center compression deformities are seen, without acute features. Age-appropriate bony degenerative changes are seen. IMPRESSION: Distal colitis, which has a nonspecific appearance. Please correlate with infectious inflammatory causes. Focal pleural thickening is seen involving right lower lobe, which is unchanged compared to 2015 attributed to a benign cause, likely scarring. Incidental note is made of: Mild splenomegaly Suprapubic catheter Chronic thoracolumbar compression deformities Dictated by: Froilan Naylor M.D. on 02/23/2018 at 11:45 Approved by: Froilan Naylor M.D. on 02/23/2018 at 11:51 Discharge Plan Departure Patient Disposition: Home Clinical Impression: Colitis Instructions: DI for Colitis Activity Restrictions/Additional Instructions: 1. Drink plenty of fluids with frequent small sips. 2. For the next 24 hours a clear liquid diet is advised. After that please employ a brat diet which would include bananas, rice, apples, toast. 3. Please take medications as directed. Your prescription has been electronically transmitted to the [facility] at your request 4. Please follow-up with your doctor later this week as planned, however you should call Sunday morning and let them know your in the emergency department so they may obtain the records 5. Please return to the emergency Department for any worsening or persistent symptoms, such as increasing pain or fever. Prescriptions: New amoxicillin-pot clavulanate [Augmentin] 875-125 mg tablet 1 tab PO BID Qty: 20 RF: 0 No Action sertraline 100 MG tablet 100 mg PO QDAY Qty: 0 RF: 0 oxycodone 10 MG tablet 10 mg PO Q4HP PRN (Reason: Pain, Severe) Qty: 0 RF: 0 alprazolam 0.25 MG tablet 0.25 mg PO BID PRN (Reason: Anxiety) Qty: 0 RF: 0 gabapentin [Gralise] 300 MG tablet extended release 24 hr 300 mg PO TID Qty: 0 RF: 0 bisacodyl 10 mg suppository 1 supp CA DAILY PRN (Reason: Constipation) RF: 0 oxybutynin chloride 5 mg tablet 5 mg PO BID RF: 0 pantoprazole 40 mg tablet,delayed release (DR/EC) 40 mg PO QAM Qty: 30 RF: 0 methadone 5 mg Tablet 5 mg PO 0600,2029 Qty: 60 RF: 0 trazodone 100 mg Tablet 100 mg PO BEDTIME Qty: 30 RF: 0 metoclopramide HCl 10 mg Tablet 10 mg PO AC Qty: 120 RF: 0 docusate sodium 100 mg Capsule 100 mg PO BID RF: 0 baclofen 10 mg Tablet 30 mg PO 0630,1130,2100 Qty: 90 RF: 0 Gregorioacidgunjan-Rony [Bacid (L. acidophilus)] 1 billion cell- 250 mg Tablet 1 ea PO 0630,1130,2100 Qty: 90 RF: 0 amoxicillin-pot clavulanate [Augmentin] 875-125 mg tablet 1 tab PO BID Qty: 20 RF: 0 Referrals: Becca Bolaños MD [Primary Care Provider] -
[2018-02-23] MEDS: MORPHINE 2 MG/ML INJ IV (10:52)
[2018-02-23] MEDS: SODIUM CHLORIDE 0.9% 1,000 ML 150 ML IV (10:52)
--- NOTE | 2018-02-23 11:11 | DI.CT.S_ITS ---
PROCEDURE: CT ABDOMEN PELVIS W CON INDICATIONS: severe LLQ pain, multiple visits TECHNIQUE: After the administration of intravenous contrast, 5 mm thick sections acquired from the diaphragm to the symphysis. 5 mm coronal and sagittal reformats were acquired. For radiation dose reduction, the following was used: automated exposure control, adjustment of mA and/or kV according to patient size. COMPARISON: [facility], CT, IVP (ABD & PEL WWO CONTRAST), 07/29/2012, 9:23. [facility], CT, ABDOMEN/PELVIS WITH CONTRAST, 11/12/2013, 0:28. [facility], CT, KIDNEY/ URETER/BLADDER, 08/10/2014, 13:41. [facility], CT, CT ABDOMEN PELVIS W CON, 11/05/2017, 11:52. [facility], CT, CT ABDOMEN PELVIS W CON, 01/09/2018, 15:26. FINDINGS: Image quality: Excellent. ABDOMEN: Lung bases: Focal pleural thickening is seen involving the right lower lobe posteriorly and laterally, as on series 3 image 1, which is similar to prior CT examinations dating back to 2014. The lung bases otherwise appear clear. Heart size is not enlarged. Solid organs: Liver is normal in size and enhancement. Gallbladder is partially collapsed at the time of this study. Biliary system is non dilated. Pancreas enhances normally. Spleen is mildly enlarged. No adrenal nodules. Kidneys demonstrate normal size and enhancement, without hydronephrosis. Peritoneum and bowel: Bowel wall thickening is seen involving the distal colon, including involving the sigmoid colon, with minimal surrounding inflammatory change. No free air is seen to suggest perforation. No loculated abscess collection can be seen. No dilated loops of small bowel are seen. Nodes and vessels: No retroperitoneal or mesenteric adenopathy by size criteria. Aorta and inferior vena cava are normal in size. Miscellaneous: No ventral hernias. PELVIS: Genitourinary: There is a suprapubic catheter is seen. Miscellaneous: No inguinal hernias or adenopathy. Bones: No suspicious bony lesions. No acute appearing vertebral body compression fractures. Mild thoracolumbar center compression deformities are seen, without acute features. Age-appropriate bony degenerative changes are seen. IMPRESSION: Distal colitis, which has a nonspecific appearance. Please correlate with infectious inflammatory causes. Focal pleural thickening is seen involving right lower lobe, which is unchanged compared to 2015 attributed to a benign cause, likely scarring. Incidental note is made of: Mild splenomegaly Suprapubic catheter Chronic thoracolumbar compression deformities Dictated by: Froilan Naylor M.D. on 02/23/2018 at 11:45 Approved by: Froilan Naylor M.D. on 02/23/2018 at 11:51
[2018-02-23 11:23] LABS: Add Manual Diff / Slide Review NO; Basophils Percent Auto 0.4 % (0-2); Eosinophils Percent Auto 0.4 % (2-4); Hematocrit 36.6 % (41-53); Hemoglobin 12.3 g/dL (13.5-17.5); Lymphocytes Percent Auto 13.8 % (25-40); Mean Corpuscular HGB Conc 33.6 % (30-36); Mean Corpuscular Hemoglobin 26.4 PG (26-34); Mean Corpuscular Volume 78.5 fL (80-100); Monocytes Percent Auto 6.4 % (3-14); Neutrophils Absolute Auto 5800 /uL (3000-5900); Platelet Count 129 X10^3/uL (150-400); Red Blood Cell Count 4.66 X10^6/uL (4.5-5.9); Red Cell Distribution Width 14.9 % (11.6-14.8); White Blood Cell Count 7.4 X10^3/uL (4.5-11.0)
[2018-02-23 11:32] LABS: Alanine Aminotransferase 20 IU/L (21-72); Albumin 3.8 g/dL (3.5-5.0); Albumin Globulin Ratio 1.4 (1.0-2.8); Alkaline Phosphatase 57 U/L (38-126); Aspartate Aminotransferase 14 IU/L (17-59); Bilirubin Total 0.7 mg/dL (0.2-1.3); Blood Urea Nitrogen 5 mg/dL (9-20); Calcium 8.5 mg/dL (8.4-10.2); Carbon Dioxide 28 mmol/L (22-32); Chloride 100 mmol/L (98-107); Estimated Glomerular Filt Rate > 60.0 mL/min (>60); Globulin 2.8 g/dL (1.7-4.1); Glucose 81 mg/dL (70-100); HEMOLYSIS < 15 (0-50); Lipase 15 U/L (23-300); Potassium 3.4 mmol/L (3.4-5.1); Sodium 143 mmol/L (137-145); Total Protein 6.6 g/dL (6.3-8.2)
[2018-02-23 11:38] LABS: Bacteria Urine None Seen; RBC Urine None Seen (0-5/HPF)
[2018-02-23 11:56] LABS: Squamous Epithelial Cell Urine None Seen; WBC Urine 0-1/HPF (0-5/HPF)
[2018-02-23 11:57] LABS: Culture Indicated Urine Specimen Cultured
== END 2018-02-23 14:15 | disposition home or self-care (01) ==
PROVIDERS: Emergency Provider Emergency Medicine; PCP Internal Medicine
DX: K52.9 Noninfective gastroenteritis and colitis, unspecified (principal)
CPT/HCPCS: 74177; 80053; 81003; 81015; 83690; 85025; 87086; 96361; 96374; 99283; 99285; J2270; Q9967

== ENCOUNTER 2018-02-26 18:44 | Inpatient (IN) | payer OTHER, MEDICAID, SELFPAY ==
[2018-02-26 18:51] VITALS: BP 122/82; PULSE 90; RESP 16; TEMP 36.8; O2SAT 99
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
[2018-02-26 20:38] LABS: Add Manual Diff / Slide Review NO; Basophils Percent Auto 0.9 % (0-2); Eosinophils Percent Auto 0.5 % (2-4); Hematocrit 39.5 % (41-53); Hemoglobin 13.4 g/dL (13.5-17.5); Mean Corpuscular Hemoglobin 26.5 PG (26-34); Monocytes Percent Auto 8.3 % (3-14); Neutrophils Absolute Auto 5600 /uL (3000-5900); Neutrophils Percent Auto 74.3 % (50-75); Platelet Count 151 X10^3/uL (150-400); Red Blood Cell Count 5.06 X10^6/uL (4.5-5.9); White Blood Cell Count 7.6 X10^3/uL (4.5-11.0)
[2018-02-26 20:54] LABS: Alanine Aminotransferase 14 IU/L (21-72); Albumin 4.2 g/dL (3.5-5.0); Albumin Globulin Ratio 1.4 (1.0-2.8); Alkaline Phosphatase 70 U/L (38-126); Aspartate Aminotransferase 13 IU/L (17-59); Bilirubin Total 0.6 mg/dL (0.2-1.3); Carbon Dioxide 23 mmol/L (22-32); Chloride 100 mmol/L (98-107); Estimated Glomerular Filt Rate > 60.0 mL/min (>60); Globulin 3.1 g/dL (1.7-4.1); Glucose 85 mg/dL (70-100); HEMOLYSIS < 15 (0-50); Lipase 19 U/L (23-300); Potassium 3.3 mmol/L (3.4-5.1); Sodium 140 mmol/L (137-145); Total Protein 7.3 g/dL (6.3-8.2)
[2018-02-26 21:00] LABS: Blood Urea Nitrogen 2 mg/dL (9-20)
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
[2018-02-26] MEDS: SODIUM CHLORIDE 0.9% 1,000 ML 150 ML IV (21:43)
[2018-02-26 23:18] VITALS: BP 121/70; PULSE 77; RESP 16; O2SAT 97
[2018-02-27] VITALS (7 sets, daily range): BP systolic 97–110; BP diastolic 61–72; PULSE 66–94; RESP 16–18; TEMP 36–36.8; O2SAT 95–97; BMI 29.2
[2018-02-27] MEDS: METOCLOPRAMIDE 10 MG/2 ML INJ IV (00:57)
[2018-02-27] MEDS: LORazepam 2 MG/ML SYRINGE 0.5 MG IV (00:57)
[2018-02-27] MEDS: TRAZODONE 50 MG TABLET PO ×2 (00:57→22:23)
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
[2018-02-27] MEDS: SODIUM CHLORIDE 0.9% 1,000 ML 125 ML IV ×3 (04:13→20:38)
[2018-02-27] MEDS: PIPERACILLIN-TAZO 3.375 GM/50 ML FROZ.PIGGY IV ×2 (04:54→11:41)
[2018-02-27] MEDS: BACLOFEN 10 MG TABLET 30 MG PO ×3 (06:27→20:36)
[2018-02-27] MEDS: OXYCODONE IR 10 MG TABLET PO (06:31)
[2018-02-27] MEDS: GABAPENTIN 300 MG CAPSULE PO ×3 (11:24→20:36)
[2018-02-27] MEDS: SERTRALINE 50 MG TABLET 100 MG PO (11:24)
[2018-02-27] MEDS: METOCLOPRAMIDE HCL 10 MG TABLET PO ×2 (11:25→19:00)
[2018-02-27 11:42] LABS: Clostridium Difficile Tox PCR Positive for C. diff
[2018-02-27] MEDS: DOCUSATE 100 MG CAPSULE PO ×2 (11:44→20:38)
[2018-02-27] MEDS: POTASSIUM CHLORIDE 20 MEQ TAB 40 MEQ PO (11:45)
[2018-02-27] MEDS: VANCOMYCIN 125 MG CAPSULE PO ×3 (12:59→20:36)
[2018-02-27] MEDS: METHADONE 5 MG TABLET PO ×2 (13:03→20:43)
[2018-02-27] MEDS: PANTOPRAZOLE 40 MG TABLET PO (13:03)
[2018-02-27] MEDS: OXYCODONE IR 5 MG TABLET 10 MG PO ×2 (13:03→20:43)
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
[2018-02-27 14:35] LABS: Adenovirus F 40/41 Not Detected (Not Detect); Astrovirus Not Detected (Not Detect); Campylobacter Not Detected (Not Detect); Clostridium difficile toxin AB Detected (Not Detect); Cryptosporidium Not Detected (Not Detect); Cyclospora cayetanensis Not Detected (Not Detect); Entamoeba histolytica Not Detected (Not Detect); Enteroaggregative E.coli Not Detected (Not Detect); Enteropathogenic E.coli Not Detected (Not Detect); Enterotoxigenic E.coli It/st Not Detected (Not Detect); Giardia lamblia Not Detected (Not Detect); Norovirus GI/GII Not Detected (Not Detect); Plesiomonsa shigelloides Not Detected (Not Detect); Rotavirus A Not Detected (Not Detect); Salmonella Not Detected (Not Detect); Shiga-like toxin-prod E.coli Not Detected (Not Detect); Shigella/Enteroinvasive E.coli Not Detected (Not Detect); Vibrio Not Detected (Not Detect); Vibrio cholerae Not Detected (Not Detect); Yersinia enterocolitica Not Detected (Not Detect)
--- NOTE | 2018-02-27 15:57 | CM.DANOTE ---
Patient is a 42 year old male who was admitted on 02/27/18 for Abd Pain. Pt has [employer] and [facility] for insurance and his PCP is Dr. Bolaños. EMR was reviewed. Per MD, pt with quadraplegia and pt likely has CDiff, likely need for repeat colonoscopy. SW met bedside with pt and explained role and pt confirmed that he was recently discharged home with mother who is his CG and [facility] RN but added PT/OT. At last admit, pt attempted to be admitted to [facility] for intense therapy but [facility] in [place] declined pt and pt then decided that he would prefer home rather than SNF rehab. At last admit, SW looked into home infusion for possible need of ongoing IV-Abx and pt ended up having 100% coverage for home infusion but pt was able to d/c on oral meds. Pt states that he feels that PT/OT was beneficial and that he was strengthening until he started to feel sick again and was not able to participate as much in physical therapy. Pt's preference is to feel better to return home with mother as CG and [facility] RN/PT/OT. Plan: SW to follow for updated [facility] on pt status tomorrow towards possible return home with [facility] if stable. DAVID Gregory Discharge Planning/Care Management CM Discharge Assessment Start: 02/27/18 15:55 Freq: Status: Active Protocol: Document 02/27/18 15:55 BF (Rec: 02/27/18 15:57 BF [id number]) Discharge Planning Assessment Assigned Skills Trainer DAVID Herrera DPOA/Assigned Designee Name Mother Advance Directives? No Advance Directives on File No History Provided By Patient Family Member Medical Record Has Patient been admitted in last 30 No days? Comment Recently discharge [facility] on 01/17/18 Prior Living Arrangements House Household Members family Type of transporation used prior to Relies on Others admit Independent with ADL's No Is patient alert and oriented? Yes Needs Assistance With Bathing Grooming Meal Prep Toileting Managing Medications Home Chores / Shopping Caregiver for Another No Community Services used prior to Physical Therapy admission: Occupational Therapy Home Health Nurse DME Already Rented / Owned [facility] Bed Wheelchair Patient/Family Preference Home with Home Health Barriers to Discharge No Discharge Plan Home with Home Health Transportation Arrangement [facility]. Referrals Initiated None needed Whiteboard Updated in Patient Room with Yes name and ext. # of Skills Trainer Review Status In Process Please Provide Date Initial DC 02/27/18 Assessment Was Performed Next Review Type Continued Stay Review
[2018-02-27] MEDS: ALPRAZolam 0.25 MG TABLET PO (22:23)
[2018-02-28] VITALS (11 sets, daily range): BP systolic 100–134; BP diastolic 65–81; PULSE 70–87; RESP 14–18; TEMP 36–36.8; O2SAT 95–98; BMI 24.7
[2018-02-28] MEDS: SODIUM CHLORIDE 0.9% 1,000 ML 125 ML IV ×2 (04:15→13:56)
[2018-02-28 05:36] LABS: Add Manual Diff / Slide Review NO; Basophils Percent Auto 0.5 % (0-2); Eosinophils Percent Auto 1.2 % (2-4); Hematocrit 35.1 % (41-53); Hemoglobin 11.9 g/dL (13.5-17.5); Lymphocytes Percent Auto 22.4 % (25-40); Mean Corpuscular HGB Conc 33.9 % (30-36); Mean Corpuscular Hemoglobin 26.3 PG (26-34); Mean Corpuscular Volume 77.6 fL (80-100); Monocytes Percent Auto 8.9 % (3-14); Neutrophils Absolute Auto 4300 /uL (3000-5900); Platelet Count 128 X10^3/uL (150-400); Red Blood Cell Count 4.53 X10^6/uL (4.5-5.9); White Blood Cell Count 6.4 X10^3/uL (4.5-11.0)
[2018-02-28 05:44] LABS: Blood Urea Nitrogen < 2 mg/dL (9-20); Calcium 8.3 mg/dL (8.4-10.2); Carbon Dioxide 26 mmol/L (22-32); Chloride 104 mmol/L (98-107); Estimated Glomerular Filt Rate > 60.0 mL/min (>60); Glucose 69 mg/dL (70-100); HEMOLYSIS < 15 (0-50); Potassium 3.2 mmol/L (3.4-5.1); Sodium 144 mmol/L (137-145)
[2018-02-28] MEDS: METHADONE 5 MG TABLET PO ×2 (06:49→20:20)
[2018-02-28] MEDS: METOCLOPRAMIDE HCL 10 MG TABLET PO ×4 (06:49→20:21)
[2018-02-28] MEDS: PANTOPRAZOLE 40 MG TABLET PO (06:51)
[2018-02-28] MEDS: GABAPENTIN 300 MG CAPSULE PO ×3 (06:52→20:21)
[2018-02-28] MEDS: SERTRALINE 50 MG TABLET 100 MG PO (06:53)
[2018-02-28] MEDS: DOCUSATE 100 MG CAPSULE PO (06:54)
[2018-02-28] MEDS: BACLOFEN 10 MG TABLET 30 MG PO ×3 (06:54→20:21)
[2018-02-28] MEDS: OXYCODONE IR 5 MG TABLET 10 MG PO ×3 (06:58→20:21)
[2018-02-28] MEDS: VANCOMYCIN 125 MG CAPSULE PO ×4 (08:09→20:20)
[2018-02-28] MEDS: ASPIRIN EC 81 MG TABLET PO (11:23)
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
[2018-02-28] MEDS: POTASSIUM CHLORIDE 20 MEQ TAB 40 MEQ PO (16:55)
[2018-02-28] MEDS: TRAZODONE 50 MG TABLET PO (20:20)
[2018-02-28] MEDS: ALPRAZolam 0.25 MG TABLET PO (22:08)
[2018-03-01] VITALS (7 sets, daily range): BP systolic 102–135; BP diastolic 64–92; PULSE 63–78; RESP 14–16; TEMP 36.3–36.7; O2SAT 95–98
[2018-03-01] MEDS: SODIUM CHLORIDE 0.9% 1,000 ML 125 ML IV ×2 (05:16→13:08)
[2018-03-01 05:43] LABS: Add Manual Diff / Slide Review NO; Basophils Percent Auto 0.4 % (0-2); Eosinophils Percent Auto 1.5 % (2-4); Hematocrit 37.1 % (41-53); Hemoglobin 12.6 g/dL (13.5-17.5); Lymphocytes Percent Auto 18.6 % (25-40); Mean Corpuscular HGB Conc 33.9 % (30-36); Mean Corpuscular Hemoglobin 26.4 PG (26-34); Mean Corpuscular Volume 77.8 fL (80-100); Monocytes Percent Auto 8.5 % (3-14); Neutrophils Absolute Auto 4200 /uL (3000-5900); Platelet Count 130 X10^3/uL (150-400); Red Blood Cell Count 4.77 X10^6/uL (4.5-5.9); Red Cell Distribution Width 15.1 % (11.6-14.8); White Blood Cell Count 5.9 X10^3/uL (4.5-11.0)
[2018-03-01 06:02] LABS: Calcium 8.6 mg/dL (8.4-10.2); Carbon Dioxide 24 mmol/L (22-32); Chloride 103 mmol/L (98-107); Estimated Glomerular Filt Rate > 60.0 mL/min (>60); Glucose 70 mg/dL (70-100); HEMOLYSIS < 15 (0-50); Potassium 3.5 mmol/L (3.4-5.1); Sodium 142 mmol/L (137-145)
[2018-03-01 06:14] LABS: Blood Urea Nitrogen < 2 mg/dL (9-20)
[2018-03-01] MEDS: OXYCODONE IR 5 MG TABLET 10 MG PO ×3 (06:52→20:35)
[2018-03-01] MEDS: BACLOFEN 10 MG TABLET 30 MG PO ×3 (06:54→20:35)
[2018-03-01] MEDS: PANTOPRAZOLE 40 MG TABLET PO (06:57)
[2018-03-01] MEDS: METOCLOPRAMIDE HCL 10 MG TABLET PO ×3 (06:58→20:36)
[2018-03-01] MEDS: SERTRALINE 50 MG TABLET 100 MG PO (06:58)
[2018-03-01] MEDS: METHADONE 5 MG TABLET PO ×2 (06:59→20:35)
[2018-03-01] MEDS: DOCUSATE 100 MG CAPSULE PO (07:00)
--- NOTE | 2018-03-01 07:54 | PC.NURSE ---
pt c/o incr'd spasms since 399, start at abd, down to groin and buttocks, then down both legs up arms to hands-reports pain 01/11. medicated w/ordered pain meds this am. pt states he is not getting any better and at this point he feels he is getting worse. noted chemical odor when standing near pt. no nausea, no stools this shift bowel sounds hypo.
[2018-03-01] MEDS: VANCOMYCIN 125 MG CAPSULE PO ×4 (08:59→20:36)
[2018-03-01] MEDS: GABAPENTIN 300 MG CAPSULE PO ×2 (12:38→20:35)
[2018-03-01] MEDS: ASPIRIN EC 81 MG TABLET PO (12:38)
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
--- NOTE | 2018-03-01 15:22 | PC.NURSE ---
03/01 1522; pt alert and oriented x4, vss on ra, pain stated to be tolerable with prn analgesics. mother who is also care provider participating in care, performing normal bowel regimen interventions with pt. mother reports stool was sludgy and loose but not liquid. Mother and son both complain of lack of diagnosis, or do not agree with current diagnosis of C.diff, wishes to get transferred to hospital where GI specialist can see him. tolerating some clear liquids.
--- NOTE | 2018-03-01 16:02 | CM.DPC ---
Addendum entered by DAVID Franks 03/02/18 16:53: Spoke w/pt and his mom this morning, both very upset that they haven't found an etiology to pt's continued GI problems and mom wants pt to be transferred. This SKIDDER LEVER OPERATOR listened and attempted support as pt/mom talked about increased pain and discomfort for pt and seemingly no end. Mom has arranged a GI appt w/ Dr Shelley's help for this coming Sun but she is concerned they won't be able to do anything for Adrian. Mom teary and wants pt to be free from this ongoing pain. Pt concerned that the abx are not working. Discussed this in rounds and Dr Shelley has attempted transfer once again and GI at [facility] states there is not an acute need for transfer. Team wonders if Anxiety is playing a large role in the case or continuation of these symptoms ? Surgery will not consult because there is nothing that indicates a scope would show anything different than the recent one pt had that showed nothing. A polyp was removed this summer, per pt, w/ temporary relief of symptoms. P: DC likely Sunday per Dr Shelley's recommendation, home w/mom / cg. Outpt GI appt scheduled for Sun, Medicaid BLS transportation will need to be secured on Sunday by mom. Resume HH order needed for [facility]. JW Original Note: DCP Cont: According to Dr Shelley; there was potential for pt's medical DC today but pt and mom were very upset w/this and want further clarification on the etiology of pt's recurrent abd pain. In rounds, further discussed this and the possibility of hospital transfer for further GI work up (?) Pt has an outpt GI appt scheduled a month out. Notified RN Coordinator Angela (she was not in rounds) later this afternoon, d/t caseload demands, of Dr Shelley's interest in this. This will likely need to be discussed again tomorrow w/ nursing aide. Following closely. Need to complete full DCP assessment; although, pt/family concerns are about the etiology of his pain and symptoms, not about DCP options at this time. Medical POC needs to be clarified. ADVID Franks
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
[2018-03-01] MEDS: ALPRAZolam 0.25 MG TABLET PO (20:35)
[2018-03-01] MEDS: TRAZODONE 50 MG TABLET PO (20:36)
[2018-03-02] VITALS (8 sets, daily range): BP systolic 95–135; BP diastolic 61–91; PULSE 74–86; RESP 16–18; TEMP 36.1–37.2; O2SAT 94–97
--- NOTE | 2018-03-02 01:31 | PC.NURSE ---
Checked pt. x3 still sleeping soundly & snoring lightly. Will monitor & assess when he wakes up.
[2018-03-02] MEDS: SODIUM CHLORIDE 0.9% 1,000 ML 125 ML IV ×3 (05:10→21:24)
[2018-03-02 05:48] LABS: Add Manual Diff / Slide Review NO; Basophils Percent Auto 0.4 % (0-2); Eosinophils Percent Auto 1.5 % (2-4); Hematocrit 36.9 % (41-53); Hemoglobin 12.7 g/dL (13.5-17.5); Lymphocytes Percent Auto 22.8 % (25-40); Mean Corpuscular HGB Conc 34.4 % (30-36); Mean Corpuscular Hemoglobin 26.6 PG (26-34); Mean Corpuscular Volume 77.5 fL (80-100); Monocytes Percent Auto 8.4 % (3-14); Neutrophils Absolute Auto 4000 /uL (3000-5900); Neutrophils Percent Auto 66.9 % (50-75); Platelet Count 134 X10^3/uL (150-400); Red Blood Cell Count 4.76 X10^6/uL (4.5-5.9); Red Cell Distribution Width 14.9 % (11.6-14.8)
[2018-03-02 05:56] LABS: Calcium 8.5 mg/dL (8.4-10.2); Carbon Dioxide 26 mmol/L (22-32); Chloride 104 mmol/L (98-107); Estimated Glomerular Filt Rate > 60.0 mL/min (>60); Glucose 82 mg/dL (70-100); HEMOLYSIS < 15 (0-50); Potassium 3.1 mmol/L (3.4-5.1); Sodium 143 mmol/L (137-145)
[2018-03-02 06:01] LABS: Blood Urea Nitrogen < 2 mg/dL (9-20)
[2018-03-02] MEDS: METHADONE 5 MG TABLET PO ×2 (06:22→21:03)
[2018-03-02] MEDS: OXYCODONE IR 5 MG TABLET 10 MG PO ×3 (06:22→21:02)
[2018-03-02] MEDS: GABAPENTIN 300 MG CAPSULE PO ×3 (06:23→21:03)
[2018-03-02] MEDS: METOCLOPRAMIDE HCL 10 MG TABLET PO ×3 (06:23→18:58)
[2018-03-02] MEDS: PANTOPRAZOLE 40 MG TABLET PO (06:23)
[2018-03-02] MEDS: SERTRALINE 50 MG TABLET 100 MG PO (06:24)
[2018-03-02] MEDS: BACLOFEN 10 MG TABLET 30 MG PO ×3 (06:24→21:01)
[2018-03-02] MEDS: DOCUSATE 100 MG CAPSULE PO (06:30)
[2018-03-02] MEDS: VANCOMYCIN 125 MG CAPSULE PO ×4 (09:09→21:04)
[2018-03-02] MEDS: ASPIRIN EC 81 MG TABLET PO (12:28)
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
[2018-03-02] MEDS: POTASSIUM CHLORIDE 20 MEQ TAB 80 MEQ PO (18:57)
[2018-03-02] MEDS: ALPRAZolam 0.25 MG TABLET PO (22:28)
[2018-03-02] MEDS: TRAZODONE 50 MG TABLET PO (22:28)
[2018-03-03] VITALS (10 sets, daily range): BP systolic 109–136; BP diastolic 70–89; PULSE 62–81; RESP 13–20; TEMP 36.4–37.5; O2SAT 95–98
[2018-03-03] MEDS: SODIUM CHLORIDE 0.9% 1,000 ML 125 ML IV ×3 (05:28→20:44)
[2018-03-03] MEDS: OXYCODONE IR 5 MG TABLET 10 MG PO ×3 (05:55→20:40)
[2018-03-03] MEDS: SERTRALINE 50 MG TABLET 100 MG PO (05:56)
[2018-03-03] MEDS: METHADONE 5 MG TABLET PO ×2 (05:56→20:40)
[2018-03-03] MEDS: GABAPENTIN 300 MG CAPSULE PO ×3 (05:56→20:41)
[2018-03-03] MEDS: METOCLOPRAMIDE HCL 10 MG TABLET PO ×2 (05:56→20:41)
[2018-03-03] MEDS: PANTOPRAZOLE 40 MG TABLET PO (05:56)
[2018-03-03] MEDS: DOCUSATE 100 MG CAPSULE PO ×2 (05:57→21:36)
[2018-03-03] MEDS: BACLOFEN 10 MG TABLET 30 MG PO ×3 (05:57→20:41)
[2018-03-03 06:07] LABS: BUN Creatinine Ratio 6.7 (6-22); Blood Urea Nitrogen < 2 mg/dL (9-20); Calcium 8.4 mg/dL (8.4-10.2); Carbon Dioxide 28 mmol/L (22-32); Chloride 102 mmol/L (98-107); Estimated Glomerular Filt Rate > 60.0 mL/min (>60); Glucose 89 mg/dL (70-100); HEMOLYSIS < 15 (0-50); Magnesium 1.4 mg/dL (1.6-2.3); Potassium 3.4 mmol/L (3.4-5.1); Sodium 141 mmol/L (137-145)
[2018-03-03 06:08] LABS: Add Manual Diff / Slide Review NO; Basophils Percent Auto 0.4 % (0-2); Eosinophils Percent Auto 1.4 % (2-4); Hematocrit 36.6 % (41-53); Hemoglobin 12.6 g/dL (13.5-17.5); Lymphocytes Percent Auto 19.8 % (25-40); Mean Corpuscular HGB Conc 34.4 % (30-36); Mean Corpuscular Hemoglobin 26.6 PG (26-34); Mean Corpuscular Volume 77.3 fL (80-100); Monocytes Percent Auto 8.7 % (3-14); Neutrophils Absolute Auto 3800 /uL (3000-5900); Neutrophils Percent Auto 69.7 % (50-75); Platelet Count 128 X10^3/uL (150-400); Red Blood Cell Count 4.74 X10^6/uL (4.5-5.9); Red Cell Distribution Width 15.1 % (11.6-14.8); White Blood Cell Count 5.5 X10^3/uL (4.5-11.0)
[2018-03-03] MEDS: VANCOMYCIN 125 MG CAPSULE PO ×4 (09:41→20:42)
[2018-03-03] MEDS: ASPIRIN EC 81 MG TABLET PO (12:18)
--- NOTE | 2018-03-03 14:12 | P.PN_ITS ---
Subjective Date Patient Seen: 03/03/18 Time Patient Seen: 13:31 Interval history: Complained of pain across his upper abdomen. He is having severe back pain. Had loose bowel movement with his mother doing his bowel regimen. Exam Vital Signs (past 8 hours): - 03/03/18 08:07 03/03/18 08:15 03/03/18 12:26 Temperature 98.8 F 99.5 F Pulse Rate 80 62 Respiratory Rate 16 16 Blood Pressure 118/82 128/77 Pulse Oximetry 95 95 98 Oxygen Delivery Method Room Air Oxygen Flow Rate 0 Narrative Exam Narrative: Patient appears to be comfortable despite his complaints of severe pain. His abdomen is absolutely soft. Though he says it is uncomfortable when I push there is absolutely no reaction as I move around his abdomen. There is no guarding though that might be impossible with him due to his paralysis. Objective Labs Result Diagrams: 03/03/18 05:16 03/03/18 05:16 Labs: Laboratory Results - last 24 hr 03/03/18 03/03/18 05:16 05:16 WBC 5.5 RBC 4.74 Hgb 12.6 L Hct 36.6 L MCV 77.3 L MCH 26.6 MCHC 34.4 RDW 15.1 H Plt Count 128 L Neut % (Auto) 69.7 Lymph % (Auto) 19.8 L [place] % (Auto) 8.7 Eos % (Auto) 1.4 L Baso % (Auto) 0.4 Neut # (Auto) 3800 Sodium 141 Potassium 3.4 Chloride 102 Carbon Dioxide 28 BUN < 2 L Creatinine 0.30 L Estimated GFR > 60.0 BUN/Creatinine Ratio 6.7 Glucose 89 Calcium 8.4 Magnesium 1.4 L Assessment & Plan Plan: Assessment/Plan Narrative: No obvious surgical pathology. It is unclear would benefit a colonoscopy would have at this point. He had a normal colonoscopy except for polyps very recently. This was to evaluate an abnormal CT scan that showed colitis that was not present on colonoscopy. He does have C diff in his stool and that is under treatment. I would normally not do a colonoscopy on a patient in this circumstance unless I was concerned about some alternate diagnosis. He has no abscess on the admitting CT scan. There is no objective finding that makes me concerned about ischemia or perforation or deterioration. Does not have a fever he does not have a white count he does not have tachycardia. No surgical indication that I can see at this time. That could change but for now I would continue the oral vancomycin.
--- NOTE | 2018-03-03 15:45 | PC.NURSE ---
PICC line/TPN: Per Dr Foy, it's okay have PICC line placed and start TPN tomorrow. production team advisor and CNC ROUTER OPERATOR made aware of the same.
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
[2018-03-03] MEDS: ALPRAZolam 0.25 MG TABLET PO (20:41)
[2018-03-03] MEDS: TRAZODONE 50 MG TABLET PO (20:41)
[2018-03-03 21:10] LABS: Bacteria Urine None Seen; RBC Urine None Seen (0-5/HPF); WBC Urine None Seen (0-5/HPF)
[2018-03-03 21:13] LABS: Appearance Urine UA CLEAR; Bilirubin Urine UA NEGATIVE (NEGATIVE); Color Urine UA YELLOW; Glucose Urine UA NEGATIVE (Normal); Ketones Urine UA 2+ (NEGATIVE); Leukocyte Esterase Urine UA 1+ (NEGATIVE); Nitrite Urine UA Negative (Negative); Occult Blood Urine UA NEGATIVE (Negative); Protein Urine UA NEGATIVE (Negative); Urobilinogen Urine UA 0.2 E.U./dL (0.2); pH Urine UA 6.5 (4.5-8.0)
[2018-03-03 21:25] LABS: Urine Comments Microscopic Normal
[2018-03-03 21:26] LABS: Culture Indicated Urine Specimen Cultured
--- NOTE | 2018-03-03 23:46 | PC.NURSE ---
Addendum entered by Radha Purvis R.N. 03/04/18 06:44: Slept most of shift. This morning complains of 7/10 abdominal pain (LLQ + across upper abdomen) radiating around to mid back. States he has intermittent nausea despite use of scheduled Reglan. Affect fairly flat. Has been repositioned upon request. 2100cc UOP this shift. Original Note: Patient is alert and oriented. Breath sounds CTA with RA sat of 96%. HRR. Denies nausea. BT present and abdomen is soft but tender. States he is having 6/10 left lower abdominal pain as well as across upper abdomen and mid back but declines offer of pain medication. Has indwelling suprapubic catheter which is patent; clear, pale yellow urine. Is able to lift bilateral arms and has some movement in right hand but has contractures of both hands left > right. States he has no movement in bilateral legs but does is able to feel when they are touched. Is wearing a type of immobilizing boots to bilateral feet. Declines use of SCD's/LEENA stockings. Needs assist to reposition but states he will request when he wants to turn; did pull out pillow from under right buttock at this time per his request. Fall risk score is high but patient moves minimally and does not attempt to get out of bed. Has had poor appetite and plan is to have PICC placed in morning and then to begin TPN after. Is on isolation for c-diff colitis.
[2018-03-04] VITALS (9 sets, daily range): BP systolic 98–146; BP diastolic 65–92; PULSE 60–84; RESP 16–18; TEMP 36.3–36.8; O2SAT 93–100
[2018-03-04] MEDS: SODIUM CHLORIDE 0.9% 1,000 ML 125 ML IV ×2 (04:55→13:45)
[2018-03-04] MEDS: OXYCODONE IR 5 MG TABLET 10 MG PO ×3 (06:32→19:57)
[2018-03-04] MEDS: GABAPENTIN 300 MG CAPSULE PO ×3 (06:33→19:57)
[2018-03-04] MEDS: METHADONE 5 MG TABLET PO ×2 (06:33→19:57)
[2018-03-04] MEDS: BACLOFEN 10 MG TABLET 30 MG PO ×3 (06:33→19:57)
[2018-03-04] MEDS: PANTOPRAZOLE 40 MG TABLET PO (06:34)
[2018-03-04] MEDS: METOCLOPRAMIDE HCL 10 MG TABLET PO ×3 (06:34→19:57)
[2018-03-04] MEDS: SERTRALINE 50 MG TABLET 100 MG PO (06:34)
[2018-03-04] MEDS: DOCUSATE 100 MG CAPSULE PO ×2 (06:37→20:02)
[2018-03-04] MEDS: VANCOMYCIN 125 MG CAPSULE PO ×4 (09:07→19:57)
--- NOTE | 2018-03-04 09:28 | CM.URPRONOTE ---
CM UR Physician Consult Note Date of Review:: 03/04/18 Date of Admission:: 02/23/18 Length of Stay:: 11 Diagnosis:: Abdominal Pain Narrative: 42-year-old male with history of quadriplegia and history of prior Clostridium difficile colitis presents with prolonged episodes of abdominal pain over the past several weeks or months that has been intermittent but worse recently and now company by inability to take in adequate nutrition he has had a documented 30 lb weight loss in the past 2 or 3 months. During this hospital stay able to take only minimal oral. He has evidence of malnutrition and now with a ketones in the urine that also confirm malnutrition status. Pain persisting requiring pain medications ongoing. CT scan showing colitis in the distal colon he did have a positive C diff but not really having consistent diarrhea. It is felt by the medical team that the clostridia difficile probably is not the cause of his symptoms at this point. Other causes for the severe colitis are being undertaken at this time. Patient would benefit from a GI consult but not available at this hospital and we have tried to transfer him to a facility that has such services but we have been unsuccessful. I think given the bleed global picture that inpatient status would be appropriate for this patient.
[2018-03-04] MEDS: HYDROCORTISONE 25 MG SUPP 100 MG PR ×2 (10:54→19:57)
[2018-03-04] MEDS: MESALAMINE 1,000 MG SUPP 1000 MG PR ×2 (10:56→19:56)
--- NOTE | 2018-03-04 11:52 | CM.DPC ---
DCP/continued: Reviewed chart. Per MD in AM rounds patient getting PICC line placed today to start nutrition. MD reports that he is hopeful patient will improve after a few days of TPN. P: Current plan is for patient to return home with his Mother with home health resumed through [facility] ph# [phone]. They will need to be notified and order for resume services will need to be obtained. . DAVID Ching
[2018-03-04] MEDS: ASPIRIN EC 81 MG TABLET PO (12:29)
--- NOTE | 2018-03-04 12:45 | P.PN_ITS ---
Subjective Date Patient Seen: 03/04/18 Time Patient Seen: 12:40 Interval history: Patient continues to have intermittent abdominal pain across the bilateral lower quadrants. Pain is not changed in severity since admission. He describes the pain as sharp and radiating to the back. The pattern of the pain occurs in a ?horseshoe? pathway from the left lower quadrant to the right lower quadrant. Nausea is unchanged. He essentially has no appetite. Exam Vital Signs (past 8 hours): - 03/04/18 04:57 03/04/18 07:38 03/04/18 08:00 Temperature 97.5 F L 97.8 F Pulse Rate 79 84 Respiratory Rate 16 16 Blood Pressure 146/92 H 121/65 Pulse Oximetry 95 96 97 Oxygen Delivery Method Room Air Oxygen Flow Rate 0 Narrative Exam Narrative: Patient lying in left lateral decubitus position for pressure relief on his hospital bed. He appears comfortable. No acute distress. His mother is at the bedside for my entire visit. Both the patient and his mother expressed frustration at the patient's chronic abdominal pain of unclear etiology along with inability to pursue evaluation at tertiary centers. They related a recurring issue with transfer of care to such centers apparently from lack of an accepting physician. There are hopeful that a gastroenterology consultation may be beneficial Patient has been afebrile with stable vital signs. Abdomen is soft and nondistended. No masses. He is essentially nontender on my examination today. Certainly no guarding or rebound. Objective Labs Result Diagrams: 03/03/18 05:16 03/03/18 05:16 Labs: Laboratory Results - last 24 hr 03/03/18 21:00 Urine Color Yellow Urine Appearance Clear Urine pH 6.5 Ur Specific [place] 1.010 Urine Protein Negative Urine Glucose (UA) Negative Urine Ketones 2+ H Urine Occult Blood Negative Urine Nitrate Negative Urine Bilirubin Negative Urine Urobilinogen 0.2 Ur Leukocyte Esterase 1+ H Urine RBC None seen Urine WBC None seen Urine Bacteria None seen Ur Culture Indicated? Specimen cultured Micro UA Comment Microscopic normal Assessment & Plan Plan: Assessment/Plan Narrative: 42-year-old quadriplegic male with abdominal pain of unclear etiology, but he is currently afflicted with Clostridium difficile colitis. He appears to be responding to antibiotic therapy at the moment. There does not appear to be any obvious surgical pathology requiring further intervention. He had colonoscopy several months ago which was significant only for a polyp. I have no recommendations for any further tests or interventions at this time barring any new symptoms or changes. I discussed this with the patient and his mother in detail. All questions were answered to their satisfaction and to the best of my ability.
--- NOTE | 2018-03-04 13:06 | DI.RAD.S_ITS ---
PROCEDURE: XR CHEST FOR PICC 1V INDICATIONS: PICC placement COMPARISON: [facility], , CHEST 1 VIEW, 07/05/2017, 10:05. FINDINGS: PICC was placed by the intravenous therapy team from the right side. Fluoroscopic spot film demonstrates tip of PICC overlying the mid/distal SVC. Cervicothoracic fixation hardware is noted. IMPRESSION: Tip of PICC overlies the mid/distal SVC. Dictated by: Frieda Martinez M.D. on 03/04/2018 at 13:39 Approved by: Frieda Martinez M.D. on 03/04/2018 at 13:40
[2018-03-04] MEDS: FAT EMULSIONS 50 GM/250 ML EMULSION IV (18:00)
[2018-03-04] MEDS: AA 5 %/CALCIUM/LYTES/DEXT 20 % 1,000 ML with MULTIVITAMIN 10 ML, TRACE ELEMENTS 1 ML, P... 43.042 ML IV (18:00)
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
[2018-03-04] MEDS: ALPRAZolam 0.25 MG TABLET PO (22:41)
[2018-03-04] MEDS: TRAZODONE 50 MG TABLET PO (22:41)
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
[2018-03-05] VITALS (7 sets, daily range): BP systolic 86–147; BP diastolic 57–95; PULSE 72–84; RESP 16–18; TEMP 36.3–36.6; O2SAT 95–97
[2018-03-05] MEDS: SODIUM CHLORIDE 0.9% 1,000 ML 125 ML IV ×3 (05:36→22:26)
[2018-03-05] MEDS: DOCUSATE 100 MG CAPSULE PO ×2 (06:32→20:32)
[2018-03-05] MEDS: OXYCODONE IR 5 MG TABLET 10 MG PO ×3 (06:32→20:44)
[2018-03-05] MEDS: GABAPENTIN 300 MG CAPSULE PO ×3 (06:33→20:22)
[2018-03-05] MEDS: BACLOFEN 10 MG TABLET 30 MG PO ×3 (06:33→20:21)
[2018-03-05] MEDS: SERTRALINE 50 MG TABLET 100 MG PO (06:33)
[2018-03-05] MEDS: METHADONE 5 MG TABLET PO ×2 (06:33→20:22)
[2018-03-05] MEDS: METOCLOPRAMIDE HCL 10 MG TABLET PO ×3 (06:33→20:22)
[2018-03-05] MEDS: PANTOPRAZOLE 40 MG TABLET PO (06:34)
[2018-03-05] MEDS: VANCOMYCIN 125 MG CAPSULE PO ×4 (08:53→20:26)
[2018-03-05] MEDS: HYDROCORTISONE 25 MG SUPP 100 MG PR (12:28)
[2018-03-05] MEDS: MESALAMINE 1,000 MG SUPP 1000 MG PR (12:29)
[2018-03-05] MEDS: ASPIRIN EC 81 MG TABLET PO (12:29)
--- NOTE | 2018-03-05 13:50 | PC.NURSE ---
Summary: Patient's mother admin suppositories this morning (per patient preference). He asks if/when he wants to be turned in bed, mom does that while she's here. Mom and patient expressed concern over his Medicaid coverage, and that they want to try to get him onto Medicare. This chief underwriter left message at hospital [facility] office asking them to contact patient while he's here. Gave their phone # to mom so she can try them if they don't call her by tomorrow. Patient's abd pain remains about the same. Reports intermittent nausea. Has been able to drink water, and ate mostly the broth from [employer] soup.
[2018-03-05 17:05] LABS: Add Manual Diff / Slide Review NO; Basophils Percent Auto 0.2 % (0-2); Eosinophils Percent Auto 0.6 % (2-4); Hematocrit 37.4 % (41-53); Hemoglobin 11.9 g/dL (13.5-17.5); Lymphocytes Percent Auto 12.4 % (25-40); Mean Corpuscular HGB Conc 31.9 % (30-36); Mean Corpuscular Hemoglobin 26.2 PG (26-34); Monocytes Percent Auto 9.1 % (3-14); Neutrophils Absolute Auto 5400 /uL (3000-5900); Neutrophils Percent Auto 77.7 % (50-75); Platelet Count 125 X10^3/uL (150-400); Red Blood Cell Count 4.56 X10^6/uL (4.5-5.9); Red Cell Distribution Width 15.2 % (11.6-14.8)
[2018-03-05 17:15] LABS: Alanine Aminotransferase 23 IU/L (21-72); Albumin 3.1 g/dL (3.5-5.0); Albumin Globulin Ratio 1.2 (1.0-2.8); Alkaline Phosphatase 47 U/L (38-126); Aspartate Aminotransferase 10 IU/L (17-59); BUN Creatinine Ratio 6.7 (6-22); Bilirubin Total 0.4 mg/dL (0.2-1.3); Blood Urea Nitrogen 4 mg/dL (9-20); Calcium 8.3 mg/dL (8.4-10.2); Carbon Dioxide 32 mmol/L (22-32); Chloride 99 mmol/L (98-107); Estimated Glomerular Filt Rate > 60.0 mL/min (>60); Globulin 2.6 g/dL (1.7-4.1); HEMOLYSIS < 15 (0-50); Magnesium 2.4 mg/dL (1.6-2.3); Phosphorous 5.2 mg/dL (2.5-4.5); Sodium 137 mmol/L (137-145); Total Protein 5.7 g/dL (6.3-8.2)
[2018-03-05 18:55] LABS: HEMOLYSIS < 15 (0-50); Potassium 3.4 mmol/L (3.4-5.1)
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
[2018-03-05] MEDS: MAG HYDROX PO (20:58)
[2018-03-05] MEDS: ALUMINUM PO (20:58)
[2018-03-05] MEDS: [UNRECOGNIZED DRUG - OTHER] PO (20:58)
[2018-03-05] MEDS: ALPRAZolam 0.25 MG TABLET PO (22:25)
[2018-03-05] MEDS: TRAZODONE 50 MG TABLET PO (22:25)
[2018-03-06] VITALS (10 sets, daily range): BP systolic 99–132; BP diastolic 62–85; PULSE 66–80; RESP 16–20; TEMP 36.2–36.7; O2SAT 94–98
--- NOTE | 2018-03-06 00:21 | PC.NURSE ---
Pt. sound asleep, will monitor & assess when he wakes up.
[2018-03-06] MEDS: SODIUM CHLORIDE 0.9% FLUSH 10 ML IV ×3 (05:10→21:44)
[2018-03-06 05:30] LABS: Add Manual Diff / Slide Review NO; Basophils Percent Auto 0.3 % (0-2); Eosinophils Percent Auto 1.1 % (2-4); Hemoglobin 12.2 g/dL (13.5-17.5); Lymphocytes Percent Auto 21.2 % (25-40); Mean Corpuscular HGB Conc 33.9 % (30-36); Mean Corpuscular Hemoglobin 26.3 PG (26-34); Mean Corpuscular Volume 77.6 fL (80-100); Monocytes Percent Auto 8.7 % (3-14); Neutrophils Absolute Auto 3700 /uL (3000-5900); Neutrophils Percent Auto 68.7 % (50-75); Platelet Count 120 X10^3/uL (150-400); Red Blood Cell Count 4.64 X10^6/uL (4.5-5.9); Red Cell Distribution Width 15.3 % (11.6-14.8); White Blood Cell Count 5.4 X10^3/uL (4.5-11.0)
[2018-03-06 05:32] LABS: Alanine Aminotransferase 18 IU/L (21-72); Albumin 3.3 g/dL (3.5-5.0); Albumin Globulin Ratio 1.1 (1.0-2.8); Alkaline Phosphatase 60 U/L (38-126); Aspartate Aminotransferase 13 IU/L (17-59); Bilirubin Total 0.4 mg/dL (0.2-1.3); Calcium 8.5 mg/dL (8.4-10.2); Carbon Dioxide 34 mmol/L (22-32); Chloride 104 mmol/L (98-107); Estimated Glomerular Filt Rate > 60.0 mL/min (>60); Glucose 95 mg/dL (70-100); HEMOLYSIS 29 (0-50); Magnesium 1.8 mg/dL (1.6-2.3); Phosphorous 3.7 mg/dL (2.5-4.5); Potassium 3.5 mmol/L (3.4-5.1); Sodium 145 mmol/L (137-145); Total Protein 6.3 g/dL (6.3-8.2)
[2018-03-06 05:35] LABS: Blood Urea Nitrogen 2 mg/dL (9-20)
[2018-03-06] MEDS: GABAPENTIN 300 MG CAPSULE PO ×3 (06:27→21:14)
[2018-03-06] MEDS: BACLOFEN 10 MG TABLET 30 MG PO ×3 (06:27→21:14)
[2018-03-06] MEDS: METHADONE 5 MG TABLET PO ×2 (06:28→20:41)
[2018-03-06] MEDS: METOCLOPRAMIDE HCL 10 MG TABLET PO ×3 (06:28→21:14)
[2018-03-06] MEDS: SERTRALINE 50 MG TABLET 100 MG PO (06:28)
[2018-03-06] MEDS: PANTOPRAZOLE 40 MG TABLET PO (06:28)
[2018-03-06] MEDS: OXYCODONE IR 5 MG TABLET 10 MG PO ×3 (06:29→20:41)
[2018-03-06] MEDS: SODIUM CHLORIDE 0.9% 1,000 ML 125 ML IV ×2 (06:31→12:34)
[2018-03-06] MEDS: VANCOMYCIN 125 MG CAPSULE PO ×4 (08:47→21:31)
[2018-03-06] MEDS: ASPIRIN EC 81 MG TABLET PO (12:30)
--- NOTE | 2018-03-06 16:08 | PM.PN.1 ---
Subjective Date Patient Seen: 03/06/18 Interval history: Chart reviewed, patient seen and examined Patient reports continued epigastric pain, he has been unable to eat. He reports rectal pain as well. NO further diarrhea Exam Vital Signs (past 8 hours): - 03/06/18 12:00 03/06/18 15:45 Temperature 98.1 F 97.2 F L Pulse Rate 70 Respiratory Rate 18 18 Blood Pressure 123/81 103/69 Pulse Oximetry 94 Oxygen Delivery Method Room Air Oxygen Flow Rate 96 Narrative Exam Narrative: Lungs: Clear to auscultation CV:RRR Nl Sl S2 Abd: soft/ non tender/ non distended EXT: muscle wasting of hands, Objective Labs Result Diagrams: 03/06/18 05:10 03/06/18 05:10 Labs: Laboratory Results - last 24 hr 03/05/18 03/05/18 03/05/18 16:45 16:45 17:57 WBC 7.0 RBC 4.56 Hgb 11.9 L Hct 37.4 L MCV 82.0 D MCH 26.2 MCHC 31.9 RDW 15.2 H Plt Count 125 L Neut % (Auto) 77.7 H Lymph % (Auto) 12.4 L [place] % (Auto) 9.1 Eos % (Auto) 0.6 L Baso % (Auto) 0.2 Neut # (Auto) 5400 Sodium 137 Potassium 3.4 Chloride 99 Carbon Dioxide 32 BUN 4 L Creatinine 0.60 L Estimated GFR > 60.0 BUN/Creatinine Ratio 6.7 Glucose Calcium 8.3 L Phosphorus 5.2 H Magnesium 2.4 H Total Bilirubin 0.4 AST 10 L ALT 23 Alkaline Phosphatase 47 Total Protein 5.7 L Albumin 3.1 L Globulin 2.6 Albumin/Globulin Ratio 1.2 03/06/18 03/06/18 05:10 05:10 WBC 5.4 RBC 4.64 Hgb 12.2 L Hct 36.0 L MCV 77.6 L D MCH 26.3 MCHC 33.9 RDW 15.3 H Plt Count 120 L Neut % (Auto) 68.7 Lymph % (Auto) 21.2 L [place] % (Auto) 8.7 Eos % (Auto) 1.1 L Baso % (Auto) 0.3 Neut # (Auto) 3700 Sodium 145 Potassium 3.5 Chloride 104 Carbon Dioxide 34 H BUN 2 L Creatinine 0.40 L Estimated GFR > 60.0 BUN/Creatinine Ratio 5.0 L Glucose 95 Calcium 8.5 Phosphorus 3.7 D Magnesium 1.8 Total Bilirubin 0.4 AST 13 L ALT 18 L Alkaline Phosphatase 60 Total Protein 6.3 Albumin 3.3 L Globulin 3.0 Albumin/Globulin Ratio 1.1 Assessment & Plan (1) Abdominal pain: Problem details: Still with pain, suspect gastritis Will add sulcrafate Current visit: No Status: Acute (2) Neurogenic bladder: Problem details: continue martinez Current visit: No Status: None (3) Colitis: Problem details: Continue treatment for Cdiff. Needs outpatient colonoscopy Current visit: No Status: Acute (4) Incomplete quadriplegia due to spinal cord lesion between fifth and seventh cervical vertebra: Current visit: No Status: None
[2018-03-06] MEDS: AA 5 %/CALCIUM/LYTES/DEXT 20 % 1,000 ML with MULTIVITAMIN 10 ML, TRACE ELEMENTS 1 ML, P... 43.042 ML IV (16:53)
[2018-03-06] MEDS: FAT EMULSIONS 50 GM/250 ML EMULSION IV (16:53)
[2018-03-06] MEDS: SUCRALFATE 1 GM/10 ML ORAL SUSP PO (16:55)
[2018-03-06] MEDS: RANITIDINE 150 MG/10 ML 300 MG PO (21:15)
[2018-03-06] MEDS: ALPRAZolam 0.25 MG TABLET PO (22:37)
[2018-03-06] MEDS: TRAZODONE 50 MG TABLET PO (22:38)
[2018-03-07] VITALS (8 sets, daily range): BP systolic 97–119; BP diastolic 52–79; PULSE 68–78; RESP 16–18; TEMP 36.1–37.2; O2SAT 95–98
--- NOTE | 2018-03-07 | DI.CT.S_ITS ---
PROCEDURE: CT ABDOMEN PELVIS W CON INDICATIONS: ABDOMINAL PAIN, TOXIC MEGACOLON, HISTORY OF C.DIFF TECHNIQUE: After the administration of oral and intravenous contrast, 5 mm thick sections acquired from the diaphragms to the symphysis. 5 mm thick coronal and sagittal reformats were performed. For radiation dose reduction, the following was used: automated exposure control, adjustment of mA and/or kV according to patient size. COMPARISON: None. FINDINGS: Image quality: Excellent. ABDOMEN: Lung bases: Lung bases are clear. Heart size is normal. Solid organs: Liver is normal in size and enhancement. Gallbladder appears normal. Biliary system is non-dilated. Pancreas enhances normally. Spleen is normal in size and enhancement. No adrenal nodules. Kidneys are normal in size and enhancement, without hydronephrosis. Peritoneum and bowel: Stomach, small bowel, and colon loops are normal in caliber and wall thickness. No free fluid or air. Nodes and vessels: No retroperitoneal or mesenteric adenopathy. Aorta and inferior vena cava are normal in caliber. Miscellaneous: No ventral hernias. PELVIS: Genitourinary: Bladder wall thickness is normal. A suprapubic catheter is present without associated mass lesion along its course into the anterior bladder lumen. The bladder is not distended. Miscellaneous: No inguinal hernias or adenopathy. Bones: No suspicious bony lesions. No vertebral body compression fractures. IMPRESSION: The colon is normal in caliber, and no inflammatory process is suspected throughout the abdomen or pelvis. Slight pleural effusion at the right lung base, no appreciable effusion on the left. Suprapubic catheter in normal position draining the bladder lumen. Dictated by: Champ Addison M.D. on 03/07/2018 at 21:00 Approved by: Champ Addison M.D. on 03/07/2018 at 21:02
[2018-03-07] MEDS: SUCRALFATE 1 GM/10 ML ORAL SUSP PO ×4 (05:52→16:59)
[2018-03-07 05:56] LABS: Add Manual Diff / Slide Review NO; Basophils Percent Auto 0.4 % (0-2); Eosinophils Percent Auto 1.2 % (2-4); Hematocrit 37.1 % (41-53); Hemoglobin 12.4 g/dL (13.5-17.5); Lymphocytes Percent Auto 21.7 % (25-40); Mean Corpuscular HGB Conc 33.6 % (30-36); Mean Corpuscular Hemoglobin 26.2 PG (26-34); Mean Corpuscular Volume 78.1 fL (80-100); Monocytes Percent Auto 9.7 % (3-14); Neutrophils Absolute Auto 3800 /uL (3000-5900); Platelet Count 115 X10^3/uL (150-400); Red Blood Cell Count 4.75 X10^6/uL (4.5-5.9); Red Cell Distribution Width 15.3 % (11.6-14.8); White Blood Cell Count 5.6 X10^3/uL (4.5-11.0)
[2018-03-07 06:04] LABS: Alanine Aminotransferase 21 IU/L (21-72); Albumin 3.4 g/dL (3.5-5.0); Albumin Globulin Ratio 1.1 (1.0-2.8); Alkaline Phosphatase 61 U/L (38-126); Aspartate Aminotransferase 10 IU/L (17-59); BUN Creatinine Ratio 7.5 (6-22); Bilirubin Total 0.4 mg/dL (0.2-1.3); Blood Urea Nitrogen 3 mg/dL (9-20); Calcium 8.4 mg/dL (8.4-10.2); Carbon Dioxide 34 mmol/L (22-32); Chloride 103 mmol/L (98-107); Estimated Glomerular Filt Rate > 60.0 mL/min (>60); Glucose 112 mg/dL (70-100); HEMOLYSIS < 15 (0-50); Potassium 3.6 mmol/L (3.4-5.1); Sodium 146 mmol/L (137-145); Total Protein 6.4 g/dL (6.3-8.2)
[2018-03-07 06:09] LABS: Phosphorous 3.7 mg/dL (2.5-4.5)
[2018-03-07] MEDS: OXYCODONE IR 5 MG TABLET 10 MG PO ×3 (06:12→20:18)
[2018-03-07] MEDS: METHADONE 5 MG TABLET PO ×2 (06:13→20:18)
[2018-03-07] MEDS: SERTRALINE 50 MG TABLET 100 MG PO (06:13)
[2018-03-07] MEDS: DOCUSATE 100 MG CAPSULE PO (06:13)
[2018-03-07] MEDS: GABAPENTIN 300 MG CAPSULE PO ×3 (06:14→20:19)
[2018-03-07] MEDS: METOCLOPRAMIDE HCL 10 MG TABLET PO ×3 (06:14→20:19)
[2018-03-07] MEDS: BACLOFEN 10 MG TABLET 30 MG PO ×3 (06:14→20:18)
[2018-03-07] MEDS: PANTOPRAZOLE 40 MG TABLET PO (06:17)
[2018-03-07] MEDS: RANITIDINE 150 MG/10 ML 300 MG PO (08:33)
[2018-03-07] MEDS: VANCOMYCIN 125 MG CAPSULE PO ×2 (08:33→12:15)
[2018-03-07] MEDS: SODIUM CHLORIDE 0.9% FLUSH 10 ML IV ×2 (08:34→22:32)
--- NOTE | 2018-03-07 09:27 | CM.URPRONOTE ---
[facility] Physician Consult Note Date of Review:: 03/07/18 Date of Admission:: 02/27/18 Length of Stay:: 9 Diagnosis:: Abdominal Pain Narrative: 42-year-old who is a quadriplegic presents with worsening abdominal pain and weight loss. He has had several admissions at least 3 in the past 3 or 4 months here at this hospital for similar symptoms. He does have a documented weight loss of 35 lb here on our scales between admissions. He is not eating he is malnourished and has persistent abdominal lower abdominal pain. Colonoscopy done a few months ago showed a polyp and otherwise unremarkable. He did have a stat positive C diff by PCR this admission but really is not having any diarrhea to go along with that. He is getting vancomycin. Symptoms persist despite treatment. We have tried to transfer this patient to a higher level of care where they have a GI specialist on several occasions. He was here a few months ago attempts were made to transfer him to [place] and they refused the inpatient transfer. This admission attempts were made to transfer him to [facility] and again the transfer was denied by the receiving facility. I spoke with his insurance today with a physician review or who agreed to inpatient status here during his stay here but also agreed with me that the patient needs to be transferred to a higher level of care where he would have access to a gastrointestinal specialist. I suggest that we again try specifically to transfer the patient to [place] in a [place] as that is probably the best closest facility for his needs. The insurance company will authorize the inpatient stay at that facility and the reviewer I talked with today will work from his and trying to coordinate this to happen.
--- NOTE | 2018-03-07 09:31 | P.CMURPRON_ITS ---
[facility] Physician Consult Note Date of Review:: 03/07/18 Date of Admission:: 02/27/18 Length of Stay:: 9 Diagnosis:: Abdominal Pain Narrative: 42-year-old who is a quadriplegic presents with worsening abdominal pain and weight loss. He has had several admissions at least 3 in the past 3 or 4 months here at this hospital for similar symptoms. He does have a documented weight loss of 35 lb here on our scales between admissions. He is not eating he is malnourished and has persistent abdominal lower abdominal pain. Colonoscopy done a few months ago showed a polyp and otherwise unremarkable. He did have a stat positive C diff by PCR this admission but really is not having any diarrhea to go along with that. He is getting vancomycin. Symptoms persist despite treatment. We have tried to transfer this patient to a higher level of care where they have a GI specialist on several occasions. He was here a few months ago attempts were made to transfer him to [place] and they refused the inpatient transfer. This admission attempts were made to transfer him to [facility] and again the transfer was denied by the receiving facility. I spoke with his insurance today with a physician review or who agreed to inpatient status here during his stay here but also agreed with me that the patient needs to be transferred to a higher level of care where he would have access to a gastrointestinal specialist. I suggest that we again try specifically to transfer the patient to [place] in a [place] as that is probably the best closest facility for his needs. The insurance company will authorize the inpatient stay at that facility and the reviewer I talked with today will work from his and trying to coordinate this to happen.
[2018-03-07] MEDS: ASPIRIN EC 81 MG TABLET PO (12:15)
--- NOTE | 2018-03-07 13:19 | DIET.PN ---
Appears very discouraged and hoping to see a GI specialist, but reports we haven't been able to arrange. Tried some PO - few bites of chicken noodle soup which did not sit well. Receiving TPN - 1000ml - providing 40-50% of estimated needs for cals and protein.
--- NOTE | 2018-03-07 16:13 | P.PN_ITS ---
Subjective Date Patient Seen: 03/07/18 Interval history: Patient reports abdominal bloating, epigastric discomfort, poor appetite. He had a small formed stool earlier yesterday. Still unable to eat Exam Vital Signs (past 8 hours): - 03/07/18 08:30 03/07/18 09:27 03/07/18 11:00 Temperature 97.6 F 97.8 F Pulse Rate 78 71 Respiratory Rate 18 18 Blood Pressure 97/66 98/55 L Pulse Oximetry 96 96 96 03/07/18 15:36 Temperature 97.5 F L Pulse Rate 77 Respiratory Rate 18 Blood Pressure 107/52 L Pulse Oximetry 95 Oxygen Delivery Method Room Air Oxygen Flow Rate 96 Narrative Exam Narrative: pleasant male in no acute distress, Quadraplegic Lungs: clear to auscultation CV: RRR nl Sl S2 Abd: mildly distended, soft, no palpable masses, no rigidity, no rebound tenderness Ext: flaccid paralysis, with wasting of muscle, decrease tone Objective Labs Result Diagrams: 03/07/18 05:00 03/07/18 05:00 Labs: Laboratory Results - last 24 hr 03/07/18 03/07/18 03/07/18 05:00 05:00 05:00 WBC 5.6 RBC 4.75 Hgb 12.4 L Hct 37.1 L MCV 78.1 L MCH 26.2 MCHC 33.6 RDW 15.3 H Plt Count 115 L Neut % (Auto) 67.0 Lymph % (Auto) 21.7 L [place] % (Auto) 9.7 Eos % (Auto) 1.2 L Baso % (Auto) 0.4 Neut # (Auto) 3800 Sodium 146 H Potassium 3.6 Chloride 103 Carbon Dioxide 34 H BUN 3 L Creatinine 0.40 L Estimated GFR > 60.0 BUN/Creatinine Ratio 7.5 Glucose 112 H Calcium 8.4 Phosphorus 3.7 Total Bilirubin 0.4 AST 10 L ALT 21 Alkaline Phosphatase 61 Total Protein 6.4 Albumin 3.4 L Globulin 3.0 Albumin/Globulin Ratio 1.1 Assessment & Plan (1) Clostridium difficile colitis: Problem details: Will increase Vancomycin to 500mg QID given severe colitis. Will repeat ABdominal/pelvic CT to r/o toxic megacolon Discontinue hydrocortisone/masalamine per GI- no need to empirically treat without pathological diagnosis Current visit: Yes Status: Acute (2) Weight loss: Problem details: continue TPN for now Current visit: Yes Status: Acute (3) Abdominal discomfort, epigastric: Problem details: D/C PPI given Cdiff. continue sulcrafate/Zantac Current visit: Yes Status: Acute (4) Abdominal pain: Qualifiers: Abdominal location: generalized Qualified Code(s): R10.84 - Generalized abdominal pain Current visit: No Status: Acute Plan: Assessment/Plan Narrative: The insurance company requested transfer to a higher facility for GI consultation. I discussed with GI at [facility]. He suggested to increase vanco , repeat abdominal pelvic CT, and discontinue hydrocortisone/mesalamine If symptoms persist consider transfer in 1-2 days.
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
[2018-03-07] MEDS: FAT EMULSIONS 50 GM/250 ML EMULSION IV (16:57)
[2018-03-07] MEDS: AA 5 %/CALCIUM/LYTES/DEXT 20 % 1,000 ML with MULTIVITAMIN 10 ML, TRACE ELEMENTS 1 ML, P... 43.042 ML IV (16:57)
[2018-03-07] MEDS: VANCOMYCIN 125 MG CAPSULE 500 MG PO ×2 (16:58→20:20)
[2018-03-07 19:00] LABS: Magnesium 2.6 mg/dL (1.6-2.3)
[2018-03-07] MEDS: TRAZODONE 50 MG TABLET PO (22:32)
[2018-03-07] MEDS: ALPRAZolam 0.25 MG TABLET PO (22:32)
[2018-03-08] VITALS (9 sets, daily range): BP systolic 84–95; BP diastolic 51–66; PULSE 69–82; RESP 14–19; TEMP 36.3–36.8; O2SAT 94–96
[2018-03-08] MEDS: SUCRALFATE 1 GM/10 ML ORAL SUSP PO ×5 (00:07→23:46)
[2018-03-08 05:42] LABS: Add Manual Diff / Slide Review NO; Basophils Percent Auto 0.5 % (0-2); Eosinophils Percent Auto 1.9 % (2-4); Hemoglobin 12.4 g/dL (13.5-17.5); Lymphocytes Percent Auto 21.8 % (25-40); Mean Corpuscular HGB Conc 33.5 % (30-36); Mean Corpuscular Hemoglobin 26.1 PG (26-34); Mean Corpuscular Volume 78.1 fL (80-100); Monocytes Percent Auto 10.5 % (3-14); Neutrophils Absolute Auto 3600 /uL (3000-5900); Neutrophils Percent Auto 65.3 % (50-75); Platelet Count 110 X10^3/uL (150-400); Red Blood Cell Count 4.74 X10^6/uL (4.5-5.9); Red Cell Distribution Width 15.2 % (11.6-14.8); White Blood Cell Count 5.6 X10^3/uL (4.5-11.0)
--- NOTE | 2018-03-08 05:53 | PC.NURSE ---
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 Pt calls when he wants to be repositioned. Contact precautions maintained.
[2018-03-08 05:57] LABS: Alanine Aminotransferase 20 IU/L (21-72); Albumin 3.5 g/dL (3.5-5.0); Albumin Globulin Ratio 1.3 (1.0-2.8); Alkaline Phosphatase 66 U/L (38-126); Aspartate Aminotransferase 9 IU/L (17-59); Bilirubin Total 0.4 mg/dL (0.2-1.3); Blood Urea Nitrogen 6 mg/dL (9-20); Calcium 8.8 mg/dL (8.4-10.2); Carbon Dioxide 34 mmol/L (22-32); Chloride 102 mmol/L (98-107); Estimated Glomerular Filt Rate > 60.0 mL/min (>60); Globulin 2.8 g/dL (1.7-4.1); Glucose 116 mg/dL (70-100); HEMOLYSIS < 15 (0-50); Phosphorous 4.1 mg/dL (2.5-4.5); Potassium 3.7 mmol/L (3.4-5.1); Sodium 145 mmol/L (137-145); Total Protein 6.3 g/dL (6.3-8.2)
[2018-03-08] MEDS: METOCLOPRAMIDE HCL 10 MG TABLET PO ×3 (06:41→19:57)
[2018-03-08] MEDS: GABAPENTIN 300 MG CAPSULE PO ×3 (06:41→19:56)
[2018-03-08] MEDS: METHADONE 5 MG TABLET PO ×2 (06:41→19:56)
[2018-03-08] MEDS: BACLOFEN 10 MG TABLET 30 MG PO ×3 (06:41→19:57)
[2018-03-08] MEDS: OXYCODONE IR 5 MG TABLET 10 MG PO ×3 (06:41→19:55)
[2018-03-08] MEDS: SERTRALINE 50 MG TABLET 100 MG PO (06:43)
[2018-03-08] MEDS: DOCUSATE 100 MG CAPSULE PO ×2 (06:46→20:01)
[2018-03-08] MEDS: SODIUM CHLORIDE 0.9% FLUSH 10 ML IV ×2 (08:22→19:58)
[2018-03-08] MEDS: RANITIDINE 150 MG/10 ML 300 MG PO (08:22)
[2018-03-08] MEDS: VANCOMYCIN 125 MG CAPSULE 500 MG PO ×4 (08:22→19:56)
[2018-03-08] MEDS: metroNIDAZOLE 500 MG/100 ML PIGGYBACK 100 MG IV ×3 (11:53→22:22)
[2018-03-08] MEDS: ASPIRIN EC 81 MG TABLET PO (12:13)
[2018-03-08] MEDS: VANCOMYCIN 500 MG, SODIUM CHLORIDE 0.9% 100 ML PR (14:35)
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
--- NOTE | 2018-03-08 14:43 | CM.DPC ---
DCP Cont: Re: transfer; Vicenta Haskins, CM dept Dope Edger, spoke w/Angelica at [facility] days ago, per Vicenta: Angelica indicated [facility] is advocating for pt's transfer for higher level of care and further w/u w/ a GI specialist. A physician w/Vicky would make themselves available to do doc to doc if there was an accepting facility. Vicenta relayed this to Dr Benavidez in multi-disciplinary rounds on and Dr Benavidez called [facility] to discuss transfer. According to notes, Dr Benavidez and Dr Foy are following treatment recommendations from the GI specialist to start aggressive abx for CDiff colitis. Transfer might be indicated in 1-2 days to [facility] if this treatment does not work. Additionally, another pelvic CT had been ordered by Dr Benavidez, this WATCH ADJUSTER could not find results in [facility]. Received call from Angelica hidalgo/ [facility] this afternoon, asking for Vicenta, requesting update on transfer ? This WATCH ADJUSTER explained above and reviewed additional medical information defined in pt's prog note from 03.07.18. No prog note available 03.08.18. Angelica stated this satisfied the continued stay review required today and she would call again Sunday for update. WATCH ADJUSTER team will continue to follow closely as medical POC unfolds. DAVID Franks
--- NOTE | 2018-03-08 15:30 | PC.NURSE ---
patient ate only a few bites of food. drinks plenty of water. attempted vanco enema. patient tolerated poorly. with digital exam, rectum is possibly swollen and narrowed, anus appears mildly swollen. lubricated tubing, inserted approx 1 inch, patient c/o discomfort. attempted to run in fluid, but all of the fluid came right back out.
[2018-03-08] MEDS: AA 5 %/CALCIUM/LYTES/DEXT 20 % 1,000 ML with MULTIVITAMIN 10 ML, TRACE ELEMENTS 1 ML, P... 42.958 ML IV (16:47)
[2018-03-08] MEDS: FAT EMULSIONS 50 GM/250 ML EMULSION IV (16:47)
[2018-03-08] MEDS: ALPRAZolam 0.25 MG TABLET PO (19:56)
[2018-03-08] MEDS: TRAZODONE 50 MG TABLET PO (19:58)
[2018-03-09] VITALS (10 sets, daily range): BP systolic 86–110; BP diastolic 55–70; PULSE 71–107; RESP 16–18; TEMP 36.2–36.8; O2SAT 94–96
[2018-03-09] MEDS: metroNIDAZOLE 500 MG/100 ML PIGGYBACK 100 MG IV ×2 (05:05→12:23)
[2018-03-09 05:48] LABS: Add Manual Diff / Slide Review NO; Basophils Percent Auto 0.4 % (0-2); Eosinophils Percent Auto 1.5 % (2-4); Hematocrit 37.9 % (41-53); Hemoglobin 12.5 g/dL (13.5-17.5); Lymphocytes Percent Auto 14.4 % (25-40); Mean Corpuscular Hemoglobin 26.1 PG (26-34); Mean Corpuscular Volume 79.1 fL (80-100); Monocytes Percent Auto 9.2 % (3-14); Neutrophils Absolute Auto 4800 /uL (3000-5900); Neutrophils Percent Auto 74.5 % (50-75); Platelet Count 114 X10^3/uL (150-400); Red Blood Cell Count 4.78 X10^6/uL (4.5-5.9); Red Cell Distribution Width 15.3 % (11.6-14.8); White Blood Cell Count 6.4 X10^3/uL (4.5-11.0)
[2018-03-09 06:00] LABS: BUN Creatinine Ratio 17.5 (6-22); Blood Urea Nitrogen 7 mg/dL (9-20); Calcium 8.6 mg/dL (8.4-10.2); Carbon Dioxide 33 mmol/L (22-32); Chloride 101 mmol/L (98-107); Estimated Glomerular Filt Rate > 60.0 mL/min (>60); Glucose 105 mg/dL (70-100); HEMOLYSIS < 15 (0-50); Magnesium 1.8 mg/dL (1.6-2.3); Phosphorous 3.6 mg/dL (2.5-4.5); Potassium 3.8 mmol/L (3.4-5.1); Sodium 143 mmol/L (137-145)
[2018-03-09] MEDS: GABAPENTIN 300 MG CAPSULE PO ×3 (06:27→20:23)
[2018-03-09] MEDS: SUCRALFATE 1 GM/10 ML ORAL SUSP PO ×3 (06:27→20:22)
[2018-03-09] MEDS: METHADONE 5 MG TABLET PO ×2 (06:27→20:30)
[2018-03-09] MEDS: BACLOFEN 10 MG TABLET 30 MG PO ×3 (06:27→20:22)
[2018-03-09] MEDS: OXYCODONE IR 5 MG TABLET 10 MG PO ×3 (06:28→20:30)
[2018-03-09] MEDS: METOCLOPRAMIDE HCL 10 MG TABLET PO ×3 (06:28→20:23)
[2018-03-09] MEDS: SERTRALINE 50 MG TABLET 100 MG PO (06:28)
[2018-03-09] MEDS: SODIUM CHLORIDE 0.9% FLUSH 10 ML IV ×3 (06:29→20:23)
[2018-03-09] MEDS: DOCUSATE 100 MG CAPSULE PO ×2 (06:29→20:27)
[2018-03-09] MEDS: RANITIDINE 150 MG/10 ML 300 MG PO (08:48)
[2018-03-09] MEDS: VANCOMYCIN 125 MG CAPSULE 500 MG PO ×4 (08:49→20:24)
[2018-03-09] MEDS: MORPHINE 2 MG/ML INJ IV (09:31)
[2018-03-09] MEDS: ASPIRIN EC 81 MG TABLET PO (12:21)
[2018-03-09 12:27] LABS: Lactate (Lactic Acid) 0.8 mmol/L (0.7-2.1)
--- NOTE | 2018-03-09 12:35 | CM.DPC ---
Addendum entered by DAVID Gregory 03/09/18 14:19: ADD: Per MD and RN coordinator, [facility] cannot accept the pt transfer. Pt's mom requesting MD to attempt transfer to another hospital and per MD he is willing to attempt transfer again later today but currently admitting new patients to ICU. BF Original Note: DCP Cont: Per MD, attempting to transfer pt up to [facility] due to ongoing G.I. issues without much relief and RN Coordinator helping to see if they can accept the pt transfer at [facility]. Plan: SW to follow closely to determine if pt is able to transfer to [facility] in [place] vs staying here for ongoing medical treatment and likely return home with his mom/CG via [facility]. DAVID Gregory
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
[2018-03-09] MEDS: FAT EMULSIONS 50 GM/250 ML EMULSION IV (17:50)
[2018-03-09] MEDS: AA 5 %/CALCIUM/LYTES/DEXT 20 % 1,000 ML with MULTIVITAMIN 10 ML, TRACE ELEMENTS 1 ML, P... 42.958 ML IV (17:50)
[2018-03-09] MEDS: ALPRAZolam 0.25 MG TABLET PO (19:00)
[2018-03-10] VITALS (8 sets, daily range): BP systolic 79–88; BP diastolic 49–59; PULSE 80–91; RESP 12–20; TEMP 36.2–36.9; O2SAT 94–98
[2018-03-10] MEDS: TRAZODONE 50 MG TABLET PO ×2 (00:13→22:36)
[2018-03-10] MEDS: LORazepam 1 MG TABLET PO (00:13)
--- NOTE | 2018-03-10 00:27 | PC.NURSE ---
NOC Spoke to Dr. Foy at start of shift. Patient requesting additional Xanax for anxiety. Dr. Foy refused to order another dose, stated I don't like Xanax and offered to order 1mg Ativan, PO, NOW for the patient. Patient agreed. Dr. Foy also stated that he will address Xanax with the patient in the morning. Patient refused his sucralfate and stated that he's been taking a lot of it. I educated him on the scheduling times and the purpose of the medication, but the patient still refused and stated, I'll pass on that one tonight. Patient is AO, calm, and mother at bedside ([place]). BP's are low at 97/59 and 104/70 last shift which seem to be the trend recently. Patient denying n/v, reports mild abdominal tenderness, and pain of 6/10. I administered pt's trazadone (pt requested for it to be held until now) and Ativan at 0015 for pain and anxiety.
[2018-03-10 05:43] LABS: Add Manual Diff / Slide Review NO; Basophils Percent Auto 0.4 % (0-2); Eosinophils Percent Auto 2.1 % (2-4); Hematocrit 37.6 % (41-53); Hemoglobin 12.5 g/dL (13.5-17.5); Lymphocytes Percent Auto 17.1 % (25-40); Mean Corpuscular HGB Conc 33.2 % (30-36); Mean Corpuscular Volume 78.3 fL (80-100); Monocytes Percent Auto 10.2 % (3-14); Neutrophils Absolute Auto 4500 /uL (3000-5900); Neutrophils Percent Auto 70.2 % (50-75); Platelet Count 117 X10^3/uL (150-400); Red Cell Distribution Width 15.3 % (11.6-14.8); White Blood Cell Count 6.3 X10^3/uL (4.5-11.0)
[2018-03-10 05:48] LABS: BUN Creatinine Ratio 17.5 (6-22); Blood Urea Nitrogen 7 mg/dL (9-20); Calcium 8.8 mg/dL (8.4-10.2); Carbon Dioxide 33 mmol/L (22-32); Chloride 103 mmol/L (98-107); Estimated Glomerular Filt Rate > 60.0 mL/min (>60); Glucose 113 mg/dL (70-100); HEMOLYSIS < 15 (0-50); Magnesium 1.8 mg/dL (1.6-2.3); Phosphorous 3.9 mg/dL (2.5-4.5); Sodium 144 mmol/L (137-145)
[2018-03-10] MEDS: DOCUSATE 100 MG CAPSULE PO ×2 (06:16→20:10)
[2018-03-10] MEDS: OXYCODONE IR 5 MG TABLET 10 MG PO ×3 (06:16→20:09)
[2018-03-10] MEDS: BACLOFEN 10 MG TABLET 30 MG PO ×3 (06:17→20:09)
[2018-03-10] MEDS: SUCRALFATE 1 GM/10 ML ORAL SUSP PO ×3 (06:17→17:10)
[2018-03-10] MEDS: GABAPENTIN 300 MG CAPSULE PO ×3 (06:17→20:09)
[2018-03-10] MEDS: METOCLOPRAMIDE HCL 10 MG TABLET PO ×3 (06:18→20:09)
[2018-03-10] MEDS: SERTRALINE 50 MG TABLET 100 MG PO (06:18)
[2018-03-10] MEDS: METHADONE 5 MG TABLET PO ×2 (06:21→20:09)
[2018-03-10] MEDS: VANCOMYCIN 125 MG CAPSULE 500 MG PO (09:55)
[2018-03-10] MEDS: RANITIDINE 150 MG/10 ML 300 MG PO (09:55)
[2018-03-10] MEDS: SODIUM CHLORIDE 0.9% FLUSH 10 ML IV ×2 (10:11→20:10)
[2018-03-10] MEDS: ASPIRIN EC 81 MG TABLET PO (12:48)
[2018-03-10] MEDS: VANCOMYCIN 125 MG CAPSULE PO ×3 (12:50→20:09)
--- NOTE | 2018-03-10 15:20 | PC.NURSE ---
pt a&ox4, vss with blood pressures in mid 80's this shift, seems to be patients baseline, asymptomatic, mother performed bowel regimen, created a larges loose BM, samples sent to Laboratory per order, [facility] accepted pt for transfer, waiting for open bed. pt agrees with plan of care. TPN infusing, martinez draining to gravity
[2018-03-10] MEDS: FAT EMULSIONS 50 GM/250 ML EMULSION IV (17:10)
[2018-03-10] MEDS: AA 5 %/CALCIUM/LYTES/DEXT 20 % 2,000 ML with MULTIVITAMIN 10 ML, TRACE ELEMENTS 1 ML 83.792 ML IV (17:29)
[2018-03-10] MEDS: diazePAM 5 MG TABLET PO (22:36)
--- NOTE | 2018-03-10 23:12 | PC.NURSE ---
Evening Shift Note Pt hypotensive w/ SBP high 70s, low 80's, pt asymptomatic. Dr Foy informed around 1800, no new orders, per MD to continue to monitor.
[2018-03-11] VITALS: PULSE 78; RESP 16; TEMP 36.4; O2SAT 95
--- NOTE | 2018-03-11 01:40 | PC.NURSE ---
Patient refused to be turned, refused BP to be taken and his 2400 medication. resting quietly, denied any pain at this time. TPN and Lipids infusing per orders. PICC site WNL. Call light within reach.
--- NOTE | 2018-03-11 01:43 | PC.NURSE ---
immobilize boots are on bilat lower extremities. Patient states he will let staff know when he is ready to be turned.
[2018-03-11 05:33] LABS: Add Manual Diff / Slide Review NO; Basophils Percent Auto 0.4 % (0-2); Eosinophils Percent Auto 2.3 % (2-4); Hematocrit 37.4 % (41-53); Hemoglobin 12.4 g/dL (13.5-17.5); Mean Corpuscular HGB Conc 33.3 % (30-36); Mean Corpuscular Hemoglobin 26.3 PG (26-34); Monocytes Percent Auto 10.6 % (3-14); Neutrophils Absolute Auto 3900 /uL (3000-5900); Neutrophils Percent Auto 67.7 % (50-75); Platelet Count 115 X10^3/uL (150-400); Red Blood Cell Count 4.73 X10^6/uL (4.5-5.9); Red Cell Distribution Width 15.3 % (11.6-14.8); White Blood Cell Count 5.8 X10^3/uL (4.5-11.0)
[2018-03-11 05:38] VITALS: BP 101/61; PULSE 82; RESP 15; TEMP 36.4; O2SAT 96
[2018-03-11 05:46] LABS: BUN Creatinine Ratio 27.5 (6-22); Blood Urea Nitrogen 11 mg/dL (9-20); Calcium 8.6 mg/dL (8.4-10.2); Carbon Dioxide 32 mmol/L (22-32); Chloride 102 mmol/L (98-107); Estimated Glomerular Filt Rate > 60.0 mL/min (>60); Glucose 127 mg/dL (70-100); HEMOLYSIS < 15 (0-50); Magnesium 1.8 mg/dL (1.6-2.3); Phosphorous 4.2 mg/dL (2.5-4.5); Potassium 4.1 mmol/L (3.4-5.1); Sodium 141 mmol/L (137-145)
[2018-03-11] MEDS: BACLOFEN 10 MG TABLET 30 MG PO ×3 (06:14→20:11)
[2018-03-11] MEDS: METOCLOPRAMIDE HCL 10 MG TABLET PO (06:14)
[2018-03-11] MEDS: GABAPENTIN 300 MG CAPSULE PO ×3 (06:14→20:12)
[2018-03-11] MEDS: SERTRALINE 50 MG TABLET 100 MG PO (06:14)
[2018-03-11] MEDS: SUCRALFATE 1 GM/10 ML ORAL SUSP PO ×2 (06:14→17:28)
[2018-03-11] MEDS: METHADONE 5 MG TABLET PO ×2 (06:17→20:10)
[2018-03-11] MEDS: OXYCODONE IR 5 MG TABLET 10 MG PO ×3 (06:34→20:10)
[2018-03-11] MEDS: DOCUSATE 100 MG CAPSULE PO ×2 (06:38→20:10)
[2018-03-11] MEDS: SODIUM CHLORIDE 0.9% FLUSH 10 ML IV ×2 (08:53→20:12)
[2018-03-11] MEDS: VANCOMYCIN 125 MG CAPSULE PO ×2 (08:54→12:55)
[2018-03-11 09:07] VITALS: BP 99/57; PULSE 89; RESP 14; TEMP 36.6; O2SAT 97
[2018-03-11 09:12] VITALS: O2SAT 96
--- NOTE | 2018-03-11 09:26 | PC.NURSE ---
Addendum entered by Carolina Larson R.N. 03/11/18 15:30: Disposition: Patient's mother called a while ago after having spoken to Instructor Private (Dr Lowell Wharton) that is familiar with Adrian. He works out of [facility] ([phone]) and would be willing to accept patient as inpatient at [facility] provided they have beds. This info was given to charge poster Adrian, who spoke to Dr Benavidez re: the same. This freelance writer also updated JESE Mckee. This freelance writer updated patient, let him know that MD and charge poster's are working with this new information and we will update him as soon as we know anything about transfer. Original Note: Addendum entered by Carolina Larson R.N. 03/11/18 12:38: Per Dr Benavidez, okay to switch to Qshift vitals. Worklist changed to reflect this. Original Note: Addendum entered by Carolina Larson R.N. 03/11/18 11:24: Patient and his mother wondering about what we know re: transfer today. They have questions for Dr Benavidez also re: patient's usual Xanax dosing which Dr Foy opted not to order. This freelance writer spoke with Dr Benavidez, she said she is seeing 2 patients in ICU and will be up to see them next (was made aware that mother usually leaves approx 1300 and wants to speak to her before then). Will let patient and his mother know that she should be up soon. nurse advocate Adrian and JESE Mckee both aware that transfer is still pending, and that [facility] [place] or would be patient's preference. Anticipate MD rounding shortly. Original Note: Shift summary: Alert and oriented X3. VSS. Not much appetite for breakfast. Refused scheduled Ranitidine. Mother is here now, performing usual home a.m. routine (bowel program, ROM exercises, etc.). Will complete full physical assessment when they are finished. TPN per orders, PICC site in [facility].
[2018-03-11 11:27] VITALS: BP 90/53; PULSE 81; RESP 13; TEMP 36.5; O2SAT 97
[2018-03-11] MEDS: ASPIRIN EC 81 MG TABLET PO (12:54)
--- NOTE | 2018-03-11 15:51 | PM.PN.1 ---
Subjective Date Patient Seen: 03/11/18 Interval history: Patient continues to have tenesemus, lower abdominal pain, and nausea. He has been having loose stools and does not feel like the reglan has been helpful. His antibiotic regimen has been adjusted multiple times without significant improvement. His mother has obtained GI consultation at [facility] and we are awaiting at bed at [facility] for transfer to that facility. Patient had his xanax discontinued. By report he has significant anxiety and has been taking xanax intermittantly for the last 6.5 years Exam Vital Signs (past 8 hours): - 03/11/18 09:07 03/11/18 09:12 03/11/18 11:27 Temperature 97.8 F 97.7 F Pulse Rate 89 81 Respiratory Rate 14 13 Blood Pressure 99/57 L 90/53 L Pulse Oximetry 97 96 97 Oxygen Delivery Method Room Air Oxygen Flow Rate 0 Narrative Exam Narrative: Pleasant male in no acute distress Lungs: Clear to auscultation CV: RRR nl S1 S2 Abd: soft/ mildly tender/ hypoactive bowel tones Ext: flaccid with muscle wasting and atrophy Objective Labs Result Diagrams: 03/11/18 05:13 03/11/18 05:13 Labs: Laboratory Results - last 24 hr 03/11/18 03/11/18 05:13 05:13 WBC 5.8 RBC 4.73 Hgb 12.4 L Hct 37.4 L MCV 79.0 L MCH 26.3 MCHC 33.3 RDW 15.3 H Plt Count 115 L Neut % (Auto) 67.7 Lymph % (Auto) 19.0 L [place] % (Auto) 10.6 Eos % (Auto) 2.3 Baso % (Auto) 0.4 Neut # (Auto) 3900 Sodium 141 Potassium 4.1 Chloride 102 Carbon Dioxide 32 BUN 11 Creatinine 0.40 L Estimated GFR > 60.0 BUN/Creatinine Ratio 27.5 H Glucose 127 H Calcium 8.6 Phosphorus 4.2 Magnesium 1.8 Assessment & Plan (1) Abdominal discomfort, epigastric: Problem details: D/C PPI given Cdiff. continue sulcrafate/Zantac Current visit: Yes Status: Acute (2) Weight loss: Problem details: continue TPN for now Current visit: Yes Status: Acute (3) Clostridium difficile colitis: Problem details: Will increase Vancomycin to 500mg QID given severe colitis. Will repeat ABdominal/pelvic CT to r/o toxic megacolon Discontinue hydrocortisone/masalamine per GI- no need to empirically treat without pathological diagnosis Current visit: Yes Status: Acute (4) Chronic pain syndrome: Problem details: Continue methadone/ Clonapin for anxiety Current visit: No Status: None (5) Protein-calorie malnutrition: Problem details: On TPN will continue Current visit: Yes Status: Acute (6) Protein calorie malnutrition: Current visit: Yes Status: Acute Plan: Assessment/Plan Narrative: Transfer to [facility] when bed available
--- NOTE | 2018-03-11 15:56 | P.PN_ITS ---
Subjective Date Patient Seen: 03/11/18 Interval history: Patient continues to have tenesemus, lower abdominal pain, and nausea. He has been having loose stools and does not feel like the reglan has been helpful. His antibiotic regimen has been adjusted multiple times without significant improvement. His mother has obtained GI consultation at [facility] and we are awaiting at bed at [facility] for transfer to that facility. Patient had his xanax discontinued. By report he has significant anxiety and has been taking xanax intermittantly for the last 6.5 years Exam Vital Signs (past 8 hours): - 03/11/18 09:07 03/11/18 09:12 03/11/18 11:27 Temperature 97.8 F 97.7 F Pulse Rate 89 81 Respiratory Rate 14 13 Blood Pressure 99/57 L 90/53 L Pulse Oximetry 97 96 97 Oxygen Delivery Method Room Air Oxygen Flow Rate 0 Narrative Exam Narrative: Pleasant male in no acute distress Lungs: Clear to auscultation CV: RRR nl S1 S2 Abd: soft/ mildly tender/ hypoactive bowel tones Ext: flaccid with muscle wasting and atrophy Objective Labs Result Diagrams: 03/11/18 05:13 03/11/18 05:13 Labs: Laboratory Results - last 24 hr 03/11/18 03/11/18 05:13 05:13 WBC 5.8 RBC 4.73 Hgb 12.4 L Hct 37.4 L MCV 79.0 L MCH 26.3 MCHC 33.3 RDW 15.3 H Plt Count 115 L Neut % (Auto) 67.7 Lymph % (Auto) 19.0 L [place] % (Auto) 10.6 Eos % (Auto) 2.3 Baso % (Auto) 0.4 Neut # (Auto) 3900 Sodium 141 Potassium 4.1 Chloride 102 Carbon Dioxide 32 BUN 11 Creatinine 0.40 L Estimated GFR > 60.0 BUN/Creatinine Ratio 27.5 H Glucose 127 H Calcium 8.6 Phosphorus 4.2 Magnesium 1.8 Assessment & Plan (1) Abdominal discomfort, epigastric: Problem details: D/C PPI given Cdiff. continue sulcrafate/Zantac Current visit: Yes Status: Acute (2) Weight loss: Problem details: continue TPN for now Current visit: Yes Status: Acute (3) Clostridium difficile colitis: Problem details: Will increase Vancomycin to 500mg QID given severe colitis. Will repeat ABdominal/pelvic CT to r/o toxic megacolon Discontinue hydrocortisone/masalamine per GI- no need to empirically treat without pathological diagnosis Current visit: Yes Status: Acute (4) Chronic pain syndrome: Problem details: Continue methadone/ Clonapin for anxiety Current visit: No Status: None (5) Protein-calorie malnutrition: Problem details: On TPN will continue Current visit: Yes Status: Acute (6) Protein calorie malnutrition: Current visit: Yes Status: Acute Plan: Assessment/Plan Narrative: Transfer to [facility] when bed available
[2018-03-11] MEDS: metroNIDAZOLE 500 MG/100 ML PIGGYBACK 100 MG IV (16:27)
[2018-03-11] MEDS: VANCOMYCIN 125 MG CAPSULE 500 MG PO ×2 (16:28→20:10)
[2018-03-11 16:42] VITALS: O2SAT 98
[2018-03-11] MEDS: FAT EMULSIONS 50 GM/250 ML EMULSION IV (17:25)
[2018-03-11] MEDS: AA 5 %/CALCIUM/LYTES/DEXT 20 % 2,000 ML with MULTIVITAMIN 10 ML, TRACE ELEMENTS 1 ML 83.792 ML IV (17:26)
[2018-03-11] MEDS: clonazePAM 0.5 MG TABLET 1 MG PO (17:33)
--- NOTE | 2018-03-11 18:44 | PC.NURSE ---
Spoke with Ellen, charge nurse at [facility] about bed placement for this patient. Called at 1530 which they had no beds at that time and asked that I call back in a couple of hours. Called again at 1730 but they were still tight on beds and asked if we could try again in the morning. Sent face sheet to Ellen at [facility] along with patients GI doctors name. Dr. Benavidez aware and patients primary RN Adis told patient.
[2018-03-11] MEDS: TRAZODONE 50 MG TABLET PO (20:12)
[2018-03-11] MEDS: diazePAM 5 MG TABLET PO (20:25)
[2018-03-11] MEDS: PROCHLORPERAZINE 10 MG/2 ML VIAL IV (20:26)
[2018-03-12] VITALS (7 sets, daily range): BP systolic 85–98; BP diastolic 54–61; PULSE 75–88; RESP 15–18; TEMP 36.3–36.7; O2SAT 96–98
[2018-03-12] MEDS: metroNIDAZOLE 500 MG/100 ML PIGGYBACK 100 MG IV ×3 (00:03→16:41)
[2018-03-12 05:41] LABS: Add Manual Diff / Slide Review NO; Basophils Percent Auto 0.6 % (0-2); Eosinophils Percent Auto 2.1 % (2-4); Hematocrit 37.5 % (41-53); Hemoglobin 12.4 g/dL (13.5-17.5); Lymphocytes Percent Auto 18.7 % (25-40); Mean Corpuscular HGB Conc 33.1 % (30-36); Mean Corpuscular Hemoglobin 26.4 PG (26-34); Mean Corpuscular Volume 79.8 fL (80-100); Monocytes Percent Auto 11.8 % (3-14); Neutrophils Absolute Auto 4300 /uL (3000-5900); Neutrophils Percent Auto 66.8 % (50-75); Platelet Count 114 X10^3/uL (150-400); White Blood Cell Count 6.5 X10^3/uL (4.5-11.0)
[2018-03-12 05:50] LABS: BUN Creatinine Ratio 32.5 (6-22); Blood Urea Nitrogen 13 mg/dL (9-20); Calcium 8.5 mg/dL (8.4-10.2); Carbon Dioxide 32 mmol/L (22-32); Chloride 100 mmol/L (98-107); Estimated Glomerular Filt Rate > 60.0 mL/min (>60); Glucose 118 mg/dL (70-100); HEMOLYSIS < 15 (0-50); Magnesium 1.7 mg/dL (1.6-2.3); Phosphorous 4.3 mg/dL (2.5-4.5); Sodium 143 mmol/L (137-145)
[2018-03-12] MEDS: SERTRALINE 50 MG TABLET 100 MG PO (06:37)
[2018-03-12] MEDS: BACLOFEN 10 MG TABLET 30 MG PO ×3 (06:38→20:33)
[2018-03-12] MEDS: GABAPENTIN 300 MG CAPSULE PO ×3 (06:38→20:33)
[2018-03-12] MEDS: METHADONE 5 MG TABLET PO ×2 (06:38→20:33)
[2018-03-12] MEDS: DOCUSATE 100 MG CAPSULE PO (06:39)
[2018-03-12] MEDS: OXYCODONE IR 5 MG TABLET 10 MG PO ×3 (06:39→20:34)
[2018-03-12] MEDS: VANCOMYCIN 125 MG CAPSULE 500 MG PO ×4 (09:33→20:33)
[2018-03-12] MEDS: SODIUM CHLORIDE 0.9% FLUSH 10 ML IV ×2 (09:34→20:33)
--- NOTE | 2018-03-12 10:21 | CM.DPC ---
DCP/continued: Received verbal referral from CAROL ANN/[place] on 03-11-18 requesting VACUUM REPAIRER meet with Mom/Carlos re: transfer? Patient's Mother/Carlos cell# [phone]. Patient has provided medical team with permission to speak with Mother re: medical care and transfer. Met briefly with Carlos outside of room on 03-11-18, she is requesting transfer update. Notified Carlos that VACUUM REPAIRER would check with Asa/lead software test engineer to check on status and request that he provide her with update. Spoke with Asa and he reports that he has called [facility], and [facility]. Apparently both either do not have bed or will not accept. He is agreeable to update patient/Mother. Update: As of 03-12-18 bed still unable to be found for patient transfer. Patient currently on TPN. Spoke with Dr. Benavidez in AM rounds and she reports that she has spoken to [facility] and they too have declined. Dr. Benavidez reports that she has spoken with both patient and Mother on 03-11-18 and provided them with updates. VACUUM REPAIRER and CM/Computed Tomography Technician Vicenta Hopkins met with patient and Mother/Carlos to update on current situation. Carlos reports frustration with this process. She reports that patient has been here too long without being transferred. Vicenta Hopkins provided patient and Mother with transfer process and discussed that [facility] staff are doing everything possible to get patient safely transferred to higher level of care. In addition, patient and Mother/Carlos notified that [facility] will be asked to assist with coordination of transfer secondary to difficulty we have had getting higher level care to accept. Patient/Mother preference is [facility]. Patient has known GI specialist at facility. Patient/Mother agreeable to transfer to any facility that can accept. P: CM team following closely. UR/Justice calling [facility] re: Forensic Psychiatrist assistance with acute transfer (see UR note for details). DAVID Ching
--- NOTE | 2018-03-12 11:50 | CM.DPC ---
Referral faxed to [facility] about possible home TPN coverage.
[2018-03-12] MEDS: ASPIRIN EC 81 MG TABLET PO (12:44)
--- NOTE | 2018-03-12 13:02 | PC.NURSE ---
Addendum entered by Carolina Larson R.N. 03/12/18 15:42: As of this hour the plan is for patient to d/c home w/outpatient infusion services for TPN. Dr Benavidez and Rylee from working together to make this happen. This automotive service writer gave chance sidhu RN patient's mother's name and phone # and asked him to call her with an update when we know more about when the transfer will happen. Original Note: Patient's mother Carlos (and patient himself) both expressed frustration with the difficulties getting patient transferred to [facility] in [place]. Mother Carlos stated if he can't go to [facility] today then he just wants to go home with HH/TPN and we'll have to figure out some way of getting him to the outpatient GI appointment. [facility] [place] is still first choice. Plan to discuss with Dr Benavidez when she makes rounds. Patient aware of the same and verbalized understanding.
--- NOTE | 2018-03-12 14:52 | PC.NURSE ---
as requested called [facility] transfer station have no beds available have multiple er and surgical patients to place, called [facility] for bed availability and have non at this time but to try back later this evening. passed on to evening coordinator.
--- NOTE | 2018-03-12 15:49 | PM.PN.1 ---
Subjective Date Patient Seen: 03/12/18 Interval history: No significant change. Patient continues to complain of rectal pain that is intermittant. Some times the pain is worse other times better. He still has no appetite and feels like he can't eat food as it makes his stomach hurt. He continues to have loose stools. He feels the compazine is better for nausea. We have been unable to get him transferred to another facility for GI consultation. Patient wants to go home with home TPN until he can see his GI provider scheduled for March 28. Of note, case discussed with Dr. Bolaños. He had an EGD/Cscope/UGI solid food gastric emptying study that was unrevealing. Exam Vital Signs (past 8 hours): - 03/12/18 09:42 03/12/18 12:00 Temperature 98.0 F Pulse Rate 75 Respiratory Rate 15 Blood Pressure 85/54 L Pulse Oximetry 96 96 Oxygen Delivery Method Room Air Oxygen Flow Rate 0 Narrative Exam Narrative: pleasant male in no acute distress Lungs: clear to auscultation CV: RRR nl Sl S2 Abd: distended/ soft/ nontender/ no masses Ext: flaccid, decreased muscle tone Objective Labs Result Diagrams: 03/12/18 05:04 03/12/18 05:04 Labs: Laboratory Results - last 24 hr 03/12/18 03/12/18 05:04 05:04 WBC 6.5 RBC 4.70 Hgb 12.4 L Hct 37.5 L MCV 79.8 L MCH 26.4 MCHC 33.1 RDW 15.0 H Plt Count 114 L Neut % (Auto) 66.8 Lymph % (Auto) 18.7 L [place] % (Auto) 11.8 Eos % (Auto) 2.1 Baso % (Auto) 0.6 Neut # (Auto) 4300 Sodium 143 Potassium 4.0 Chloride 100 Carbon Dioxide 32 BUN 13 Creatinine 0.40 L Estimated GFR > 60.0 BUN/Creatinine Ratio 32.5 H Glucose 118 H Calcium 8.5 Phosphorus 4.3 Magnesium 1.7 Assessment & Plan (1) Protein calorie malnutrition: Problem details: Continue TPN for now Current visit: Yes Status: Acute (2) Abdominal discomfort, epigastric: Problem details: D/C PPI given Cdiff. continue sulcrafate/Zantac Current visit: Yes Status: Acute (3) Weight loss: Problem details: continue TPN for now Current visit: Yes Status: Acute (4) Clostridium difficile colitis: Problem details: Will increase Vancomycin to 500mg QID given severe colitis. Continue Flagyl 500 mg IV every 8 hours Current visit: Yes Status: Acute (5) Spinal hemiparesis: Problem details: chronic Current visit: No Status: Acute Plan: Assessment/Plan Narrative: Will continue to try to transfer to another facility for GI consultation
[2018-03-12] MEDS: SUCRALFATE 1 GM/10 ML ORAL SUSP PO (16:41)
[2018-03-12] MEDS: CALCIUM IV (16:56)
[2018-03-12] MEDS: FAT EMULSIONS 50 GM/250 ML EMULSION IV (16:56)
[2018-03-12] MEDS: DEXT IV (16:56)
[2018-03-12] MEDS: MULTIVITAMIN IV (16:56)
[2018-03-12] MEDS: [UNRECOGNIZED DRUG - OTHER] IV (16:56)
[2018-03-12] MEDS: TRACE ELEMENTS IV (16:56)
[2018-03-12] MEDS: LYTES IV (16:56)
[2018-03-12] MEDS: TRAZODONE 50 MG TABLET PO (20:33)
[2018-03-12] MEDS: diazePAM 5 MG TABLET PO (20:33)
[2018-03-13 00:20] VITALS: BP 85/55; PULSE 83; RESP 16; TEMP 36.3; O2SAT 93
[2018-03-13] MEDS: metroNIDAZOLE 500 MG/100 ML PIGGYBACK 100 MG IV ×2 (00:43→08:40)
[2018-03-13] MEDS: BACLOFEN 10 MG TABLET 30 MG PO ×2 (06:15→12:20)
[2018-03-13] MEDS: GABAPENTIN 300 MG CAPSULE PO ×2 (06:16→12:15)
[2018-03-13] MEDS: SERTRALINE 50 MG TABLET 100 MG PO (06:17)
[2018-03-13] MEDS: METHADONE 5 MG TABLET PO (06:21)
[2018-03-13] MEDS: OXYCODONE IR 5 MG TABLET 10 MG PO ×2 (06:23→12:14)
[2018-03-13] MEDS: DOCUSATE 100 MG CAPSULE PO (06:28)
[2018-03-13] MEDS: VANCOMYCIN 125 MG CAPSULE 500 MG PO ×2 (08:40→12:15)
[2018-03-13] MEDS: SODIUM CHLORIDE 0.9% FLUSH 10 ML IV (08:41)
[2018-03-13 09:00] VITALS: BP 108/62; PULSE 82; RESP 16; TEMP 36.3; O2SAT 97
[2018-03-13 09:30] VITALS: O2SAT 97
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
--- NOTE | 2018-03-13 11:55 | CM.DPC ---
[facility] will p/u patient at 1500 and transport home.
[2018-03-13] MEDS: ASPIRIN EC 81 MG TABLET PO (12:15)
--- NOTE | 2018-03-13 12:55 | PM.DS.1 ---
History of Present Illness Chief complaint: Abdominal Pain Discharge Providers Date of admission: 02/27/18 00:50 Primary care physician: Becca Bolaños MD Consults: 02/27/18 02:53 Consult to Dietitian, Adult Routine Comment: Reason For Exam: Decrease in appitite and wt loss in last month 03/01/18 15:40 Consult to General Surgery Routine Comment: Consulting Provider: Ruddy Altamirano Reason for consultation: LLQ abd pain. C Diff collitis. Pain not resolving. Needs scope w/biopsy Has provider been notified: Yes 03/03/18 13:43 Consult to Dietitian, Adult Routine Comment: Reason For Exam: starting TPN 03/03/18 14:18 Consult to PICC Line RN Routine Comment: Place ALENA Sunday (for TPN), thank you :) 03/03/18 14:21 Consult to PICC Line RN Routine Comment: Discharge provider: Rachna Benavidez MD Discharge Date: 03/13/18 Exam Vital Signs (past 8 hours): - 03/13/18 09:00 03/13/18 09:30 Temperature 97.3 F L Pulse Rate 82 Respiratory Rate 16 Blood Pressure 108/62 Pulse Oximetry 97 97 Oxygen Delivery Method Room Air Oxygen Flow Rate 0 Objective Labs Result Diagrams: 03/12/18 05:04 03/12/18 05:04 Discharge Plan Discharge Plan Patient Disposition: Home Discharge comment: Follow up GI as scheduled on March 28 Discharge Med Rec/Prescriptions Prescriptions: New vancomycin 125 mg Capsule 125 mg PO QID Qty: 60 RF: 0 clonazepam 0.5 mg Tablet 1 mg PO BID PRN (Reason: Anxiety) Qty: 20 RF: 0 diazepam 5 mg Tablet 5 mg PO BEDTIME Qty: 20 RF: 0 Continue sertraline 100 MG tablet 100 mg PO QDAY Qty: 0 RF: 0 oxycodone 10 MG tablet 10 mg PO Q4HP PRN (Reason: Pain, Severe) Qty: 0 RF: 0 gabapentin [Gralise] 300 MG tablet extended release 24 hr 300 mg PO TID Qty: 0 RF: 0 bisacodyl 10 mg suppository 1 supp [place] DAILY PRN (Reason: Constipation) RF: 0 oxybutynin chloride 5 mg tablet 5 mg PO BID RF: 0 methadone 5 mg Tablet 5 mg PO 599,2029 Qty: 60 RF: 0 trazodone 100 mg Tablet 100 mg PO BEDTIME Qty: 30 RF: 0 metoclopramide HCl 10 mg Tablet 10 mg PO AC Qty: 120 RF: 0 docusate sodium 100 mg Capsule 100 mg PO BID RF: 0 baclofen 10 mg Tablet 30 mg PO 0630,1130,2100 Qty: 90 RF: 0 L.acidoph-L.bulg-B.bif-S.therm [Bacid (L. acidophilus)] 1 billion cell- 250 mg Tablet 1 ea PO 0630,1130,2100 Qty: 90 RF: 0 aspirin [Aspirin Low Dose] 81 mg Tablet,Delayed Release (Dr/Ec) 1 tab PO DAILY RF: 0 Discontinued alprazolam 0.25 MG tablet 0.25 mg PO BID PRN (Reason: Anxiety) Qty: 0 RF: 0 pantoprazole 40 mg tablet,delayed release (DR/EC) 40 mg PO QAM Qty: 30 RF: 0 amoxicillin-pot clavulanate [Augmentin] 875-125 mg tablet 1 tab PO BID Qty: 20 RF: 0 amoxicillin-pot clavulanate [Augmentin] 875-125 mg tablet 1 tab PO BID Qty: 20 RF: 0 Follow up/Referrals: Becca Bolaños MD [Primary Care Provider] - (please call and schedule follow up with dr bolaños [phone] ) Provider Discharge Instructions Diet: Diet as Tolerated Diet comment: Ensure three times daily, Visit Report/Discharge Packet Instructions: DI for Antibiotic -- associated Colitis -- C difficile, Vancomycin, Diazepam, Clonazepam Visit Report Forms: Stroke Signs & Symptoms Discharge Data Primary Care Provider: Becca Bolaños Attending Provider: Rachna Benavidez Admit Date/Time: 02/27/18 00:50 Discharges patient from system. Discharge Date/Time: 03/13/18 15:00
[2018-03-13] MEDS: INFLUENZA VACCINE 0.5 ML SYRINGE IM (13:20)
--- NOTE | 2018-03-13 15:29 | PC.NURSE ---
Addendum entered by Kerri Matthews R.N. 03/13/18 15:33: TPN was tapered off, rate halved twice for 1 hr each, BS was checked and stable. Original Note: Discharge: D/C instructions provided to patient with Rx given, pt states took all belongings with him, notified to f/u with PCP as well as GI appt on 03/28. Aware to contact MD with any questions or concerns, PICC removed per order and hospital protocol. Pt left via BLS ambulance, compazine Rx sent to pharmacy.
--- NOTE | 2018-03-13 15:54 | CM.DPC ---
DCP continued: Reviewed chart this AM. Spoke with Dr. Benavidez early this AM and she reports that she discussed case with patient last evening 1:1. It was determined between MD and patient that MD would continue to attempt transfer for higher level of care. This AM Dr. Benavidez confirms the above information in AM rounds. LOCKSTITCH WAISTLINE JOINER requested to see patient and Mother/Carlos in room after AM rounds per RN. LOCKSTITCH WAISTLINE JOINER and pipeliner/Liat, met with patient and Mom/Carlos at approximately 10:00AM this morning. Discussed plan and continued next steps to get patient transferred to higher level of care. Patient alert and oriented with Mom/Carlos present reports he does not want to transfer anywhere but [facility]. Patient reports If they don't have bed I want to go home. Mother/Carlos in agreement with patient's plan. Mom/Carlos states continued frustration with the whole process Mother/Carlos reports that she does not understand why patient cannot go to [facility]. Mother/Carlos reports he needs to come home, after 30 days I stop getting paid by the state be caregiver. She goes on to add that this will make them homeless. Patient has f/u outpatient GI appointment scheduled for . pipeliner confirmed appointment day and time and attempted to get sooner appointment per patient's request. Unable to get sooner appointment. Dr. Benavidez notified of the above and saw patient and Mother later in AM. She determined that patient medically stable to d/c home off of TPN. She prefers that he transfer but agrees to discharge him with follow up appointment with GI on 03-28-18. Mother/Carlos reports that she has transport already set up through [facility] for 03-28 appointment [place] Order written for patient to discharge today. Asked Juma to arrange BLS transport at 3:00pm. Orders completed to resume HH through [facility]. Call made to [facility] and they can resume services. Juma to fax oders and d/c summary. She is aware and agreeable. LOCKSTITCH WAISTLINE JOINER placed call to [facility] ph# [phone]. LOCKSTITCH WAISTLINE JOINER shared concerns in regards to patient missing appointments, and continued visits to Emergency Department/[facility] with same complaint. Patient shows signs of vulnerable adult whom is unable to take himself to/from medical appointments affecting his nutrition status i.e. significant weight loss. Mom/Carlos reports that she has had difficulty arranging transport through [facility]? However, has all needed names/phone numbers when LOCKSTITCH WAISTLINE JOINER asked if she could assist. Also it has been reported that patient has missed several PCP appointments and has not seen GI for approximately 3 years. In home picture unclear therefore, [facility] took referral and case will be assigned. . P: Home today. [facility] referral (see above). JESE/Vicenta Hopkins updated. DAVID Ching
--- NOTE | 2018-03-20 09:50 | CM.SWNOTE ---
Received call from Sri Eisenberg, animal treatment investigator with [employer] P# [phone] F# [phone], requesting conversation with Rylee and blaise. supportive docs for this referral. Faxed Rylee Smith's CARDIAC CATHETERIZATION TECHNICIAN note dated 03/13/18. JW
== END 2018-03-13 15:00 | disposition home or self-care (01) | DRG 249 ==
LOC: ED 19:11 → AC 02-27 00:50
PROVIDERS: Internal Medicine; Admitting Provider Internal Medicine; Emergency Provider Emergency Medicine; PCP Internal Medicine; Visit Provider Internal Medicine
DX: K52.9 Noninfective gastroenteritis and colitis, unspecified (principal); K62.89 Other specified diseases of anus and rectum; E43 Unspecified severe protein-calorie malnutrition; G82.54 Quadriplegia, C5-C7 incomplete; G89.4 Chronic pain syndrome; G90.4 Autonomic dysreflexia; F41.8 Other specified anxiety disorders; E87.6 Hypokalemia; T40.2X5A Adverse effect of other opioids, initial encounter; E83.42 Hypomagnesemia; Z68.23 Body mass index [BMI] 23.0-23.9, adult; F11.20 Opioid dependence, uncomplicated; F12.90 Cannabis use, unspecified, uncomplicated; N31.9 Neuromuscular dysfunction of bladder, unspecified
CPT/HCPCS: 36415; 36569; 36591; 36592; 74177; 80048; 80053; 81001; 82962; 83605; 83690; 83735; 83986; 84100; 84132; 85025; 87015; 87045; 87077; 87086; 87177; 87186; 87427; 87493; 87507; 87899; 90471; 90656; 96361; 96374; 96375; 99231; 99252; 99283; 99284; 99406; B4189; J0780; J1642; J2060; J2270; J2543; J2765; J3370; J3475; J3480; Q2038

== ENCOUNTER → 2018-03-25 13:38 | Outpatient (REF) | payer OTHER, MEDICAID, SELFPAY ==
[2018-02-27 00:56] VITALS: BMI 29.2
[2018-03-25 14:13] LABS: Blood Urea Nitrogen 6 mg/dL (9-20); Calcium 8.7 mg/dL (8.4-10.2); Carbon Dioxide 35 mmol/L (22-32); Chloride 100 mmol/L (98-107); Estimated Glomerular Filt Rate > 60.0 mL/min (>60); Glucose 89 mg/dL (70-100); HEMOLYSIS < 15 (0-50); Potassium 3.8 mmol/L (3.4-5.1); Sodium 144 mmol/L (137-145)
== END ==
LOC: LAB 13:38
PROVIDERS: PCP Internal Medicine; Visit Provider Internal Medicine
DX: M62.81 Muscle weakness (generalized) (principal)
CPT/HCPCS: 80048

== ENCOUNTER → 2018-04-02 14:29 | Outpatient (REF) | payer OTHER, MEDICAID, SELFPAY ==
[2018-02-27 00:56] VITALS: BMI 29.2
[2018-04-02 14:52] LABS: Hematocrit 38.7 % (41-53); Hemoglobin 12.7 g/dL (13.5-17.5); Mean Corpuscular HGB Conc 32.7 % (30-36); Mean Corpuscular Hemoglobin 25.7 PG (26-34); Mean Corpuscular Volume 78.6 fL (80-100); Platelet Count 142 X10^3/uL (150-400); Red Blood Cell Count 4.93 X10^6/uL (4.5-5.9); Red Cell Distribution Width 15.1 % (11.6-14.8); White Blood Cell Count 5.8 X10^3/uL (4.5-11.0)
== END ==
LOC: LAB 14:29
PROVIDERS: PCP Internal Medicine; Visit Provider Internal Medicine
DX: M62.81 Muscle weakness (generalized) (principal)
CPT/HCPCS: 85027

== ENCOUNTER 2018-06-10 06:37 | Inpatient (IN) | payer OTHER, MEDICAID, SELFPAY ==
[2018-05-08 16:10] VITALS: BMI 29.2
[2018-06-07 03:30] VITALS: BP 104/64; PULSE 93; RESP 16; TEMP 36.8; O2SAT 93
[2018-06-10] VITALS (8 sets, daily range): BP systolic 90–121; BP diastolic 58–71; PULSE 64–82; RESP 16–18; TEMP 36.2–36.8; O2SAT 96–98; BMI 21.9
[2018-06-10 10:05] LABS: Add Manual Diff / Slide Review NO; Basophils Percent Auto 0.6 % (0-2); Eosinophils Percent Auto 3.9 % (2-4); Hemoglobin 12.9 g/dL (13.5-17.5); Lymphocytes Percent Auto 23.6 % (25-40); Mean Corpuscular HGB Conc 33.2 % (30-36); Mean Corpuscular Hemoglobin 26.5 PG (26-34); Mean Corpuscular Volume 79.9 fL (80-100); Monocytes Percent Auto 9.6 % (3-14); Neutrophils Absolute Auto 4000 /uL (1500-7000); Neutrophils Percent Auto 62.3 % (50-75); Platelet Count 119 X10^3/uL (150-400); Red Blood Cell Count 4.89 X10^6/uL (4.5-5.9); Red Cell Distribution Width 15.8 % (11.6-14.8); White Blood Cell Count 6.4 X10^3/uL (4.5-11.0)
[2018-06-10 10:12] LABS: Alanine Aminotransferase 18 IU/L (21-72); Albumin Globulin Ratio 1.2 (1.0-2.8); Alkaline Phosphatase 78 U/L (38-126); Aspartate Aminotransferase 16 IU/L (17-59); BUN Creatinine Ratio 22.5 (6-22); Bilirubin Total 0.4 mg/dL (0.2-1.3); Blood Urea Nitrogen 9 mg/dL (9-20); Calcium 8.8 mg/dL (8.4-10.2); Carbon Dioxide 29 mmol/L (22-32); Chloride 101 mmol/L (98-107); Estimated Glomerular Filt Rate > 60.0 mL/min (>60); Globulin 3.4 g/dL (1.7-4.1); Glucose 94 mg/dL (70-100); HEMOLYSIS < 15 (0-50); Potassium 3.7 mmol/L (3.4-5.1); Sodium 139 mmol/L (137-145); Total Protein 7.4 g/dL (6.3-8.2)
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
[2018-06-10] MEDS: SODIUM CHLORIDE 0.9% 1,000 ML 100 ML IV ×2 (11:49→21:28)
--- NOTE | 2018-06-10 11:49 | PC.NURSE ---
Admission assessment completed with Pt. and mother at bedside. Familar with protocols 5 admissions in 6 months, per Pt. Call light in reach. No concerns at present. No valuables to safe. No home meds.
--- NOTE | 2018-06-10 15:46 | PC.NURSE ---
Admit: Late entry Arrived to room 216 approx 0915. Transferred into Isabelle bed using slider board. Alert and oriented X3. See detailed nursing assessment. Taking clear liquids, will be NPO after midnight. Wearing booties to float heels. Repositioning per his home routine and per his request (put pillows under each side and then remove then one at a time a couple hours apart. Home med list updated. Cheyenne sidhu RN is going to follow up on meds that are on the list but not yet ordered. GoLitely scheduled to start at 1600. Chronic martinez to gravity, urine clear yellow. Able to make needs known and calls appropriately, light in reach.
[2018-06-10] MEDS: PEG3350/SOD SULF,BICARB,CL/KCL 4,000 ML SOLUTION 4000 ML PO (16:32)
[2018-06-10] MEDS: metroNIDAZOLE 250 MG TABLET 1000 MG PO ×2 (17:17→18:20)
[2018-06-10] MEDS: NEOMYCIN 500 MG TABLET 1000 MG PO ×2 (17:17→18:20)
--- NOTE | 2018-06-10 17:23 | PC.NURSE ---
Wound Ostomy Nurse Note I had pre-op marked Adrian and gave him instructions regarding having a colostomy mid May. I came up today to see if the marking was still there and it was. Adrian does not have any questions regarding his surgery as Dr. Hernandez gave him and his father instructions when we met them in May and they were also given the [facility] New Patient Guide. Adrian did have a question about taking oral antibiotics and he did ask his nurse. Dr. Hernandez arrived just as I was leaving and he will make sure there is an order for the oral antibiotics. I have some concerns with Steve coccyx area. He said he has a yeast skin infection that he was treating with nystatin powder and bag balm. He said it is tiny and was actually a skin tear from an Allevyn border foam dressing. Adrian is in a Lynett bed and states he has the same one at home. We discussed putting the bed in sitting position and making sure he is turning and off loading the area. Dr Hernandez was there during this discussion. He said that having the bowel prep may make his skin raw, but he will use bag balm to protect his skin. Dr. Hernandez stated that they will be aware of any pressure in this area. I spoke with Melany duckworth and she is aware of this and will take a picture for documentation and prevention of further damage. I will return tomorrow afternoon/evening to see how Adrian is doing.
[2018-06-10] MEDS: CHOLECALCIFEROL (VITAMIN D3) 1,000 UNIT TABLET 1000 UNIT PO (20:06)
[2018-06-10] MEDS: BACLOFEN 10 MG TABLET 30 MG PO (20:06)
[2018-06-10] MEDS: ASCORBIC ACID 500 MG TABLET PO (20:06)
[2018-06-10] MEDS: FERROUS SULFATE 325 MG TABLET PO (20:07)
[2018-06-10] MEDS: OXYCODONE IR 10 MG TABLET PO (20:07)
[2018-06-10] MEDS: METHADONE 5 MG TABLET PO (20:07)
[2018-06-10] MEDS: OXYBUTYNIN 5 MG ER TAB PO (20:07)
[2018-06-10] MEDS: GABAPENTIN 300 MG CAPSULE PO (20:23)
--- NOTE | 2018-06-10 22:16 | PC.NURSE ---
1500- assumed care of pt. pt asleep at this time, arouses to voice. pleasant and cooperative. photo taken of his bottom. Pt has been stooling since 1900- pt drank all the bowel prep fluid. Pt given some lemonade flavoring packets. pt cooperative.e iv fluids infusing. pt tolerating. pt drinks a lot of water. discussed home meds with pt. discussed skin care with pt. Discussed NPO status after midnight with pt, pt states that may be hard because he is used to drinking alot of water. Pt uses call light. belongings and call light within reach. pt likes bed in air to see his television. Pt has a karsten bed at home.
[2018-06-10] MEDS: diazePAM 5 MG TABLET PO (22:33)
[2018-06-10] MEDS: TRAZODONE 100 MG TABLET 50 MG PO (22:34)
[2018-06-11] VITALS (21 sets, daily range): BP systolic 89–136; BP diastolic 58–89; PULSE 76–102; RESP 12–18; TEMP 36.2–37.2; O2SAT 95–99; BMI 25.2
[2018-06-11] MEDS: metroNIDAZOLE 250 MG TABLET 1000 MG PO (04:23)
[2018-06-11] MEDS: NEOMYCIN 500 MG TABLET 1000 MG PO (04:23)
[2018-06-11] MEDS: OXYCODONE IR 10 MG TABLET PO ×3 (04:58→20:03)
[2018-06-11] MEDS: BACLOFEN 10 MG TABLET 30 MG PO ×2 (04:58→20:04)
[2018-06-11] MEDS: PANTOPRAZOLE 40 MG TABLET PO (04:59)
[2018-06-11] MEDS: METHADONE 5 MG TABLET PO ×2 (04:59→20:03)
[2018-06-11] MEDS: SERTRALINE 50 MG TABLET 100 MG PO (04:59)
[2018-06-11] MEDS: OXYBUTYNIN 5 MG ER TAB PO ×2 (04:59→20:04)
[2018-06-11] MEDS: GABAPENTIN 300 MG CAPSULE PO ×3 (04:59→20:05)
[2018-06-11] MEDS: DOCUSATE 100 MG CAPSULE PO ×2 (05:02→20:04)
--- NOTE | 2018-06-11 05:12 | PC.NURSE ---
Patient AxOx3, VSS, tolerating Room air. Turned and positioned q2h. Frequent incontinence care done for loose stools from Bowel Prep for colonoscopy surgery scheduled for this morning. Patient receiving NS@100mL/hr, PO ABX given as ordered. Kept NPO after midnight. Suprapubic martinez is patent, draining clear yellow urine. Patients coccyx and buttocks is macerated, and erythematous. Wet wipes used along with patients own Bag of [place] cream as requested to perineal area.
--- NOTE | 2018-06-11 07:39 | PM.PREOP ---
Pre-operative Note Interval Note History & Physical reviewed/Exam performed by Physician: Yes Changes to H&P: No H&P completed within 30 days and has changed as indicated here:: Patient seen and examined once again in the preoperative area. His colostomy site has been marked per the enterostomal therapist. History and physical examination has not changed as per documentation already on the chart. Bowel prep completed yesterday. Proceed with laparoscopic assisted diverting loop colostomy as planned today.
[2018-06-11] MEDS: APREPITANT 40 MG CAPSULE PO (07:44)
[2018-06-11] MEDS: LACTATED RINGERS 1,000 ML 42 ML IV ×3 (07:45→12:08)
--- NOTE | 2018-06-11 07:46 | PC.NURSE ---
Surgery: Taken off floor by surgery crew approx 0700. Report was given to the OR team by the night clerk RN. Consent in packet but not yet signed.
[2018-06-11] MEDS: CEFOTETAN 2 GM/50 ML PIGGYBACK IV (07:48)
--- NOTE | 2018-06-11 07:54 | SUR.HOLD ---
Pt brought down to pacu for preop staging, seen by Dr. Lux and Dr. Hernandez. Pt left in stable condition.
--- NOTE | 2018-06-11 09:00 | SUR.OPER ---
Supine on padded OR bed, head on pillow, arms padded and tucked at side, legs uncrossed, safety belt at thigh, tape over blanket over lower legs .
[2018-06-11] MEDS: LIDOCAINE 1% W/EPI INJ 20 ML INJ (09:10)
[2018-06-11] MEDS: BUPIVACAINE 0.5% (PF) VIAL 30 ML INJ (09:11)
--- NOTE | 2018-06-11 09:13 | SUR.OPER ---
pt presents with redness and skin irritation in perineal area extending to sacrum, pt also has small laceration on left upper buttock that was covered with a bandage. Bandage was replaced with an Allevyn bandage prior to surgery due to its non adherence due to fluid discharge from bowel prep
--- NOTE | 2018-06-11 10:54 | P.OP_ITS ---
Operative Date/Time/Diagnoses Date of procedure: 06/11/18 Time of procedure: 10:44 Post-op diagnosis: same Procedure & Clinicians Procedure: Laparoscopic-assisted formation of descending loop colostomy Same procedure as scheduled: Yes Indications: 42-year-old C6 quadriplegic male with longstanding history of colonic atony and obstipation requiring aggressive bowel regimen involving rectal medications and enemas regularly. Within the last 6 months he has been unable to tolerate this bowel regimen without significant pain and discomfort as well as exacerbation of his autonomic dysreflexia and resultant hypotension. After gastroenterology consultation he was recommended to undergo diverting loop colostomy to help facilitate care. Surgeon: Isaak Hernandez Click Yes if Unassisted: Yes Anesthesia Type: General and Spinal Operative Notes Findings: 1. Slightly redundant left colon but without evidence of inflammation or other abnormalities. Otherwise normal intraperitoneal cavity within the limitations of laparoscopic visualization 2. Intact existing suprapubic tube Specimen(s): none sent Implants & Drains: None Estimated Blood Loss (mL): 30 Blood products transfused: none Procedure in detail: After obtaining informed consent the patient was brought to the operating room. Spinal anesthesia was achieved per the anesthesiology service in an effort to control autonomic dysreflexia. Please see their records for details. Patient was then placed supine on the table and all pressure points were padded appropriately. Great care was taken in this regard given the patient's quadriplegia and existing breakdown in the sacral region. His existing suprapubic tube was left to gravity drainage. After satisfactory induction of anesthesia a SCOAP time-out was performed per standard protocol. Abdomen was prepped and draped in usual sterile fashion. A one-to-one mixture 1 % lidocaine with 100,000 epinephrine and 0.5% plain Marcaine was injected in the skin and subcutaneous tissue at the superior aspect of the umbilicus for postoperative analgesia. Vertical midline incision was created at the superior aspect of the umbilicus with 11 scalpel blade for distance of approximately 2 cm. Blunt dissection revealed the rectus fascia which was divided in the midline with 11 scalpel blade. Fascial edges were secured with Phoenix clamps bilaterally and elevated into the operative field. Two individual 0 Vicryl sutures were then placed inferiorly and superiorly to secure the fascia. Underlying peritoneum was entered under direct visualization with Elsa clamp and a blunt 12 mm Randle trocar was inserted under direct visualization. Carbon dioxide pneumoperitoneum was created and the abdomen was visually explored with a 30 degree 5 mm laparoscope. Findings are as above. Appropriate sites were then chosen for 2 separate 5 mm trocars in the epigastric region and lower midline region. The sites were anesthetized with local anesthesia and skin incision was created with 11 scalpel blade. 5 mm trocars were then inserted percutaneously under direct laparoscopic visualization. Patient was then turned slightly to the right and dissection proceeded along the peritoneal reflection of the descending colon and sigmoid colon using the ultrasonic dissecting. Dissection proceeded up to the splenic flexure but the splenic flexure itself was not mobilized. Dissection proceeded down above the rectosigmoid junction at the pelvic inlet. Blunt dissection mobilized the colon medially and the left ureter with associated gonadal vessels were identified and great care was taken to avoid injury to these structures. Atraumatic Blanche graspers were used to elevate the colon to the anterior abdominal wall at the previously marked site for the colostomy. There was noted to be more than adequate mobility to form the colostomy. The ratcheted Blanche grasper was left attached to the colon at the site selected for the colostomy. Instruments and trocars were then removed and the carbon dioxide was evacuated. The skin at the selected stoma site was then secured with a Phoenix clamp and incised in a circular fashion with 10 scalpel blade. Bovie was used to achieve hemostasis and carried the dissection down to the rectus fascia. The skin and a core of subcutaneous tissue was removed and discarded. Rectus fascia was then divided in a cruciate fashion with the Bovie and the muscle was split with blunt dissection. Underlying posterior sheath and peritoneum were entered using a DeBakey forceps and Metzenbaum scissors. The defect was then opened just wide enough to allow for the descending colon to be exteriorized using a Misael clamp taking great care to avoid injury to the bowel. The colon easily elevated above the abdominal wall. Blunt dissection through the mesentery adjacent to the descending colon wall was then performed with the surgeon's finger followed by the Bovie in order to create a defect. A large red rubber catheter was used to support the colostomy through the mesenteric defect. The fascia at the umbilical site was then closed with the existing 0 Vicryl suture. Skin at all 3 laparoscopic incisions were then closed in a subcuticular running fashion with 4 0 Monocryl suture. Sterile towel was placed over these incisions and attention was turned to maturing the colostomy. The epiploica were removed with the Bovie and hemostasis achieved with electrocautery as well as 3 0 Vicryl ties. The colon was then opened with the Bovie over a hemostats along the tinea coli for the length of the ostomy. The proximal and distal limbs were identified and noted to be widely patent. Hemostasis was also verified. The colostomy was then matured in a standard fashion using interrupted 3 0 Vicryl suture. The red rubber bridge was looped upon itself and secured with 2 individual 0 silk sutures. Temporary colostomy device was then placed over the stoma. Dermal adhesive was placed on the laparoscopic incisions and anesthesia was reversed. Patient extubated in the operating room then taken recovery in stable condition. Complications: none Condition: stable Disposition: PACU Plan for aftercare: 1. Return to acute care unit for ongoing convalescence and ostomy education
--- NOTE | 2018-06-11 11:13 | SUR.PHASEI ---
pt states he feels back to normal for himself. He is an incomplete quad. He states he is ready to go to his room. He is just a little cold. Colostomy is clean and dry. pt. denies pain and nausea. States he is unable to move his legs per his injury history . States he has limited sensation in his legs and states they feel normal. pt is pleasant and cooperative.
[2018-06-11] MEDS: ASPIRIN EC 81 MG TABLET PO (12:38)
[2018-06-11] MEDS: BACLOFEN 10 MG TABLET 25 MG PO (12:39)
[2018-06-11] MEDS: MUPIROCIN 22 GM OINT 1 APPLIC TOP (12:40)
[2018-06-11] MEDS: NYSTATIN CREAM 30 GM 1 APPLIC TOP (12:41)
--- NOTE | 2018-06-11 14:05 | PC.NURSE ---
Post-op: Arrived back to room 216 from PACU at 1130. Awake and alert, oriented X3. He was quite cold and shaky at first, but has warmed up and is no longer shaking/shivering. New colostomy to L side abdomen C/D/I, stoma beefy red, scant sanguinous drainage. Flatus+. VSS, RA 98%. Denies N/V. Took noon PO meds without issue. Reports abd pain 4/10, states it's tolerable and knows to let RN know if additional pain meds are needed. We turned him back and forth in bed at 1200 and put a pillow under each hip. Per patient request, plan to remove one of the pillows at [id number]. IVF per order, site in R hand WNL. Suprapubic martinez to gravity. Able to make needs known and calls appropriately. Light in reach.
--- NOTE | 2018-06-11 17:19 | PC.NURSE ---
Wound Ostomy Nurse Note Adrian awake in bed. He said last night he didn't sleep at all because of the bowel prep. He stated that his mother come in today and has taken care of his coccyx area and that she saw it this morning before surgery and after surgery and said that it looks better after surgery. I still have not seen his buttock/coccyx. His nurse Melany saw his buttock/coccyx yesterday and will again assess this area during her shift. Adrian states he has been producing painful gas. His abdomen is flat, non-distended. The stoma is edematous and the red robbin bridge is in place. His appliance is intact with some serosanguenous liquid drainage. The surgical instrumentation sites are intact. He has his supra-pubic cath is draining clear yellow drainage. I will be back tomorrow around noon to continue teaching with Adrina and his mom how to care for his ostomy.
[2018-06-11] MEDS: FERROUS SULFATE 325 MG TABLET PO (20:04)
[2018-06-11] MEDS: CHOLECALCIFEROL (VITAMIN D3) 1,000 UNIT TABLET 1000 UNIT PO (20:04)
[2018-06-11] MEDS: ASCORBIC ACID 500 MG TABLET PO (20:05)
--- NOTE | 2018-06-11 21:48 | PC.NURSE ---
1500- assumed care of pt from outgoing shift. Pt awake at this time. pt states he is sleepy. Pt states his dad will be in later. pt repositioned per request. Pt tells staff when needing assistance. Pt uses call light. Pt likes bed elevated to see television better. pt able to manipulate bed controls. pt has been drinking clear liquids. tolerating well. wound nurse came up to check on pt. states she will be back tomorrow around her lunch time. Pt cooperative and appreciative of staff. will continue to monitor.
[2018-06-11] MEDS: diazePAM 5 MG TABLET PO (22:49)
[2018-06-11] MEDS: TRAZODONE 100 MG TABLET 50 MG PO (22:49)
[2018-06-12] VITALS (8 sets, daily range): BP systolic 79–109; BP diastolic 56–70; PULSE 70–100; RESP 16–88; TEMP 36.6–37.6; O2SAT 94–98
[2018-06-12] MEDS: OXYCODONE IR 10 MG TABLET PO ×3 (05:48→20:25)
[2018-06-12] MEDS: METHADONE 5 MG TABLET PO ×2 (05:48→20:25)
[2018-06-12] MEDS: SERTRALINE 50 MG TABLET 100 MG PO (05:49)
[2018-06-12] MEDS: OXYBUTYNIN 5 MG ER TAB PO ×2 (05:51→20:26)
[2018-06-12] MEDS: CHOLECALCIFEROL (VITAMIN D3) 1,000 UNIT TABLET 1000 UNIT PO ×3 (05:51→20:28)
[2018-06-12] MEDS: GABAPENTIN 300 MG CAPSULE PO ×3 (05:51→20:27)
[2018-06-12] MEDS: BACLOFEN 10 MG TABLET 30 MG PO ×2 (05:51→20:26)
[2018-06-12] MEDS: PANTOPRAZOLE 40 MG TABLET PO (05:52)
[2018-06-12 05:53] LABS: Blood Urea Nitrogen 4 mg/dL (9-20); Calcium 8.4 mg/dL (8.4-10.2); Carbon Dioxide 29 mmol/L (22-32); Chloride 103 mmol/L (98-107); Estimated Glomerular Filt Rate > 60.0 mL/min (>60); Glucose 83 mg/dL (70-100); HEMOLYSIS < 15 (0-50); Potassium 3.2 mmol/L (3.4-5.1); Sodium 142 mmol/L (137-145)
[2018-06-12 05:55] LABS: Add Manual Diff / Slide Review NO; Basophils Percent Auto 0.1 % (0-2); Eosinophils Percent Auto 0.3 % (2-4); Hematocrit 37.1 % (41-53); Hemoglobin 12.1 g/dL (13.5-17.5); Lymphocytes Percent Auto 18.1 % (25-40); Mean Corpuscular HGB Conc 32.4 % (30-36); Mean Corpuscular Hemoglobin 25.9 PG (26-34); Mean Corpuscular Volume 79.9 fL (80-100); Monocytes Percent Auto 9.6 % (3-14); Neutrophils Absolute Auto 6100 /uL (1500-7000); Neutrophils Percent Auto 71.9 % (50-75); Platelet Count 123 X10^3/uL (150-400); Red Blood Cell Count 4.65 X10^6/uL (4.5-5.9); Red Cell Distribution Width 15.8 % (11.6-14.8); White Blood Cell Count 8.5 X10^3/uL (4.5-11.0)
[2018-06-12] MEDS: DOCUSATE 100 MG CAPSULE PO ×2 (06:21→20:28)
[2018-06-12] MEDS: MUPIROCIN 22 GM OINT 1 APPLIC TOP (09:35)
[2018-06-12] MEDS: NYSTATIN CREAM 30 GM 1 APPLIC TOP (09:36)
[2018-06-12] MEDS: POLYETHYLENE GLYCOL 3350 17 GM POWD.PACK PO (09:36)
--- NOTE | 2018-06-12 10:56 | PC.NURSE ---
Addendum entered by Juliette Garcia R.N. 06/12/18 12:43: GI - alok eggs at noon, Bev incinerator plant supervisor in, missed Adrian's mom who had left earlier after waiting, Bev will call her to reschedule. Original Note: Addendum entered by Juliette Garcia R.N. 06/12/18 12:33: VITALS - pt requested ivf, states felt cold and uncomfortable, does have hooded sweatshirt on and warm blanket, his bp now 79/56 and this am 87/57, hr 76, given scheduled meds, called Dr. Hernandez and provided vitals and i/o, no new orders at this time, continue monitor. Original Note: AM NOTE - alert, watching movie on lap top, pain controlled with earlier medications this am, stoma, dark pink w/small qty liq, brown stool and air in colostomy bag, suprapubic ww/clear, yellow urine, wearing yoanna heel protectors, Dr. Hernandez in this am and adv to reg diet, ivf saline locked, when mom arrived, beckie care performed, has red area over buttocks and coccyx, small opening l buttock cheek, mom has aloe gel, bactroban and nystatin, yoanna old discoloration heels, area firm to palpation, no openings noted, repositioned for comfort.
[2018-06-12] MEDS: BACLOFEN 10 MG TABLET 25 MG PO (12:25)
[2018-06-12] MEDS: ASPIRIN EC 81 MG TABLET PO (12:26)
--- NOTE | 2018-06-12 12:42 | PM.PN.1 ---
Subjective Date Patient Seen: 06/12/18 Time Patient Seen: 08:09 Interval history: Denies significant pain. In fact, his usual home pain regimen is controlling both his baseline chronic pain as well as his acute surgical discomfort. Denies any nausea or vomiting. Tolerated clear liquids yesterday without issue. Is having a small amount of flatus through the stoma. No subjective fevers. No chest pain or shortness of breath. Overall he states he is feeling relatively well. Exam Vital Signs (past 8 hours): - 06/12/18 07:25 06/12/18 10:47 06/12/18 11:35 Temperature 98.6 F 97.9 F Pulse Rate 90 70 Respiratory Rate 16 16 Blood Pressure 87/57 L 79/56 L Pulse Oximetry 96 95 98 Oxygen Delivery Method Room Air Oxygen Flow Rate 0 Narrative Exam Narrative: Patient lying in bed in no acute distress. Alert oriented x3. He is in good spirits. No fevers. No tachycardia. His blood pressure is essentially baseline secondary to autonomic dysreflexia He is having significant urine output following IV fluid administration yesterday during surgery Chest clear to auscultation bilaterally with regular rate rhythm. No crackles or wheezes Abdomen reveals bowel sounds throughout. Incisions are clean, dry, and intact. He is essentially nontender to palpation. Stoma is pink and viable. Some air in the appliance. Extremities show no clubbing or cyanosis. However, he has contractures consistent with his quadriplegia. Objective Labs Result Diagrams: 06/12/18 05:23 06/12/18 05:23 Labs: Laboratory Results - last 24 hr 06/12/18 06/12/18 05:23 05:23 WBC 8.5 RBC 4.65 Hgb 12.1 L Hct 37.1 L MCV 79.9 L MCH 25.9 L MCHC 32.4 RDW 15.8 H Plt Count 123 L Neut % (Auto) 71.9 Lymph % (Auto) 18.1 L [place] % (Auto) 9.6 Eos % (Auto) 0.3 L Baso % (Auto) 0.1 Neut # (Auto) 6100 Sodium 142 Potassium 3.2 L Chloride 103 Carbon Dioxide 29 BUN 4 L Creatinine 0.50 L Estimated GFR > 60.0 BUN/Creatinine Ratio 8.0 Glucose 83 Calcium 8.4 Laboratory studies are essentially unremarkable other than mild hypokalemia after bowel preparation 2 days ago. Assessment & Plan Plan: Assessment/Plan Narrative: 42-year-old male postoperative day 1 from laparoscopic-assisted formation of descending loop colostomy who is doing well. His baseline quadriplegia and other associated issues are well controlled with his usual regimen. We will advance his diet today. Continue ostomy education. I would plan to remove the ostomy bridge within 10-14 days as an outpatient. Saline lock the IV this morning. If he continues to do well over the next 1-2 days I suspect he would be ready for discharge at that time. I discussed all the above with the patient at length. Questions were answered to his satisfaction, and he voiced understanding. Quality VTE Deep Vein Thrombosis/Pulmonary Embolism Present on Admission: No
--- NOTE | 2018-06-12 14:08 | CM.DPC ---
DCP/continued: Received chart. Patient is POD#1 from elective colostomy. CONSERVATION OF RESOURCES COMMISSIONER and UR/RN Mahnaz met with patient explained CM/SW role. Patient alert and oriented at time of visit and no family at bedside. Patient reports that he is trying to take a nap. Patient confirms that he resides with his mother/caregiver Carlos in [place]. Patient plans to return home when stable. Patient currently being followed by Bev Cortes ext# [phone] for new colostomy care/teaching. Per her note from today she will be back tomorrow 06-13-18 to access colostomy and start teaching with patient/family. Patient reports that he currently is on HH services through [facility] for cath care. Patient agreeable to have additional services for new colostomy care if ordered. CONSERVATION OF RESOURCES COMMISSIONER asked PHILLIP/Dinah to call [facility] to confirm he is on service and that they could add colostomy care. Per Dinah they can. Anticipate new order will need to be done for supplies, care, and education. Will await recommendation from Bev. Regardless, [facility] will need order to resume cath care prior to discharge. P: Pending. Anticipate home when stable. Unclear if HH will need to do colostomy care/supplies. Will know more once recommendation received from Bev Cortes and or Dr. Hernandez. Follow closely. DAVID Ching Discharge Planning/Care Management CM Discharge Assessment Start: 06/11/18 15:57 Freq: Status: Active Protocol: Document 06/11/18 15:57 KJS (Rec: 06/11/18 16:07 KJS [id number]) Discharge Planning Assessment Assigned Structurer DAVID Ching Contact Information Rory Miller (listed) Advance Directives? No: REGISTRATION WILL REQUEST Advance Directives on File No History Provided By Patient Family Member Medical Record Prior Living Arrangements House Household Members family Type of transporation used prior to Relies on Others admit Independent with ADL's No Is patient alert and oriented? Yes Caregiver for Another No DME Already Rented / Owned Wheelchair Patient/Family Preference Home with Home Health Comment Unclear at this time. Discharge Plan Home Transportation Arrangement [facility]. Referrals Initiated None needed Additional Comment discharge after gastric emptying study. Comment Reviewed chart. Patient is a 42yr old male admitted to [facility] for laparoscopic-assisted loop colostomy on 06-11-18. Attending physician is Dr. Hernandez. PCP is Dr. Becca Bolaños . Primary payor is 1) [employer] 2) Medicaid. CONSERVATION OF RESOURCES COMMISSIONER attempted to meet with patient to explained CM/SW role. Patient is incomplete quadriplegiac whom resides at home. Unclear on current caregiver, previous caregiver was his Mother/Carlos. Spoke with RN and she reports patient just returned to the floor from surgery. No family at bedside and patient groggy. Will re-attempt visit tomorrow 06-12-18. RN also mentions that patient's Mother requesting that no social service visit. Notified RN that CM team would check in tomorrow. Patient/family known to this CONSERVATION OF RESOURCES COMMISSIONER from previous visit. Please review old note for details if needed. CM team to see patient and continue to follow closely for needs. Anticipate possible need for new colostomy teaching either at [facility] outpatient, or .
[2018-06-12] MEDS: diazePAM 5 MG TABLET PO (20:26)
[2018-06-12] MEDS: FERROUS SULFATE 325 MG TABLET PO (20:27)
[2018-06-12] MEDS: TRAZODONE 50 MG TABLET PO (20:28)
[2018-06-12] MEDS: ASCORBIC ACID 500 MG TABLET PO (20:32)
[2018-06-13] VITALS (8 sets, daily range): BP systolic 84–120; BP diastolic 56–85; PULSE 67–98; RESP 16; TEMP 36.6–37; O2SAT 94–98
--- NOTE | 2018-06-13 00:17 | PC.NURSE ---
Addendum entered by Radha Purvis R.N. 06/13/18 06:51: Had 100cc brown liquid stool from colostomy this morning. Original Note: Addendum entered by Radha Purvis R.N. 06/13/18 06:11: BP 84/65 but patient is asymptomatic and has trended low on previous readings. Has been repositioned as he requests. States abdominal pain is 6/10 and feels crampy. Original Note: Patient is alert and oriented. Hx of quadriplegia. Breath sounds CTA with RA sat of 94%. Low grade temp of 99.7 so discussed importance of CDB and provided I.S. to work on lung capacity; patient verbalized understanding and was able to get I.S. to 2000. HRR. BP low at 94/70 but patient states this is consistent with his baseline. Denies nausea. BT present and abdomen is soft. Colostomy on left abdomen with red, beefy stoma and small amount liquid in colostomy bag; states he has been passing flatus. Lap sites are dermabonded and without redness/drainage. Has chronic SP catheter with no redness or drainage note on dressing surrounding site; urine is pale yellow. Able to move arms but has weakness and contractures of both hands, left > right. Has no movement in LE but states he is able to feel pressure/numbness but not pain. Is wearing bilateral walking type boots and compression stockings to both LE. Is being repositioned q2h and upon request. Dressing to coccyx is CDI. Fall risk score is medium but bed alarm not in use as patient oriented, calls appropriately and has minimal body movement. States abdominal pain is crampy, dull, achy with severity of 5/10 but declines offer of pain medication.
[2018-06-13] MEDS: GABAPENTIN 300 MG CAPSULE PO ×3 (06:03→20:31)
[2018-06-13] MEDS: CHOLECALCIFEROL (VITAMIN D3) 1,000 UNIT TABLET 1000 UNIT PO ×3 (06:03→20:32)
[2018-06-13] MEDS: METHADONE 5 MG TABLET PO ×2 (06:03→20:30)
[2018-06-13] MEDS: OXYBUTYNIN 5 MG ER TAB PO ×2 (06:03→20:32)
[2018-06-13] MEDS: BACLOFEN 10 MG TABLET 30 MG PO ×2 (06:03→20:31)
[2018-06-13] MEDS: PANTOPRAZOLE 40 MG TABLET PO (06:04)
[2018-06-13] MEDS: OXYCODONE IR 10 MG TABLET PO ×3 (06:04→20:30)
[2018-06-13] MEDS: SERTRALINE 50 MG TABLET 100 MG PO (06:04)
[2018-06-13] MEDS: DOCUSATE 100 MG CAPSULE PO ×2 (06:07→20:31)
--- NOTE | 2018-06-13 08:57 | PC.NURSE ---
Wound Ostomy Nurse Note Late Entry June 12, 2018 I had arranged to meet with Adrian's mom at 12:00 to review teaching of ostomy care. I arrived at 12:30 and she left for the day. I called her and rearranged the time to tomorrow June at 0730. Adrian is in bed. He states he is feeling pain from gas and does not have much of an appetite for solid food but has been drinking ensure. He states that he has not put his bed in a chair position because his blood pressure has been low. His mother has been coming in daily to do his ROM. His mother has also been taking care of his buttock/coccyx skin. I replaced Adrian's pouching appliance. The stoma is edematous, oval, moist and deep purple red in color. He is producing brown liquid stool. The red robbin bridge is intact. The beckie-stomal skin is intact. I placed him back in a Convatec 57mm moldable wafer with a transparent non-filter pouch. This is a two piece system. He has had to have the nursing staff empty and burp his pouch. I reviewed some teaching materials in the [facility] New Patient Guide Book with him. I will return tomorrow morning to meet his mother and teach her about Adrian's ostomy care.
[2018-06-13] MEDS: POLYETHYLENE GLYCOL 3350 17 GM POWD.PACK PO (09:00)
--- NOTE | 2018-06-13 09:05 | PC.NURSE ---
Wound Ostomy Nurse Note Arrived this morning, Adrian is awake and his mother Carlos is here. We review what his stoma looks like and how to empty the pouching system. Carlos has been watching Youtube videos on how to care for the appliance and has reviewed written materials. I reviewed with Carlos how to measure the stoma, and practiced using a cut to fit wafer and applying it to the stoma model. We also practiced using the convatec moldable system and applying it to the model. I reviewed the crusting technique and using stoma power,paste and rings. We reviewed the differences between convex and flat wafers as well as one piece and two piece appliances. Carlos seems overwhelmed. I would like to have [facility] come out to continue with teaching as Carlos will have to do Steve care as he is total care. They have [facility] out every three months to change is Suprapubic cath and are very familiar with the nurses and organization. Carlos and Adrian have [employer] as the [employer] company that supplies his cath. needs and we will use them for his ostomy needs. I did speak with and Care Management that Home Health would be a good plan for Adrian post-op needs. I will be following up with Adrian when he is discharged to continue with helping them make pouching systems choices and for general post-surgical follow up.
[2018-06-13] MEDS: NYSTATIN CREAM 30 GM 1 APPLIC TOP (09:31)
--- NOTE | 2018-06-13 09:39 | P.PN_ITS ---
Subjective Date Patient Seen: 06/13/18 Time Patient Seen: 09:36 Interval history: Patient experiencing some diffuse abdominal crampy pain subsequently relieved with ostomy output. He otherwise has no nausea or vomiting. Tolerating a diet without difficulty. He is stable on his usual home regimen of medications without additional analgesia. No subjective chest pain, fever, chills, or shortness of breath. Exam Vital Signs (past 8 hours): - 06/13/18 06:00 06/13/18 07:30 06/13/18 08:50 Temperature 98.6 F 98.4 F Pulse Rate 98 H 88 Respiratory Rate 16 16 Blood Pressure 84/65 L 88/60 L Pulse Oximetry 95 95 Oxygen Delivery Method Room Air Oxygen Flow Rate 0 Narrative Exam Narrative: Patient lying comfortably in bed in no acute distress. Alert oriented x3. His mother is at the bedside during my entire visit today. She is performing passive range of motion for his legs. No fevers. Vital signs are completely stable. His hypotension is baseline with his autonomic dysreflexia. Regular rate and rhythm Abdomen soft and nondistended. He is minimally tender to palpation. Laparoscopic incisions are clean, dry, and intact. Ostomy is pink and viable with stool and gas in the appliance. Bridges in place. Extremities show no clubbing or cyanosis Objective Labs Result Diagrams: 06/12/18 05:23 06/12/18 05:23 Labs: No new laboratory radiographic studies for review Assessment & Plan Plan: Assessment/Plan Narrative: 42-year-old male doing well 2 days after laparoscopic assisted loop colostomy formation. He is having return of bowel function. The stoma is functioning nicely. Enterostomal therapy has seen the patient today and educated his mother regarding care. However, they will definitely need home health services for assistance. I have discussed this with the residential coordinator. He may continue diet as tolerated otherwise. He is somewhat concerned about recurrent Clostridium difficile colitis given the crampy abdominal pain. We will send a stool specimen for such. Otherwise I tentatively planned discharge out of the hospital tomorrow with the above home health in place. All this was reviewed with the patient and his mother in detail. Questions were answered to their satisfaction, and all parties voiced understanding. They were agreeable to the plan. Orders were written. Quality VTE Deep Vein Thrombosis/Pulmonary Embolism Present on Admission: No
[2018-06-13] MEDS: SODIUM CHLORIDE 0.9% FLUSH 10 ML IV ×2 (11:06→20:31)
[2018-06-13 11:53] LABS: Clostridium Difficile Tox PCR Negative for C. diff
[2018-06-13] MEDS: ASPIRIN EC 81 MG TABLET PO (11:57)
[2018-06-13] MEDS: BACLOFEN 10 MG TABLET 25 MG PO (11:59)
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
[2018-06-13] MEDS: diazePAM 5 MG TABLET PO (20:30)
[2018-06-13] MEDS: TRAZODONE 50 MG TABLET PO (20:31)
[2018-06-13] MEDS: ASCORBIC ACID 500 MG TABLET PO (20:32)
[2018-06-13] MEDS: FERROUS SULFATE 325 MG TABLET PO (20:32)
[2018-06-14] VITALS (7 sets, daily range): BP systolic 80–122; BP diastolic 57–84; PULSE 70–88; RESP 16–73; TEMP 36.1–36.7; O2SAT 94–98
[2018-06-14] MEDS: HYDROMORPHONE 2 MG TABLET PO (02:26)
--- NOTE | 2018-06-14 02:41 | PC.NURSE ---
Addendum entered by Radha Purvis R.N. 06/14/18 07:06: Has been repositioned as requested. Pain remains around 5-6/10. Original Note: Patient is alert and oriented. Breath sounds CTA with RA sat of 94%. HRR. BP better tonight at 101/64. Denies nausea. BT present and abdomen is soft. Lap sites without signs of infection. Colostomy with dark brown/green liquid stool noted in bag. Suprapubic catheter intact; site without redness/drainage and urine is pale yellow in color. Unable to turn himself but will tell staff when he wants to be turned at night. Complains of 6/10 crampy abdominal pain. Additionally tonight is complaining of 7/10 coccyx pain. Dressings intact but changed per patient request to see if pain would lessen but did not help. Coccyx area is a dull red color with what appears to be superficial open areas on either side of coccyx. Did eventually agree to take additional pain medication but requested only 1mg of Dilaudid rather than the ordered 2mg. Has contractures in both hands but is able to use right hand and lifts arms. No movement in lower extremities. Wearing LEENA stockings and boots which help to prevent foot drop. Moderate fall risk but no bed alarm being used at this time as patient oriented and calls appropriately in addition to limited mobility.
[2018-06-14] MEDS: GABAPENTIN 300 MG CAPSULE PO ×3 (06:31→19:56)
[2018-06-14] MEDS: BACLOFEN 10 MG TABLET 30 MG PO ×2 (06:31→19:57)
[2018-06-14] MEDS: CHOLECALCIFEROL (VITAMIN D3) 1,000 UNIT TABLET 1000 UNIT PO ×3 (06:31→19:57)
[2018-06-14] MEDS: OXYCODONE IR 10 MG TABLET PO ×3 (06:32→19:56)
[2018-06-14] MEDS: OXYBUTYNIN 5 MG ER TAB PO ×2 (06:32→19:57)
[2018-06-14] MEDS: SERTRALINE 50 MG TABLET 100 MG PO (06:32)
[2018-06-14] MEDS: METHADONE 5 MG TABLET PO ×2 (06:32→19:57)
[2018-06-14] MEDS: PANTOPRAZOLE 40 MG TABLET PO (06:32)
[2018-06-14] MEDS: DOCUSATE 100 MG CAPSULE PO ×2 (06:33→19:57)
--- NOTE | 2018-06-14 08:30 | PC.NURSE ---
Pt is being turned every 2 hours to keep pressure off of his coccyx. He had his morning medications at 0630 and is comfortable in bed.
[2018-06-14] MEDS: POLYETHYLENE GLYCOL 3350 17 GM POWD.PACK PO (08:45)
--- NOTE | 2018-06-14 10:19 | PC.NURSE ---
Wound Ostomy Nurse Note Adrian awake. He states he is not feeling well today. He is having pain after he eats solid food so he has not been eating, but taking in liquids. He states the Surgical Ensure is also bothering his stomach cause pain and blotting. He feels like he is not well enough to go home today. I asked about the C. Diff culture and that came back negative. I brought up supplies for Adrian so he would have some for home until the Home Health Nurse arrives. I did change is appliance. The stoma bridge is intact. The stoma is edematous, moist, purple deep red. The sutures are intact. The stoma measures oval at 1 1/2 inches and is budded about 1/2 an inch above the skin line. This stoma may start to retract. He is producing brown liquid effluent as well as gas. I place him back in a 57mm flat, moldable convatec wafer with a transparent non-filtered pouch. I also used some stoma paste around the stoma to protect the skin as I had to mold the wafer a little larger to accommodate the bridge. I will most likely not see Adrian again until I see him as an out patient.
[2018-06-14] MEDS: ASPIRIN EC 81 MG TABLET PO (12:25)
[2018-06-14] MEDS: BACLOFEN 10 MG TABLET 25 MG PO (12:26)
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
--- NOTE | 2018-06-14 19:21 | PM.PNPO.1 ---
Subjective Date Patient Seen: 06/14/18 Time Patient Seen: 12:22 Interval history: Patient post laparoscopic diversion of his colon with a loop colostomy. The patient is eating but says that eating causes him to have back pain. The ostomy is functioning. He has had very little training he says it in using the bags. He is a little worried about going home. Exam Vital Signs (past 8 hours): - 06/14/18 12:00 06/14/18 16:00 Temperature 97.6 F 97.0 F L Pulse Rate 70 73 Respiratory Rate 16 73 H Blood Pressure 93/59 L 97/63 Pulse Oximetry 97 96 Oxygen Delivery Method Room Air Oxygen Flow Rate 0 Narrative Exam Narrative: Lungs are clear to auscultation. Heart regular rate and rhythm. Abdomen is flat soft. No unusual tenderness. Ostomy is viable. Red rubber bar is visible. There is stool in the bag. Objective Labs Result Diagrams: 06/12/18 05:23 06/12/18 05:23 Assessment & Plan Post-op Postoperative Procedures Operation Date: 06/11/18 07:45 Actual Procedures Side Surgeon p Laparoscopically Assisted descendingLoop Colostomy Isaak Hernandez MD Postoperative status: doing well Postoperative status narrative: Need additional ostomy teaching care before he can be discharged. His mother has not really been trained yet. Home health has been arranged but due to his insistence they are not available to come until Sunday. Therefore we will plan to discharge him Sunday so that they can continue ostomy training in care on Sunday. Postoperative plan narrative: See above. With proper support patient ready for discharge. He is very specific however about the home health agency a nurse that he will allow to care for him. Quality VTE Deep Vein Thrombosis/Pulmonary Embolism Present on Admission: No
[2018-06-14] MEDS: FERROUS SULFATE 325 MG TABLET PO (19:56)
[2018-06-14] MEDS: NYSTATIN CREAM 30 GM 1 APPLIC TOP (19:59)
[2018-06-14] MEDS: SODIUM CHLORIDE 0.9% FLUSH 10 ML IV (20:00)
--- NOTE | 2018-06-14 22:37 | PC.NURSE ---
Evening shift 1530: Assumed care of pt with safe hand off. Safety checks done. Pt is sleeping in bed. 1700: Pt assessed. Denies pain at this time. Would like to continue sleeping. 1999: Pt dressing changed and reapplied. Pt tolerated well. Replaced ostomy bag r/t small drainage outside of bag.
[2018-06-14] MEDS: TRAZODONE 50 MG TABLET PO (22:38)
[2018-06-14] MEDS: diazePAM 5 MG TABLET PO (22:38)
[2018-06-15] VITALS (7 sets, daily range): BP systolic 82–111; BP diastolic 52–80; PULSE 67–87; RESP 16–18; TEMP 36.4–37.1; O2SAT 96–98
--- NOTE | 2018-06-15 02:22 | PC.NURSE ---
Addendum entered by Radha Purvis R.N. 06/15/18 06:41: Repositioned nearly q2h but on patient's request only so as to enable maximum sleep. States pain still at 6/10 but manageable with current pain regimen. Original Note: Patient is alert and oriented. Breath sounds CTA with RA sat of 99%. HRR. BP again low at 90/59 but this is chronic/normal baseline for him. Denies nausea. Continues with crampy abdominal pain along with burning pain to coccyx and groins but declines offer of additional pain meds. Lap sites remain intact with no redness or drainage. Colostomy with pink stoma and flecks of dark stool in bag. Suprapubic catheter patent with clear pale yellow urine. Is repositioned as he requests to allow for maximum sleep during night. Dressings to coccyx are CDI. No movement in bilateral LE due to incomplete quadriplegia from hx of CVA. Does have bilateral hand contractures left > right but can move both arms and is able to use right hand. Wearing own LEENA stockings and boots to prevent foot drop. Moderate fall risk but bed alarm not in use as patient is oriented and appropriately calls for assistance.
[2018-06-15] MEDS: OXYBUTYNIN 5 MG ER TAB PO ×2 (06:28→20:09)
[2018-06-15] MEDS: BACLOFEN 10 MG TABLET 30 MG PO ×2 (06:28→20:07)
[2018-06-15] MEDS: CHOLECALCIFEROL (VITAMIN D3) 1,000 UNIT TABLET 1000 UNIT PO ×3 (06:28→20:08)
[2018-06-15] MEDS: OXYCODONE IR 10 MG TABLET PO ×3 (06:28→20:12)
[2018-06-15] MEDS: METHADONE 5 MG TABLET PO ×2 (06:28→20:12)
[2018-06-15] MEDS: GABAPENTIN 300 MG CAPSULE PO ×3 (06:28→20:08)
[2018-06-15] MEDS: PANTOPRAZOLE 40 MG TABLET PO (06:29)
[2018-06-15] MEDS: SERTRALINE 50 MG TABLET 100 MG PO (06:29)
[2018-06-15] MEDS: DOCUSATE 100 MG CAPSULE PO ×2 (06:29→20:09)
[2018-06-15] MEDS: POLYETHYLENE GLYCOL 3350 17 GM POWD.PACK PO (10:15)
[2018-06-15] MEDS: SODIUM CHLORIDE 0.9% FLUSH 10 ML IV (10:16)
[2018-06-15] MEDS: ASPIRIN EC 81 MG TABLET PO (12:10)
[2018-06-15] MEDS: BACLOFEN 10 MG TABLET 25 MG PO (12:11)
--- NOTE | 2018-06-15 15:18 | PC.NURSE ---
Day shift: Pt c/o pain under left arm (axillary). Took v/s and were WNL. Denies any chest pain. Will pass to next shift RN.
[2018-06-15 15:27] LABS: Blood Urea Nitrogen 8 mg/dL (9-20); Calcium 8.4 mg/dL (8.4-10.2); Carbon Dioxide 30 mmol/L (22-32); Chloride 99 mmol/L (98-107); Estimated Glomerular Filt Rate > 60.0 mL/min (>60); Glucose 100 mg/dL (70-100); HEMOLYSIS < 15 (0-50); Potassium 3.4 mmol/L (3.4-5.1); Sodium 137 mmol/L (137-145)
--- NOTE | 2018-06-15 16:38 | PC.NURSE ---
1630- Pt requests to take a nap prior to a visit from family @ 1900. No needs at this time. 98%RA, LS clear denies SOB. BT+, stoma beefy red and brown soft stool in pouch, occasional flatus. 4 Lap sites to KIZZY Shirley. No IV access, Dr. cleveland, DC'ing tomorrow. Pt to let staff know when need to turn. Call light in reach and bed alarm on.
--- NOTE | 2018-06-15 17:22 | PM.PN.1 ---
Subjective Date Patient Seen: 06/15/18 Time Patient Seen: 11:22 Interval history: Adrian is in reasonable spirits today. He is frustrated about his abdominal pain because he was hoping that after surgery everything would be painless. Still, he is maintaining a good attitude and he says he looks forward to feeling better. We discussed plans for him to be discharged tomorrow morning. He seems comfortable with that. Exam Vital Signs (past 8 hours): - 06/15/18 12:00 06/15/18 15:15 Temperature 98.8 F 97.6 F Pulse Rate 67 70 Respiratory Rate 18 16 Blood Pressure 82/52 L 96/60 Pulse Oximetry 97 98 Oxygen Delivery Method Room Air Oxygen Flow Rate 0 Narrative Exam Narrative: Lungs: Clear bilaterally Heart: Regular rate and rhythm Abdomen: Soft, minimal tenderness to palpation. Ostomy is working and viable. Objective Labs Result Diagrams: 06/12/18 05:23 06/15/18 15:05 Labs: Laboratory Results - last 24 hr 06/15/18 15:05 Sodium 137 Potassium 3.4 Chloride 99 Carbon Dioxide 30 BUN 8 L Creatinine 0.40 L Estimated GFR > 60.0 BUN/Creatinine Ratio 20.0 Glucose 100 Calcium 8.4 Assessment & Plan Plan: Assessment/Plan Narrative: 1. Likely discharge in the morning. Home health will start on Sunday. 2. Recheck labs in the a.m. Quality VTE Deep Vein Thrombosis/Pulmonary Embolism Present on Admission: No
[2018-06-15] MEDS: ASCORBIC ACID 500 MG TABLET PO (20:07)
[2018-06-15] MEDS: FERROUS SULFATE 325 MG TABLET PO (20:08)
[2018-06-15] MEDS: NYSTATIN CREAM 30 GM 1 APPLIC TOP (20:14)
[2018-06-15] MEDS: diazePAM 5 MG TABLET PO (22:50)
[2018-06-15] MEDS: TRAZODONE 50 MG TABLET PO (22:50)
[2018-06-16 02:06] VITALS: O2SAT 98
[2018-06-16 02:08] VITALS: BP 114/74; PULSE 79; RESP 17; TEMP 36.3; O2SAT 98
--- NOTE | 2018-06-16 02:11 | PC.NURSE ---
Addendum entered by Radha Purvis R.N. 06/16/18 06:39: Repositioned as requested by patient. Pain remains stable at 6/10. No stool output this shift. Had 2200cc from catheter. Original Note: Patient is alert and oriented. Breath sounds CTA with RA sat of 98%. HRR. Denies nausea. BT present and abdomen is soft. Lap sites intact with no redness. Colostomy with pink stoma and small amount liquid present in bag. Still having 5-6/10 crampy, burning pain in abdomen, bilateral groins and back which he states is baseline and declines offer of other pain medications. Is turned as requested by patient at night to maximize sleep. Dressing to coccyx is CDI. Incomplete quadriplegic with bilateral hand contractures, left > right; is able to use right hand, and no movement in bilateral LE. Wearing support stockings and feet in boots to prevent foot drop. Chronic suprapubic catheter with good UOP; urine clear, pale yellow. Moderate fall risk but patient is oriented and appropriate so bed alarm is not being utilized.
[2018-06-16 04:44] VITALS: BP 121/85; PULSE 72; RESP 17; TEMP 36.7; O2SAT 98
[2018-06-16 05:42] LABS: Add Manual Diff / Slide Review NO; Basophils Absolute Auto 0 /uL (0-100); Basophils Percent Auto 0.7 % (0-2); Eosinophils Absolute Auto 200 /uL (0-450); Eosinophils Percent Auto 3.8 % (2-4); Hematocrit 37.5 % (41-53); Hemoglobin 12.3 g/dL (13.5-17.5); Lymphocytes Absolute Auto 1700 /uL (1100-4500); Lymphocytes Percent Auto 29.4 % (25-40); Mean Corpuscular HGB Conc 32.8 % (30-36); Mean Corpuscular Hemoglobin 26.4 PG (26-34); Mean Corpuscular Volume 80.4 fL (80-100); Monocytes Absolute Auto 500 /uL (0-900); Monocytes Percent Auto 8.1 % (3-14); Neutrophils Absolute Auto 3300 /uL (1500-7000); Platelet Count 126 X10^3/uL (150-400); Red Blood Cell Count 4.67 X10^6/uL (4.5-5.9); Red Cell Distribution Width 15.9 % (11.6-14.8); White Blood Cell Count 5.6 X10^3/uL (4.5-11.0)
[2018-06-16 05:49] LABS: Alanine Aminotransferase 23 IU/L (21-72); Albumin 3.8 g/dL (3.5-5.0); Albumin Globulin Ratio 1.2 (1.0-2.8); Alkaline Phosphatase 67 U/L (38-126); Aspartate Aminotransferase 16 IU/L (17-59); BUN Creatinine Ratio 17.5 (6-22); Bilirubin Total 0.4 mg/dL (0.2-1.3); Blood Urea Nitrogen 7 mg/dL (9-20); Calcium 8.6 mg/dL (8.4-10.2); Carbon Dioxide 31 mmol/L (22-32); Chloride 103 mmol/L (98-107); Estimated Glomerular Filt Rate > 60.0 mL/min (>60); Globulin 3.3 g/dL (1.7-4.1); Glucose 92 mg/dL (70-100); HEMOLYSIS 17 (0-50); Potassium 3.7 mmol/L (3.4-5.1); Sodium 143 mmol/L (137-145); Total Protein 7.1 g/dL (6.3-8.2)
[2018-06-16] MEDS: CHOLECALCIFEROL (VITAMIN D3) 1,000 UNIT TABLET 1000 UNIT PO ×2 (06:28→12:06)
[2018-06-16] MEDS: BACLOFEN 10 MG TABLET 30 MG PO (06:28)
[2018-06-16] MEDS: GABAPENTIN 300 MG CAPSULE PO ×2 (06:28→12:06)
[2018-06-16] MEDS: DOCUSATE 100 MG CAPSULE PO (06:29)
[2018-06-16] MEDS: SERTRALINE 50 MG TABLET 100 MG PO (06:29)
[2018-06-16] MEDS: OXYCODONE IR 10 MG TABLET PO ×2 (06:29→12:05)
[2018-06-16] MEDS: PANTOPRAZOLE 40 MG TABLET PO (06:29)
[2018-06-16] MEDS: METHADONE 5 MG TABLET PO (06:29)
[2018-06-16] MEDS: OXYBUTYNIN 5 MG ER TAB PO (06:29)
[2018-06-16 07:51] VITALS: O2SAT 97
[2018-06-16 08:00] VITALS: BP 90/53; PULSE 80; RESP 16; TEMP 36.6; O2SAT 97
[2018-06-16] MEDS: POLYETHYLENE GLYCOL 3350 17 GM POWD.PACK PO (10:33)
[2018-06-16] MEDS: SODIUM CHLORIDE 0.9% FLUSH 10 ML IV (10:34)
--- NOTE | 2018-06-16 10:59 | CM.DPC ---
DCP Cont: Likely DC home today pending Dr Camacho's visit and order. Met w/pt this morning, reviewed DCP. Pt's Dad at bedside. Pt has no stated concerns about his DC home w/mom to assume Ostomy care. He is the most concerned, and remains hopeful, that this surgery will have a positive outcome. Pt agreeable to Skip RN for assist w/ Ostomy management and PT as recommended by [facility]. Resume orders faxed to [facility]. No DC order in place at this time. Also arranged BLS transportation on pt's behalf, home via [facility], p/u at 1500. Updated pt and RN. No DC order at this time so BLS time may need to be changed if pt not ready by 1500. OTTONIEL
[2018-06-16 12:00] VITALS: BP 87/55; PULSE 69; RESP 16; TEMP 36.5; O2SAT 97
[2018-06-16] MEDS: BACLOFEN 10 MG TABLET 25 MG PO (12:04)
[2018-06-16] MEDS: ASPIRIN EC 81 MG TABLET PO (12:06)
--- NOTE | 2018-06-16 13:54 | CM.DPC ---
DCP/cont Phoned [facility] requesting later fruit picker machine operator time of 1600. They are able to modify time. Plan: patient to discharge home via [facility] at 1600 w/ HH.
--- NOTE | 2018-06-16 14:06 | P.DS_ITS ---
History of Present Illness Date Patient Seen: 06/16/18 Time Patient Seen: 14:03 Chief complaint: [id number] Narrative: Adrian is a 42-year-old gentleman who has incomplete quadriplegia. He was admitted to the hospital to undergo bowel prep in preparation for diverting colostomy to aid in the management of bowel function with his neurologic injury. Discharge Providers Date of admission: 06/10/18 06:37 Primary care physician: Becca Bolaños MD Consults: 06/10/18 09:35 Consult to Discharge Planning Routine Comment: 06/10/18 13:37 Consult to Dietitian, Adult Routine Comment: still trying to gain weight Reason For Exam: paraplegic, here for new ostomy placement tomorrow 06/11/18 06:54 Consult to Discharge Planning Routine Comment: 06/16/18 10:53 Consult to Home Health Routine Comment: Reason For Exam: Resume Home Health RN and PT Upon DC Discharge provider: Tavia Camacho MD Discharge Date: 06/16/18 Summary Discharge Diagnosis: Neurogenic bowel dysfunction Hospital Course: Bowel prep was successfully completed and he underwent his procedure without adverse event. At the current time he is eating a regular diet. His pain has been reasonably well controlled with oral medications. Home health has been arranged to help him with ostomy care. They will start in the morning. Ambulance transport has been arranged to help him get to his home safely. He will follow up with Dr. Isaak Hernandez on the 24 of June. Status at Discharge Cognitive/behavioral status at discharge: Normal Functional status at discharge: wheelchair bound Overall status at discharge: patient is progressing back to baseline Time Spent with Patient Less than 30 minutes Exam Vital Signs (past 8 hours): - 06/16/18 07:51 06/16/18 08:00 06/16/18 12:00 Temperature 97.9 F 97.7 F Pulse Rate 80 69 Respiratory Rate 16 16 Blood Pressure 90/53 L 87/55 L Pulse Oximetry 97 97 97 Oxygen Delivery Method Room Air Oxygen Flow Rate 0 Objective Labs Result Diagrams: 06/16/18 05:27 06/16/18 05:27 Labs: Laboratory Results - last 24 hr 06/15/18 06/16/18 06/16/18 15:05 05:27 05:27 WBC 5.6 RBC 4.67 Hgb 12.3 L Hct 37.5 L MCV 80.4 MCH 26.4 MCHC 32.8 RDW 15.9 H Plt Count 126 L Neut % (Auto) 58.0 Lymph % (Auto) 29.4 [place] % (Auto) 8.1 Eos % (Auto) 3.8 Baso % (Auto) 0.7 Neut # (Auto) 3300 Lymph # (Auto) 1700 [place] # (Auto) 500 Eos # (Auto) 200 Baso # (Auto) 0 Sodium 137 143 Potassium 3.4 3.7 Chloride 99 103 Carbon Dioxide 30 31 BUN 8 L 7 L Creatinine 0.40 L 0.40 L Estimated GFR > 60.0 > 60.0 BUN/Creatinine Ratio 20.0 17.5 Glucose 100 92 Calcium 8.4 8.6 Total Bilirubin 0.4 AST 16 L ALT 23 Alkaline Phosphatase 67 Total Protein 7.1 Albumin 3.8 Globulin 3.3 Albumin/Globulin Ratio 1.2 Discharge Plan Discharge Plan Patient Disposition: Home Health Service Transfer to: Home Health, Other Discharge Med Rec/Prescriptions Prescriptions: New hydromorphone 2 mg Tablet 2 mg PO Q4HR PRN (Reason: Pain, Severe (7-10)) Qty: 30 RF: 0 docusate sodium 100 mg Capsule 100 mg PO BID Qty: 60 RF: 0 Continue oxycodone 10 MG tablet See Label Instructions .ROUTE .COMPLEX Qty: 0 RF: 0 methadone 5 mg Tablet 5 mg PO 0600,2030 Qty: 60 RF: 0 trazodone 100 mg Tablet 100 mg PO BEDTIME Qty: 30 RF: 0 docusate sodium 100 mg Capsule 100 mg PO BID RF: 0 aspirin [Aspirin Low Dose] 81 mg Tablet,Delayed Release (Dr/Ec) 1 tab PO DAILY RF: 0 diazepam 5 mg Tablet 5 mg PO BEDTIME Qty: 20 RF: 0 sertraline 100 mg tablet 100 mg PO DAILY RF: 0 sodium chloride 0.9 % solution 100 - 200 ml Irrigation 5XW RF: 0 baclofen 10 mg tablet 25 mg PO QNOON RF: 0 pantoprazole 40 mg tablet,delayed release (DR/EC) 40 mg PO DAILY RF: 0 ferrous sulfate 325 mg (65 mg iron) tablet 325 mg PO BEDTIME RF: 0 oxybutynin chloride 5 mg tablet extended release 24hr 5 mg PO BID RF: 0 mupirocin 2 % ointment 1 dose Topical PRN PRN (Reason: Rash) RF: 0 polyethylene glycol 3350 [Miralax] 17 gram/dose powder 2 tsp PO DAILY RF: 0 baclofen 10 mg tablet 30 mg PO BID RF: 0 cholecalciferol (vitamin D3) [Vitamin D3] 1,000 unit Tablet 1,000 unit PO TID RF: 0 ascorbic acid (vitamin C) [Vitamin C] 500 mg Tablet 500 mg PO BEDTIME RF: 0 gabapentin 300 mg capsule 300 mg PO TID RF: 0 Follow up/Referrals: Isaak Hernandez MD [Physician] - 06/24/18 12:00 am Becca Bolaños MD [Primary Care Provider] - Provider Discharge Instructions Diet: Diet as Tolerated Skin/Wound/Dressing Care Report to your healthcare provider any signs of infection, such as:: chills, fever, night sweats, increased pain, unusual drainage and unusual redness Visit Report/Discharge Packet Visit Report Forms: Stroke Signs & Symptoms Discharge Data Primary Care Provider: Becca Bolaños Attending Provider: Isaak Hernandez Admit Date/Time: 06/10/18 06:37 Quality VTE Deep Vein Thrombosis/Pulmonary Embolism Present on Admission: No
--- NOTE | 2018-06-16 14:06 | PM.PN.1 ---
Subjective Date Patient Seen: 06/16/18 Time Patient Seen: 14:06 Interval history: Adrian is in better spirits today. He is anxious to get home to his own environment. Exam Vital Signs (past 8 hours): - 06/16/18 07:51 06/16/18 08:00 06/16/18 12:00 Temperature 97.9 F 97.7 F Pulse Rate 80 69 Respiratory Rate 16 16 Blood Pressure 90/53 L 87/55 L Pulse Oximetry 97 97 97 Oxygen Delivery Method Room Air Oxygen Flow Rate 0 Narrative Exam Narrative: Lungs are clear bilaterally Heart is regular rate and rhythm without murmur rub or gallop Abdomen: Soft, no tenderness elicited, active bowel tones. Ostomy is viable and working. Objective Labs Result Diagrams: 06/16/18 05:27 06/16/18 05:27 Labs: Laboratory Results - last 24 hr 06/15/18 06/16/18 06/16/18 15:05 05:27 05:27 WBC 5.6 RBC 4.67 Hgb 12.3 L Hct 37.5 L MCV 80.4 MCH 26.4 MCHC 32.8 RDW 15.9 H Plt Count 126 L Neut % (Auto) 58.0 Lymph % (Auto) 29.4 [place] % (Auto) 8.1 Eos % (Auto) 3.8 Baso % (Auto) 0.7 Neut # (Auto) 3300 Lymph # (Auto) 1700 [place] # (Auto) 500 Eos # (Auto) 200 Baso # (Auto) 0 Sodium 137 143 Potassium 3.4 3.7 Chloride 99 103 Carbon Dioxide 30 31 BUN 8 L 7 L Creatinine 0.40 L 0.40 L Estimated GFR > 60.0 > 60.0 BUN/Creatinine Ratio 20.0 17.5 Glucose 100 92 Calcium 8.4 8.6 Total Bilirubin 0.4 AST 16 L ALT 23 Alkaline Phosphatase 67 Total Protein 7.1 Albumin 3.8 Globulin 3.3 Albumin/Globulin Ratio 1.2 Assessment & Plan Plan: Assessment/Plan Narrative: Pleasant 42-year-old gentleman status post diverting ostomy for management of neurogenic bowel dysfunction. Additionally, he has a stage I pressure ulcer that was irritated in the process of bowel preparation. This gives him a combination of stage I pressure ulcer and contact dermatitis. He is being discharged to his home in the care of his family. He has a follow-up appointment with Dr. Hernandez Quality VTE Deep Vein Thrombosis/Pulmonary Embolism Present on Admission: No
--- NOTE | 2018-06-16 16:08 | PC.NURSE ---
1607[facility] to transfer pt home. All DC documents, belongings, and Rx's went with pt. explanation of medications provided to pt. all questions answered. Moved pt to [facility] smoothly.
--- NOTE | 2018-06-17 11:23 | PC.NURSE ---
pt called today about appliance being changed and home health set up, DAVID Mckee and Dr keeann have been updated, Rylee HERNANDEZ to f/u with outpatient sources.
--- NOTE | 2018-06-17 14:56 | CM.DPC ---
DCP/continued: Received several voice mails this AM from patient indicating that HH has not shown up? Patient also reports via that he called [facility] and they claim not too know about patient discharging? Patient concerned about his ostomy care and supplies. BILINGUAL RECEPTIONIST placed call to Xochitl at [facility] she too has spoken to patient and his Mother via the telephone. Xochitl confirms that they have orders and knew patient was home today. Xochitl attempting to reach home health RN/Lena because patient has refused visits by other RNs? Placed call to Bev at [facility]. She confirms that she also has spoken with patient and Dr. Hernandez. Patient was sent home with supplies and Mother was taught. Unclear on whether or not patient's expectations realistic re: ostomy care at home. All involved agencies above confirm that teaching supplies provided and RN expected to do first visit sometime today. Xochitl at [facility] making attempt to get specific RN. Received return phone call from [facility]och[facility] and she reports that they do have RN available today to do ostomy care. It's not the RN that patient has requested but Xochitl reports that patient aware and agreeable to have visit with different RN. P: Patient discharged home yesterday with through [facility]. First visit scheduled today and confirmed with Xochitl at [facility]. DAVID Ching
== END 2018-06-16 16:11 | disposition home health service (06) | DRG 221 ==
PROVIDERS: Surgery; Admitting Provider Surgery; PCP Internal Medicine; Visit Provider Surgery
PROC: 0DTE0ZZ Resection of Large Intestine, Open Approach (ICD-10-PCS; principal; 2018-06-11 07:45)
DX: K59.8 Other specified functional intestinal disorders (principal); G82.54 Quadriplegia, C5-C7 incomplete; G89.4 Chronic pain syndrome; G90.4 Autonomic dysreflexia; L25.9 Unspecified contact dermatitis, unspecified cause; L89.151 Pressure ulcer of sacral region, stage 1; F41.8 Other specified anxiety disorders; Q43.8 Other specified congenital malformations of intestine
CPT/HCPCS: 36415; 44188; 80048; 80053; 85025; 87493; 94760; 99406; J1100; J2250; J2704; J3010; J8501

== ENCOUNTER → 2018-07-11 14:25 | Outpatient (CLI) | payer OTHER, MEDICAID, SELFPAY ==
[2018-06-10 11:46] VITALS: BMI 21.9
== END ==
PROVIDERS: PCP Internal Medicine; Visit Provider Family Medicine
DX: G82.54 Quadriplegia, C5-C7 incomplete (principal); R23.8 Other skin changes; L54 Erythema in diseases classified elsewhere
CPT/HCPCS: 99203; 99213

== ENCOUNTER → 2018-07-18 15:25 | Outpatient (REF) | payer OTHER, MEDICAID, SELFPAY ==
[2018-06-10 11:46] VITALS: BMI 21.9
[2018-07-18 16:20] LABS: Appearance Urine UA CLEAR; Bilirubin Urine UA NEGATIVE (NEGATIVE); Color Urine UA YELLOW; Glucose Urine UA NEGATIVE (Negative); Ketones Urine UA NEGATIVE (NEGATIVE); Leukocyte Esterase Urine UA 3+ (NEGATIVE); Nitrite Urine UA NEGATIVE (Negative); Occult Blood Urine UA 3+ (Negative); Protein Urine UA NEGATIVE (Negative); Specific Gravity Urine UA <=1.005 (1.000-1.035); Urobilinogen Urine UA 0.2 E.U./dL (0.2); pH Urine UA 6.5 (4.5-8.0)
[2018-07-18 17:22] LABS: Bacteria Urine Many (>30); RBC Urine 10-30/HPF (0-5/HPF); Squamous Epithelial Cell Urine 0-1 /HPF; WBC Urine 5-10/HPF (0-5/HPF)
== END ==
LOC: LAB 15:25
PROVIDERS: PCP Internal Medicine; Visit Provider Internal Medicine
DX: N39.0 Urinary tract infection, site not specified (principal)
CPT/HCPCS: 81001; 87077; 87086; 87186

== ENCOUNTER → 2018-08-08 12:49 | Outpatient (REF) | payer OTHER, MEDICAID, SELFPAY ==
[2018-06-10 11:46] VITALS: BMI 21.9
[2018-08-08 12:56] LABS: Add Manual Diff / Slide Review NO; Basophils Absolute Auto 0 /uL (0-100); Basophils Percent Auto 0.4 % (0-2); Eosinophils Absolute Auto 100 /uL (0-450); Eosinophils Percent Auto 2.5 % (2-4); Hematocrit 41.1 % (41-53); Hemoglobin 13.5 g/dL (13.5-17.5); Lymphocytes Absolute Auto 1700 /uL (1100-4500); Lymphocytes Percent Auto 31.8 % (25-40); Mean Corpuscular HGB Conc 32.8 % (30-36); Mean Corpuscular Hemoglobin 26.7 PG (26-34); Mean Corpuscular Volume 81.4 fL (80-100); Monocytes Absolute Auto 400 /uL (0-900); Neutrophils Absolute Auto 3100 /uL (1500-7000); Neutrophils Percent Auto 58.3 % (50-75); Platelet Count 122 X10^3/uL (150-400); Red Blood Cell Count 5.05 X10^6/uL (4.5-5.9); Red Cell Distribution Width 15.4 % (11.6-14.8); White Blood Cell Count 5.3 X10^3/uL (4.5-11.0)
[2018-08-08 13:00] LABS: Blood Urea Nitrogen 10 mg/dL (9-20); Calcium 8.7 mg/dL (8.4-10.2); Carbon Dioxide 28 mmol/L (22-32); Chloride 100 mmol/L (98-107); Estimated Glomerular Filt Rate > 60.0 mL/min (>60); Glucose 95 mg/dL (70-100); HEMOLYSIS 24 (0-50); Potassium 4.1 mmol/L (3.4-5.1); Sodium 138 mmol/L (137-145)
== END ==
LOC: LAB 12:49
PROVIDERS: PCP Internal Medicine; Visit Provider Internal Medicine
DX: R78.89 Finding of other specified substances, not normally found in blood (principal); R68.89 Other general symptoms and signs
CPT/HCPCS: 80048; 85025

== ENCOUNTER → 2018-10-23 13:34 | Outpatient (ROUT) | payer OTHER, MEDICAID, SELFPAY ==
[2018-06-10 11:46] VITALS: BMI 21.9
[2018-10-23 13:51] LABS: Hematocrit 39.8 % (41-53); Hemoglobin 13.1 g/dL (13.5-17.5); Mean Corpuscular HGB Conc 32.8 % (30-36); Mean Corpuscular Hemoglobin 27.3 PG (26-34); Mean Corpuscular Volume 83.2 fL (80-100); Platelet Count 121 X10^3/uL (150-400); Red Blood Cell Count 4.79 X10^6/uL (4.5-5.9); Red Cell Distribution Width 14.8 % (11.6-14.8); White Blood Cell Count 5.7 X10^3/uL (4.5-11.0)
== END ==
PROVIDERS: PCP Internal Medicine; Visit Provider Internal Medicine
DX: N41.1 Chronic prostatitis (principal)
CPT/HCPCS: 85027; 87077; 87086; 87186

== ENCOUNTER 2019-01-01 13:34 | Day surgery (SDC) | payer OTHER, MEDICAID, SELFPAY ==
[2018-06-10 11:46] VITALS: BMI 21.9
--- NOTE | 2019-01-01 | PATH_ITS ---
[facility] Accession Number: [id number] . 01 Material submitted: . PART A: colon - DISTAL COLON PART B: rectum - RECTAL POLYP . 01 Clinical history: . A: R/O INFLAMMATION . 02 Diagnosis: A. Distal Colon, Biopsy: Mildly active colitis. Please see comment. Negative for granulomas, dysplasia and malignancy. . B. Rectum, Polyp, Biopsy: Inflammatory polyp. MRV/01/03/2019 . 02 Comment: A. The distal colon polyp is a small fragment of colonic mucosa with patchy mild neutrophilic activity without distortion of the crypt architecture or increased lymphocytes/plasma cells in the lamina propria. No obvious viral cytopathic effects or parasitic organisms are identified. The differential diagnosis includes infection, medication-related mucosal injury, diverticular disease-associated colitis and idiopathic inflammatory bowel disease. . 02 Electronically signed: . Elizabeth Jay MD, Pathologist NPI- [id number] . 01 Gross description: . Part A: DISTAL COLON: Received in formalin is 1 fragment(s) of bowden, soft tissue measuring 0.5 x 0.3 x 0.2 cm submitted entirely in 1 cassette(s) Part B: RECTAL POLYP: Received in formalin is 1 fragment(s) of bowden, soft tissue measuring 0.9 x 0.8 x 0.6 cm which is inked, bisected and submitted entirely in 1 cassette(s) /CKI /CKI . 02 Pathologist provided ICD-10: K62.1, K52.9 . 02 CPT . 401187, 222178 Performed at: 01 [facility] [address], [place], [place] [id number] MD Justice Alejandre MD Phone: [phone] Performed at: [address] [facility] [id number] [place] [id number] MD Elizabeth Jay MD Phone: [phone]
--- NOTE | 2019-01-01 13:12 | P.OP.ENDO_ITS ---
Operative Date/Time/Diagnoses Pre-op diagnosis: See indication and findings Procedure & Clinicians Study performed: EGD and colonoscopy Same procedure as scheduled: Yes Surgeon: Uvaldo Wharton Procedure Notes Procedure in detail: After informed consent was obtained the patient was placed in left lateral decubitus position. The video upper scope was placed into the oropharynx with patient's help swallowed into the esophagus. The esophagus, stomach, and duodenum were carefully examined. On withdrawal, retroflexed view the GE junction was performed. The scope was removed. The patient tolerated procedure well. At this point the colonoscope was substituted. This was placed in the rectum slowly advanced. I expect this to be a blind pouch but instead ended up in the ostomy bag after approximately 50 cm. Preparation was good On slow withdrawal mucosa was carefully examined. Biopsies were taken. Patient was then placed on his back and the ostomy bag removed. Evaluation of the most distal segment of colon through the ostomy was achieved again and intubated the proximal barrel passing the scope to the cecum. Preparation was even better here. Scope was slowly removed. Patient tolerated procedure well. Blood loss none Complications none Sedation MAC with anesthesia Findings EGD 1. Fairly patulous GE junction with 1 or 2 small erosions, LA classification B. 2. Normal stomach proximally and distally 3. Normal duodenal bulb and sweep Distal colonic evaluation 1. 1.2 cm pedunculated polyp just inside the anal verge. Hot snare used to rem ove and specimen was retrieved 2. Unclear if any inflammation present though when thorough washing of also was performed mucosa appeared fairly normal. Biopsies were taken to rule out colitis. 3. Tattoo was seen in from previous polypectomy by Dr. marin within 10 cm of the ostomy. No residual polyp was seen and appeared normal. Proximal colonic evaluation 1. Scope was inserted to the other barrel of the ostomy and easily passed the cecum. 2. This portion of the exam was completely normal. We will be in touch regarding biopsies and he will probably need follow-up within 3-5 years for another colonoscopy which I would obviously now due through a bowl of the distal colon and the proximal colon. He should stay on his acid suppressing medications. He will need to be in touch regarding referral to a spinal cord center such as the [facility].
[2019-01-01 13:52] VITALS: BMI 26.8
[2019-01-01 14:02] VITALS: BP 97/63; PULSE 76; RESP 20; TEMP 36.4; O2SAT 96
--- NOTE | 2019-01-01 14:28 | PM.HP.1 ---
History of Present Illness Chief complaint: [id number] Narrative: Rectal discomfort status post colostomy for severe constipation and rectal pain. Also history of adenomatous colon polyps. Persistent nausea. Patient History Family & Social History Social History: household members family Tobacco & Substance use: Tobacco type cannabis/marijuana Smoking Status Current every day smoker alcohol intake never alcohol intake frequency 0-2 drinks per day Substance Use Type marijuana Meds Home Medications Medication Instructions Recorded Confirmed Type oxycodone See Rx Instructions .ROUTE 07/05/17 01/01/19 History .COMPLEX #0 methadone 5 mg PO 0600,2030 #60 tab 11/19/17 01/01/19 Rx docusate sodium 100 mg PO BID 01/14/18 01/01/19 History aspirin [Aspirin Low Dose] 1 tab PO DAILY 02/27/18 01/01/19 History ascorbic acid (vitamin C) [Vitamin 1,000 mg PO BEDTIME 06/10/18 01/01/19 History C] baclofen 25 mg PO QNOON 06/10/18 01/01/19 History baclofen 30 mg PO BID 06/10/18 01/01/19 History cholecalciferol (vitamin D3) 1,000 unit PO TID 06/10/18 01/01/19 History [Vitamin D3] gabapentin 300 mg PO TID 06/10/18 01/01/19 History oxybutynin chloride 5 mg PO BID 06/10/18 01/01/19 History pantoprazole 40 mg PO DAILY 06/10/18 01/01/19 History polyethylene glycol 3350 [Miralax] 2 tsp PO DAILY 06/10/18 01/01/19 History sertraline 100 mg PO DAILY 06/10/18 01/01/19 History sodium chloride 100 - 200 ml IRRIGATION 5XW 06/10/18 01/01/19 History docusate sodium 100 mg PO BID #60 cap 06/16/18 Rx diazepam 5 mg PO BEDTIME PRN 01/01/19 01/01/19 History Allergies Allergy/AdvReac Type Severity Reaction Status Date / Time ondansetron [ONDANSETRON] Allergy Intermediate PAIN, Verified 02/26/18 18:51 ITCHING, ERYTHEMA AT INJECTION SITE Exam Vital Signs (past 8 hours): - 01/01/19 14:02 Temperature 97.6 F Pulse Rate 76 Respiratory Rate 20 Blood Pressure 97/63 Pulse Oximetry 96 Oxygen Delivery Method Room Air Narrative Exam Narrative: Oropharynx free of lesions Chest clear to auscultation percussion Cardiac exam reveals no S3 or murmur Assessment & Plan Assessment & Plan narrative: Nausea need for upper endoscopy to rule out GE reflux or peptic disease History of adenomatous colon polyps need for follow-up colonoscopy via ostomy Rectal discomfort improved post ostomy but need for surveillance of his Nidia's pouch. Risks, benefits, alternatives have been explained. Further recommendations will follow the results of his study.
[2019-01-01] MEDS: SODIUM CHLORIDE 0.9% 1,000 ML 30 ML IV (14:38)
--- NOTE | 2019-01-01 15:00 | PM.HP.1 ---
History of Present Illness Chief complaint: [id number] Narrative: Rectal discomfort status post colostomy for severe constipation and rectal pain. This worked for a time but now his rectal pain has returned.. Also history of adenomatous colon polyps. Persistent nausea. Patient History Family & Social History Social History: household members family Tobacco & Substance use: Tobacco type cannabis/marijuana Smoking Status Current every day smoker alcohol intake never alcohol intake frequency 0-2 drinks per day Substance Use Type marijuana Meds Home Medications Medication Instructions Recorded Confirmed Type oxycodone See Rx Instructions .ROUTE 07/05/17 01/01/19 History .COMPLEX #0 methadone 5 mg PO 0600,2030 #60 tab 11/19/17 01/01/19 Rx docusate sodium 100 mg PO BID 01/14/18 01/01/19 History aspirin [Aspirin Low Dose] 1 tab PO DAILY 02/27/18 01/01/19 History ascorbic acid (vitamin C) [Vitamin 1,000 mg PO BEDTIME 06/10/18 01/01/19 History C] baclofen 25 mg PO QNOON 06/10/18 01/01/19 History baclofen 30 mg PO BID 06/10/18 01/01/19 History cholecalciferol (vitamin D3) 1,000 unit PO TID 06/10/18 01/01/19 History [Vitamin D3] gabapentin 300 mg PO TID 06/10/18 01/01/19 History oxybutynin chloride 5 mg PO BID 06/10/18 01/01/19 History pantoprazole 40 mg PO DAILY 06/10/18 01/01/19 History polyethylene glycol 3350 [Miralax] 2 tsp PO DAILY 06/10/18 01/01/19 History sertraline 100 mg PO DAILY 06/10/18 01/01/19 History sodium chloride 100 - 200 ml IRRIGATION 5XW 06/10/18 01/01/19 History docusate sodium 100 mg PO BID #60 cap 06/16/18 Rx diazepam 5 mg PO BEDTIME PRN 01/01/19 01/01/19 History Allergies Allergy/AdvReac Type Severity Reaction Status Date / Time ondansetron [ONDANSETRON] Allergy Intermediate PAIN, Verified 02/26/18 18:51 ITCHING, ERYTHEMA AT INJECTION SITE Exam Vital Signs (past 8 hours): - 01/01/19 14:02 Temperature 97.6 F Pulse Rate 76 Respiratory Rate 20 Blood Pressure 97/63 Pulse Oximetry 96 Oxygen Delivery Method Room Air Narrative Exam Narrative: Oropharynx free of lesions Chest clear to auscultation percussion Cardiac exam reveals no S3 or murmur Assessment & Plan Assessment & Plan narrative: Chronic nausea, need to rule out peptic disease or GERD History of adenomatous colon polyps, quite large with tattoo, need for follow-up colonoscopy Recurrent rectal pain post colostomy for severe constipation, rule out intrinsic rectal lesion Risks, benefits, alternatives have been explained. Further recommendations will follow the results of the study but almost certainly is going to need to see a spinal cord team such as down the [facility] now that his pain has recurred
[2019-01-01 16:52] VITALS: BP 95/52; PULSE 72; RESP 12; TEMP 36.3; O2SAT 95
[2019-01-01 16:57] VITALS: BP 91/54; PULSE 72; RESP 12; O2SAT 93
[2019-01-01 17:02] VITALS: BP 97/59; PULSE 70; RESP 14; O2SAT 95
[2019-01-01 17:07] VITALS: BP 93/56; PULSE 70; RESP 14; TEMP 36.3; O2SAT 95
[2019-01-01 17:19] VITALS: BP 97/54; PULSE 64; RESP 16; O2SAT 97
--- NOTE | 2019-01-01 17:29 | SUR.PHASEII ---
Ready for discharge home at 1729 but awaiting ambulance arrrival.
== END 2019-01-01 17:50 | disposition home or self-care (01) ==
PROVIDERS: PCP Internal Medicine; Visit Provider Internal Medicine Gastroenterology
PROC: 0DJ08ZZ Inspection of Upper Intestinal Tract, Via Natural or Artificial Opening Endoscopic (ICD-10-PCS; CPT 43235; principal; 2019-01-01 15:00)
PROC: 0DJD8ZZ Inspection of Lower Intestinal Tract, Via Natural or Artificial Opening Endoscopic (ICD-10-PCS; CPT 45378; 2019-01-01 15:00)
DX: K52.9 Noninfective gastroenteritis and colitis, unspecified (principal); R11.0 Nausea; K59.00 Constipation, unspecified; F17.210 Nicotine dependence, cigarettes, uncomplicated; K62.1 Rectal polyp
CPT/HCPCS: 43235; 44388; 45378; J2704; J3010

== ENCOUNTER → 2019-02-04 15:33 | Outpatient (ROUT) | payer OTHER, MEDICAID, SELFPAY ==
[2018-06-10 11:46] VITALS: BMI 21.9
[2019-02-04 16:36] LABS: Prostate Specific Antigen 2.83 ng/mL (0.10-4.00)
== END ==
PROVIDERS: PCP Internal Medicine; Visit Provider Internal Medicine
DX: R53.83 Other fatigue (principal); N42.81 Prostatodynia syndrome
CPT/HCPCS: 84153

== ENCOUNTER 2019-02-04 19:55 | Inpatient (IN) | payer OTHER, MEDICAID, SELFPAY ==
[2018-06-10 11:46] VITALS: BMI 21.9
[2019-02-04] VITALS (8 sets, daily range): BP systolic 98–128; BP diastolic 59–87; PULSE 100–109; RESP 15–22; TEMP 36.7; O2SAT 94–98
[2019-02-04 20:09] LABS: Add Manual Diff / Slide Review NO; Basophils Absolute Auto 0 /uL (0-100); Basophils Percent Auto 0.1 % (0-2); Eosinophils Absolute Auto 0 /uL (0-450); Eosinophils Percent Auto 0.1 % (2-4); Hematocrit 39.8 % (41-53); Hemoglobin 13.5 g/dL (13.5-17.5); Lymphocytes Absolute Auto 600 /uL (1100-4500); Lymphocytes Percent Auto 3.4 % (25-40); Mean Corpuscular Hemoglobin 27.8 PG (26-34); Mean Corpuscular Volume 81.6 fL (80-100); Monocytes Absolute Auto 500 /uL (0-900); Monocytes Percent Auto 2.8 % (3-14); Neutrophils Absolute Auto 15300 /uL (1500-7000); Neutrophils Percent Auto 93.6 % (50-75); Platelet Count 126 X10^3/uL (150-400); Red Blood Cell Count 4.88 X10^6/uL (4.5-5.9); Red Cell Distribution Width 14.3 % (11.6-14.8); White Blood Cell Count 16.4 X10^3/uL (4.5-11.0)
[2019-02-04] MEDS: PANTOPRAZOLE 40 MG VIAL IV (20:11)
[2019-02-04] MEDS: SODIUM CHLORIDE 0.9% 1,000 ML 1000 ML IV ×2 (20:11→22:15)
[2019-02-04 20:15] LABS: Alanine Aminotransferase 18 IU/L (21-72); Albumin 4.2 g/dL (3.5-5.0); Albumin Globulin Ratio 1.2 (1.0-2.8); Alkaline Phosphatase 85 U/L (38-126); Aspartate Aminotransferase 18 IU/L (17-59); BUN Creatinine Ratio 22.5 (6-22); Bilirubin Total 0.8 mg/dL (0.2-1.3); Blood Urea Nitrogen 9 mg/dL (9-20); Calcium 9.2 mg/dL (8.4-10.2); Carbon Dioxide 28 mmol/L (22-32); Chloride 95 mmol/L (98-107); Estimated Glomerular Filt Rate > 60.0 mL/min (>60); Globulin 3.6 g/dL (1.7-4.1); Glucose 107 mg/dL (70-100); HEMOLYSIS < 15 (0-50); Lipase 25 U/L (23-300); Potassium 3.8 mmol/L (3.4-5.1); Sodium 137 mmol/L (137-145); Total Protein 7.8 g/dL (6.3-8.2)
--- NOTE | 2019-02-04 20:22 | DI.RAD.S_ITS ---
PROCEDURE: XR ACUTE ABDOMEN SERIES INDICATIONS: Abdominal pain TECHNIQUE: One view chest and two views of the abdomen were acquired. COMPARISON: None. FINDINGS: Surgical changes and devices: A suprapubic catheter is projected over the pelvis. Chest: Lungs are clear. Heart size is normal. No pleural effusions. No pneumoperitoneum. Abdomen: Bowel gas pattern is normal. No suspicious calcifications. Visualized solid organ contours appear normal. Bones: No suspicious bony lesions. IMPRESSION: 1. No acute cardiopulmonary findings. 2. No acute intra-abdominal findings. Dictated by: Alix Stephen M.D. on 02/04/2019 at 20:46 Approved by: Alix Stephen M.D. on 02/04/2019 at 20:47
[2019-02-04 20:31] LABS: Prolactin 15.4 ng/mL (3.7-17.9)
--- NOTE | 2019-02-04 20:46 | DI.CT.S_ITS ---
PROCEDURE: CT ABDOMEN PELVIS W CON INDICATIONS: severe pain TECHNIQUE: After the administration of intravenous contrast, 5 mm thick sections acquired from the diaphragm to the symphysis. 5 mm coronal and sagittal reformats were acquired. For radiation dose reduction, the following was used: automated exposure control, adjustment of mA and/or kV according to patient size. COMPARISON: [facility], CT, CT ABDOMEN PELVIS W CON, 03/07/2018, 17:42. FINDINGS: Image quality: Excellent. ABDOMEN: Lung bases: Mild pulmonary scar versus atelectasis is present at the right lung base. No pleural effusion. Heart is normal size. Solid organs: Liver is normal in size and enhancement. Gallbladder is unremarkable. Biliary system is non dilated. Pancreas enhances normally. Spleen is normal in size and enhancement. No adrenal nodules. Kidneys demonstrate normal size and enhancement, without hydronephrosis. Peritoneum and bowel: Bowel loops demonstrate normal wall thickness and caliber. The appendix is thin walled. There is a diverting colostomy within the left lower quadrant. No free fluid or air. Nodes and vessels: No retroperitoneal or mesenteric adenopathy by size criteria. Aorta and inferior vena cava are normal in size. Miscellaneous: No ventral hernias. PELVIS: Genitourinary: A suprapubic catheter is present within the bladder. There is mild bladder wall thickening and trace gas likely secondary to catheterization. Miscellaneous: No inguinal hernias or adenopathy. Bones: There are extensive multilevel endplate compression deformities which are unchanged when compared with the CT dated 03/07/18. IMPRESSION: 1. No acute intra-abdominal findings. Normal appendix. 2. Mild circumferential wall thickening of the bladder with suprapubic catheter present suggesting neurogenic bladder. Dictated by: Alix Stephen M.D. on 02/04/2019 at 21:21 Approved by: Alix Stephen M.D. on 02/04/2019 at 21:27
[2019-02-04 20:55] LABS: Appearance Urine UA CLEAR; Bilirubin Urine UA NEGATIVE (NEGATIVE); Color Urine UA YELLOW; Glucose Urine UA NEGATIVE (Negative); Ketones Urine UA 2+ (NEGATIVE); Leukocyte Esterase Urine UA 2+ (NEGATIVE); Nitrite Urine UA NEGATIVE (Negative); Occult Blood Urine UA 1+ (Negative); Protein Urine UA NEGATIVE (Negative)
[2019-02-04 21:17] LABS: Bacteria Urine Occasional (0-1); RBC Urine 0-1/HPF (0-5/HPF); WBC Urine 1-5/HPF (0-5/HPF)
[2019-02-04 21:18] LABS: Culture Indicated Urine Specimen Cultured
[2019-02-04] MEDS: levoFLOXacin 750 MG/150 ML PIGGYBACK 100 MG IV (21:50)
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
[2019-02-05] VITALS (10 sets, daily range): BP systolic 87–131; BP diastolic 50–80; PULSE 78–103; RESP 16–20; TEMP 36.5–38.1; O2SAT 95–99; BMI 25.7
[2019-02-05 00:47] LABS: Adenovirus F 40/41 Not Detected (Not Detect); Astrovirus Not Detected (Not Detect); Campylobacter Not Detected (Not Detect); Clostridium difficile toxin AB Not Detected (Not Detect); Cryptosporidium Not Detected (Not Detect); Cyclospora cayetanensis Not Detected (Not Detect); Entamoeba histolytica Not Detected (Not Detect); Enteroaggregative E.coli Not Detected (Not Detect); Enteropathogenic E.coli Not Detected (Not Detect); Enterotoxigenic E.coli It/st Not Detected (Not Detect); Giardia lamblia Not Detected (Not Detect); Norovirus GI/GII Not Detected (Not Detect); Plesiomonsa shigelloides Not Detected (Not Detect); Rotavirus A Not Detected (Not Detect); Salmonella Not Detected (Not Detect); Shiga-like toxin-prod E.coli Not Detected (Not Detect); Shigella/Enteroinvasive E.coli Not Detected (Not Detect); Vibrio Not Detected (Not Detect); Vibrio cholerae Not Detected (Not Detect); Yersinia enterocolitica Not Detected (Not Detect)
--- NOTE | 2019-02-05 01:06 | P.HP_ITS ---
History of Present Illness History of Present Illness Date Patient Seen: 02/05/19 Time Patient Seen: 00:15 Chief complaint: ABD Pain Narrative: Adrian Arteaga is a 43-year-old male who is quadriplegic, history of C difficile colitis, has a suprapubic catheter and a stool ostomy bag presents today with his mother after having developed softer and more frequent diarrhea and apparently woke up this morning with shakes, suprapubic abdominal spasms, and a fever of 100.9 taken at home. He does state that he had a fever he was weak had nausea, headache, neck pain and felt like he just could not be cool but was also shaking. He endorses having overall body aches. He denies shortness of breath or chest pain. Patient History Medical History Autonomic dysreflexia (Acute) C. difficile colitis (Acute) Chronic pain syndrome (Acute) History of trauma to spine (Acute) Incomplete quadriplegia due to spinal cord lesion between fifth and seventh cervical vertebra (10/22/15) Mixed anxiety depressive disorder (06/29/15) Obstipation (Acute) Uncomplicated opioid dependence (Acute) Surgical History (Updated 02/05/19 @ 01:10 by CARLOS Ann) History of colonoscopy (Acute) History of creation of ostomy (Acute) Social History household members: family Smoking Status: Current every day smoker alcohol intake: never Family & Social History Social History: household members family Tobacco & Substance use: Tobacco type cannabis/marijuana Smoking Status Current every day smoker alcohol intake never alcohol intake frequency 0-2 drinks per day Substance Use Type marijuana Meds Home Medications and Allergies Home Medications Medication Instructions Recorded Confirmed Type oxycodone See Rx Instructions .ROUTE 07/05/17 02/05/19 History .COMPLEX #0 methadone 5 mg PO 0600,2030 #60 tab 11/19/17 02/05/19 Rx docusate sodium 100 mg PO BID 01/14/18 02/05/19 History aspirin [Aspirin Low Dose] 1 tab PO DAILY 02/27/18 02/05/19 History ascorbic acid (vitamin C) [Vitamin 1,000 mg PO BEDTIME 06/10/18 02/05/19 History C] baclofen 25 mg PO QNOON 06/10/18 02/05/19 History baclofen 30 mg PO BID 06/10/18 02/05/19 History cholecalciferol (vitamin D3) 1,000 unit PO TID 06/10/18 02/05/19 History [Vitamin D3] gabapentin 300 mg PO TID 06/10/18 02/05/19 History oxybutynin chloride 5 mg PO BID 06/10/18 02/05/19 History pantoprazole 40 mg PO DAILY 06/10/18 02/05/19 History polyethylene glycol 3350 [Miralax] 2 tsp PO DAILY 06/10/18 02/05/19 History sertraline 100 mg PO DAILY 06/10/18 02/04/19 History sodium chloride 100 - 200 ml IRRIGATION 5XW 06/10/18 02/04/19 History docusate sodium 100 mg PO BID #60 cap 06/16/18 02/05/19 Rx diazepam 5 mg PO BEDTIME PRN 01/01/19 02/05/19 History Allergies Allergy/AdvReac Type Severity Reaction Status Date / Time ondansetron [ONDANSETRON] Allergy Intermediate PAIN, Verified 02/26/18 18:51 ITCHING, ERYTHEMA AT INJECTION SITE Review of Systems Review of Systems ROS Unobtainable: All systems reviewed & are unremarkable except as noted in HPI and below Exam Vital Signs (past 8 hours): - 02/04/19 19:58 02/04/19 20:30 02/04/19 21:00 Temperature 98.1 F Pulse Rate 108 H 102 H 109 H Respiratory Rate 22 17 18 Blood Pressure 128/87 Blood Pressure [Left Arm] 110/63 106/63 Pulse Oximetry 98 95 94 02/04/19 21:30 02/04/19 22:12 02/04/19 22:30 Temperature Pulse Rate 101 H 109 H 109 H Respiratory Rate Blood Pressure Blood Pressure [Left Arm] 111/60 98/59 L 110/63 Pulse Oximetry 95 95 95 02/04/19 23:00 02/04/19 23:30 02/05/19 00:00 Temperature Pulse Rate 101 H 100 H 103 H Respiratory Rate 15 16 17 Blood Pressure Blood Pressure [Left Arm] 106/62 111/60 131/80 Pulse Oximetry 94 94 95 Oxygen Delivery Method Room Air Narrative Exam Narrative: Gen: Alert, oriented, well-developed 43 y.o. male, ill appearing HEENT: normocephalic, atraumatic, conjunctiva clear, sclera non-icteric, oral mucosa pink and moist Neck: supple, full ROM Resp: Lungs CTA, non-labored breathing CV: RRR, no murmur or rubs Abd: soft, non-tender, normoactive BTs, suprapubic catheter intact, dry and draining, stoma is brown with formed stool, looser brazer controlled atmospheric furnace colored stool in the periphery of the bag Skin: no lesions or rashes, dry and intact, no evidence of pressure ulcers Neuro: Alert and oriented X 4 w/no focal deficits Extremities: able to move arms with gross movement of the left hand, more fine motor control of the right hand. Legs are flaccid with ankle flexion boots Psyche: normal mood and affect. Objective Labs Result Diagrams: 02/04/19 19:54 02/04/19 19:54 Labs: Laboratory Results - last 24 hr 02/04/19 02/04/19 02/04/19 19:54 19:54 20:20 WBC 16.4 H RBC 4.88 Hgb 13.5 Hct 39.8 L MCV 81.6 MCH 27.8 MCHC 34.0 RDW 14.3 Plt Count 126 L Neut % (Auto) 93.6 H Lymph % (Auto) 3.4 L [place] % (Auto) 2.8 L Eos % (Auto) 0.1 L Baso % (Auto) 0.1 Neut # (Auto) 86943 H Lymph # (Auto) 600 L [place] # (Auto) 500 Eos # (Auto) 0 Baso # (Auto) 0 Sodium 137 Potassium 3.8 Chloride 95 L Carbon Dioxide 28 BUN 9 Creatinine 0.40 L Estimated GFR > 60.0 BUN/Creatinine Ratio 22.5 H Glucose 107 H Lactate 1.0 Calcium 9.2 Total Bilirubin 0.8 AST 18 ALT 18 L Alkaline Phosphatase 85 Total Protein 7.8 Albumin 4.2 Globulin 3.6 Albumin/Globulin Ratio 1.2 Lipase 25 Prolactin 15.4 Urine Color Urine Appearance Urine pH Ur Specific [place] Urine Protein Urine Glucose (UA) Urine Ketones Urine Occult Blood Urine Nitrate Urine Bilirubin Urine Urobilinogen Ur Leukocyte Esterase Urine RBC Urine WBC Urine Bacteria Ur Culture Indicated? Stl C. cayetanensis PCR Stool Rotavirus (PCR) Stool Adenovirus (PCR) Stool Astrovirus (PCR) Stool Cryptosporidium PCR Stl E.coli Shiga Tox PCR St Sh/Enteroin Ecoli PCR Stl Enterotoxigenic E PCR Stool EPEC (PCR) Stl E. histolytica PCR Stool Giardia Lamblia PCR Stl P. shigelloides PCR St Y.enterocolitica PCR Stool Vibrio (PCR) Stl Vibrio cholerae PCR Stl Enteroaggr Ecoli PCR Stl Norovirus GI/GII PCR Campylobacter (PCR) C. difficile Tox (PCR) Salmonella (PCR) 02/04/19 02/04/19 20:30 23:15 WBC RBC Hgb Hct MCV MCH MCHC RDW Plt Count Neut % (Auto) Lymph % (Auto) [place] % (Auto) Eos % (Auto) Baso % (Auto) Neut # (Auto) Lymph # (Auto) [place] # (Auto) Eos # (Auto) Baso # (Auto) Sodium Potassium Chloride Carbon Dioxide BUN Creatinine Estimated GFR BUN/Creatinine Ratio Glucose Lactate Calcium Total Bilirubin AST ALT Alkaline Phosphatase Total Protein Albumin Globulin Albumin/Globulin Ratio Lipase Prolactin Urine Color Yellow Urine Appearance Clear Urine pH 7.0 Ur Specific [place] 1.020 Urine Protein Negative Urine Glucose (UA) Negative Urine Ketones 2+ H Urine Occult Blood 1+ H Urine Nitrate Negative Urine Bilirubin Negative Urine Urobilinogen 2.0 H Ur Leukocyte Esterase 2+ H Urine RBC 0-1/hpf D Urine WBC 1-5/hpf Urine Bacteria Occasional (0-1) D Ur Culture Indicated? Specimen cultured Stl C. cayetanensis PCR Not detected Stool Rotavirus (PCR) Not detected Stool Adenovirus (PCR) Not detected Stool Astrovirus (PCR) Not detected Stool Cryptosporidium PCR Not detected Stl E.coli Shiga Tox PCR Not detected St Sh/Enteroin Ecoli PCR Not detected Stl Enterotoxigenic E PCR Not detected Stool EPEC (PCR) Not detected Stl E. histolytica PCR Not detected Stool Giardia Lamblia PCR Not detected Stl P. shigelloides PCR Not detected St Y.enterocolitica PCR Not detected Stool Vibrio (PCR) Not detected Stl Vibrio cholerae PCR Not detected Stl Enteroaggr Ecoli PCR Not detected Stl Norovirus GI/GII PCR Not detected Campylobacter (PCR) Not detected C. difficile Tox (PCR) Not detected Salmonella (PCR) Not detected Assessment & Plan Assessment & Plan narrative: Adrian Arteaga will be admitted as an inpatient for management and IV antibiotic administration for a UTI. 1. Sepsis secondary to complicated UTI with a suprapubic catheter, acute, present on admisssion * Admission temp was 100.5, heart rate 97 qSOFA Score: 1 * He will receive IV Ceftriaxone 1 gram Q 24 hours * Urine and blood cultures are pending 2. Diarrhea, acute, POA * Stool viral and bacterial studies are negative * Has had hx of C. Difficile, screened for this and negative * H. Pylori pending 3. Quadriplegia, incomplete spinal cord injury, chronic, present on admission * Patient is ordered for a bed that can turn him to avoid pressure ulcers 4. Chronic continuous opioid dependence, chronic and stable present on admission * Continue home doses of methadone and oxycodone 5. Autonomic dysreflexia, chronic, present on admission * Continue home dose of gabapentin 300 mg p.o. t.i.d. * Continue home dose of diazepam 500 mg p.o. at bedtime as needed for spasm * Continue home dose of baclofen 30 mg p.o. b.i.d. and 25 mg p.o. at noon 5. Ostomy status * Daily ostomy care by nursing Patient is admitted inpatient as his stay is anticipated to exceed 2 midnights. FEN: Normal saline at 100 mL/hour, regular diet, chemistries in the am. VTE Prophylaxis: Heparin 5000 units subcu b.i.d. monitor platelet counts daily Disposition: Likely discharge home Code status: Full code Admission time: 65 minutes Meds reconciled: Yes Time Spent With Patient Time with patient: 15-24 minutes Quality VTE Deep Vein Thrombosis/Pulmonary Embolism Present on Admission: No
[2019-02-05] MEDS: diazePAM 5 MG TABLET PO ×2 (01:40→23:39)
[2019-02-05 01:52] LABS: Bacteria Urine Occasional (0-1); Culture Indicated Urine Specimen Cultured; RBC Urine 1-5/HPF (0-5/HPF); Squamous Epithelial Cell Urine 1-5 /HPF (0-5/HPF); WBC Urine 1-5/HPF (0-5/HPF)
--- NOTE | 2019-02-05 03:09 | PC.NURSE ---
NOC Shift Admit: Pt admitted from ED for ABD pain, sepsis UTI. Pt is an incomplete C6 Quadraplegic for many years taken care of at home by mother, Carlos. Pt is AAOx3, complaints of fever, minimal ABD pain and fatigue. VSS, temp 100.6. Cultures pending. IVF boluses given in ED along w/IV ABX tx. Pt given Valium for muscle spasm that is baseline. Floor care admit to ICU. Continue to monitor.
[2019-02-05 06:32] LABS: Blood Urea Nitrogen 7 mg/dL (9-20); Calcium 8.5 mg/dL (8.4-10.2); Carbon Dioxide 29 mmol/L (22-32); Chloride 99 mmol/L (98-107); Estimated Glomerular Filt Rate > 60.0 mL/min (>60); Glucose 114 mg/dL (70-100); HEMOLYSIS < 15 (0-50); Potassium 3.1 mmol/L (3.4-5.1); Sodium 138 mmol/L (137-145)
[2019-02-05 06:38] LABS: Add Manual Diff / Slide Review NO; Basophils Absolute Auto 0 /uL (0-100); Basophils Percent Auto 0.2 % (0-2); Eosinophils Absolute Auto 0 /uL (0-450); Hematocrit 36.8 % (41-53); Hemoglobin 12.4 g/dL (13.5-17.5); Lymphocytes Absolute Auto 800 /uL (1100-4500); Lymphocytes Percent Auto 3.4 % (25-40); Mean Corpuscular HGB Conc 33.8 % (30-36); Mean Corpuscular Hemoglobin 27.4 PG (26-34); Mean Corpuscular Volume 81.1 fL (80-100); Monocytes Absolute Auto 1600 /uL (0-900); Monocytes Percent Auto 6.9 % (3-14); Neutrophils Absolute Auto 20300 /uL (1500-7000); Neutrophils Percent Auto 89.5 % (50-75); Platelet Count 124 X10^3/uL (150-400); Red Blood Cell Count 4.54 X10^6/uL (4.5-5.9); Red Cell Distribution Width 13.9 % (11.6-14.8); White Blood Cell Count 22.7 X10^3/uL (4.5-11.0)
[2019-02-05] MEDS: OXYCODONE IR 10 MG TABLET PO ×3 (07:30→20:15)
[2019-02-05] MEDS: METHADONE 5 MG TABLET PO ×2 (07:31→20:15)
[2019-02-05] MEDS: BACLOFEN 10 MG TABLET 30 MG PO ×2 (08:28→20:14)
[2019-02-05] MEDS: GABAPENTIN 300 MG CAPSULE PO ×3 (08:28→20:15)
[2019-02-05] MEDS: OXYBUTYNIN 5 MG ER TAB PO ×2 (08:29→20:16)
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
[2019-02-05] MEDS: ASPIRIN EC 81 MG TABLET PO (12:34)
[2019-02-05] MEDS: BACLOFEN 10 MG TABLET 25 MG PO (12:35)
[2019-02-05] MEDS: POTASSIUM CHLORIDE 20 MEQ TAB 40 MEQ PO (12:36)
--- NOTE | 2019-02-05 14:03 | PM.EVENT ---
Event Note Date Patient Seen: 02/05/19 Event Note: Patient is a 43-year-old male well known to me from prior hospitalization admitted overnight for symptomatic urinary tract infection. Patient has improved significantly today. He does at times feel feverish with some chills. He has requested to resume his usual home medications to include MiraLax, Protonix, docusate, and Zoloft. Patient reports that levofloxacin did not agree with him when he took it orally. Will review antibiotic options once his cultures are back. He is resting comfortably without any difficulty. He does report some intermittent loose stool. His potassium was somewhat low today and was replaced earlier.
[2019-02-05 15:37] LABS: Procalcitonin 0.49 ng/mL (<0.5)
[2019-02-05] MEDS: CEFTRIAXONE 1 GM/50 ML FROZ.PIGGY IV (20:15)
[2019-02-05] MEDS: POLYETHYLENE GLYCOL 3350 17 GM POWD.PACK PO (20:35)
[2019-02-05] MEDS: DOCUSATE 100 MG CAPSULE PO (20:35)
[2019-02-06] VITALS (8 sets, daily range): BP systolic 83–102; BP diastolic 52–60; PULSE 69–82; RESP 12–18; TEMP 36.4–36.9; O2SAT 94–98
[2019-02-06 05:16] LABS: Add Manual Diff / Slide Review NO; Basophils Absolute Auto 100 /uL (0-100); Basophils Percent Auto 0.3 % (0-2); Eosinophils Absolute Auto 0 /uL (0-450); Eosinophils Percent Auto 0.1 % (2-4); Hematocrit 36.2 % (41-53); Lymphocytes Absolute Auto 900 /uL (1100-4500); Lymphocytes Percent Auto 5.4 % (25-40); Mean Corpuscular HGB Conc 33.1 % (30-36); Mean Corpuscular Hemoglobin 27.3 PG (26-34); Mean Corpuscular Volume 82.5 fL (80-100); Monocytes Absolute Auto 1000 /uL (0-900); Monocytes Percent Auto 5.7 % (3-14); Neutrophils Absolute Auto 15600 /uL (1500-7000); Neutrophils Percent Auto 88.5 % (50-75); Platelet Count 109 X10^3/uL (150-400); Red Blood Cell Count 4.39 X10^6/uL (4.5-5.9); Red Cell Distribution Width 14.6 % (11.6-14.8); White Blood Cell Count 17.6 X10^3/uL (4.5-11.0)
[2019-02-06 05:21] LABS: Blood Urea Nitrogen 6 mg/dL (9-20); Calcium 8.5 mg/dL (8.4-10.2); Carbon Dioxide 27 mmol/L (22-32); Chloride 102 mmol/L (98-107); Estimated Glomerular Filt Rate > 60.0 mL/min (>60); Glucose 100 mg/dL (70-100); HEMOLYSIS < 15 (0-50); Potassium 3.4 mmol/L (3.4-5.1); Sodium 137 mmol/L (137-145)
[2019-02-06] MEDS: OXYCODONE IR 10 MG TABLET PO ×3 (06:44→20:34)
[2019-02-06] MEDS: METHADONE 5 MG TABLET PO ×2 (06:44→20:34)
[2019-02-06] MEDS: BACLOFEN 10 MG TABLET 30 MG PO ×2 (06:44→20:34)
[2019-02-06] MEDS: GABAPENTIN 300 MG CAPSULE PO ×3 (06:45→20:34)
[2019-02-06] MEDS: PANTOPRAZOLE 40 MG TABLET PO (06:45)
[2019-02-06] MEDS: OXYBUTYNIN 5 MG ER TAB PO ×2 (06:47→20:35)
[2019-02-06] MEDS: POLYETHYLENE GLYCOL 3350 17 GM POWD.PACK PO ×2 (08:45→20:34)
[2019-02-06] MEDS: SERTRALINE 50 MG TABLET 100 MG PO (08:47)
[2019-02-06] MEDS: DOCUSATE 100 MG CAPSULE PO ×2 (08:47→20:34)
--- NOTE | 2019-02-06 10:55 | PM.PN.1 ---
Subjective Subjective Date Patient Seen: 02/06/19 Interval history: The patient is a 43-year-old male well known to me from prior hospitalization who has a history of quadriplegia, neurogenic bladder with a chronic indwelling Rodas catheter, chronic pain, chronic opioid dependence, mixed anxiety and depression, history of C diff status post colostomy placed who was admitted to the hospital with fever myalgias and presumed urinary tract infection. Unfortunately they urine was not submitted. A repeat UA has been obtained. The 1st cultures thus far are negative for bacterial infection. Despite that the patient continues to be febrile. He reports having abdominal cramping after administration of ceftriaxone last evening he notes that many antibiotics upset his stomach. His mother manages his catheter for him. She has been and stealing gentamicin twice weekly. He previously was on Macrobid for bacterial suppression. He has discontinued that approximately 1 year ago. He reports he does not feel well today. He continues to have myalgias. And notes some abdominal discomfort. Exam Vital Signs (past 8 hours): - 02/06/19 03:25 02/06/19 08:34 Temperature 97.6 F 97.8 F Pulse Rate 81 82 Respiratory Rate 16 18 Blood Pressure 95/55 L 97/57 L Pulse Oximetry 96 97 Oxygen Delivery Method Room Air Oxygen Flow Rate 0 Narrative Exam Narrative: Ill-appearing male lying in bed, quadriplegic Lungs: Clear to auscultation Cardiac exam: Regular rate and rhythm normal S1-S2 Abdomen: Soft nontender nondistended ostomy bag with liquid stool Extremities: No edema Musculoskeletal: Decreased bulk and tone. Patient has atrophy of his upper and lower extremity muscles. Objective Labs Result Diagrams: 02/06/19 04:55 02/06/19 04:55 Labs: Laboratory Results - last 24 hr 02/05/19 02/06/19 02/06/19 06:10 04:55 04:55 WBC 17.6 H RBC 4.39 L Hgb 12.0 L Hct 36.2 L MCV 82.5 MCH 27.3 MCHC 33.1 RDW 14.6 Plt Count 109 L Neut % (Auto) 88.5 H Lymph % (Auto) 5.4 L [place] % (Auto) 5.7 Eos % (Auto) 0.1 L Baso % (Auto) 0.3 Neut # (Auto) 22077 H Lymph # (Auto) 900 L [place] # (Auto) 1000 H Eos # (Auto) 0 Baso # (Auto) 100 Sodium 137 Potassium 3.4 Chloride 102 Carbon Dioxide 27 BUN 6 L Creatinine 0.40 L Estimated GFR > 60.0 BUN/Creatinine Ratio 15.0 Glucose 100 Calcium 8.5 Procalcitonin 0.49 Assessment & Plan Assessment & Plan narrative: Impression 1. 43-year-old male admitted to the hospital with a symptomatic urinary tract infection. Suspect the urinary tract infection is related to his neurogenic bladder and chronic indwelling suprapubic catheter. Unfortunately urine cultures are negative at this point. ( it appears they were inadvertantly released from the lab) It repeat cultures have been obtained. We are waiting bacterial identification to narrow antibiotic choices. The patient reports he has not tolerated ceftriaxone. S he is not allergic to penicillin will switch him to Unasyn and await final culture results. He is still febrile. The goal is for him to be afebrile for 24 hours prior to discharge home on an oral regimen. 2. Quadriplegia, partial 3. Chronic pain with chronic opioid dependence 4. History of C difficile colitis no evidence of C diff on admission 5. Mixed anxiety and depressive disorder continue usual home medication 6. Status post ostomy placement Plan will switch to IV Unasyn, await repeat urine culture, await blood culture results, continue to monitor his fever, continue his usual home medications. Quality VTE Deep Vein Thrombosis/Pulmonary Embolism Present on Admission: No
[2019-02-06] MEDS: AMPICILLIN/SULBACTAM 1.5 GM 1.5 GM in SODIUM CHLORIDE 0.9% 100 ML IV ×3 (12:10→22:46)
[2019-02-06] MEDS: BACLOFEN 10 MG TABLET 25 MG PO (12:11)
[2019-02-06] MEDS: ASPIRIN EC 81 MG TABLET PO (12:11)
[2019-02-06] MEDS: CHOLECALCIFEROL (VITAMIN D3) 1,000 UNIT TABLET 1000 UNIT PO ×2 (12:12→20:34)
[2019-02-06] MEDS: diazePAM 5 MG TABLET PO (23:50)
[2019-02-07] VITALS (9 sets, daily range): BP systolic 102–124; BP diastolic 62–81; PULSE 67–73; RESP 16–18; TEMP 36.6–37; O2SAT 95–99
[2019-02-07] MEDS: AMPICILLIN/SULBACTAM 1.5 GM 1.5 GM in SODIUM CHLORIDE 0.9% 100 ML IV (03:52)
[2019-02-07] MEDS: OXYBUTYNIN 5 MG ER TAB PO ×2 (06:52→20:38)
[2019-02-07] MEDS: CHOLECALCIFEROL (VITAMIN D3) 1,000 UNIT TABLET 1000 UNIT PO ×3 (06:52→20:38)
[2019-02-07] MEDS: METHADONE 5 MG TABLET PO ×2 (06:52→20:38)
[2019-02-07] MEDS: BACLOFEN 10 MG TABLET 30 MG PO ×2 (06:53→20:39)
[2019-02-07] MEDS: OXYCODONE IR 10 MG TABLET PO ×3 (06:53→20:38)
[2019-02-07] MEDS: GABAPENTIN 300 MG CAPSULE PO ×3 (06:53→20:38)
[2019-02-07] MEDS: PANTOPRAZOLE 40 MG TABLET PO (06:53)
[2019-02-07 07:09] LABS: Add Manual Diff / Slide Review NO; Basophils Absolute Auto 0 /uL (0-100); Basophils Percent Auto 0.3 % (0-2); Eosinophils Absolute Auto 100 /uL (0-450); Eosinophils Percent Auto 0.7 % (2-4); Hematocrit 34.2 % (41-53); Hemoglobin 11.6 g/dL (13.5-17.5); Lymphocytes Absolute Auto 1100 /uL (1100-4500); Lymphocytes Percent Auto 12.8 % (25-40); Mean Corpuscular HGB Conc 34.1 % (30-36); Mean Corpuscular Hemoglobin 27.8 PG (26-34); Mean Corpuscular Volume 81.7 fL (80-100); Monocytes Absolute Auto 600 /uL (0-900); Monocytes Percent Auto 7.2 % (3-14); Neutrophils Absolute Auto 6600 /uL (1500-7000); Platelet Count 121 X10^3/uL (150-400); Red Blood Cell Count 4.18 X10^6/uL (4.5-5.9); Red Cell Distribution Width 14.4 % (11.6-14.8); White Blood Cell Count 8.4 X10^3/uL (4.5-11.0)
[2019-02-07 07:20] LABS: BUN Creatinine Ratio 12.5 (6-22); Blood Urea Nitrogen 5 mg/dL (9-20); Calcium 8.6 mg/dL (8.4-10.2); Carbon Dioxide 30 mmol/L (22-32); Chloride 102 mmol/L (98-107); Estimated Glomerular Filt Rate > 60.0 mL/min (>60); Glucose 95 mg/dL (70-100); HEMOLYSIS < 15 (0-50); Potassium 3.1 mmol/L (3.4-5.1); Sodium 141 mmol/L (137-145)
--- NOTE | 2019-02-07 09:00 | PM.PN.1 ---
Subjective Subjective Date Patient Seen: 02/07/19 Interval history: Adrian Arteaga is a 43-year-old male with a past medical history significant for partial quadriplegia withneurogenic bladder and chronic indwelling suprapubic Rodas catheter, chronic pain, chronic opioid dependence, mixed anxiety and depression, history of C. diff status post colostomy who presented to the ED with fever, rigors, and myalgias secondary to urinary tract infection. Interval history: The microbiology department mixed up patient's urine culture plates which delayed identification and sensitivities. Currently the patient has two colonies growing on his urine culture that preliminarily appear to be Klebsiella species which he has been colonized with in the past and will likely result tomorrow. Based on the previous Klebsiella urine cultures and sensitivity will tailor antibiotic regimen. Unasyn was intermediately sensitive in the past and would not adequately treat UTI therefore discontinued. The patient has severe GI upset with fluoroquinolones (only available PO antibiotic based on previous sensitivities) and have decided not to use. Reinstituted ceftriaxone 2 g IV daily as both Klebsiella species were sensitive to this antibiotic and will plan to treat the patient's GI upset to the best of our capabilities. The patient is resting in bed comfortably. He continues to endorse GI upset with abdominal cramps and mild nausea. Ordered ondansetron and lorazepam as needed every 6 hours for nausea. The patient is fearful that he has C. difficile again therefore C difficile was sent and has resulted as negative. The patients GI upset is likely due to IBS related to previous C difficile infections, possibly antibiotic side effect, and psychogenic. He has no other complaints and denies headache, shortness of breath, chest pain, vomiting, fever, chills, dysuria, or constipation. His stool is loose as desired. He is voiding via suprapubic catheter and eliminating via ileostomy without difficulty. Exam Vital Signs (past 8 hours): - 02/07/19 03:00 02/07/19 03:58 02/07/19 07:30 Temperature 98.1 F 98.6 F Pulse Rate 73 72 Respiratory Rate 18 16 Blood Pressure 107/68 120/73 Pulse Oximetry 97 97 96 Oxygen Delivery Method Room Air Oxygen Flow Rate 0 Narrative Exam Narrative: General: Middle-aged male lying in bed and in no acute distress, well-developed, well-nourished, appropriately interactive. HEENT: Normocephalic, atraumatic. External ears without defect. Pupils equal, round, and reactive to light. Anicteric sclerae, moist conjunctivae, and no lid lag. Oropharynx free of erythema and cobble stoning with moist mucosa. Neck: Supple with full range of motion. No jugular venous distension. No lymphadenopathy or thyromegaly. Cardiovascular: Regular rate and rhythm without murmurs, rubs, or gallops appreciated. Pulmonary: Clear to auscultation bilaterally in anterior lung jordan without crackles, wheezes, or rhonchi. Normal respiratory effort with no use of accessory muscles. Abdomen: Soft, bowel sounds present, nontender, nondistended. No hepatosplenomegaly or masses appreciated. Ileostomy in place with loose stool. Extremities: No clubbing, cyanosis, or edema. Feet in offloading booties. Skin: Normal temperature, turgor, and texture; no rash, ulcers, or subcutaneous nodules appreciated. Neurological: Partial quadriplegic. Left hand contracture with mild use of right hand. Psychiatric: Normal mood and affect. Alert and oriented to person, place, and time. Objective Labs Result Diagrams: 02/07/19 06:30 02/07/19 06:30 Labs: Laboratory Results - last 24 hr 02/05/19 02/07/19 02/07/19 01:39 06:30 06:30 WBC 8.4 D RBC 4.18 L Hgb 11.6 L Hct 34.2 L MCV 81.7 MCH 27.8 MCHC 34.1 RDW 14.4 Plt Count 121 L Neut % (Auto) 79.0 H Lymph % (Auto) 12.8 L [place] % (Auto) 7.2 Eos % (Auto) 0.7 L Baso % (Auto) 0.3 Neut # (Auto) 6600 Lymph # (Auto) 1100 [place] # (Auto) 600 Eos # (Auto) 100 Baso # (Auto) 0 Sodium 141 Potassium 3.1 L Chloride 102 Carbon Dioxide 30 BUN 5 L Creatinine 0.40 L Estimated GFR > 60.0 BUN/Creatinine Ratio 12.5 Glucose 95 Calcium 8.6 Urine RBC 1-5/hpf Urine WBC 1-5/hpf Ur Squamous Epith Cells 1-5 /hpf Urine Bacteria Occasional (0-1) Ur Culture Indicated? Specimen cultured Assessment & Plan Assessment & Plan narrative: Adrian Arteaga is a 43-year-old male with a past medical history significant for partial quadriplegia with neurogenic bladder and chronic indwelling suprapubic Rodas catheter, chronic pain, chronic opioid dependence, mixed anxiety and depression, history of C. diff status post colostomy who presented to the ED with fever, rigors, and myalgias secondary to urinary tract infection. 1. Acute complex urinary tract infection secondary to chronic indwelling suprapubic Rodas catheter, present on admission. Active. -Patient presented with fever, chills, rigors, and myalgias with grossly infected urinalysis and urine cultures pending. -The microbiology department mixed up patient's urine culture plates which delayed identification and sensitivities. Currently the patient has two colonies growing on his urine culture that preliminarily appear to be Klebsiella species which he has been colonized with in the past and will likely result tomorrow. Based on the previous Klebsiella urine cultures and sensitivities will tailor antibiotic regimen. Unasyn was intermediately sensitive in the past and would not adequately treat UTI, therefore, discontinued. The patient has severe GI upset with fluoroquinolones (only available PO antibiotic based on previous sensitivities) and have decided not to use. Reinstituted ceftriaxone 2 g IV daily pending urine culture identification and sensitivities as both Klebsiella species were sensitive to this antibiotic previously and will plan to treat the patient's GI upset to the best of our capabilities. 2. Partial quadriplegia with neurogenic bladder and chronic indwelling suprapubic Rodas catheter and ileostomy, chronic, present on admission. Stable. -Continue suprapubic Rodas catheter and ostomy care. -Continue frequent turns every 2 hours and offloading booties to avoid pressure ulcerations. -Continue oxybutynin 5 mg twice daily. 3. Chronic pain with chronic opioid dependence, present on admission. Stable. -Continue home pain regimen including: Gabapentin 300 mg 3 times daily, methadone 5 mg twice daily, oxycodone 10 mg 3 times daily and baclofen 30 mg daily in the morning and at bedtime and 25 mg at noon. 4. History of C. difficile colitis. -C. diff PCR negative now x 2. 5. Depression and anxiety, chronic, present on admission. Stable. -Continue sertraline 100 mg daily. 6. Insomnia, chronic, present on admission. Stable. -Continue diazepam 5 mg daily at bedtime as needed for insomnia. Disposition: Patient likely to discharge home in 1-2 days once urine culture and sensitivities have resulted. Patient may need to be discharged on IV antibiotics to complete 7 day course. Quality VTE Deep Vein Thrombosis/Pulmonary Embolism Present on Admission: No
[2019-02-07] MEDS: SERTRALINE 50 MG TABLET 100 MG PO (09:20)
[2019-02-07] MEDS: levoFLOXacin 250 MG TABLET 750 MG PO (09:21)
[2019-02-07 10:13] LABS: Clostridium Difficile Tox PCR Negative for C. diff
[2019-02-07] MEDS: CEFTRIAXONE 2 GM/50 ML FROZ.PIGGY IV (11:30)
[2019-02-07] MEDS: BACLOFEN 10 MG TABLET 25 MG PO (13:06)
[2019-02-07] MEDS: ASPIRIN EC 81 MG TABLET PO (13:10)
[2019-02-07 13:56] LABS: Magnesium 1.6 mg/dL (1.6-2.3)
[2019-02-07] MEDS: POTASSIUM CHLORIDE 60 MEQ in SODIUM CHLORIDE 0.9% 500 ML 75 ML IV (14:39)
--- NOTE | 2019-02-07 15:04 | PC.NURSE ---
Addendum entered by Toña Benitez R.N. 02/07/19 15:26: Add-Incomplete quadrapelegic, LUE with contracture. VSS, Mother at bedside for care. Dr Garg in to update on lab mishandling of sample and delay to culture and sensitivity. ABX continue. Poor PO intake, zofran and ativan ordered, per Pt, does not believe Zofran is allergy, just a site reaction. Pharmacy updated. No PRN's given. Per request. K+ 3.1 replaced with K rider, started @ 75 mls/hr, reduced to 40mls/hr per Pt request. Original Note: Am shift Pt is A/o x4, feels overall improved, though does not feel ready to d/c today. Supra pubic martinez draining clear urine with sediment. Afebrile overnight, denies pain right now, chronic meds for management of pain. incomplete
[2019-02-07] MEDS: LORazepam 0.5 MG TABLET PO (18:10)
[2019-02-07] MEDS: DOCUSATE 100 MG CAPSULE PO (20:37)
[2019-02-07] MEDS: diazePAM 5 MG TABLET PO (20:38)
[2019-02-07] MEDS: POLYETHYLENE GLYCOL 3350 17 GM POWD.PACK PO (20:39)
--- NOTE | 2019-02-07 22:44 | PC.NURSE ---
chance note pt prefers to turn every 3 hours, per his home routine. pt says he feels unwell, has no appetite. Pt is drinking ample water
[2019-02-08 03:00] VITALS: BP 120/78; PULSE 67; RESP 18; TEMP 36.9; O2SAT 96
[2019-02-08 05:32] LABS: Add Manual Diff / Slide Review NO; Basophils Absolute Auto 0 /uL (0-100); Basophils Percent Auto 0.5 % (0-2); Eosinophils Absolute Auto 100 /uL (0-450); Eosinophils Percent Auto 1.2 % (2-4); Hematocrit 35.1 % (41-53); Lymphocytes Absolute Auto 1200 /uL (1100-4500); Lymphocytes Percent Auto 23.6 % (25-40); Mean Corpuscular HGB Conc 34.1 % (30-36); Mean Corpuscular Hemoglobin 27.8 PG (26-34); Mean Corpuscular Volume 81.5 fL (80-100); Monocytes Absolute Auto 500 /uL (0-900); Monocytes Percent Auto 9.4 % (3-14); Neutrophils Absolute Auto 3400 /uL (1500-7000); Neutrophils Percent Auto 65.3 % (50-75); Platelet Count 137 X10^3/uL (150-400); Red Blood Cell Count 4.31 X10^6/uL (4.5-5.9); Red Cell Distribution Width 14.1 % (11.6-14.8); White Blood Cell Count 5.1 X10^3/uL (4.5-11.0)
[2019-02-08 05:40] LABS: Alanine Aminotransferase 9 IU/L (21-72); Albumin 3.5 g/dL (3.5-5.0); Albumin Globulin Ratio 1.1 (1.0-2.8); Alkaline Phosphatase 63 U/L (38-126); Aspartate Aminotransferase 10 IU/L (17-59); BUN Creatinine Ratio 13.3 (6-22); Bilirubin Total 0.5 mg/dL (0.2-1.3); Blood Urea Nitrogen 4 mg/dL (9-20); Calcium 8.8 mg/dL (8.4-10.2); Carbon Dioxide 29 mmol/L (22-32); Chloride 105 mmol/L (98-107); Estimated Glomerular Filt Rate > 60.0 mL/min (>60); Globulin 3.3 g/dL (1.7-4.1); Glucose 94 mg/dL (70-100); HEMOLYSIS < 15 (0-50); Magnesium 1.6 mg/dL (1.6-2.3); Potassium 3.6 mmol/L (3.4-5.1); Sodium 143 mmol/L (137-145); Total Protein 6.8 g/dL (6.3-8.2)
[2019-02-08 05:56] LABS: Procalcitonin < 0.05 ng/mL (<0.5)
[2019-02-08] MEDS: CHOLECALCIFEROL (VITAMIN D3) 1,000 UNIT TABLET 1000 UNIT PO ×2 (06:50→11:49)
[2019-02-08] MEDS: METHADONE 5 MG TABLET PO (06:50)
[2019-02-08] MEDS: GABAPENTIN 300 MG CAPSULE PO ×2 (06:50→11:50)
[2019-02-08] MEDS: OXYCODONE IR 10 MG TABLET PO ×2 (06:50→11:51)
[2019-02-08] MEDS: OXYBUTYNIN 5 MG ER TAB PO (06:50)
[2019-02-08] MEDS: PANTOPRAZOLE 40 MG TABLET PO (06:50)
[2019-02-08] MEDS: BACLOFEN 10 MG TABLET 30 MG PO (06:50)
[2019-02-08 08:00] VITALS: BP 97/59; PULSE 70; RESP 15; TEMP 36.2; O2SAT 97
--- NOTE | 2019-02-08 08:38 | PC.NURSE ---
Addendum entered by Marce Seals R.N. 02/08/19 13:32: Pt DC'd via ambulance at 12:55. All belongings with pt. Addendum entered by Marce Seals R.N. 02/08/19 10:37: Awaiting ambulance coordination for discharge home. Addendum entered by Marce Seals R.N. 02/08/19 10:34: Mother at bedside. DC instructions given. PIV removed with no issue. All questions answered. Pt given hypokalemia, bactrim, and UTI DI paperwork. Pt requested to not have IV Abx this am d/t upset stomach- Dr Benavidez aware. Requested PO Lorazepam for discharge since it worked for pt yesterday. Pt instructed to request this from [facility]. Cdiff lab pending. Pt and mother will f/u with results after dc. Original Note: Pt A&Ox3. Requesting to be left alone until his mother arrives at 0930 to get some sleep. Vitals and assessment completed. Pt with 6/10 pain to abdomen- dull aching. Pt requesting another cdiff sample be sent d/t increase in loose watery stools. Offered to empty ileo bag and save a sample of stool for MD decides on course of action, pt preferred to wait. Pt states he feels lethargic, very shaky and like he has a fever (97.1 this am). PT requesting to wait on med administration for when his mother arrives.
--- NOTE | 2019-02-08 08:51 | PM.DS.1 ---
History of Present Illness History of Present Illness Date Patient Seen: 02/08/19 Chief complaint: ABD Pain Narrative: [address] [address] History & Physical Report Patient: Adrian Arteaga JMR#: [id number] : [id number]:[id number] Age/Sex: 43 / M Date of Service: 02/04/19 Provider: Martha Quintero History of Present Illness History of Present Illness Date Patient Seen: 02/05/19 Time Patient Seen: 00:15 Chief complaint: ABD Pain Narrative: Adrian Arteaga is a 43-year-old male who is quadriplegic, history of C difficile colitis, has a suprapubic catheter and a stool ostomy bag presents today with his mother after having developed softer and more frequent diarrhea and apparently woke up this morning with shakes, suprapubic abdominal spasms, and a fever of 100.9 taken at home. He does state that he had a fever he was weak had nausea, headache, neck pain and felt like he just could not be cool but was also shaking. He endorses having overall body aches. He denies shortness of breath or chest pain. Discharge Providers Provider Date of admission: 02/04/19 22:46 Discharge Date: 02/08/19 Primary care physician: Becca Bolaños MD Discharge provider: Rachna Benavidez MD Summary Hospital Course Discharge Diagnosis: 1. sepsis secondary to urinary tract infection 2. chronic indwelling suprapubic catheter 3. partial quadriplegia 4. history of C difficile 5. colostomy 6. depression 7. Intermittent abdominal cramping Hospital Course: The patient is a 43-year-old male, quadriplegic, with a neurogenic bladder and chronic indwelling suprapubic catheter. He was febrile with an elevated white count. Urine cultures were positive for Klebsiella oxytocia. The patient was treated with levofloxacin which she did not tolerate and ceftriaxone. He is afebrile. His white count has returned to normal. He notes today more liquid stool in his ostomy bag. He has had 1 C diff which is negative. Patient is concerned about recurrent C difficile. He reports the IV antibiotics caused some abdominal cramping. Despite that overall he has clinically made significant improvement. At the patient's request a 2nd C diff will be obtained. He will be switched to oral TMP sulfa for a total of 7 days of treatment. The patient has been deemed appropriate for discharge and arrangements will be made for him to discharge home. Exam Vital Signs (past 8 hours): - 02/08/19 03:00 02/08/19 08:00 Temperature 98.4 F 97.1 F L Pulse Rate 67 70 Respiratory Rate 18 15 Blood Pressure 120/78 97/59 L Pulse Oximetry 96 97 Oxygen Delivery Method Room Air Oxygen Flow Rate 0 Narrative Exam Narrative: The patient is lying in bed in no obvious distress. He at times has felt feverish and achy however he is afebrile and white count is now normal Lungs: Clear to auscultation Cardiac exam: Regular rate and rhythm normal S1-S2 Abdomen: Soft, nontender, nondistended, ostomy in place, liquid stool in the back Extremities: Flaccid lower extremities, atrophy of both upper and lower extremity muscles. Skin: No evidence of rash Objective Labs Result Diagrams: 02/08/19 04:52 02/08/19 04:52 Labs: Laboratory Results - last 24 hr 02/07/19 02/07/19 02/07/19 06:30 06:30 06:30 WBC RBC Hgb Hct MCV MCH MCHC RDW Plt Count Neut % (Auto) Lymph % (Auto) [place] % (Auto) Eos % (Auto) Baso % (Auto) Neut # (Auto) Lymph # (Auto) [place] # (Auto) Eos # (Auto) Baso # (Auto) Sodium 141 Potassium 3.1 L Chloride 102 Carbon Dioxide 30 BUN 5 L Creatinine 0.40 L Estimated GFR > 60.0 BUN/Creatinine Ratio 12.5 Glucose 95 Calcium 8.6 Magnesium 1.6 Total Bilirubin AST ALT Alkaline Phosphatase Total Protein Albumin Globulin Albumin/Globulin Ratio Procalcitonin 0.10 C. difficile Tox (PCR) 02/07/19 02/08/19 02/08/19 08:43 04:52 04:52 WBC 5.1 RBC 4.31 L Hgb 12.0 L Hct 35.1 L MCV 81.5 MCH 27.8 MCHC 34.1 RDW 14.1 Plt Count 137 L Neut % (Auto) 65.3 Lymph % (Auto) 23.6 L [place] % (Auto) 9.4 Eos % (Auto) 1.2 L Baso % (Auto) 0.5 Neut # (Auto) 3400 Lymph # (Auto) 1200 [place] # (Auto) 500 Eos # (Auto) 100 Baso # (Auto) 0 Sodium Potassium Chloride Carbon Dioxide BUN Creatinine Estimated GFR BUN/Creatinine Ratio Glucose Calcium Magnesium Total Bilirubin AST ALT Alkaline Phosphatase Total Protein Albumin Globulin Albumin/Globulin Ratio Procalcitonin < 0.05 C. difficile Tox (PCR) Negative for c. diff 02/08/19 04:52 WBC RBC Hgb Hct MCV MCH MCHC RDW Plt Count Neut % (Auto) Lymph % (Auto) [place] % (Auto) Eos % (Auto) Baso % (Auto) Neut # (Auto) Lymph # (Auto) [place] # (Auto) Eos # (Auto) Baso # (Auto) Sodium 143 Potassium 3.6 Chloride 105 Carbon Dioxide 29 BUN 4 L Creatinine 0.30 L Estimated GFR > 60.0 BUN/Creatinine Ratio 13.3 Glucose 94 Calcium 8.8 Magnesium 1.6 Total Bilirubin 0.5 AST 10 L ALT 9 L Alkaline Phosphatase 63 Total Protein 6.8 Albumin 3.5 Globulin 3.3 Albumin/Globulin Ratio 1.1 Procalcitonin C. difficile Tox (PCR) Discharge Plan Discharge Plan Patient Disposition: Home Discharge Med Rec/Prescriptions Prescriptions: New sulfamethoxazole-trimethoprim [Bactrim DS] 800-160 mg tablet 1 tab PO BID Qty: 10 RF: 0 Continued oxycodone 10 MG tablet See Rx Instructions .ROUTE .COMPLEX Qty: 0 RF: 0 methadone 5 mg Tablet 5 mg PO 0600,2029 Qty: 60 RF: 0 aspirin [Aspirin Low Dose] 81 mg Tablet,Delayed Release (Dr/Ec) 1 tab PO DAILY RF: 0 sertraline 100 mg tablet 100 mg PO DAILY RF: 0 sodium chloride 0.9 % solution 100 - 200 ml Irrigation 5XW RF: 0 baclofen 10 mg tablet 25 mg PO QNOON RF: 0 pantoprazole 40 mg tablet,delayed release (DR/EC) 40 mg PO DAILY RF: 0 oxybutynin chloride 5 mg tablet extended release 24hr 5 mg PO BID RF: 0 baclofen 10 mg tablet 30 mg PO BID RF: 0 cholecalciferol (vitamin D3) [Vitamin D3] 1,000 unit Tablet 1,000 unit PO TID RF: 0 ascorbic acid (vitamin C) [Vitamin C] 500 mg Tablet 1,000 mg PO BEDTIME RF: 0 gabapentin 300 mg capsule 300 mg PO TID RF: 0 diazepam 5 mg tablet 5 mg PO BEDTIME PRN (Reason: Spasms) RF: 0 Discontinued docusate sodium 100 mg Capsule 100 mg PO BID RF: 0 polyethylene glycol 3350 [Miralax] 17 gram/dose powder 2 tsp PO DAILY RF: 0 Follow up/Referrals: Becca Bolaños MD [Primary Care Provider] - Provider Discharge Instructions Diet: Diet as Tolerated Activity: Bed rest Discharge Data Primary Care Provider: Becca Bolaños Quality VTE Deep Vein Thrombosis/Pulmonary Embolism Present on Admission: No
[2019-02-08] MEDS: SERTRALINE 50 MG TABLET 100 MG PO (09:28)
[2019-02-08 10:54] LABS: Clostridium Difficile Tox PCR Negative for C. diff
--- NOTE | 2019-02-08 11:46 | CM.DPC ---
Addendum entered by Kalie Garcia LPN 02/08/19 11:56: Resume HH orders are obtained. VM is left for [facility] and the d/c summary and resume orders are faxed: [phone] Original Note: DCP: continued: Case discussed in Team Rounds and Dr. Benavidez stated that pt was ready for a d/c back home. He is to resume HH and and his mother was expected to be at bedside shortly. Went to room after Rounds and spoke with pt. Introduced self and role. Pt confirmed he felt ready for the d/c today. His mother had already been in and had gone home to await his arrival. Confirmed need for ambulance transport, Completed the Cert of Med Necessity with Dr. Benavidez. Pt is quadriplegic and is recovering from sepsis related to UTI in setting of neurogenic bladder and suprbubic catheter. He has bilateral LE splints in place. Called [facility] and all is set up now for between 1230 and 1300. RN Cat is updated. [facility] to Cat to provide to [facility] along with the face sheet.
[2019-02-08] MEDS: BACLOFEN 10 MG TABLET 25 MG PO (11:49)
[2019-02-08] MEDS: ASPIRIN EC 81 MG TABLET PO (11:49)
[2019-02-08 12:00] VITALS: BP 87/55; PULSE 60; RESP 16; TEMP 36.1; O2SAT 96
== END 2019-02-08 13:00 | disposition home health service (06) | DRG 466 ==
LOC: ED 22:46 → AC 22:47 → ICU 23:55
PROVIDERS: Internal Medicine; Admitting Provider Nurse Practitioner Family; Emergency Provider Emergency Medicine; PCP Internal Medicine; Visit Provider Nurse Practitioner Family
DX: T83.510A Infection and inflammatory reaction due to cystostomy catheter, initial encounter (principal); N39.0 Urinary tract infection, site not specified; G90.4 Autonomic dysreflexia; G82.54 Quadriplegia, C5-C7 incomplete; R53.83 Other fatigue; N42.81 Prostatodynia syndrome; F11.20 Opioid dependence, uncomplicated; G47.00 Insomnia, unspecified; G89.29 Other chronic pain; F41.9 Anxiety disorder, unspecified; F32.9 Major depressive disorder, single episode, unspecified; Z43.3 Encounter for attention to colostomy
CPT/HCPCS: 36415; 36591; 74022; 74177; 80048; 80053; 81001; 81003; 81015; 83605; 83690; 83735; 84145; 84146; 84153; 85025; 87040; 87077; 87086; 87186; 87493; 87507; 87797; 96361; 96365; 96366; 96375; 99284; 99285; C9113; J0295; J0696; J1644; J1956; J3480; Q9967

== ENCOUNTER 2019-03-07 07:41 | Emergency (ER) | payer OTHER, MEDICAID, SELFPAY ==
[2019-02-05 01:00] VITALS: BMI 25.7
[2019-03-07] VITALS (7 sets, daily range): BP systolic 113–123; BP diastolic 69–85; PULSE 67–86; RESP 14–21; TEMP 37; O2SAT 96–99
--- NOTE | 2019-03-07 08:00 | ED.ABDPAIN ---
HPI - Abdominal Pain General Chief Complaint: Abdominal Pain Stated Complaint: Chest Pain Time Seen by Provider: 03/07/19 07:51 Source: patient and EMS Mode of arrival: EMS History of Present Illness HPI narrative: Patient is a 43-year-old male who is a quadriplegic with chronic indwelling suprapubic catheter and an ostomy bag presenting with abdominal pain. He states that every time he eats he has lower abdominal pain he denies any nausea or vomiting but has significant ostomy output. He denies any chest pain he does have shakes but thinks that his electrolytes might be off. He does not feel like he has a fever or sweats. He states that his urine always appears infected. However last time February 04 he actually was admitted with sepsis and UTI. MD complaint: abdominal pain Pain Consistency: intermittent Quality: cramping Radiation: none Migration to: no migration Related Data Home Medications Medication Instructions Recorded Confirmed oxycodone See Rx Instructions .ROUTE 07/05/17 02/05/19 .COMPLEX #0 aspirin [Aspirin Low Dose] 1 tab PO DAILY 02/27/18 02/05/19 ascorbic acid (vitamin C) [Vitamin 1,000 mg PO BEDTIME 06/10/18 02/05/19 C] baclofen 25 mg PO QNOON 06/10/18 02/05/19 baclofen 30 mg PO BID 06/10/18 02/05/19 cholecalciferol (vitamin D3) 1,000 unit PO TID 06/10/18 02/05/19 [Vitamin D3] gabapentin 300 mg PO TID 06/10/18 02/05/19 oxybutynin chloride 5 mg PO BID 06/10/18 02/05/19 pantoprazole 40 mg PO DAILY 06/10/18 02/05/19 sertraline 100 mg PO DAILY 06/10/18 02/04/19 sodium chloride 100 - 200 ml IRRIGATION 5XW 06/10/18 02/04/19 diazepam 5 mg PO BEDTIME PRN 01/01/19 02/05/19 Previous Rx's Medication Instructions Recorded methadone 5 mg PO 0600,2030 #60 tab 11/19/17 ketorolac 10 mg PO TID PRN #10 tab 03/07/19 Allergies Allergy/AdvReac Type Severity Reaction Status Date / Time ondansetron [ONDANSETRON] AdvReac Intermediate PAIN, Verified 02/07/19 13:35 ITCHING, ERYTHEMA AT INJECTION SITE Review of Systems Review of Systems ROS Unobtainable: All systems reviewed & are unremarkable except as noted in HPI and below Constitutional Constitutional: Denies chills, Denies fever(s), Denies lethargy and Denies weakness Eyes Eyes: Denies change in vision, Denies eye discharge, Denies irritation and Denies loss of vision ENT Ears, Nose, Mouth, and Throat: Denies change in voice, Denies vertigo, Denies dizziness, Denies neck pain and Denies sore throat Cardiovascular Cardiovascular: Denies chest pain, Denies syncope, Reports lightheadedness and Denies dyspnea Respiratory Respiratory: Denies cough and Denies dyspnea Gastrointestinal Gastrointestinal: Reports as per HPI and Reports abdominal pain Genitourinary Genitourinary: Reports as per HPI Musculoskeletal Musculoskeletal: Reports as per HPI, Reports muscle cramps and Denies neck pain Integumentary/Breasts Skin/Breast: Denies pruritus, Denies erythema, Denies rash and Denies wounds Neurologic Neurologic: Reports as per HPI, Denies confusion, Denies vertigo, Denies dizziness, Denies syncope, Denies loss of vision and Denies weakness Psychiatric Psychiatric: Denies confusion [facility] Medical History Autonomic dysreflexia (Acute) C. difficile colitis (Acute) Chronic pain syndrome (Acute) History of trauma to spine (Acute) Incomplete quadriplegia due to spinal cord lesion between fifth and seventh cervical vertebra (10/22/15) Mixed anxiety depressive disorder (06/29/15) Obstipation (Acute) Uncomplicated opioid dependence (Acute) Surgical History History of colonoscopy (Acute) History of creation of ostomy (Acute) Social History household members: family Smoking Status: Current every day smoker alcohol intake: never Social History household members: family Smoking Status: Current every day smoker alcohol intake: never Exam Initial Vital Signs Initial Vital Signs: Vital Signs Temperature 98.6 F 03/07/19 07:58 Pulse Rate 69 03/07/19 07:58 Respiratory Rate 16 03/07/19 07:58 Blood Pressure 123/85 03/07/19 07:58 Pulse Oximetry 98 03/07/19 07:58 GENERAL: Alert male, chronically ill quadriplegic HEENT: Head atraumatic,EOMI, pupils reactive, face symmetric, moist mucous membranes CARDIOVASCULAR: Regular rate and rhythm without murmurs, rubs or gallops. RESPIRATORY: Breath sounds equal bilaterally, no wheezes rales or rhonchi. ABDOMEN: Soft, mild diffuse lower abdominal tenderness no upper quadrant tenderness Normoactive bowel sounds all 4 quadrants. No guarding or rebound. Ostomy in place with good output : Suprapubic Rodas in place EXTREMITIES: Normal range of motion, no clubbing or edema. Neurovascularly intact NEUROLOGICAL: Alert and oriented x4. He does have some shakes/tremors in his arms SKIN: Warm, dry, no laceration, no petechiae, no rashes or lesions. Course Orders Ordered: ED Orders 03/07/19 08:00 XR abdomen min 2V Stat Complete Blood Count AUTO DIFF Stat Comprehensive Metabolic Panel Stat Lactate (Lactic Acid) Stat Lipase Stat Magnesium Stat Phosphorous Stat 03/07/19 08:15 Urinalysis and Microscopic Stat Urine Culture Stat 03/07/19 08:41 Blood Culture Stat 03/07/19 09:57 CT abdomen pelvis w con Stat Discontinued Medications Sodium Chloride (Normal Saline 0.9%) 1,000 mls @ 1,000 mls/hr IV CONT ROSA Last Infusion: 03/07/19 09:42 Dose: 0 mls/hr Documented by: Admin: 03/07/19 08:39 Dose: 1,000 mls/hr Documented by: CHERYL Sodium Chloride (Normal Saline 0.9%) 1,000 mls @ 200 mls/hr IV BOLUS ONE Stop: 03/07/19 14:36 Last Infusion: 03/07/19 13:53 Dose: 0 mls/hr Documented by: Infusion: 03/07/19 13:40 Dose: 200 mls/hr Documented by: Infusion: 03/07/19 13:34 Dose: 200 mls/hr Documented by: Admin: 03/07/19 09:42 Dose: 200 mls/hr Documented by: CHERYL Ketorolac Tromethamine (Toradol) 30 mg IV NOW ONE Stop: 03/07/19 10:45 Last Admin: 03/07/19 10:53 Dose: 30 mg Documented by: CHERYL Lorazepam (Ativan) 0.5 mg IV NOW ONE Stop: 03/07/19 12:51 Last Admin: 03/07/19 12:56 Dose: Not Given Documented by: ZACH Lorazepam (Ativan) 1 mg IV NOW ONE Stop: 03/07/19 12:55 Last Admin: 03/07/19 12:58 Dose: 1 mg Documented by: ZACH Pantoprazole Sodium (Protonix) 40 mg IV NOW ONE Stop: 03/07/19 08:01 Last Admin: 03/07/19 08:39 Dose: 40 mg Documented by: CHERYL Consultations Consultation #1: Dr. Garg, updated patient's symptoms test results. At this time not need any kind of admission criteria. Time: 12:14 Vital Signs Vital signs: Vital Signs - 8 hr 03/07/19 07:58 03/07/19 08:30 03/07/19 09:30 Temperature 98.6 F Pulse Rate 69 76 86 Respiratory Rate 16 21 18 Blood Pressure 123/85 Blood Pressure [Left Arm] 118/80 122/72 Pulse Oximetry 98 99 97 03/07/19 11:33 03/07/19 12:32 03/07/19 13:00 Temperature Pulse Rate 80 79 79 Respiratory Rate 17 14 21 Blood Pressure Blood Pressure [Left Arm] 113/69 123/84 118/74 Pulse Oximetry 96 98 98 03/07/19 13:49 Temperature Pulse Rate 67 Respiratory Rate Blood Pressure 123/84 Blood Pressure [Left Arm] Pulse Oximetry 97 MDM - Abdominal Pain Lab Data Attestation: I reviewed the patient's lab results. Result diagrams: 03/07/19 08:00 03/07/19 08:00 Labs: Lab Results 03/07/19 03/07/19 03/07/19 Range/Units 08:00 08:00 08:00 WBC 6.1 (4.5-11.0) X10^3/uL RBC 4.75 (4.5-5.9) X10^6/uL Hgb 13.3 L (13.5-17.5) g/dL Hct 38.8 L (41-53) % MCV 81.8 (80-100) fL MCH 28.0 (26-34) PG MCHC 34.2 (30-36) % RDW 14.6 (11.6-14.8) % Plt Count 103 L (150-400) X10^3/uL Neut % (Auto) 73.0 (50-75) % Lymph % (Auto) 18.6 L (25-40) % [place] % (Auto) 7.3 (3-14) % Eos % (Auto) 0.9 L (2-4) % Baso % (Auto) 0.2 (0-2) % Neut # (Auto) 4500 (9959-8636) /uL Lymph # (Auto) 1100 (5273-7191) /uL [place] # (Auto) 400 (0-900) /uL Eos # (Auto) 100 (0-450) /uL Baso # (Auto) 0 (0-100) /uL Sodium 138 (137-145) mmol/L Potassium 3.5 (3.4-5.1) mmol/L Chloride 99 (98-107) mmol/L Carbon Dioxide 29 (22-32) mmol/L BUN 5 L (9-20) mg/dL Creatinine 0.40 L (0.66-1.25) mg/dL Estimated GFR > 60.0 (>60) mL/min BUN/Creatinine Ratio 12.5 (6-22) Glucose 99 (70-100) mg/dL Lactate 1.0 (0.7-2.1) mmol/L Calcium 9.2 (8.4-10.2) mg/dL Phosphorus 3.1 (2.5-4.5) mg/dL Magnesium 1.6 (1.6-2.3) mg/dL Total Bilirubin 0.8 (0.2-1.3) mg/dL AST 18 (17-59) IU/L ALT 12 L (21-72) IU/L Alkaline Phosphatase 82 (38-126) U/L Total Protein 7.7 (6.3-8.2) g/dL Albumin 4.2 (3.5-5.0) g/dL Globulin 3.5 (1.7-4.1) g/dL Albumin/Globulin Ratio 1.2 (1.0-2.8) Lipase 25 (23-300) U/L Urine Color Urine Appearance Urine pH (4.5-8.0) Ur Specific [place] (1.000-1.035) Urine Protein (Negative) Urine Glucose (UA) (Negative) g/dL Urine Ketones (NEGATIVE) Urine Occult Blood (Negative) Urine Nitrate (Negative) Urine Bilirubin (NEGATIVE) Urine Urobilinogen (0.2) E.U./dL Ur Leukocyte Esterase (NEGATIVE) Urine RBC (0-5/HPF) Urine WBC (0-5/HPF) Ur Squamous Epith Cells (0-5/HPF) Urine Bacteria (None) Ur Culture Indicated? Micro UA Comment 03/07/19 Range/Units 08:15 WBC (4.5-11.0) X10^3/uL RBC (4.5-5.9) X10^6/uL Hgb (13.5-17.5) g/dL Hct (41-53) % MCV (80-100) fL MCH (26-34) PG MCHC (30-36) % RDW (11.6-14.8) % Plt Count (150-400) X10^3/uL Neut % (Auto) (50-75) % Lymph % (Auto) (25-40) % [place] % (Auto) (3-14) % Eos % (Auto) (2-4) % Baso % (Auto) (0-2) % Neut # (Auto) (0288-8636) /uL Lymph # (Auto) (7649-2454) /uL [place] # (Auto) (0-900) /uL Eos # (Auto) (0-450) /uL Baso # (Auto) (0-100) /uL Sodium (137-145) mmol/L Potassium (3.4-5.1) mmol/L Chloride (98-107) mmol/L Carbon Dioxide (22-32) mmol/L BUN (9-20) mg/dL Creatinine (0.66-1.25) mg/dL Estimated GFR (>60) mL/min BUN/Creatinine Ratio (6-22) Glucose (70-100) mg/dL Lactate (0.7-2.1) mmol/L Calcium (8.4-10.2) mg/dL Phosphorus (2.5-4.5) mg/dL Magnesium (1.6-2.3) mg/dL Total Bilirubin (0.2-1.3) mg/dL AST (17-59) IU/L ALT (21-72) IU/L Alkaline Phosphatase (38-126) U/L Total Protein (6.3-8.2) g/dL Albumin (3.5-5.0) g/dL Globulin (1.7-4.1) g/dL Albumin/Globulin Ratio (1.0-2.8) Lipase (23-300) U/L Urine Color Straw Urine Appearance Clear Urine pH 7.5 (4.5-8.0) Ur Specific [place] <=1.005 (1.000-1.035) Urine Protein Negative (Negative) Urine Glucose (UA) Negative (Negative) g/dL Urine Ketones 1+ H (NEGATIVE) Urine Occult Blood Trace-intact (Negative) Urine Nitrate Positive (Negative) Urine Bilirubin Negative (NEGATIVE) Urine Urobilinogen 0.2 (0.2) E.U./dL Ur Leukocyte Esterase 1+ H (NEGATIVE) Urine RBC None seen (0-5/HPF) Urine WBC 0-1/hpf (0-5/HPF) Ur Squamous Epith Cells 0-1 /hpf (0-5/HPF) Urine Bacteria Many (>30) H (None) Ur Culture Indicated? Specimen cultured Micro UA Comment Imaging Data Abdominal x-ray: Radiologist's impression: PROCEDURE: XR ABDOMEN MIN 2V INDICATIONS: pain TECHNIQUE: 2 views of the abdomen were acquired. COMPARISON: [facility], CT, CT ABDOMEN PELVIS W CON, 02/04/2019, 20:51. [facility], CR, XR ABDOMEN MIN 2V, 11/15/2017, 13:49. FINDINGS: Surgical changes and devices: None. Bowel: No pneumoperitoneum. Gas is present in both small and large bowel. Mildly dilated proximal small bowel loops. Question ileus pattern. Soft tissues: No masses; visualized solid organ contours appear normal in size. No suspicious abdominal calcifications. Suprapubic Rodas catheter. Bones: Numerous lumbar compressions again noted. IMPRESSION: 1. Question ileus pattern 2. Multiple known chronic lumbar compressions. Dictated by: Maximus Fox M.D. on 03/07/2019 at 8:34 CT scan - abdomen: Radiologist's impression: PROCEDURE: CT ABDOMEN PELVIS W CON INDICATIONS: ileus on xray with intense pain TECHNIQUE: After the administration of intravenous contrast, 5 mm thick sections acquired from the diaphragm to the symphysis. 5 mm coronal and sagittal reformats were acquired. For radiation dose reduction, the following was used: automated exposure control, adjustment of mA and/or kV according to patient size. COMPARISON: [facility], CT, CT ABDOMEN PELVIS W CON, 02/04/2019, 20:51. FINDINGS: Image quality: Excellent. ABDOMEN: Lung bases: Lung bases are clear. Heart size is normal. Solid organs: Liver is normal in size and enhancement. Gallbladder is unremarkable. Biliary system is non dilated. Pancreas enhances normally. Spleen is normal in size and enhancement. No adrenal nodules. Kidneys demonstrate normal size and enhancement, without hydronephrosis. Peritoneum and bowel: There is a focal hyperdensity present in the region of the fundus of the stomach. There was a similar hyperdensity on the previous study. It may represent a contrast-containing gastric varicosity. Alternatively, it may represent a focus of recurrent gastric hemorrhage. Bowel loops demonstrate normal wall thickness and caliber. Again noted is a diverting colostomy in the left lower quadrant. Mild sigmoid diverticulosis. No evidence of ileus or obstruction. No free fluid or air. Nodes and vessels: No retroperitoneal or mesenteric adenopathy by size criteria. Aorta and inferior vena cava are normal in size. Miscellaneous: No ventral hernias. PELVIS: Genitourinary: Suprapubic bladder catheter. Bladder wall is markedly thickened. Miscellaneous: No inguinal hernias or adenopathy. Bones: No suspicious bony lesions. Numerous old compressions, spanning from T11-L5. IMPRESSION: 1. Question gastric fundal varicosity versus recurrent gastric hemorrhage. Suggest clinical correlation. 2. Normal caliber bowel. No ileus or obstruction. Diverting colostomy. 3. Numerous old compressions. 4. Marked bladder wall thickening, suprapubic catheter in place. Dictated by: Maximus Fox M.D. on 03/07/2019 at 10:08 MDM Narrative Medical decision making narrative: The patient x-ray does show possible ileus. He initially did not want a CT at all he has had multiple CTs including 1 last month when he had sepsis and a UTI. Unfortunately with x-ray he does needed CTs having intense abdominal pain. CT does not show any obstruction or ileus. Patient continues to have pain he does not want any in a more narcotics he has chronic pain syndrome he took all his pain meds this morning. He said he at they just stopped him up more. He takes MiraLax twice a day and Dulcolax that is usually pretty regimented. He is unable to keep any food or liquids down because his pain in his abdomen hurts so bad. He just isn't eating. Blood work does not show sign of infection or dehydration. He is agreeable to try Toradol for pain control. He did drink some fluid but then stated that his abdomen started hurting and was in intense pain. He was given some Ativan. To help with the spasm which did actually help a little bit. He already takes Valium once a day. At this time he does not meet any sort of inpatient for observation criteria. I discussed all findings with the patient , Education has been performed regarding treatment plan, diagnosis, warning signs and symptoms and all concerns have been addressed. Verbally agree with and understood all of the above. Discharge Plan Departure Patient Disposition: Home Clinical Impression: Abdominal pain Qualifiers: Abdominal location: lower abdomen, unspecified Qualified Code(s): R10.30 - Lower abdominal pain, unspecified Discharge Date/Time: 03/07/19 13:49 Instructions: DI for Abdominal Pain-Adult Activity Restrictions/Additional Instructions: *You have been diagnosed with abdominal pain *What to do: At this time no indication for admission to hospital. Blood work is reassuring. Will call with your urine culture if you should need antibiotics wait 2-3 days *Continue to take medications as directed Ketorolac 10 mg every 8 hours only if needed for severe pain sent to [facility] *Follow up with your primary care provider in 2-3 days *Return to ER if you should have increasing pain inability to tolerate fluids persistent vomiting decreased or increased ostomy output or any new, worsening or concerning symptoms Prescriptions: New ketorolac 10 mg tablet 10 mg PO TID PRN (Reason: pain) Qty: 10 RF: 0 No Action oxycodone 10 MG tablet See Rx Instructions .ROUTE .COMPLEX Qty: 0 RF: 0 methadone 5 mg Tablet 5 mg PO 599,2029 Qty: 60 RF: 0 aspirin [Aspirin Low Dose] 81 mg Tablet,Delayed Release (Dr/Ec) 1 tab PO DAILY RF: 0 sertraline 100 mg tablet 100 mg PO DAILY RF: 0 sodium chloride 0.9 % solution 100 - 200 ml Irrigation 5XW RF: 0 baclofen 10 mg tablet 25 mg PO QNOON RF: 0 pantoprazole 40 mg tablet,delayed release (DR/EC) 40 mg PO DAILY RF: 0 oxybutynin chloride 5 mg tablet extended release 24hr 5 mg PO BID RF: 0 baclofen 10 mg tablet 30 mg PO BID RF: 0 cholecalciferol (vitamin D3) [Vitamin D3] 1,000 unit Tablet 1,000 unit PO TID RF: 0 ascorbic acid (vitamin C) [Vitamin C] 500 mg Tablet 1,000 mg PO BEDTIME RF: 0 gabapentin 300 mg capsule 300 mg PO TID RF: 0 diazepam 5 mg tablet 5 mg PO BEDTIME PRN (Reason: Spasms) RF: 0 Referrals: Becca Bolaños MD [Primary Care Provider] -
[2019-03-07 08:12] LABS: Add Manual Diff / Slide Review NO; Basophils Absolute Auto 0 /uL (0-100); Basophils Percent Auto 0.2 % (0-2); Eosinophils Absolute Auto 100 /uL (0-450); Eosinophils Percent Auto 0.9 % (2-4); Hematocrit 38.8 % (41-53); Hemoglobin 13.3 g/dL (13.5-17.5); Lymphocytes Absolute Auto 1100 /uL (1100-4500); Lymphocytes Percent Auto 18.6 % (25-40); Mean Corpuscular HGB Conc 34.2 % (30-36); Mean Corpuscular Volume 81.8 fL (80-100); Monocytes Absolute Auto 400 /uL (0-900); Monocytes Percent Auto 7.3 % (3-14); Neutrophils Absolute Auto 4500 /uL (1500-7000); Platelet Count 103 X10^3/uL (150-400); Red Blood Cell Count 4.75 X10^6/uL (4.5-5.9); Red Cell Distribution Width 14.6 % (11.6-14.8); White Blood Cell Count 6.1 X10^3/uL (4.5-11.0)
[2019-03-07 08:27] LABS: Alanine Aminotransferase 12 IU/L (21-72); Albumin 4.2 g/dL (3.5-5.0); Albumin Globulin Ratio 1.2 (1.0-2.8); Alkaline Phosphatase 82 U/L (38-126); Aspartate Aminotransferase 18 IU/L (17-59); BUN Creatinine Ratio 12.5 (6-22); Bilirubin Total 0.8 mg/dL (0.2-1.3); Blood Urea Nitrogen 5 mg/dL (9-20); Calcium 9.2 mg/dL (8.4-10.2); Carbon Dioxide 29 mmol/L (22-32); Chloride 99 mmol/L (98-107); Estimated Glomerular Filt Rate > 60.0 mL/min (>60); Globulin 3.5 g/dL (1.7-4.1); Glucose 99 mg/dL (70-100); HEMOLYSIS < 15 (0-50); Lipase 25 U/L (23-300); Magnesium 1.6 mg/dL (1.6-2.3); Phosphorous 3.1 mg/dL (2.5-4.5); Potassium 3.5 mmol/L (3.4-5.1); Sodium 138 mmol/L (137-145); Total Protein 7.7 g/dL (6.3-8.2)
[2019-03-07] MEDS: SODIUM CHLORIDE 0.9% 1,000 ML 1000 ML IV (08:39)
[2019-03-07] MEDS: PANTOPRAZOLE 40 MG VIAL IV (08:39)
[2019-03-07 08:52] LABS: RBC Urine None Seen (0-5/HPF)
[2019-03-07 08:55] LABS: Appearance Urine UA CLEAR; Bilirubin Urine UA NEGATIVE (NEGATIVE); Glucose Urine UA NEGATIVE (Negative); Ketones Urine UA 1+ (NEGATIVE); Leukocyte Esterase Urine UA 1+ (NEGATIVE); Nitrite Urine UA POSITIVE (Negative); Occult Blood Urine UA TRACE-INTACT (Negative); Protein Urine UA NEGATIVE (Negative); Specific Gravity Urine UA <=1.005 (1.000-1.035); Urobilinogen Urine UA 0.2 E.U./dL (0.2); pH Urine UA 7.5 (4.5-8.0)
[2019-03-07 09:01] LABS: Color Urine UA Straw
[2019-03-07 09:14] LABS: Bacteria Urine Many (>30); Squamous Epithelial Cell Urine 0-1 /HPF (0-5/HPF); WBC Urine 0-1/HPF (0-5/HPF)
[2019-03-07 09:15] LABS: Culture Indicated Urine Specimen Cultured
[2019-03-07] MEDS: SODIUM CHLORIDE 0.9% 1,000 ML 200 ML IV (09:42)
--- NOTE | 2019-03-07 09:57 | DI.CT.S_ITS ---
PROCEDURE: CT ABDOMEN PELVIS W CON INDICATIONS: ileus on xray with intense pain TECHNIQUE: After the administration of intravenous contrast, 5 mm thick sections acquired from the diaphragm to the symphysis. 5 mm coronal and sagittal reformats were acquired. For radiation dose reduction, the following was used: automated exposure control, adjustment of mA and/or kV according to patient size. COMPARISON: [facility], CT, CT ABDOMEN PELVIS W CON, 02/04/2019, 20:51. FINDINGS: Image quality: Excellent. ABDOMEN: Lung bases: Lung bases are clear. Heart size is normal. Solid organs: Liver is normal in size and enhancement. Gallbladder is unremarkable. Biliary system is non dilated. Pancreas enhances normally. Spleen is normal in size and enhancement. No adrenal nodules. Kidneys demonstrate normal size and enhancement, without hydronephrosis. Peritoneum and bowel: There is a focal hyperdensity present in the region of the fundus of the stomach. There was a similar hyperdensity on the previous study. It may represent a contrast-containing gastric varicosity. Alternatively, it may represent a focus of recurrent gastric hemorrhage. Bowel loops demonstrate normal wall thickness and caliber. Again noted is a diverting colostomy in the left lower quadrant. Mild sigmoid diverticulosis. No evidence of ileus or obstruction. No free fluid or air. Nodes and vessels: No retroperitoneal or mesenteric adenopathy by size criteria. Aorta and inferior vena cava are normal in size. Miscellaneous: No ventral hernias. PELVIS: Genitourinary: Suprapubic bladder catheter. Bladder wall is markedly thickened. Miscellaneous: No inguinal hernias or adenopathy. Bones: No suspicious bony lesions. Numerous old compressions, spanning from T11-L5. IMPRESSION: 1. Question gastric fundal varicosity versus recurrent gastric hemorrhage. Suggest clinical correlation. 2. Normal caliber bowel. No ileus or obstruction. Diverting colostomy. 3. Numerous old compressions. 4. Marked bladder wall thickening, suprapubic catheter in place. Dictated by: Maximus Fox M.D. on 03/07/2019 at 10:08 Approved by: Maximus Fox M.D. on 03/07/2019 at 10:17
[2019-03-07] MEDS: KETOROLAC 60 MG/2 ML VIAL 30 MG IV (10:53)
--- NOTE | 2019-03-07 12:46 | PC.NURSE ---
Patient reports he drank a tiny bit of water and now my guts feel like they are going to explode. Patient appears very anxious and is pressing his right side of his abdomen with his hand. Dr. Torres aware and will come see patient. NWEtienne ETA 1330.
[2019-03-07] MEDS: LORazepam 2 MG/ML INJ 1 MG IV (12:58)
== END 2019-03-07 13:49 | disposition home or self-care (01) ==
PROVIDERS: Emergency Provider Emergency Medicine; PCP Internal Medicine
DX: R10.30 Lower abdominal pain, unspecified (principal)
CPT/HCPCS: 36415; 74019; 74177; 80053; 81001; 83605; 83690; 83735; 84100; 85025; 87040; 87077; 87086; 87186; 96361; 96374; 96375; 99285; C9113; J1885; J2060; Q9967

== ENCOUNTER → 2019-03-12 12:53 | Outpatient (ROUT) | payer OTHER, MEDICAID, SELFPAY ==
[2019-02-05 01:00] VITALS: BMI 25.7
[2019-03-12 13:05] LABS: Add Manual Diff / Slide Review NO; Basophils Absolute Auto 0 /uL (0-100); Basophils Percent Auto 0.4 % (0-2); Eosinophils Absolute Auto 100 /uL (0-450); Hematocrit 36.2 % (41-53); Lymphocytes Absolute Auto 1200 /uL (1100-4500); Lymphocytes Percent Auto 21.9 % (25-40); Mean Corpuscular HGB Conc 33.2 % (30-36); Mean Corpuscular Hemoglobin 27.7 PG (26-34); Mean Corpuscular Volume 83.5 fL (80-100); Monocytes Absolute Auto 500 /uL (0-900); Monocytes Percent Auto 8.6 % (3-14); Neutrophils Absolute Auto 3600 /uL (1500-7000); Neutrophils Percent Auto 67.1 % (50-75); Platelet Count 107 X10^3/uL (150-400); Red Blood Cell Count 4.34 X10^6/uL (4.5-5.9); Red Cell Distribution Width 14.7 % (11.6-14.8); White Blood Cell Count 5.3 X10^3/uL (4.5-11.0)
[2019-03-12 13:14] LABS: BUN Creatinine Ratio 16.7 (6-22); Blood Urea Nitrogen 5 mg/dL (9-20); Calcium 8.6 mg/dL (8.4-10.2); Carbon Dioxide 33 mmol/L (22-32); Chloride 99 mmol/L (98-107); Estimated Glomerular Filt Rate > 60.0 mL/min (>60); Glucose 107 mg/dL (70-100); HEMOLYSIS < 15 (0-50); Magnesium 1.8 mg/dL (1.6-2.3); Potassium 3.3 mmol/L (3.4-5.1); Sodium 140 mmol/L (137-145)
== END ==
PROVIDERS: PCP Internal Medicine; Visit Provider Internal Medicine
DX: R53.1 Weakness (principal)
CPT/HCPCS: 80048; 83735; 85025

== ENCOUNTER 2019-04-29 19:46 | Emergency (ER) | payer OTHER, MEDICAID, SELFPAY ==
[2019-02-05 01:00] VITALS: BMI 25.7
[2019-04-29 19:47] VITALS: BP 122/85; PULSE 79; RESP 20; TEMP 36.6; O2SAT 98
--- NOTE | 2019-04-29 19:53 | ED_ITS ---
HPI - Abdominal Pain General Chief Complaint: Abdominal Pain Stated Complaint: Abd Pain Time Seen by Provider: 04/29/19 19:49 Source: patient and EMS Mode of arrival: EMS Limitations: no limitations History of Present Illness HPI narrative: This is a 43-year-old male comes to the emergency department complaint of abdominal pain. Patient states that he has been having pain for several days, sort of started on the left side of his abdomen but radiates over to the other side also radiates towards his back at times. I states sometimes it radiates down towards the general region even up towards the epigastric area. He denies any fevers or chills. He denies any nausea and/or vomiting. He denies any chest pain or shortness of breath. He has had liquidy stool through his colostomy. He states it is been constant. He states this is a normal he usually has stool that is more formed and intermittent. He has not appreciated any black or blood in his stool. He states he has had a history of C diff in the past. He also has a chronic indwelling Rodas in states that he has not appreciated any new changes. He does have colonization with bacteria. Patient has had abdominal pain in the past but not chronically. He is a quadriplegic and lives at home with his parents who are his main caregivers. Related Data Home Medications Medication Instructions Recorded Confirmed oxycodone See Rx Instructions .ROUTE 07/05/17 02/05/19 .COMPLEX #0 aspirin [Aspirin Low Dose] 1 tab PO DAILY 02/27/18 02/05/19 ascorbic acid (vitamin C) [Vitamin 1,000 mg PO BEDTIME 06/10/18 02/05/19 C] baclofen 25 mg PO QNOON 06/10/18 02/05/19 baclofen 30 mg PO BID 06/10/18 02/05/19 cholecalciferol (vitamin D3) 1,000 unit PO TID 06/10/18 02/05/19 [Vitamin D3] gabapentin 300 mg PO TID 06/10/18 02/05/19 oxybutynin chloride 5 mg PO BID 06/10/18 02/05/19 pantoprazole 40 mg PO DAILY 06/10/18 02/05/19 sertraline 100 mg PO DAILY 06/10/18 02/04/19 sodium chloride 100 - 200 ml IRRIGATION 5XW 06/10/18 02/04/19 diazepam 5 mg PO BEDTIME PRN 01/01/19 02/05/19 Previous Rx's Medication Instructions Recorded methadone 5 mg PO 0600,2030 #60 tab 11/19/17 ketorolac 10 mg PO TID PRN #10 tab 03/07/19 Allergies Allergy/AdvReac Type Severity Reaction Status Date / Time ondansetron [ONDANSETRON] AdvReac Intermediate PAIN, Verified 04/29/19 19:48 ITCHING, ERYTHEMA AT INJECTION SITE Review of Systems Review of Systems ROS Unobtainable: All systems reviewed & are unremarkable except as noted in HPI and below Patient History Medical History Autonomic dysreflexia (Acute) C. difficile colitis (Acute) Chronic pain syndrome (Acute) History of trauma to spine (Acute) Incomplete quadriplegia due to spinal cord lesion between fifth and seventh ce rvical vertebra (10/22/15) Mixed anxiety depressive disorder (06/29/15) Obstipation (Acute) Uncomplicated opioid dependence (Acute) Surgical History History of colonoscopy (Acute) History of creation of ostomy (Acute) Social History household members: family Smoking Status: Current every day smoker alcohol intake: never alcohol intake frequency: 0-2 drinks per day Substance Use Type: marijuana Exam Initial Vital Signs Initial Vital Signs: Vital Signs Temperature 97.9 F 04/29/19 19:47 Pulse Rate 79 04/29/19 19:47 Respiratory Rate 20 04/29/19 19:47 Blood Pressure 122/85 04/29/19 19:47 Pulse Oximetry 98 04/29/19 19:47 GEN: well nourished, well appearing male, alert and oriented x 3, patient appears to be in moderate distress. HEENT: Atraumatic, pupils are equal round reactive to light, extraocular movements are intact, nares are clear, moist mucous membranes. HEART: Regular rate and rhythm without murmur, clicks, rubs. LUNGS:Lungs clear to auscultation, no wheezes, rales, crackles, chest moves symmetrically, no tachypnea or accessory muscle use. ABD:bowel sounds normal, soft, no guarding, rebound, rigidity, no masses noted, no hepatosplenomegaly, patient is mildly tender to palpation which is generalized. Patient has colostomy left lower quadrant with brownish liquidy stool. No melena or bright red blood. :No CVA tenderness, Rodas catheter is in place and draining yellow urine. MSCL: Non-tender, no muscle atrophy, muscles strength 5/5 upper and lower extremities, full range of motion, normal gait NEURO:CN 2-12 intact, patient has no movement of lower extremities he does have protective heel apparatus on both ankles to prevent skin breakdown and contractures. Patient does have contractures of his hands but does have use of his hands. He does have moderate use of his upper extremities Course Orders Ordered: ED Orders 04/29/19 19:52 Clostridium Difficile Tox PCR Stat Complete Blood Count AUTO DIFF Stat Comprehensive Metabolic Panel Stat Lactate (Lactic Acid) Stat Lipase Stat Procalcitonin Stat Stool Culture Stat 04/29/19 20:14 Blood Culture Stat 04/29/19 21:00 Urinalysis and Microscopic Stat 04/29/19 23:43 Urine Culture Stat Sodium Chloride (Normal Saline 0.9%) 1,000 mls @ 150 mls/hr IV CONT ROSA Last Infusion: 04/30/19 00:19 Dose: 0 mls/hr Documented by: Admin: 04/29/19 22:14 Dose: 150 mls/hr Documented by: TE Discontinued Medications Dicyclomine HCl (Bentyl) 20 mg PO NOW ONE Stop: 04/29/19 19:56 Last Admin: 04/29/19 20:14 Dose: 20 mg Documented by: TE Sodium Chloride (Normal Saline 0.9%) 1,000 mls @ 1,000 mls/hr IV BOLUS ONE Stop: 04/29/19 20:51 Last Infusion: 04/29/19 21:38 Dose: 0 mls/hr Documented by: Admin: 04/29/19 20:13 Dose: 1,000 mls/hr Documented by: TE Vital Signs Vital signs: Vital Signs - 8 hr 04/29/19 19:47 04/29/19 23:30 04/30/19 00:14 Temperature 97.9 F Pulse Rate 79 70 78 Respiratory Rate 20 18 16 Blood Pressure 122/85 Blood Pressure [Left Arm] 100/68 112/67 Pulse Oximetry 98 95 98 MDM - Abdominal Pain Lab Data Attestation: I reviewed the patient's lab results. Result diagrams: 04/29/19 19:52 04/29/19 19:52 Labs: Lab Results 04/29/19 04/29/19 04/29/19 Range/Units 19:52 19:52 19:52 WBC 6.0 (4.5-11.0) X10^3/uL RBC 4.86 (4.5-5.9) X10^6/uL Hgb 13.9 (13.5-17.5) g/dL Hct 39.5 L (41-53) % MCV 81.3 (80-100) fL MCH 28.7 (26-34) PG MCHC 35.3 (30-36) % RDW 14.9 H (11.6-14.8) % Plt Count 124 L (150-400) X10^3/uL Neut % (Auto) 62.4 (50-75) % Lymph % (Auto) 26.4 (25-40) % [place] % (Auto) 8.9 (3-14) % Eos % (Auto) 1.8 L (2-4) % Baso % (Auto) 0.5 (0-2) % Neut # (Auto) 3700 (7521-7848) /uL Lymph # (Auto) 1600 (3155-7443) /uL [place] # (Auto) 500 (0-900) /uL Eos # (Auto) 100 (0-450) /uL Baso # (Auto) 0 (0-100) /uL Sodium (137-145) mmol/L Potassium (3.4-5.1) mmol/L Chloride (98-107) mmol/L Carbon Dioxide (22-32) mmol/L BUN (9-20) mg/dL Creatinine (0.66-1.25) mg/dL Estimated GFR (>60) mL/min BUN/Creatinine Ratio (6-22) Glucose (70-100) mg/dL Lactate 0.7 (0.7-2.1) mmol/L Calcium (8.4-10.2) mg/dL Total Bilirubin (0.2-1.3) mg/dL AST (17-59) IU/L ALT (<50) IU/L Alkaline Phosphatase (38-126) U/L Total Protein (6.3-8.2) g/dL Albumin (3.5-5.0) g/dL Globulin (1.7-4.1) g/dL Albumin/Globulin Ratio (1.0-2.8) Lipase (23-300) U/L Procalcitonin < 0.05 (<0.5) ng/mL Urine Color Urine Appearance Urine pH (4.5-8.0) Ur Specific [place] (1.000-1.035) Urine Protein (Negative) Urine Glucose (UA) (Negative) g/dL Urine Ketones (NEGATIVE) Urine Occult Blood (Negative) Urine Nitrate (Negative) Urine Bilirubin (NEGATIVE) Urine Urobilinogen (0.2) E.U./dL Ur Leukocyte Esterase (NEGATIVE) Urine RBC (0-5/HPF) Urine WBC (0-5/HPF) Ur Squamous Epith Cells (0-5/HPF) Calcium Oxalate Crystal Amorphous Sediment Urine Bacteria (None) Ur Culture Indicated? C. difficile Tox (PCR) 04/29/19 04/29/19 04/29/19 Range/Units 19:52 19:52 21:00 WBC (4.5-11.0) X10^3/uL RBC (4.5-5.9) X10^6/uL Hgb (13.5-17.5) g/dL Hct (41-53) % MCV (80-100) fL MCH (26-34) PG MCHC (30-36) % RDW (11.6-14.8) % Plt Count (150-400) X10^3/uL Neut % (Auto) (50-75) % Lymph % (Auto) (25-40) % [place] % (Auto) (3-14) % Eos % (Auto) (2-4) % Baso % (Auto) (0-2) % Neut # (Auto) (4223-9378) /uL Lymph # (Auto) (1472-0876) /uL [place] # (Auto) (0-900) /uL Eos # (Auto) (0-450) /uL Baso # (Auto) (0-100) /uL Sodium 138 (137-145) mmol/L Potassium 3.6 (3.4-5.1) mmol/L Chloride 100 (98-107) mmol/L Carbon Dioxide 31 (22-32) mmol/L BUN 7 L (9-20) mg/dL Creatinine 0.40 L (0.66-1.25) mg/dL Estimated GFR > 60.0 (>60) mL/min BUN/Creatinine Ratio 17.5 (6-22) Glucose 91 (70-100) mg/dL Lactate (0.7-2.1) mmol/L Calcium 9.3 (8.4-10.2) mg/dL Total Bilirubin 0.6 (0.2-1.3) mg/dL AST 19 (17-59) IU/L ALT 11 (<50) IU/L Alkaline Phosphatase 68 (38-126) U/L Total Protein 7.5 (6.3-8.2) g/dL Albumin 4.2 (3.5-5.0) g/dL Globulin 3.3 (1.7-4.1) g/dL Albumin/Globulin Ratio 1.3 (1.0-2.8) Lipase 29 (23-300) U/L Procalcitonin (<0.5) ng/mL Urine Color Yellow Urine Appearance Clear Urine pH 7.0 (4.5-8.0) Ur Specific [place] <=1.005 (1.000-1.035) Urine Protein Negative (Negative) Urine Glucose (UA) Negative (Negative) g/dL Urine Ketones Negative (NEGATIVE) Urine Occult Blood Trace-lysed (Negative) Urine Nitrate Negative (Negative) Urine Bilirubin Negative (NEGATIVE) Urine Urobilinogen 0.2 (0.2) E.U./dL Ur Leukocyte Esterase Trace H (NEGATIVE) Urine RBC 0-1/hpf (0-5/HPF) Urine WBC 0-1/hpf (0-5/HPF) Ur Squamous Epith Cells 0-1 /hpf (0-5/HPF) Calcium Oxalate Crystal Occasional H Amorphous Sediment 1+ Urine Bacteria None seen (None) Ur Culture Indicated? Cult not indicated C. difficile Tox (PCR) Negative for c. diff MDM Narrative Medical decision making narrative: Patient I discussed her like to do CT of abdomen pelvis secondary is pain with his history of cost me an increase in pain from normal. Patient defers secondary to radiation risks. Rest us to x-ray but he states that usually positive looks like an obstruction get a CT scan of that negative. Patient and I did do lab work, we reviewed his labs which do not show leukocytosis, his hemoglobin is normal crit is consistent with priors. RDW is 14.9, patient's BUN is with creatinine 0.4 normal electrolytes and normal LFTs. Patient's procalcitonin is negative. urine shows trace leukocyte esterase and was sent for culture. Patient has had C diff in past and states his stool has been changed so we did PCR C diff which was negative, patient discussed doing a stool culture and would like to so this was ordered and is pending. I discussed with patient continues to have pain he has deferred any pain medications. He h as been afebrile after discussion he likes to return home with plan for strict return precautions. We will wait for cultures and contact patient if these are positive. patient is comfortable with this plan. Discharge Plan Departure Patient Disposition: Home Clinical Impression: Abdominal pain Instructions: DI for Abdominal Pain-Adult Activity Restrictions/Additional Instructions: Follow-up with primary care in the next several days for recheck. You may continue home medications as prescribed. Stool culture and urine culture are pending and should be resulted in 48-72 hours. If positive he should expect a phone call. As we have elected not to get imaging today if you are having worsening symptoms, fevers, vomiting, black or bloody stool in your colostomy, distention of her abdomen or lack of output from her colostomy return to the emergency department. Prescriptions: No Action oxycodone 10 MG tablet See Rx Instructions .ROUTE .COMPLEX Qty: 0 RF: 0 methadone 5 mg Tablet 5 mg PO 0600,2030 Qty: 60 RF: 0 ketorolac 10 mg tablet 10 mg PO TID PRN (Reason: pain) Qty: 10 RF: 0 aspirin [Aspirin Low Dose] 81 mg Tablet,Delayed Release (Dr/Ec) 1 tab PO DAILY RF: 0 sertraline 100 mg tablet 100 mg PO DAILY RF: 0 sodium chloride 0.9 % solution 100 - 200 ml Irrigation 5XW RF: 0 baclofen 10 mg tablet 25 mg PO QNOON RF: 0 pantoprazole 40 mg tablet,delayed release (DR/EC) 40 mg PO DAILY RF: 0 oxybutynin chloride 5 mg tablet extended release 24hr 5 mg PO BID RF: 0 baclofen 10 mg tablet 30 mg PO BID RF: 0 cholecalciferol (vitamin D3) [Vitamin D3] 1,000 unit Tablet 1,000 unit PO TID RF: 0 ascorbic acid (vitamin C) [Vitamin C] 500 mg Tablet 1,000 mg PO BEDTIME RF: 0 gabapentin 300 mg capsule 300 mg PO TID RF: 0 diazepam 5 mg tablet 5 mg PO BEDTIME PRN (Reason: Spasms) RF: 0 Referrals: Becca Bolaños MD [Primary Care Provider] -
[2019-04-29 20:07] LABS: Add Manual Diff / Slide Review NO; Basophils Absolute Auto 0 /uL (0-100); Basophils Percent Auto 0.5 % (0-2); Eosinophils Absolute Auto 100 /uL (0-450); Eosinophils Percent Auto 1.8 % (2-4); Hematocrit 39.5 % (41-53); Hemoglobin 13.9 g/dL (13.5-17.5); Lymphocytes Absolute Auto 1600 /uL (1100-4500); Lymphocytes Percent Auto 26.4 % (25-40); Mean Corpuscular HGB Conc 35.3 % (30-36); Mean Corpuscular Hemoglobin 28.7 PG (26-34); Mean Corpuscular Volume 81.3 fL (80-100); Monocytes Absolute Auto 500 /uL (0-900); Monocytes Percent Auto 8.9 % (3-14); Neutrophils Absolute Auto 3700 /uL (1500-7000); Neutrophils Percent Auto 62.4 % (50-75); Platelet Count 124 X10^3/uL (150-400); Red Blood Cell Count 4.86 X10^6/uL (4.5-5.9); Red Cell Distribution Width 14.9 % (11.6-14.8)
[2019-04-29] MEDS: SODIUM CHLORIDE 0.9% 1,000 ML 1000 ML IV (20:13)
[2019-04-29] MEDS: DICYCLOMINE 10 MG CAPSULE 20 MG PO (20:14)
[2019-04-29 20:18] LABS: Lactate (Lactic Acid) 0.7 mmol/L (0.7-2.1)
[2019-04-29 20:23] LABS: Alanine Aminotransferase 11 IU/L (<50); Albumin 4.2 g/dL (3.5-5.0); Albumin Globulin Ratio 1.3 (1.0-2.8); Alkaline Phosphatase 68 U/L (38-126); Aspartate Aminotransferase 19 IU/L (17-59); BUN Creatinine Ratio 17.5 (6-22); Bilirubin Total 0.6 mg/dL (0.2-1.3); Blood Urea Nitrogen 7 mg/dL (9-20); Calcium 9.3 mg/dL (8.4-10.2); Carbon Dioxide 31 mmol/L (22-32); Chloride 100 mmol/L (98-107); Estimated Glomerular Filt Rate > 60.0 mL/min (>60); Globulin 3.3 g/dL (1.7-4.1); Glucose 91 mg/dL (70-100); HEMOLYSIS < 15 (0-50); Lipase 29 U/L (23-300); Potassium 3.6 mmol/L (3.4-5.1); Sodium 138 mmol/L (137-145); Total Protein 7.5 g/dL (6.3-8.2)
[2019-04-29 20:43] LABS: Procalcitonin < 0.05 ng/mL (<0.5)
[2019-04-29 21:08] LABS: Bacteria Urine None Seen
[2019-04-29 21:09] LABS: Appearance Urine UA CLEAR; Bilirubin Urine UA NEGATIVE (NEGATIVE); Color Urine UA YELLOW; Glucose Urine UA NEGATIVE (Negative); Ketones Urine UA NEGATIVE (NEGATIVE); Leukocyte Esterase Urine UA TRACE (NEGATIVE); Nitrite Urine UA NEGATIVE (Negative); Occult Blood Urine UA TRACE-LYSED (Negative); Protein Urine UA NEGATIVE (Negative); Specific Gravity Urine UA <=1.005 (1.000-1.035); Urobilinogen Urine UA 0.2 E.U./dL (0.2)
[2019-04-29 21:11] LABS: Clostridium Difficile Tox PCR Negative for C. diff
[2019-04-29 21:20] LABS: Amorphous Sediment Urine 1+; Calcium Oxalate Crystals Urine Occasional; Culture Indicated Urine Cult Not Indicated; RBC Urine 0-1/HPF (0-5/HPF); Squamous Epithelial Cell Urine 0-1 /HPF (0-5/HPF); WBC Urine 0-1/HPF (0-5/HPF)
[2019-04-29] MEDS: SODIUM CHLORIDE 0.9% 1,000 ML 150 ML IV (22:14)
[2019-04-29 23:30] VITALS: BP 100/68; PULSE 70; RESP 18; O2SAT 95
[2019-04-30 00:14] VITALS: BP 112/67; PULSE 78; RESP 16; O2SAT 98
--- NOTE | 2019-04-30 00:16 | PC.NURSE ---
DR Holloway notified of his elevated b/p.
== END 2019-04-30 00:15 | disposition home or self-care (01) ==
PROVIDERS: Emergency Provider Emergency Medicine; PCP Internal Medicine
DX: R10.9 Unspecified abdominal pain (principal)
CPT/HCPCS: 36415; 80053; 81001; 83605; 83690; 84145; 85025; 87040; 87045; 87493; 87899; 96360; 96361; 99283; 99284

== ENCOUNTER → 2019-05-30 11:09 | Outpatient (ROUT) | payer OTHER, MEDICAID, SELFPAY ==
[2019-02-05 01:00] VITALS: BMI 25.7
[2019-05-30 11:36] LABS: Add Manual Diff / Slide Review NO; Basophils Absolute Auto 0 /uL (0-100); Basophils Percent Auto 0.4 % (0-2); Eosinophils Absolute Auto 100 /uL (0-450); Eosinophils Percent Auto 2.1 % (2-4); Hematocrit 39.1 % (41-53); Hemoglobin 13.4 g/dL (13.5-17.5); Lymphocytes Absolute Auto 1600 /uL (1100-4500); Lymphocytes Percent Auto 26.9 % (25-40); Mean Corpuscular HGB Conc 34.3 % (30-36); Mean Corpuscular Volume 81.8 fL (80-100); Monocytes Absolute Auto 400 /uL (0-900); Monocytes Percent Auto 7.4 % (3-14); Neutrophils Absolute Auto 3700 /uL (1500-7000); Neutrophils Percent Auto 63.2 % (50-75); Platelet Count 118 X10^3/uL (150-400); Red Blood Cell Count 4.79 X10^6/uL (4.5-5.9); Red Cell Distribution Width 14.8 % (11.6-14.8); White Blood Cell Count 5.9 X10^3/uL (4.5-11.0)
[2019-05-30 11:52] LABS: Blood Urea Nitrogen 10 mg/dL (9-20); Carbon Dioxide 32 mmol/L (22-32); Chloride 100 mmol/L (98-107); Estimated Glomerular Filt Rate > 60.0 mL/min (>60); Glucose 94 mg/dL (70-100); HEMOLYSIS < 15 (0-50); Potassium 3.9 mmol/L (3.4-5.1); Sodium 139 mmol/L (137-145)
[2019-05-30 12:23] LABS: TSH w/ Reflex to FT4 0.83 uIU/mL (0.47-4.68)
[2019-05-30 12:42] LABS: Vitamin B12 447 pg/mL (239-931)
[2019-06-02 17:44] LABS: Sex Hormone Binding Globulin 51 nmol/L (10-50); Testosterone, Bioavailable 78.6 ng/dL (110.0-575.0); Testosterone, Total 458 ng/dL (250-1100); Testosterone,Free 42.7 pg/mL (46.0-224.0)
== END ==
PROVIDERS: PCP Internal Medicine; Visit Provider Internal Medicine
DX: R53.82 Chronic fatigue, unspecified (principal)
CPT/HCPCS: 80048; 82040; 82607; 84270; 84403; 84443; 85025

== ENCOUNTER → 2019-08-29 16:05 | Outpatient (CLI) | payer OTHER, MEDICAID, SELFPAY ==
[2019-02-05 01:00] VITALS: BMI 25.7
[2019-08-29 16:37] LABS: Appearance Urine UA CLOUDY; Bilirubin Urine UA NEGATIVE (NEGATIVE); Color Urine UA YELLOW; Glucose Urine UA NEGATIVE (Negative); Ketones Urine UA NEGATIVE (NEGATIVE); Leukocyte Esterase Urine UA 3+ (NEGATIVE); Nitrite Urine UA POSITIVE (Negative); Occult Blood Urine UA 2+ (Negative); Protein Urine UA NEGATIVE (Negative); Specific Gravity Urine UA 1.015 (1.000-1.035); Urobilinogen Urine UA 0.2 E.U./dL (0.2); pH Urine UA 6.5 (4.5-8.0)
[2019-08-29 16:43] LABS: RBC Urine 5-10/HPF (0-5/HPF)
[2019-08-29 16:44] LABS: Amorphous Sediment Urine 1+; Bacteria Urine Few (2-10); Mucus Urine 1+ (Negative); Squamous Epithelial Cell Urine 1-5 /HPF (0-5/HPF); Transitional Epi Cells Urine 1-5/HPF (0-5/HPF); WBC Urine 30-100/HPF (0-5/HPF)
== END ==
PROVIDERS: PCP Internal Medicine; Referring Provider Internal Medicine; Visit Provider Internal Medicine
DX: G82.50 Quadriplegia, unspecified (principal)
CPT/HCPCS: 81001; 87077; 87086; 87186

== ENCOUNTER → 2019-09-19 12:21 | Outpatient (CLI) | payer OTHER, MEDICAID, SELFPAY ==
[2019-02-05 01:00] VITALS: BMI 25.7
[2019-09-19 13:07] LABS: Appearance Urine UA CLEAR; Bilirubin Urine UA NEGATIVE (NEGATIVE); Color Urine UA YELLOW; Glucose Urine UA NEGATIVE (Negative); Ketones Urine UA NEGATIVE (NEGATIVE); Leukocyte Esterase Urine UA 3+ (NEGATIVE); Nitrite Urine UA NEGATIVE (Negative); Occult Blood Urine UA 1+ (Negative); Protein Urine UA NEGATIVE (Negative); Specific Gravity Urine UA <=1.005 (1.000-1.035); Urobilinogen Urine UA 0.2 E.U./dL (0.2)
[2019-09-19 13:35] LABS: RBC Urine 0-1/HPF (0-5/HPF); Squamous Epithelial Cell Urine 0-1 /HPF (0-5/HPF); WBC Urine 5-10/HPF (0-5/HPF)
[2019-09-19 13:36] LABS: Bacteria Urine Moderate (10-30)
== END ==
PROVIDERS: PCP Internal Medicine; Referring Provider Internal Medicine; Visit Provider Internal Medicine
DX: N39.0 Urinary tract infection, site not specified (principal)
CPT/HCPCS: 81001; 87077; 87086; 87186

== ENCOUNTER → 2019-10-10 11:57 | Outpatient (ROUT) | payer OTHER, MEDICAID, SELFPAY ==
[2019-02-05 01:00] VITALS: BMI 25.7
[2019-10-10 12:02] LABS: Appearance Urine UA CLEAR; Bilirubin Urine UA NEGATIVE (NEGATIVE); Color Urine UA YELLOW; Glucose Urine UA NEGATIVE (Negative); Ketones Urine UA NEGATIVE (NEGATIVE); Leukocyte Esterase Urine UA 3+ (NEGATIVE); Nitrite Urine UA NEGATIVE (Negative); Occult Blood Urine UA 3+ (Negative); Protein Urine UA NEGATIVE (Negative); Specific Gravity Urine UA <=1.005 (1.000-1.035); Urobilinogen Urine UA 0.2 E.U./dL (0.2)
[2019-10-10 12:46] LABS: Amorphous Sediment Urine 1+; Bacteria Urine Many (>30); Culture Indicated Urine Specimen Cultured; RBC Urine 5-10/HPF (0-5/HPF); Squamous Epithelial Cell Urine 0-1 /HPF (0-5/HPF); WBC Urine 5-10/HPF (0-5/HPF)
== END ==
PROVIDERS: PCP Internal Medicine; Visit Provider Internal Medicine
DX: N39.0 Urinary tract infection, site not specified (principal)
CPT/HCPCS: 81001; 87077; 87086; 87186

== ENCOUNTER → 2019-10-30 13:29 | Outpatient (ROUT) | payer OTHER, MEDICAID, SELFPAY ==
[2019-02-05 01:00] VITALS: BMI 25.7
[2019-10-30 14:08] LABS: Add Manual Diff / Slide Review NO; Basophils Absolute Auto 0 /uL (0-100); Basophils Percent Auto 0.3 % (0-2); Eosinophils Absolute Auto 100 /uL (0-450); Eosinophils Percent Auto 1.9 % (2-4); Hematocrit 37.7 % (41-53); Lymphocytes Absolute Auto 1200 /uL (1100-4500); Lymphocytes Percent Auto 23.4 % (25-40); Mean Corpuscular HGB Conc 34.3 % (30-36); Mean Corpuscular Hemoglobin 28.7 PG (26-34); Mean Corpuscular Volume 83.6 fL (80-100); Monocytes Absolute Auto 400 /uL (0-900); Monocytes Percent Auto 7.6 % (3-14); Neutrophils Absolute Auto 3300 /uL (1500-7000); Neutrophils Percent Auto 66.8 % (50-75); Platelet Count 106 X10^3/uL (150-400); Red Blood Cell Count 4.51 X10^6/uL (4.5-5.9); Red Cell Distribution Width 14.1 % (11.6-14.8)
[2019-10-30 14:37] LABS: Appearance Urine UA CLEAR; Bilirubin Urine UA NEGATIVE (NEGATIVE); Color Urine UA YELLOW; Glucose Urine UA NEGATIVE (Negative); Ketones Urine UA NEGATIVE (NEGATIVE); Leukocyte Esterase Urine UA 2+ (NEGATIVE); Nitrite Urine UA NEGATIVE (Negative); Occult Blood Urine UA 3+ (Negative); Protein Urine UA NEGATIVE (Negative); Specific Gravity Urine UA <=1.005 (1.000-1.035); Urobilinogen Urine UA 0.2 E.U./dL (0.2); pH Urine UA 6.5 (4.5-8.0)
[2019-10-30 14:57] LABS: Bacteria Urine Few (2-10); Culture Indicated Urine Specimen Cultured; RBC Urine 5-10/HPF (0-5/HPF); WBC Urine 5-10/HPF (0-5/HPF)
[2019-10-30 16:47] LABS: Alanine Aminotransferase 11 IU/L (<50); Albumin 3.8 g/dL (3.5-5.0); Albumin Globulin Ratio 1.3 (1.0-2.8); Alkaline Phosphatase 59 U/L (38-126); Amylase 34 U/L (30-110); Aspartate Aminotransferase 18 IU/L (17-59); BUN Creatinine Ratio 17.5 (6-22); Bilirubin Total 0.3 mg/dL (0.2-1.3); Blood Urea Nitrogen 7 mg/dL (9-20); Calcium 8.9 mg/dL (8.4-10.2); Carbon Dioxide 29 mmol/L (22-32); Chloride 99 mmol/L (98-107); Estimated Glomerular Filt Rate > 60.0 mL/min (>60); Glucose 121 mg/dL (70-100); HEMOLYSIS < 15 (0-50); Lipase 25 U/L (23-300); Potassium 3.7 mmol/L (3.4-5.1); Sodium 137 mmol/L (137-145); Total Protein 6.8 g/dL (6.3-8.2)
== END ==
PROVIDERS: PCP Internal Medicine; Visit Provider Internal Medicine
DX: R10.12 Left upper quadrant pain (principal); E56.9 Vitamin deficiency, unspecified; N39.0 Urinary tract infection, site not specified
CPT/HCPCS: 80053; 81001; 82150; 82306; 83690; 85025; 87077; 87086; 87186

== ENCOUNTER → 2019-11-10 15:08 | Outpatient (CLI) | payer OTHER, MEDICAID, SELFPAY ==
[2019-02-05 01:00] VITALS: BMI 25.7
[2019-11-10 16:07] LABS: Appearance Urine UA CLEAR; Bilirubin Urine UA NEGATIVE (NEGATIVE); Color Urine UA YELLOW; Glucose Urine UA NEGATIVE (Negative); Ketones Urine UA NEGATIVE (NEGATIVE); Leukocyte Esterase Urine UA 2+ (NEGATIVE); Nitrite Urine UA POSITIVE (Negative); Occult Blood Urine UA TRACE-INTACT (Negative); Protein Urine UA NEGATIVE (Negative); Specific Gravity Urine UA 1.025 (1.000-1.035); Urobilinogen Urine UA 0.2 E.U./dL (0.2)
[2019-11-10 16:36] LABS: RBC Urine 0-1/HPF (0-5/HPF)
[2019-11-10 16:37] LABS: Amorphous Sediment Urine 1+; Bacteria Urine Moderate (10-30); Culture Indicated Urine Specimen Cultured; Mucus Urine 1+ (Negative); Squamous Epithelial Cell Urine 1-5 /HPF (0-5/HPF); WBC Urine 10-30/HPF (0-5/HPF)
== END ==
PROVIDERS: PCP Internal Medicine; Referring Provider Internal Medicine; Visit Provider Internal Medicine
DX: R10.9 Unspecified abdominal pain (principal)
CPT/HCPCS: 81001; 87077; 87086; 87186

== ENCOUNTER → 2019-11-24 15:14 | Outpatient (CLI) | payer OTHER, MEDICAID, SELFPAY ==
[2019-02-05 01:00] VITALS: BMI 25.7
[2019-11-24 15:36] LABS: Bacteria Urine None Seen; RBC Urine None Seen (0-5/HPF)
[2019-11-24 16:59] LABS: Appearance Urine UA CLEAR; Bilirubin Urine UA NEGATIVE (NEGATIVE); Color Urine UA YELLOW; Glucose Urine UA NEGATIVE (Negative); Ketones Urine UA NEGATIVE (NEGATIVE); Leukocyte Esterase Urine UA 1+ (NEGATIVE); Nitrite Urine UA NEGATIVE (Negative); Occult Blood Urine UA NEGATIVE (Negative); Protein Urine UA NEGATIVE (Negative); Specific Gravity Urine UA <=1.005 (1.000-1.035); Urobilinogen Urine UA 0.2 E.U./dL (0.2)
[2019-11-24 17:47] LABS: Culture Indicated Urine Specimen Cultured; WBC Urine 1-5/HPF (0-5/HPF)
== END ==
PROVIDERS: PCP Internal Medicine; Referring Provider Internal Medicine; Visit Provider Internal Medicine
DX: R10.9 Unspecified abdominal pain (principal)
CPT/HCPCS: 81001; 87077; 87086; 87186

== ENCOUNTER → 2020-02-20 15:31 | Outpatient (CLI) | payer OTHER, MEDICAID, SELFPAY ==
[2019-02-05 01:00] VITALS: BMI 25.7
[2020-02-20 15:59] LABS: Appearance Urine UA CLEAR; Bilirubin Urine UA NEGATIVE (NEGATIVE); Color Urine UA YELLOW; Glucose Urine UA NEGATIVE (Negative); Ketones Urine UA NEGATIVE (NEGATIVE); Leukocyte Esterase Urine UA 2+ (NEGATIVE); Nitrite Urine UA POSITIVE (Negative); Occult Blood Urine UA 3+ (Negative); Protein Urine UA NEGATIVE (Negative); Specific Gravity Urine UA <=1.005 (1.000-1.035); Urobilinogen Urine UA 0.2 E.U./dL (0.2)
[2020-02-20 16:08] LABS: Bacteria Urine Few (2-10); RBC Urine 1-5/HPF (0-5/HPF); Squamous Epithelial Cell Urine 1-5 /HPF (0-5/HPF); WBC Urine 1-5/HPF (0-5/HPF)
== END ==
PROVIDERS: PCP Internal Medicine; Referring Provider Internal Medicine; Visit Provider Internal Medicine
DX: G89.4 Chronic pain syndrome (principal); D64.9 Anemia, unspecified; Z13.220 Encounter for screening for lipoid disorders; E55.9 Vitamin D deficiency, unspecified
CPT/HCPCS: 81001; 87077; 87086; 87186

== ENCOUNTER → 2020-02-27 12:04 | Outpatient (ROUT) | payer OTHER, MEDICAID, SELFPAY ==
[2019-02-05 01:00] VITALS: BMI 25.7
[2020-02-27 12:15] LABS: Add Manual Diff / Slide Review NO; Basophils Absolute Auto 0 /uL (0-100); Basophils Percent Auto 0.5 % (0-2); Eosinophils Absolute Auto 100 /uL (0-450); Eosinophils Percent Auto 1.6 % (2-4); Hematocrit 37.3 % (41-53); Hemoglobin 12.6 g/dL (13.5-17.5); Lymphocytes Absolute Auto 1100 /uL (1100-4500); Lymphocytes Percent Auto 22.6 % (25-40); Mean Corpuscular HGB Conc 33.7 % (30-36); Mean Corpuscular Hemoglobin 28.4 PG (26-34); Mean Corpuscular Volume 84.1 fL (80-100); Monocytes Absolute Auto 300 /uL (0-900); Monocytes Percent Auto 6.5 % (3-14); Neutrophils Absolute Auto 3400 /uL (1500-7000); Neutrophils Percent Auto 68.8 % (50-75); Platelet Count 105 X10^3/uL (150-400); Red Blood Cell Count 4.44 X10^6/uL (4.5-5.9)
[2020-02-27 12:22] LABS: BUN Creatinine Ratio 15.8 (6-22); Blood Urea Nitrogen 6 mg/dL (9-20); Calcium 8.6 mg/dL (8.4-10.2); Carbon Dioxide 33 mmol/L (22-32); Chloride 99 mmol/L (98-107); Cholesterol 123 mg/dL (140-199); Estimated Glomerular Filt Rate > 60.0 mL/min (>60); Glucose 91 mg/dL (70-100); HDL Cholesterol 41 mg/dL (40-60); HEMOLYSIS < 15 (0-50); LDL Cholesterol Calculated 72 mg/dL (<100); Potassium 3.8 mmol/L (3.4-5.1); Sodium 137 mmol/L (137-145); Triglycerides 49 mg/dL (35-150)
[2020-02-27 12:38] LABS: Vitamin D 25 Hydroxy (D3) 62.2 ng/mL (30.0-100.0)
== END ==
PROVIDERS: PCP Internal Medicine; Visit Provider Internal Medicine
DX: E43 Unspecified severe protein-calorie malnutrition (principal); Z79.82 Long term (current) use of aspirin; G82.54 Quadriplegia, C5-C7 incomplete; E55.9 Vitamin D deficiency, unspecified
CPT/HCPCS: 80048; 80061; 82306; 85025

== ENCOUNTER 2020-04-03 10:52 | Emergency (ER) | payer OTHER, MEDICAID, SELFPAY ==
[2019-02-05 01:00] VITALS: BMI 25.7
[2020-04-03] VITALS (11 sets, daily range): BP systolic 81–115; BP diastolic 57–72; PULSE 52–74; RESP 16; TEMP 36.8; O2SAT 95–98
--- NOTE | 2020-04-03 11:22 | ED.ABDPAIN ---
HPI - Abdominal Pain General Chief Complaint: Abdominal Pain Stated Complaint: Abdominal pain Time Seen by Provider: 04/03/20 11:11 Source: patient and EMS Mode of arrival: EMS Limitations: no limitations History of Present Illness HPI narrative: Patient is a 44-year-old male who his C5 through 7 partial quadriplegic who presents with chronic ongoing abdominal pain. He has had increasing abdominal pain since September. He has a colostomy, he states that he use to have bowel movements every other day but now he has continuous flow. He says every time he eats it immediately goes through him and he has more output. He has lost 30-40 lb since September. He denies any nausea or vomiting. His PCP tried him on a course of Flagyl to see if it has helped he has previously had C diff it has not helped. He has pain that shoots between his left lower ribs down to his rectum. He has no chest pain or shortness of breath he has not had any fever. He continues to drink fluids and stay hydrated. MD complaint: abdominal pain Onset (ago): month(s) Related Data Home Medications Medication Instructions Recorded Confirmed oxycodone See Rx Instructions .ROUTE 07/05/17 02/05/19 .COMPLEX #0 aspirin [Aspirin Low Dose] 1 tab PO DAILY 02/27/18 02/05/19 ascorbic acid (vitamin C) [Vitamin 1,000 mg PO BEDTIME 06/10/18 02/05/19 C] baclofen 25 mg PO QNOON 06/10/18 02/05/19 baclofen 30 mg PO BID 06/10/18 02/05/19 cholecalciferol (vitamin D3) 1,000 unit PO TID 06/10/18 02/05/19 [Vitamin D3] gabapentin 300 mg PO TID 06/10/18 02/05/19 oxybutynin chloride 5 mg PO BID 06/10/18 02/05/19 pantoprazole 40 mg PO DAILY 06/10/18 02/05/19 sertraline 100 mg PO DAILY 06/10/18 02/04/19 sodium chloride 100 - 200 ml IRRIGATION 5XW 06/10/18 02/04/19 diazepam 5 mg PO BEDTIME PRN 01/01/19 02/05/19 Previous Rx's Medication Instructions Recorded methadone 5 mg PO 0600,2030 #60 tab 11/19/17 ketorolac 10 mg PO TID PRN #10 tab 03/07/19 Allergies Allergy/AdvReac Type Severity Reaction Status Date / Time ondansetron [ONDANSETRON] AdvReac Intermediate PAIN, Verified 04/29/19 19:48 ITCHING, ERYTHEMA AT INJECTION SITE Review of Systems Review of Systems Narrative: GENERAL: Denies chills, fatigue, malaise, fever, sweats, travel HEENT: Denies sinus pain, ear pain, sore throat, difficulty swallowing, neck pain RESPIRATORY: Denies dyspnea, cough, wheezing, hemoptysis, sputum. CARDIOVASCULAR: Denies chest pain, palpitations, orthopnea, edema GASTROINTESTINAL: See HPI : Denies dysuria, frequency, incontinence, hematuria, urinary retention, flank pain. MUSCULOSKELETAL: Denies weakness, joint pain, or bony pain SKIN: No rash, no erythema, no pruritus NEUROLOGIC: Denies weakness, dizziness, headache, numbness, change in speech, confusion PSYCHIATRIC: No concerning psychosocial issues. 12 point review of systems is negative except for those stated above and HPI Patient History Medical History Autonomic dysreflexia (Acute) C. difficile colitis (Acute) Chronic pain syndrome (Acute) History of trauma to spine (Acute) Incomplete quadriplegia due to spinal cord lesion between fifth and seventh cervical vertebra (10/22/15) Mixed anxiety depressive disorder (06/29/15) Obstipation (Acute) Uncomplicated opioid dependence (Acute) Surgical History History of colonoscopy (Acute) History of creation of ostomy (Acute) Social History household members: family Smoking Status: Current every day smoker alcohol intake: never Smoking Status: Current every day smoker alcohol intake frequency: 0-2 drinks per day Substance Use Type: marijuana Exam Initial Vital Signs Initial Vital Signs: Vital Signs Temperature 98.3 F 04/03/20 11:08 Pulse Rate 74 04/03/20 11:08 Respiratory Rate 16 04/03/20 11:08 Blood Pressure 101/65 04/03/20 11:08 Pulse Oximetry 97 04/03/20 11:08 GENERAL: Well-appearing, well-nourished and in no acute distress. HEENT: Head atraumatic,EOMI, pupils reactive, face symmetric, moist mucous membranes CARDIOVASCULAR: Regular rate and rhythm without murmurs, rubs or gallops. RESPIRATORY: Breath sounds equal bilaterally, no wheezes rales or rhonchi. ABDOMEN: Soft, ostomy output noted : Rodas catheter in place EXTREMITIES: Normal range of motion, no clubbing or edema. Neurovascularly intact NEUROLOGICAL: Alert and oriented x4.Normal gait and speech. SKIN: Warm, dry, no laceration, no petechiae, no rashes or lesions. Course Orders Ordered: ED Orders 04/03/20 11:28 Complete Blood Count AUTO DIFF Stat Comprehensive Metabolic Panel Stat Lipase Stat Partial Thromboplastin Time Stat Prothrombin Time INR Stat 04/03/20 11:30 CT abdomen pelvis w con Stat 04/03/20 12:30 GI Panel (Film Array) Stat Discontinued Medications Sodium Chloride (Normal Saline 0.9%) 1,000 mls @ 1,000 mls/hr IV BOLUS ONE Stop: 04/03/20 14:35 Last Infusion: 04/03/20 13:49 Dose: 0 mls/hr Documented by: Admin: 04/03/20 13:45 Dose: 1,000 mls/hr Documented by: MAURICIO Lorazepam (Ativan) 0.5 mg IV NOW ONE Stop: 04/03/20 13:37 Last Admin: 04/03/20 13:45 Dose: 0.5 mg Documented by: MAURICIO Vital Signs Vital signs: Vital Signs - 8 hr 04/03/20 11:08 04/03/20 11:49 04/03/20 11:50 Temperature 98.3 F Pulse Rate 74 65 63 Respiratory Rate 16 Blood Pressure 101/65 87/59 L 89/63 L Pulse Oximetry 97 96 96 04/03/20 12:00 04/03/20 12:30 04/03/20 13:00 Temperature Pulse Rate 61 60 52 L Respiratory Rate Blood Pressure 81/57 L Pulse Oximetry 95 98 97 04/03/20 13:09 04/03/20 13:30 04/03/20 13:31 Temperature Pulse Rate 55 L 58 L 58 L Respiratory Rate Blood Pressure 115/72 108/60 Pulse Oximetry 97 97 97 04/03/20 14:00 04/03/20 14:30 Temperature Pulse Rate 56 L 55 L Respiratory Rate Blood Pressure 101/59 L 102/64 Pulse Oximetry 95 96 MDM - Abdominal Pain Lab Data Attestation: I reviewed the patient's lab results. Result diagrams: 04/03/20 11:28 04/03/20 11:28 Labs: Lab Results 04/03/20 04/03/20 04/03/20 Range/Units 11:28 11:28 11:28 WBC 4.8 (4.5-11.0) X10^3/uL RBC 4.37 L (4.5-5.9) X10^6/uL Hgb 12.3 L (13.5-17.5) g/dL Hct 37.2 L (41-53) % MCV 85.1 (80-100) fL MCH 28.3 (26-34) PG MCHC 33.2 (30-36) % RDW 14.3 (11.6-14.8) % Plt Count 108 L (150-400) X10^3/uL Neut % (Auto) 66.5 (50-75) % Lymph % (Auto) 22.3 L (25-40) % [place] % (Auto) 8.5 (3-14) % Eos % (Auto) 2.2 (2-4) % Baso % (Auto) 0.5 (0-2) % Neut # (Auto) 3200 (2565-8240) /uL Lymph # (Auto) 1100 (7859-7786) /uL [place] # (Auto) 400 (0-900) /uL Eos # (Auto) 100 (0-450) /uL Baso # (Auto) 0 (0-100) /uL PT 13.5 H (10.1-12.7) SECONDS INR 1.2 (0.9-1.3) APTT 36 (26.4-36.2) SECONDS Sodium 137 (137-145) mmol/L Potassium 3.7 (3.4-5.1) mmol/L Chloride 98 (98-107) mmol/L Carbon Dioxide 34 H (22-32) mmol/L BUN 4 L (9-20) mg/dL Creatinine 0.34 L (0.66-1.25) mg/dL Estimated GFR > 60.0 (>60) mL/min BUN/Creatinine Ratio 11.8 (6-22) Glucose 125 H (70-100) mg/dL Calcium 8.6 (8.4-10.2) mg/dL Total Bilirubin 0.5 (0.2-1.3) mg/dL AST 17 (17-59) IU/L ALT 11 (<50) IU/L Alkaline Phosphatase 53 (38-126) U/L Total Protein 6.8 (6.3-8.2) g/dL Albumin 3.7 (3.5-5.0) g/dL Globulin 3.1 (1.7-4.1) g/dL Albumin/Globulin Ratio 1.2 (1.0-2.8) Lipase 25 (23-300) U/L Stl C. cayetanensis PCR (Not Detect) Stool Rotavirus (PCR) (Not Detect) Stool Adenovirus (PCR) (Not Detect) Stool Astrovirus (PCR) (Not Detect) Stool Cryptosporidium PCR (Not Detect) Stl E.coli Shiga Tox PCR (Not Detect) St Sh/Enteroin Ecoli PCR (Not Detect) Stool E coli O157 PCR Stl Enterotoxigenic E PCR (Not Detect) Stool EPEC (PCR) (Not Detect) Stl E. histolytica PCR (Not Detect) Stool Giardia Lamblia PCR (Not Detect) Stool Sapovirus (PCR) (Not Detect) Stl P. shigelloides PCR (Not Detect) St Y.enterocolitica PCR (Not Detect) Stool Vibrio (PCR) (Not Detect) Stl Vibrio cholerae PCR (Not Detect) Stl Enteroaggr Ecoli PCR (Not Detect) Stl Norovirus GI/GII PCR (Not Detect) Campylobacter (PCR) (Not Detect) C. difficile Tox (PCR) (Not Detect) Salmonella (PCR) (Not Detect) 04/03/20 Range/Units 12:30 WBC (4.5-11.0) X10^3/uL RBC (4.5-5.9) X10^6/uL Hgb (13.5-17.5) g/dL Hct (41-53) % MCV (80-100) fL MCH (26-34) PG MCHC (30-36) % RDW (11.6-14.8) % Plt Count (150-400) X10^3/uL Neut % (Auto) (50-75) % Lymph % (Auto) (25-40) % [place] % (Auto) (3-14) % Eos % (Auto) (2-4) % Baso % (Auto) (0-2) % Neut # (Auto) (9048-9318) /uL Lymph # (Auto) (1933-0812) /uL [place] # (Auto) (0-900) /uL Eos # (Auto) (0-450) /uL Baso # (Auto) (0-100) /uL PT (10.1-12.7) SECONDS INR (0.9-1.3) APTT (26.4-36.2) SECONDS Sodium (137-145) mmol/L Potassium (3.4-5.1) mmol/L Chloride (98-107) mmol/L Carbon Dioxide (22-32) mmol/L BUN (9-20) mg/dL Creatinine (0.66-1.25) mg/dL Estimated GFR (>60) mL/min BUN/Creatinine Ratio (6-22) Glucose (70-100) mg/dL Calcium (8.4-10.2) mg/dL Total Bilirubin (0.2-1.3) mg/dL AST (17-59) IU/L ALT (<50) IU/L Alkaline Phosphatase (38-126) U/L Total Protein (6.3-8.2) g/dL Albumin (3.5-5.0) g/dL Globulin (1.7-4.1) g/dL Albumin/Globulin Ratio (1.0-2.8) Lipase (23-300) U/L Stl C. cayetanensis PCR Not detected (Not Detect) Stool Rotavirus (PCR) Not detected (Not Detect) Stool Adenovirus (PCR) Not detected (Not Detect) Stool Astrovirus (PCR) Not detected (Not Detect) Stool Cryptosporidium PCR Not detected (Not Detect) Stl E.coli Shiga Tox PCR Not detected (Not Detect) St Sh/Enteroin Ecoli PCR Not detected (Not Detect) Stool E coli O157 PCR Not Reportable Stl Enterotoxigenic E PCR Not detected (Not Detect) Stool EPEC (PCR) Not detected (Not Detect) Stl E. histolytica PCR Not detected (Not Detect) Stool Giardia Lamblia PCR Not detected (Not Detect) Stool Sapovirus (PCR) Not detected (Not Detect) Stl P. shigelloides PCR Not detected (Not Detect) St Y.enterocolitica PCR Not detected (Not Detect) Stool Vibrio (PCR) Not detected (Not Detect) Stl Vibrio cholerae PCR Not detected (Not Detect) Stl Enteroaggr Ecoli PCR Not detected (Not Detect) Stl Norovirus GI/GII PCR Not detected (Not Detect) Campylobacter (PCR) Not detected (Not Detect) C. difficile Tox (PCR) Not detected (Not Detect) Salmonella (PCR) Not detected (Not Detect) Imaging Data CT scan - abdomen/pelvis: Radiologist's Impression: PROCEDURE: CT ABDOMEN PELVIS W CON INDICATIONS: llq pain to rectum with ostomy TECHNIQUE: After the administration of intravenous contrast, 5 mm thick sections acquired from the diaphragm to the symphysis. 5 mm coronal and sagittal reformats were acquired. For radiation dose reduction, the following was used: automated exposure control, adjustment of mA and/or kV according to patient size. COMPARISON: [facility], CT, CT ABDOMEN PELVIS W CON, 03/07/2019, 9:46. [facility], CT, CT ABDOMEN PELVIS W CON, 01/09/2018, 15:26. [facility], CT, CT ABDOMEN PELVIS W CON, 02/23/2018, 11:07. [facility], CT, CT ABDOMEN PELVIS W CON, 03/07/2018, 17:42. [facility], CT, CT ABDOMEN PELVIS W CON, 02/04/2019, 20:51. FINDINGS: Image quality: Excellent. ABDOMEN: Lung bases: Lung bases are clear. Heart size is normal. Solid organs: Liver is normal in size and enhancement. Gallbladder wall is not thickened. Biliary system is non dilated. Pancreas enhances normally. Spleen is normal in size and enhancement. No adrenal nodules. Kidneys demonstrate normal size and enhancement, without hydronephrosis. Peritoneum and bowel: A left lower quadrant colostomy is seen. A gnyk-py-laodxkbb amount of stool is seen within the colon. No significant rectal abnormality is seen. No significant perianal abnormality is seen. Nodes and vessels: No retroperitoneal or mesenteric adenopathy by size criteria. Aorta and inferior vena cava are normal in size. Miscellaneous: No ventral hernias. PELVIS: Genitourinary: A suprapubic catheter is seen. Moderate circumferential bladder wall thickening is seen, as before. Miscellaneous: No inguinal hernias or adenopathy. Bones: No suspicious bony lesions. Numerous stable spinal compression deformities are seen. IMPRESSION: Left lower quadrant ostomy seen, without markus complication. There is a elnj-jo-miudewrg amount of stool seen within the colon. Please consider constipation. No significant rectal abnormality or perianal abnormality is seen. Incidental note is made of: Suprapubic catheter, with stable circumferential bladder wall thickening Numerous stable compression deformities Dictated by: Froilan Naylor M.D. on 04/03/2020 at 11:44 MDM Narrative Medical decision making narrative: The patient blood work is overall reassuring GI panel is negative CT does not show any and abnormality. He has had ongoing symptoms for the last 7 months. At this time recommend outpatient follow-up. Discharge Plan Departure Patient Disposition: Home Clinical Impression: Diarrhea Qualifiers: Diarrhea type: unspecified type Qualified Code(s): R19.7 - Diarrhea, unspecified Discharge Date/Time: 04/03/20 15:07 Instructions: Diarrhea Activity Restrictions/Additional Instructions: *You have been diagnosed with diarrhea *What to do: At this time blood work in CT are reassuring. You have no infection in your stool. This may be possible to malabsorption. Recommend GI consultation. Consider diet changes to see if it helps. *Continue to take medications as directed *Follow up with your primary care provider in 2-3 days *Return to ER if you should have weakness, vomiting, fever, or any new, worsening or concerning symptoms Prescriptions: No Action oxycodone 10 MG tablet See Rx Instructions .ROUTE .COMPLEX Qty: 0 RF: 0 methadone 5 mg Tablet 5 mg PO 599,2029 Qty: 60 RF: 0 ketorolac 10 mg tablet 10 mg PO TID PRN (Reason: pain) Qty: 10 RF: 0 aspirin [Aspirin Low Dose] 81 mg Tablet,Delayed Release (Dr/Ec) 1 tab PO DAILY RF: 0 sertraline 100 mg tablet 100 mg PO DAILY RF: 0 sodium chloride 0.9 % solution 100 - 200 ml Irrigation 5XW RF: 0 baclofen 10 mg tablet 25 mg PO QNOON RF: 0 pantoprazole 40 mg tablet,delayed release (DR/EC) 40 mg PO DAILY RF: 0 oxybutynin chloride 5 mg tablet extended release 24hr 5 mg PO BID RF: 0 baclofen 10 mg tablet 30 mg PO BID RF: 0 cholecalciferol (vitamin D3) [Vitamin D3] 1,000 unit Tablet 1,000 unit PO TID RF: 0 ascorbic acid (vitamin C) [Vitamin C] 500 mg Tablet 1,000 mg PO BEDTIME RF: 0 gabapentin 300 mg capsule 300 mg PO TID RF: 0 diazepam 5 mg tablet 5 mg PO BEDTIME PRN (Reason: Spasms) RF: 0 Referrals: Becca Bolaños MD [Primary Care Provider] -
--- NOTE | 2020-04-03 11:30 | DI.CT.S_ITS ---
PROCEDURE: CT ABDOMEN PELVIS W CON INDICATIONS: llq pain to rectum with ostomy TECHNIQUE: After the administration of intravenous contrast, 5 mm thick sections acquired from the diaphragm to the symphysis. 5 mm coronal and sagittal reformats were acquired. For radiation dose reduction, the following was used: automated exposure control, adjustment of mA and/or kV according to patient size. COMPARISON: [facility], CT, CT ABDOMEN PELVIS W CON, 03/07/2019, 9:46. [facility], CT, CT ABDOMEN PELVIS W CON, 01/09/2018, 15:26. [facility], CT, CT ABDOMEN PELVIS W CON, 02/23/2018, 11:07. [facility], CT, CT ABDOMEN PELVIS W CON, 03/07/2018, 17:42. [facility], CT, CT ABDOMEN PELVIS W CON, 02/04/2019, 20:51. FINDINGS: Image quality: Excellent. ABDOMEN: Lung bases: Lung bases are clear. Heart size is normal. Solid organs: Liver is normal in size and enhancement. Gallbladder wall is not thickened. Biliary system is non dilated. Pancreas enhances normally. Spleen is normal in size and enhancement. No adrenal nodules. Kidneys demonstrate normal size and enhancement, without hydronephrosis. Peritoneum and bowel: A left lower quadrant colostomy is seen. A xvit-nt-evktemge amount of stool is seen within the colon. No significant rectal abnormality is seen. No significant perianal abnormality is seen. Nodes and vessels: No retroperitoneal or mesenteric adenopathy by size criteria. Aorta and inferior vena cava are normal in size. Miscellaneous: No ventral hernias. PELVIS: Genitourinary: A suprapubic catheter is seen. Moderate circumferential bladder wall thickening is seen, as before. Miscellaneous: No inguinal hernias or adenopathy. Bones: No suspicious bony lesions. Numerous stable spinal compression deformities are seen. IMPRESSION: Left lower quadrant ostomy seen, without markus complication. There is a vmam-ge-ogvaxhav amount of stool seen within the colon. Please consider constipation. No significant rectal abnormality or perianal abnormality is seen. Incidental note is made of: Suprapubic catheter, with stable circumferential bladder wall thickening Numerous stable compression deformities Dictated by: Froilan Naylor M.D. on 04/03/2020 at 11:44 Approved by: Froilan Naylor M.D. on 04/03/2020 at 11:48
[2020-04-03 11:53] LABS: INR 1.2 (0.9-1.3); Prothrombin Time 13.5 SECONDS (10.1-12.7)
[2020-04-03 11:55] LABS: Add Manual Diff / Slide Review NO; Basophils Absolute Auto 0 /uL (0-100); Basophils Percent Auto 0.5 % (0-2); Eosinophils Absolute Auto 100 /uL (0-450); Eosinophils Percent Auto 2.2 % (2-4); Hematocrit 37.2 % (41-53); Hemoglobin 12.3 g/dL (13.5-17.5); Lymphocytes Absolute Auto 1100 /uL (1100-4500); Lymphocytes Percent Auto 22.3 % (25-40); Mean Corpuscular HGB Conc 33.2 % (30-36); Mean Corpuscular Hemoglobin 28.3 PG (26-34); Mean Corpuscular Volume 85.1 fL (80-100); Monocytes Absolute Auto 400 /uL (0-900); Monocytes Percent Auto 8.5 % (3-14); Neutrophils Absolute Auto 3200 /uL (1500-7000); Neutrophils Percent Auto 66.5 % (50-75); Platelet Count 108 X10^3/uL (150-400); Red Blood Cell Count 4.37 X10^6/uL (4.5-5.9); Red Cell Distribution Width 14.3 % (11.6-14.8); White Blood Cell Count 4.8 X10^3/uL (4.5-11.0)
[2020-04-03 11:56] LABS: PTT Partial Thromboplastin Tim 36 SECONDS (26.4-36.2)
[2020-04-03 11:59] LABS: Alanine Aminotransferase 11 IU/L (<50); Albumin 3.7 g/dL (3.5-5.0); Albumin Globulin Ratio 1.2 (1.0-2.8); Alkaline Phosphatase 53 U/L (38-126); Aspartate Aminotransferase 17 IU/L (17-59); BUN Creatinine Ratio 11.8 (6-22); Bilirubin Total 0.5 mg/dL (0.2-1.3); Blood Urea Nitrogen 4 mg/dL (9-20); Calcium 8.6 mg/dL (8.4-10.2); Carbon Dioxide 34 mmol/L (22-32); Chloride 98 mmol/L (98-107); Estimated Glomerular Filt Rate > 60.0 mL/min (>60); Globulin 3.1 g/dL (1.7-4.1); Glucose 125 mg/dL (70-100); HEMOLYSIS < 15 (0-50); Lipase 25 U/L (23-300); Potassium 3.7 mmol/L (3.4-5.1); Sodium 137 mmol/L (137-145); Total Protein 6.8 g/dL (6.3-8.2)
[2020-04-03] MEDS: SODIUM CHLORIDE 0.9% 1,000 ML 1000 ML IV (13:45)
[2020-04-03] MEDS: LORazepam 2 MG/ML INJ 0.5 MG IV (13:45)
--- NOTE | 2020-04-03 13:48 | PC.NURSE ---
Pt reports dizziness and vision changes during orthostatic vs. provider notified, bolus ordered.
[2020-04-03 14:06] LABS: Adenovirus F 40/41 Not Detected (Not Detect); Astrovirus Not Detected (Not Detect); Campylobacter Not Detected (Not Detect); Clostridium difficile toxin AB Not Detected (Not Detect); Cryptosporidium Not Detected (Not Detect); Cyclospora cayetanensis Not Detected (Not Detect); Entamoeba histolytica Not Detected (Not Detect); Enteroaggregative E.coli Not Detected (Not Detect); Enteropathogenic E.coli Not Detected (Not Detect); Enterotoxigenic E.coli It/st Not Detected (Not Detect); Giardia lamblia Not Detected (Not Detect); Norovirus GI/GII Not Detected (Not Detect); Plesiomonsa shigelloides Not Detected (Not Detect); Rotavirus A Not Detected (Not Detect); Salmonella Not Detected (Not Detect); Sapovirus Not Detected (Not Detect); Shiga-like toxin-prod E.coli Not Detected (Not Detect); Shigella/Enteroinvasive E.coli Not Detected (Not Detect); Vibrio Not Detected (Not Detect); Vibrio cholerae Not Detected (Not Detect); Yersinia enterocolitica Not Detected (Not Detect)
== END 2020-04-03 15:07 | disposition home or self-care (01) ==
PROVIDERS: Emergency Provider Emergency Medicine; PCP Internal Medicine
DX: R19.7 Diarrhea, unspecified (principal); R10.9 Unspecified abdominal pain; G82.50 Quadriplegia, unspecified
CPT/HCPCS: 36415; 74177; 80053; 83690; 85025; 85610; 85730; 87507; 96374; 99284; J2060; Q9967

== ENCOUNTER → 2020-04-15 11:52 | Outpatient (ROUT) | payer OTHER, MEDICAID, SELFPAY ==
[2019-02-05 01:00] VITALS: BMI 25.7
[2020-04-15 12:19] LABS: HEMOLYSIS < 15 (0-50); Iron 36 ug/dL (49-181)
[2020-04-15 12:30] LABS: Percent Iron Saturation 13 % (20-50); Total Iron Binding Capacity 275 ug/dL (261-462); Transferrin 198 mg/dL (206-381)
[2020-04-15 12:57] LABS: Ferritin 74 ng/mL (18-464)
[2020-04-15 13:27] LABS: Folate > 20.0 ng/mL (2.76-20.0); Vitamin B12 812 pg/mL (239-931)
[2020-04-20 12:01] LABS: Testosterone % Fr + Wkly bound 10.1 % (9.0-46.0); Testosterone Fr+Wkly bound 51.3 ng/dL (40.0-250.0); Testosterone, Total 507.9 ng/dL (264.0-916.0)
== END ==
PROVIDERS: PCP Internal Medicine; Visit Provider Internal Medicine
DX: G82.54 Quadriplegia, C5-C7 incomplete (principal); N41.1 Chronic prostatitis; E43 Unspecified severe protein-calorie malnutrition; K51.90 Ulcerative colitis, unspecified, without complications
CPT/HCPCS: 82607; 82728; 82746; 83540; 83550; 84403

== ENCOUNTER → 2020-07-08 11:44 | Outpatient (ROUT) | payer OTHER, MEDICAID, SELFPAY ==
[2019-02-05 01:00] VITALS: BMI 25.7
[2020-07-08 11:59] LABS: Appearance Urine UA SL CLOUDY; Bilirubin Urine UA NEGATIVE (NEGATIVE); Color Urine UA YELLOW; Glucose Urine UA NEGATIVE (Negative); Ketones Urine UA NEGATIVE (NEGATIVE); Leukocyte Esterase Urine UA 3+ (NEGATIVE); Nitrite Urine UA NEGATIVE (Negative); Occult Blood Urine UA 3+ (Negative); Protein Urine UA NEGATIVE (Negative); Specific Gravity Urine UA <=1.005 (1.000-1.035); Urobilinogen Urine UA 0.2 E.U./dL (0.2); pH Urine UA 6.5 (4.5-8.0)
[2020-07-08 12:27] LABS: Amorphous Sediment Urine 1+; Bacteria Urine Many (>30); Culture Indicated Urine Specimen Cultured; RBC Urine 1-5/HPF (0-5/HPF); Squamous Epithelial Cell Urine 1-5 /HPF (0-5/HPF); WBC Urine 5-10/HPF (0-5/HPF)
== END ==
PROVIDERS: PCP Internal Medicine; Visit Provider Internal Medicine
DX: N39.0 Urinary tract infection, site not specified (principal)
CPT/HCPCS: 81001; 87077; 87086; 87186

== ENCOUNTER → 2020-08-16 14:31 | Outpatient (CLI) | payer OTHER, MEDICAID, SELFPAY ==
[2019-02-05 01:00] VITALS: BMI 25.7
[2020-08-16] MEDS: COVID-19 VACC, Ad26(JANSSEN)/PF 0.5 ML IM (14:42)
== END ==
PROVIDERS: PCP Internal Medicine; Visit Provider Internal Medicine
DX: Z23 Encounter for immunization (principal)
CPT/HCPCS: 0031A; 91303

== ENCOUNTER → 2020-11-25 10:55 | Outpatient (ROUT) | payer OTHER, MEDICAID, SELFPAY ==
[2019-02-05 01:00] VITALS: BMI 25.7
[2020-11-25 11:21] LABS: Add Manual Diff / Slide Review NO; Basophils Absolute Auto 0 /uL (0-100); Basophils Percent Auto 0.4 % (0-2); Eosinophils Absolute Auto 200 /uL (0-450); Hematocrit 38.7 % (41-53); Hemoglobin 12.9 g/dL (13.5-17.5); Lymphocytes Absolute Auto 1200 /uL (1100-4500); Lymphocytes Percent Auto 25.4 % (25-40); Mean Corpuscular HGB Conc 33.3 % (30-36); Mean Corpuscular Hemoglobin 28.5 PG (26-34); Mean Corpuscular Volume 85.4 fL (80-100); Monocytes Absolute Auto 300 /uL (0-900); Neutrophils Absolute Auto 2900 /uL (1500-7000); Neutrophils Percent Auto 63.2 % (50-75); Platelet Count 100 X10^3/uL (150-400); Red Blood Cell Count 4.53 X10^6/uL (4.5-5.9); Red Cell Distribution Width 14.1 % (11.6-14.8); White Blood Cell Count 4.6 X10^3/uL (4.5-11.0)
[2020-11-25 11:28] LABS: Alanine Aminotransferase 11 IU/L (<50); Albumin 3.5 g/dL (3.5-5.0); Albumin Globulin Ratio 1.1 (1.0-2.8); Alkaline Phosphatase 54 U/L (38-126); Aspartate Aminotransferase 18 IU/L (17-59); Bilirubin Total 0.4 mg/dL (0.2-1.3); Blood Urea Nitrogen 6 mg/dL (9-20); Calcium 8.8 mg/dL (8.4-10.2); Carbon Dioxide 32 mmol/L (22-32); Chloride 99 mmol/L (98-107); Cholesterol 119 mg/dL (140-199); Estimated Glomerular Filt Rate > 60.0 mL/min (>60); Globulin 3.2 g/dL (1.7-4.1); Glucose 95 mg/dL (70-100); HDL Cholesterol 46 mg/dL (40-60); HEMOLYSIS < 15 (0-50); LDL Cholesterol Calculated 60 mg/dL (<100); Potassium 3.8 mmol/L (3.4-5.1); Sodium 136 mmol/L (137-145); Total Protein 6.7 g/dL (6.3-8.2); Triglycerides 67 mg/dL (35-150)
== END ==
PROVIDERS: PCP Internal Medicine; Visit Provider Internal Medicine
DX: Z13.220 Encounter for screening for lipoid disorders (principal); Z86.2 Personal history of diseases of the blood and blood-forming organs and certain disorders involving the immune mechanism; G89.4 Chronic pain syndrome
CPT/HCPCS: 80053; 80061; 85025

== ENCOUNTER → 2021-03-16 13:00 | Outpatient (ROUT) | payer OTHER, MEDICAID, SELFPAY ==
[2019-02-05 01:00] VITALS: BMI 25.7
[2021-03-16 13:29] LABS: Alanine Aminotransferase 11 IU/L (<50); Albumin 3.6 g/dL (3.5-5.0); Albumin Globulin Ratio 1.2 (1.0-2.8); Alkaline Phosphatase 52 U/L (38-126); Aspartate Aminotransferase 20 IU/L (17-59); BUN Creatinine Ratio 20.8 (6-22); Bilirubin Total 0.4 mg/dL (0.2-1.3); Blood Urea Nitrogen 5 mg/dL (9-20); Calcium 8.7 mg/dL (8.4-10.2); Carbon Dioxide 34 mmol/L (22-32); Chloride 98 mmol/L (98-107); Estimated Glomerular Filt Rate > 60.0 mL/min (>60); Globulin 2.9 g/dL (1.7-4.1); Glucose 87 mg/dL (70-100); HEMOLYSIS < 15 (0-50); Potassium 3.8 mmol/L (3.4-5.1); Sodium 135 mmol/L (137-145); Total Protein 6.5 g/dL (6.3-8.2)
[2021-03-16 14:00] LABS: Prostate Specific Antigen 1.22 ng/mL (0.10-4.00)
[2021-03-16 18:19] LABS: HIV 1 & 2 Ab/Ag 4th Gen Combo NEGATIVE (NEGATIVE); Hep C Virus Ab w/Reflex Quant NEGATIVE s/c (NEGATIVE)
== END ==
PROVIDERS: PCP Internal Medicine; Visit Provider Internal Medicine
DX: Z00.00 Encounter for general adult medical examination without abnormal findings (principal); Z11.4 Encounter for screening for human immunodeficiency virus [HIV]; N41.1 Chronic prostatitis
CPT/HCPCS: 80053; 84153; 86803; 87389